=== PATIENT | female | born 1965 | race Hispanic/Latino ===

== ENCOUNTER 2020-01-09 05:32 | Inpatient (IN) | payer OTHER ==
[~2020-01-09] VITALS: Ht 127 cm; Wt 101.6 kg
[2020-01-09] VITALS (15 sets, daily range): BP systolic 98–136; BP diastolic 72–84
[~2020-01-09 05:32] MED LIST: CEFDINIR300 MG PO; FLONASE16 GM; LEVOTHYROXINE50 MCG PO; LYRICA25 MG PO; METFORMIN HCL500 MG PO; NAPROXEN250 MG PO; OXYBUTYNIN CHLO10 MG PO
[2020-01-09] MEDS ORDERED: CEFTRIAXONE SOD 1 GM/NS 50 ML 50 ML IV ONE (05:45)
[2020-01-09] MEDS ORDERED: AZITHROMYCIN 500MG/NS 250 ML 250 ML IV ONE (05:45)
[2020-01-09] MEDS ORDERED: DEXAMETHASONE SOD PHOS 10 MG/1 ML VIAL IV ONE (05:45)
[2020-01-09] MEDS ORDERED: ACETAMINOPHEN 325 MG TAB PO ONE (05:45)
--- OUTSIDE RECORDS SUMMARY | 2020-01-09 06:02 | XMS REPORT | Continuity of Care Document ---
Author Author [facility] t Organization [facility] Address [address] [place] [address] Phone Unavailable Care Team Providers Care Outbound Sales Agent Name Role Phone RosalvaEd Evette Green PCP Unavailable KAMAR PACHECO Attphys Unavailable Problems This patient has no known problems. Allergies, Adverse Reactions, Alerts This patient has no known allergies or adverse reactions. Social History Social Habit Start Date Stop Date Quantity Comments Source Sex Assigned At [facility] Smoking Status Start Date Stop Date Source Never smoker [facility] Medications Ordered Medication Name Filled Medication Name Start Date Stop Da te Current Medication? Ordering Clinician Indication Dosage Frequency Signature (SIG) Comments Components Source acetaminophen-codeine (TYLENOL #3) 300-30 mg per tablet 2017-06-09 00:00:00 Yes 1{tbl} Take 1-2 tablet s by mouth every 6 (six) hours as needed for Pain for up to 10 doses. Max Daily Amount: 8 tablets [facility] ondansetron (ZOFRAN-ODT) 4 MG disintegrating tablet 06-09 00:00:00 Yes 4mg Take 1 tablet (4 mg total) by mouth every 8 (eight) hours as needed for up to 10 doses. [facility] traMADol (ULTRAM) 50 mg tablet 2017-06-09 00:00:00 Yes 50mg Take 1 tablet (50 mg total) by mouth every 6 (six) hours as needed for up to 10 doses. Max Daily Amount: 200 mg [facility] ondansetron (ZOFRAN-ODT) 4 MG disintegrating tablet 06-09 00:00:00 Yes 4mg Take 1 tablet (4 mg total) by mouth every 8 (eight) hours as needed for up to 10 doses. [facility] Procedures This patient has no known procedures. Results Test Description Test Time Test Comments Results Result Comments Source POCT-GLUCOSE METER 2017-06-09 03:04:00 Test Item POC-GLUCOSE METER (CATE) (test code = 1538) 187 mg/dL 70-110 H TESTED AT [facility] [address] [facility] [address] [address], [id number] 22:34:00Reason for exam:->Abdominal painWhat is the patient's sedation requirement?->No SedationIs the patient ?->NoFINAL REPORT CLINICAL HISTORY: Acute abdominal pain, bilateral flank pain FINDINGS: Multiple axial images of the abdomen and pelvis were performed after the uncomplicated administration of IV contrast. Oral contrast was not given. This exam was performed according to our departmental dose-optim ization program, which includes automated exposure control, adjustment of the mA and/or kV according to patient size and/or use of the iterative reconstruction technique. Comparison: 08/27/2012 Lower chest: Clear lungs. No pleural effusion o r pneumothorax. Visualized cardiac contours normal. Liver: No significant findin gs. Gallbladder and biliary tree: Previous cholecystectomy Spleen: No significan t findings. Adrenal Glands: No significant findings. Kidneys and ureters: Subtle focus of heterogeneous hypodense enhancement in the superior pole left kidney. Partially duplicated left renal collecting system. Involution/scarring of the in ferior pole moiety of the left kidney. Stomach and Duodenum: No significant find ings. Pancreas: No significant findings. Bowel: No significant findings. Appendi x: Normal. Bladder: No significant findings. Major vascular structures: No si gnificant findings. Reproductive organs: No significant findings. Other: No dary e air, fluid or adenopathy Skeleton: No acute bony abnormality. IMPRESSION: Subt le focus of heterogeneous hypodense enhancement in the superior pole left kidney could reflect the sequela of pyelonephritis in the appropriate clinical context. There is no organized fluid collection to suggest abscess. Please correlate with urinalysis. Dictated left renal collecting system with involution/atrophy of the inferior pole, possibly scarring. Previous cholecystectomy. Signed: Froylan Betancurort Verified Date/Time: 06/08/2017 22:34:38 Reading Location: [address] Body Reading Room TIC FUNCTION [id number] 21:59:00* Test Item Value Reference Range Interpretation Comments TOTAL PROTEIN (BEAKER) (test code = 770) 7.8 gm/dL 6.0-8.3 ALBUMIN (BEAKER) (test code = 1145) 3.7 g/dL 3.5-5.0 BILIRUBIN TOTAL (BEAKER) (test code = 377) 0.6 mg/dL 0.2-1.2 BILIRUBIN DIRECT (BEAKER) (test code = 706) 0.3 mg/dL 0.1-0.5 ALKALINE PHOSPHATASE (BEAKER) (test code = 346) 146 U/L 40-150 AST (SGOT) (BEAKER) (test code = 353) 60 U/L 5-34 H ALT (SGPT) (BEAKER) (test code = 347) 34 U/L 6-55 URINALYSIS W/ [id number] 21:53:00* Test Item Value Reference Range Interpretation Comments COLOR (BEAKER) (test code = 470) Yellow CLARITY (BEAKER) (test code = 469) Clear SPECIFIC GRAVITY UA (BEAKER) (test code = 468) > 1.001-1 .035 H PH UA (BEAKER) (test code = 467) 7.0 5.0-8.0 PROTEIN UA (BEAKER) (test code = 464) 30 mg/dL Negative A GLUCOSE UA (BEAKER) (test code = 365) 100 mg/dL Negative A KETONES UA (BEAKER) (test code = 371) Negative Negative BILIRUBIN UA (BEAKER) (test code = 462) Negative Negative BLOOD UA (BEAKER) (test code = 461) Negative Negative NITRITE UA (BEAKER) (test code = 465) Negative Negative LEUKOCYTE ESTERASE UA (BEAKER) (test code = 466) Negative Negat edward UROBILINOGEN UA (BEAKER) (test code = 463) 0.2 mg/dL 0.2-1.0 RBC UA (BEAKER) (test code = 519) 0 /HPF WBC UA (BEAKER) (test code = 520) < /HPF BACTERIA (BEAKER) (test code = 517) Occasional MUCUS (BEAKER) (test code = 1574) Moderate SQUAMOUS EPITHELIAL (BEAKER) (test code = 516) 7 /HPF SOURCE(BEAKER) (test code = 2795) Urine, Clean Catch [id number] 20:15:00* Test Item Value Reference Range Interpretation Comments PHOSPHORUS (BEAKER) (test code = 604) 3.1 mg/dL 2.3-4.7 [id number] 20:15:00* Test Item Value Reference Range Interpretation Comments MAGNESIUM (BEAKER) (test code = 627) 1.9 mg/dL 1.6-2.6 BASIC METABOLIC [id number] 20:15:00* Test Item Value Reference Range Interpretation Comments SODIUM (BEAKER) (test code = 381) 136 meq/L 136-145 POTASSIUM (BEAKER) (test code = 379) 4.4 meq/L 3.5-5.1 CHLORIDE (BEAKER) (test code = 382) 104 meq/L 98-107 CO2 (BEAKER) (test code = 355) 26 meq/L 22-29 BLOOD UREA NITROGEN (BEAKER) (test code = 354) 15 mg/dL 7-21 CREATININE (BEAKER) (test code = 358) 0.77 mg/dL 0.57-1.25 GLUCOSE RANDOM (BEAKER) (test code = 652) 232 mg/dL 70-105 H CALCIUM (BEAKER) (test code = 697) 9.9 mg/dL 8.4-10.2 EGFR (BEAKER) (test code = 1092) 79 mL/min/1.73 sq m ESTIMATED GFR IS NOT ACCURATE CREATININE CLEARANCE IN PREDICTING GLOMERULAR FILTRATION RATE. ESTIMATED GFR IS NOT APPLICABLE FOR DIALYSIS PATIENTS. CBC W/PLT COUNT & AUTO [id number] 20:00:00* Test Item Value Reference Range Interpretation Comments WHITE BLOOD CELL COUNT (BEAKER) (test code = 775) 8.7 K/ L 3.5- 10.5 RED BLOOD CELL COUNT (BEAKER) (test code = 761) 4.33 M/ L 3.93-5 .22 HEMOGLOBIN (BEAKER) (test code = 410) 12.7 GM/DL 11.2-15.7 HEMATOCRIT (BEAKER) (test code = 411) 38.6 % 34.1-44.9 MEAN CORPUSCULAR VOLUME (BEAKER) (test code = 753) 89.1 fL 79. 4-94.8 MEAN CORPUSCULAR HEMOGLOBIN (BEAKER) (test code = 751) 29.3 pg 25.6-32.2 MEAN CORPUSCULAR HEMOGLOBIN CONC (BEAKER) (test code = 752) 32.9 GM/DL 32.2-35.5 RED CELL DISTRIBUTION WIDTH (BEAKER) (test code = 412) 12.6 % 11.7-14.4 PLATELET COUNT (BEAKER) (test code = 756) 240 K/CU MM 150-450 MEAN PLATELET VOLUME (BEAKER) (test code = 754) 11.0 fL 9.4-12 .3 NUCLEATED RED BLOOD CELLS (BEAKER) (test code = 413) 0 /100 WBC 0 -0 NEUTROPHILS RELATIVE PERCENT (BEAKER) (test code = 429) 60 % LYMPHOCYTES RELATIVE PERCENT (BEAKER) (test code = 430) 32 % MONOCYTES RELATIVE PERCENT (BEAKER) (test code = 431) 6 % EOSINOPHILS RELATIVE PERCENT (BEAKER) (test code = 432) 2 % BASOPHILS RELATIVE PERCENT (BEAKER) (test code = 437) 1 % NEUTROPHILS ABSOLUTE COUNT (BEAKER) (test code = 670) 5.21 K/ L 1.56-6.13 LYMPHOCYTES ABSOLUTE COUNT (BEAKER) (test code = 414) 2.80 K/ L 1.18-3.74 MONOCYTES ABSOLUTE COUNT (BEAKER) (test code = 415) 0.51 K/ L 0. 24-0.36 H EOSINOPHILS ABSOLUTE COUNT (BEAKER) (test code = 416) 0.13 K/ L 0.04-0.36 BASOPHILS ABSOLUTE COUNT (BEAKER) (test code = 417) 0.04 K/ L 0. 01-0.08 IMMATURE GRANULOCYTES-RELATIVE PERCENT (BEAKER) (test code = 2801) 0 % 0-1
--- OUTSIDE RECORDS SUMMARY | 2020-01-09 06:02 | XMS REPORT | Clinical Summary ---
Author Author [facility] Address Unknown Phone Unavailable Care Team Providers Care Manager College Name Role Phone Norma Blackwell [facility] [employer] PCP Unavailable Allergies No Known Allergies Medications End Date Status Medication Sig Dispensed Refills Start Date Active acetaminophen-codeine Take 1-2 10 tablet 0 01/3 0/201 (TYLENOL #3) 300-30 mg tablets by 8 per tablet mouth every 6 (six) hours as needed for Pain for up to 10 doses. Max Daily Amount: 8 tablets Active ondansetron (ZOFRAN-ODT) Take 1 tablet 10 tablet 0 //201 4 MG disintegrating (4 mg total) 8 tablet by mouth every 8 (eight) hours as needed for up to 10 doses. Active traMADol (ULTRAM) 50 mg Take 1 tablet 10 tablet 0 //201 tablet (50 mg total) 8 by mouth every 6 (six) hours as needed for up to 10 doses. Max Daily Amount: 200 mg Active ondansetron (ZOFRAN-ODT) Take 1 tablet 10 tablet 0 /30/201 4 MG disintegrating (4 mg total) 8 tablet by mouth every 8 (eight) hours as needed for up to 10 doses. Active Problems Not on file Social History Date Tobacco Use Types Packs/Day Years Used Never Smoker Smokeless Tobacco: Never Used Alcohol Use Drinks/Week oz/Week Comments No Sex Assigned at Date Recorded Not on file Industry Job Start Date Occupation Not on file Not on file Not on file Travel End Travel History Travel Start No recent travel history available. Last Filed Vital Signs Not on file Plan of Treatment Not on file Results Not on fileafter 01/08/2019 Insurance Payer Benefit Subscriber ID Type Phone Address Plan / Group [employer] - [employer]GD CARE CIGNA xxxxxxxxxxx HMO/POS HMO/POS/OP EN ACCESS [phone] [facility] [place] [address]
[2020-01-09 06:47] LABS: BASOPHILS % 0.2 % (0.0-1.0); HEMATOCRIT 39.6 % (34.2-44.1); HEMOGLOBIN 12.8 g/dL (12.0-16.0); LYMPHOCYTES % 19.1 % (18.0-39.1); MEAN CORPUSCULAR HEMOGLOBIN 27.6 pg (28-32); MEAN CORPUSCULAR HGB CONC 32.3 g/dL (31-35); MEAN CORPUSCULAR VOLUME 85.5 fL (81-99); MONOCYTES # (AUTO) 0.2 (0.2-0.8); MONOCYTES % 4.7 % (4.4-11.3); NEUTROPHILS # (AUTO) 3.9 (2.1-6.9); NEUTROPHILS % 75.6 % (38.7-80.0); PLATELET COUNT 237 x10e3/uL (140-360); RED BLOOD COUNT 4.63 x10e6/uL (3.6-5.1)
--- NOTE | 2020-01-09 07:02 | NUR ---
Handoff report given to Grabiel FAROOQ
[2020-01-09 07:06] LABS: INR 0.91; PROTHROMBIN TIME 12.7 seconds (11.9-14.5)
[2020-01-09 07:07] LABS: PARTIAL THROMBOPLASTIN TIME 41.1 seconds (23.8-35.5)
[2020-01-09 07:10] LABS: ALANINE AMINOTRANSFERASE 23 IU/L (0-55); ALBUMIN 3.2 g/dL (3.5-5.0); ALBUMIN/GLOBULIN RATIO 0.7 (0.8-2.0); ALKALINE PHOSPHATASE 103 IU/L (40-150); ANION GAP 17.7 mmol/L (8-16); BLOOD UREA NITROGEN 12 mg/dL (7-26); BUN/CREATININE RATIO 17 (6-25); CALCIUM 8.9 mg/dL (8.4-10.2); CARBON DIOXIDE 20 mmol/L (22-29); CHLORIDE 102 mmol/L (98-107); CREATINE KINASE 68 IU/L (29-168); CREATININE, SERUM 0.71 mg/dL (0.57-1.11); EST GLOMERULAR FILTRATION RATE > 60 ML/MIN (60-); GLUCOSE 183 mg/dL (74-118); POTASSIUM 3.7 mmol/L (3.5-5.1); SODIUM 136 mmol/L (136-145)
--- NOTE | 2020-01-09 07:18 | Emergency Department Note ---
History of Present Illnes History of Present Illness Chief Complaint: COVID PUI History of Present Illness This is a 54 year old female 54 Y/O FEMALE PT AAOX3 PRESENTS TO THE ER C/O SOB ONSET THIS AM AT 0200; PT REPORTS COUGH, CP, FEVER/CHILLS, N/V ONSET 3 DAYS AGO; PT STATES SHE WAS TESTED FOR COVID ON 01/06/20 AND PENDING RESULTS, HER PARENTS CAME HERE ON 01/05 AND BOTH TESTED FOR COVID; PT TACHYPNEIC AND SHALLOW RESPIRATIONS; SPO2 50% RA. Historian: Patient Arrival Mode: Car Clinical Asst Required: No Radiation: Reports non-radiation Severity: severe (SOB) Onset quality: gradual Timing of current episode: constant Progression: worsening Chronicity: new Context: Denies recent illness Relieving factors: none Exacerbating factors: none Associated symptoms: Reports chest pain, Reports cough, Reports fever/chills, Reports nausea/vomiting, Reports shortness of breath Treatments prior to arrival: none Past Medical/Family History Physician Review I have reviewed the patient's past medical and family history. Any updates have been documented here. Past Medical History Recent Fever: Yes Clinical Suspicion of Infectio: Yes New/Unexplained Change in Ment: No Past Medical History: Diabetes Other Medical History: Diabetic neuropathy Other Surgery: OVARIAN CYST Social History Smoking Cessation: Never Smoker Counseling Performed: No Alcohol Use: None Any Illegal Drug Use: No TB Exposure/Symptoms: No Physically hurt or threatened: No Family History Family history of heart diseas: No Other Last Tetanus: OOD Any Pre-Existing Lines (PICC,: No Review of Systems Review of Systems Constitutional: Reports no symptoms EENTM: Reports no symptoms Cardiovascular: Reports as per HPI Respiratory: Reports as per HPI Gastrointestinal: Reports no symptoms Genitourinary: Reports no symptoms Musculoskeletal: Reports no symptoms Integumentary: Reports no symptoms Neurological: Reports no symptoms Psychological: Reports no symptoms Endocrine: Reports no symptoms Hematological/Lymphatic: Reports no symptoms Physical Exam Related Data Allergies: Coded Allergies: No Known Allergies (Unverified , 04/07/16) Triage Vital Signs Vital Signs Date Time Temp Pulse Resp B/P (MAP) Pulse Ox O2 Delivery O2 Flow Rate FiO2 01/09/20 05:35 100.0 92 40 119/36 50 Room Air 01/09/20 05:55 40.0 60 Vital signs reviewed: Yes Physical Exam CONSTITUTIONAL Constitutional: Present well-developed, Present well-nourished, Present obese, Present distressed HENT HENT: Present normocephalic, Present atraumatic, Present oropharynx clear/moist, Present nose normal HENT L/R: Present left ext ear normal, Present right ext ear normal EYES Eyes: Reports PERRL, Reports conjunctivae normal NECK Neck: Present ROM normal PULMONARY Pulmonary: Present respiratory distress (TACHYPNEIC), Present rhonchi (DIFFUSE), Present other (DECR BS's THROUGHOUT) CARDIOVASCULAR Cardiovascular: Present regular rhythm, Present heart sounds normal, Present capillary refill normal, Present normal rate GASTROINTESTINAL Abdominal: Present soft, Present nontender, Present bowel sounds normal GENITOURINARY Genitourinary: Present exam deferred SKIN Skin: Present warm, Present dry MUSCULOSKELETAL Musculoskeletal: Present ROM normal NEUROLOGICAL Neurological: Present alert, Present oriented x 3, Present no gross motor or sensory deficits PSYCHOLOGICAL Psychological: Present mood/affect normal, Present judgement normal Results Laboratory Result Diagram: 01/09/20 0600 Laboratory Laboratory Tests Test 01/09/20 06:00 White Blood Count 5.13 x10e3/uL (4.8-10.8) Red Blood Count 4.63 x10e6/uL (3.6-5.1) Hemoglobin 12.8 g/dL (12.0-16.0) Hematocrit 39.6 % (34.2-44.1) Mean Corpuscular Volume 85.5 fL (81-99) Mean Corpuscular Hemoglobin 27.6 pg (28-32) Mean Corpuscular Hemoglobin Concent 32.3 g/dL (31-35) Red Cell Distribution Width 13.0 % (11.7-14.4) Platelet Count 237 x10e3/uL (140-360) Neutrophils (%) (Auto) 75.6 % (38.7-80.0) Lymphocytes (%) (Auto) 19.1 % (18.0-39.1) Monocytes (%) (Auto) 4.7 % (4.4-11.3) Eosinophils (%) (Auto) 0.0 % (0.0-6.0) Basophils (%) (Auto) 0.2 % (0.0-1.0) Neutrophils # (Auto) 3.9 (2.1-6.9) Lymphocytes # (Auto) 1.0 (1.0-3.2) Monocytes # (Auto) 0.2 (0.2-0.8) Eosinophils # (Auto) 0.0 (0.0-0.4) Basophils # (Auto) 0.0 (0.0-0.1) Absolute Immature Granulocyte (auto 0.02 x10e3/uL (0-0.1) Lactic Acid Level 1.7 mmol/L (0.5-2.0) Lab results reviewed: Yes Imaging Imaging results reviewed: Yes Procedures 12 Lead ECG Interpretation ECG Interpretation : ECG: ECG 1 Clinical Asst: Interpreted by ED physician Date: Jan 09, 2020 Time: 04:14 Rhythm: sinus rhythm Rate: normal BPM: 63 QRS axis: normal ST segments normal: Yes T waves normal: Yes Clinical Impression: normal ECG Critical Care Time Total Critical Care Time (min): 45 Critical care time exclusive o: separately billable procedures Critcal care necessary due to: respiratory failure Critcal care time spent by me: discussion w consultants, discussion w primary provider, evaluation patient response to tx, order/perform tx or interventions, order/review laboratory studies, order/review radiographic studies, pulse oximetry, re-evaluation of patient condition Assessment & Plan Medical Decision Making MDM PT WITH TYPICAL COVID SX'S PROGRESSING TO SOB WITH O2 SAT 50% ON ARRIVAL, SHE IS DIABETIC AND OBESE - PT IMMEDIATELY PLACED ON O2 THEN AIR-VO HIGH FLOW NC WITH IMPROVEMENT TO 97% WITH SETTINGS OF 40L AND 60% O2. CHECK CBC, CHEM, CARDIAC ENZYMES, LACTIC ACID, CXR, COVID SWAB, BLOOD/URINE CX'S - R/O CAP, COVID, CHF, STEMI/NSTEMI, SEPSIS. ROCEPHIN/AZITHRO, DECADRON, ADMIT TO ICU Reassessment Reassessment ADMITTED TO DR WOOD, I ALSO SPOKE WITH DR Mahogany HASTINGS AND DR REINOSO Assessment & Plan Final Impression: (1) Hypoxia (2) Pneumonia due to COVID-19 virus Depart Disposition: ADMITTED Last Vital Signs Date Time Temp Pulse Resp B/P (MAP) Pulse Ox O2 Delivery O2 Flow Rate FiO2 01/09/20 06:03 100 40.0 01/09/20 05:55 82 32 108/76 Airvo 60 01/09/20 05:35 100.0 Home Meds Reported Medications Pregabalin (LYRICA) 25 Mg Cap, 25 MG PO DAILY, #30 CAP 04/07/16 Levothyroxine Sodium (LEVOTHYROXINE SODIUM) 50 Mcg Tablet, 25 MCG PO DAILY, #30 TAB 04/07/16 Oxybutynin Chloride (OXYBUTYNIN CHLORIDE ER) 10 Mg Tab.er.24, 10 MG PO DAILY 04/07/16 Metformin Hcl (METFORMIN HCL) 500 Mg Tablet, 500 MG PO BID, #60 TAB 07/09/14 Medications in the ED Ceftriaxone Sodium 50 ml @ 100 mls/hr ONCE ONCE IV Last administered on 01/09/20at 06:48; Admin Dose 100 MLS/HR; Start 01/09/20 at 05:45; Stop 01/09/20 at 06:14; Status DC Azithromycin 250 ml @ 200 mls/hr NOW ONCE IV ; Start 01/09/20 at 05:45; Stop 01/09/20 at 06:59; Status DC Dexamethasone Sodium Phosphate 6 mg ONCE ONCE IV Last administered on 01/09/20at 06:46; Admin Dose 6 MG; Start 01/09/20 at 05:45; Stop 01/09/20 at 05:47; Status DC Acetaminophen 975 mg ONCE ONCE PO Last administered on 01/09/20at 06:45; Admin Dose 975 MG; Start 01/09/20 at 05:45; Stop 01/09/20 at 05:47; Status DC CRISTIAN BORRERO MD Jan 09, 2020 07:18
--- NOTE | 2020-01-09 07:38 | Diagnostic Imaging Report ---
EXAMINATION: CHEST SINGLE (PORTABLE) INDICATION: sob, possible covid 19 COMPARISON: None FINDINGS: Shallow lung volumes. The heart is mildly enlarged. Bilateral hazy and patchy opacities. No pleural effusion. No pneumothorax. IMPRESSION: Patchy and hazy bilateral lung opacities concerning for multifocal pneumonia/viral pneumonia. Pulmonary edema less favored given lack of sizable effusions. Signed by: Simon Moctezuma MD on 01/09/2020 7:34 AM
--- OUTSIDE RECORDS SUMMARY | 2020-01-09 07:40 | XMS REPORT | Continuity of Care Document ---
Author Author [facility] t Organization [facility] Address [address] [place] [phone] Phone Unavailable Care Team Providers Care Box Spring Frame Builder Name Role Phone RosalvaEd Evette Green PCP Unavailable DUNG WOOD Attphys Unavailable KAMAR PACHECO Attphys Unavailable DUNG WOOD Admphys Unavailable Problems This patient has no known problems. Allergies, Adverse Reactions, Alerts This patient has no known allergies or adverse reactions. Social History Social Habit Start Date Stop Date Quantity Comments Source Sex Assigned At [facility] Smoking Status Start Date Stop Date Source Never smoker [facility] Medications Ordered Medication Name Filled Medication Name Start Date Stop Da te Current Medication? Ordering Clinician Indication Dosage Frequency Signature (SIG) Comments Components Source acetaminophen-codeine (TYLENOL #3) 300-30 mg per tablet 2017-06-09 00:00:00 Yes 1{tbl} Take 1-2 tablet s by mouth every 6 (six) hours as needed for Pain for up to 10 doses. Max Daily Amount: 8 tablets [facility] ondansetron (ZOFRAN-ODT) 4 MG disintegrating tablet 06-09 00:00:00 Yes 4mg Take 1 tablet (4 mg total) by mouth every 8 (eight) hours as needed for up to 10 doses. [facility] traMADol (ULTRAM) 50 mg tablet 2017-06-09 00:00:00 Yes 50mg Take 1 tablet (50 mg total) by mouth every 6 (six) hours as needed for up to 10 doses. Max Daily Amount: 200 mg [facility] ondansetron (ZOFRAN-ODT) 4 MG disintegrating tablet 06-09 00:00:00 Yes 4mg Take 1 tablet (4 mg total) by mouth every 8 (eight) hours as needed for up to 10 doses. [facility] Procedures This patient has no known procedures. Results Test Description Test Time Test Comments Results Result Comments Source CHEST SINGLE (PORTABLE) 2020-01-09 07:32:00 [facility] [address] [address] Patient Name: CAPRI FAIRCHILD MR #: [id number] : 1965 Age/Sex: 54/F Req #: [id number] Adm Physician: DUNG WOOD MD Ordered by: LEIGH RAMEY MD Report #: [id number] Location: [facility] Room/Bed: [place] [address] Procedure: [id number] DX/CHEST SINGLE (PORTABLE) Exam Date: 01/09/20 Exam Time: 627 REPORT STATUS: Signed EXAMINATION: CHEST SINGLE (PORTABLE) INDICATION: sob, possible covid 19 COMPARISON: None FINDINGS: Shallow lung volumes. The heart is mildly enlarged. Bilateral hazy and patchy opacities. No pleural effusion. No pneumothorax. IMPRESSION: Patchy and hazy bilateral lung opacities concerning for multifocal pneumonia/viral pneumonia. Pulmonary edema less favored given lack of sizable effusions. Signed by: Kel Thompson MD on 01/09/2020 7:34 AM Dictated By: KEL THOMPSON MD 3 Transcribed By: AARON on 01/09/20733 COPY TO: LEIGH RAMEY MD POCT-GLUCOSE METER 2017-06-09 03:04:00 Test Item POC-GLUCOSE METER (BEAKER) (test code = 1538) 187 mg/dL 70-110 H TESTED AT [address] [address] [address], [id number] 22:34:00Reason for exam:->Abdominal painWhat is the patient's [...] pole, possibly scarring. Previous cholecystectomy. Signed: Froylan Betancur MDReport Verified Date/Time: 06/08/2017 22:34:38 Reading Location: [facility] C013[facility] CT Body Reading Room TIC FUNCTION [id number] 21:59:00* Test Item Value Reference Range Interpretation [...] = 347) 34 U/L 6-55 URINALYSIS W/ [id number] 21:53:00* Test Item Value Reference Range Interpretation [...] (test code = 2795) Urine, Clean Catch [id number] 20:15:00* Test Item Value Reference Range Interpretation Comments PHOSPHORUS (BEAKER) (test code = 604) 3.1 mg/dL 2.3-4.7 [id number] 20:15:00* Test Item Value Reference Range Interpretation Comments MAGNESIUM (BEAKER) (test code = 627) 1.9 mg/dL 1.6-2.6 BASIC METABOLIC [id number] 20:15:00* Test Item Value Reference Range Interpretation [...] DIALYSIS PATIENTS. CBC W/PLT COUNT & AUTO [id number] 20:00:00* Test Item Value Reference Range Interpretation [...]
--- OUTSIDE RECORDS SUMMARY | 2020-01-09 07:40 | XMS REPORT | Clinical Summary ---
Author Author [facility] Address Unknown Phone Unavailable Care Team Providers Care Court Orderly Name Role Phone Norma Blackwell [facility] PCP Unavailable Allergies No Known Allergies Medications [...] CARE [employer] xxxxxxxxxxx HMO/POS HMO/POS/OP EN ACCESS [phone]
[2020-01-09] MEDS ORDERED: ZOLPIDEM TARTRATE 5 MG TAB PO PRN (09:45)
[2020-01-09] MEDS ORDERED: ONDANSETRON HCL INJ 2MG/ML 2ML 2 MG/ML VIAL IV PRN (09:45)
[2020-01-09] MEDS ORDERED: ALBUTEROL SULFATE HFA 8GM INHALATION AEROSOL INH PRN (09:45)
[2020-01-09] MEDS ORDERED: GUAIFENESIN/CODEINE 10 ML CUP PO PRN (09:45)
[2020-01-09] MEDS ORDERED: DEXTROSE 50% SYRINGE 50 ML IV PRN (10:00)
[2020-01-09] MEDS ORDERED: HYDRALAZINE HCL 20 MG/ML VIAL IV PRN (10:15)
[2020-01-09] MEDS ORDERED: POLYETHYLENE GLYCOL 3350 17 GM PACK PO PRN (10:15)
[2020-01-09] MEDS ORDERED: ENOXAPARIN SOD INJ 60 MG/0.6 ML SYR SC SCH ×2 (11:00→21:00)
--- NOTE | 2020-01-09 11:11 | Consultation ---
DATE OF CONSULTATION: Pulmonary Critical Care Consultation CHIEF COMPLAINT: Dyspnea, fevers, and cough for 4 days. HISTORY OF PRESENT ILLNESS: The patient is a 54-year-old woman. She denies any prior respiratory problems. She denies any prior cardiac problems. She reports dyspnea and fever for the past 4 days. She also noticed malaise and some nausea and vomiting. The patient came to the ER and was found to have a low oxygen saturation. She was started on Airvo. Her chest x-ray showed bilateral infiltrates consistent with viral pneumonia and her COVID test was positive. PAST SURGICAL HISTORY: Status post hysterectomy. PAST MEDICAL HISTORY: 1. History of recurrent kidney infections as a child. 2. No prior history of asthma, bronchitis, or respiratory problems. 3. No prior history of cardiac disease. ALLERGIES: NO KNOWN DRUG ALLERGIES. SOCIAL HISTORY: The patient is not a smoker nor she drinker. REVIEW OF SYSTEMS: She reports some fevers as noted above. She has no headache. She has no neck pain. She denies chest pain. She has cough and dyspnea. She does have some nausea and vomiting. She has no abdominal pain. She has no diarrhea. She has no leg edema. PHYSICAL EXAMINATION: VITAL SIGNS: The patient is afebrile. The blood pressure is 100/70, saturation is 96% on Airvo at 40 L with 88% oxygen. HEENT: No facial swelling or erythema. LYMPHATIC: No submandibular, cervical, or supraclavicular adenopathy. CARDIAC: Regular rate and rhythm with normal S1, S2. LUNGS: Auscultation of lungs reveals crackles at the bases. There is no wheezing. ABDOMEN: Soft, nontender. There is no rebound or guarding. EXTREMITIES: No leg edema or calf tenderness. There is no cyanosis or clubbing. SKIN: No rashes. NEUROLOGICAL: No focal abnormalities. LABORATORY DATA: White blood cell count is 5.1, hemoglobin 12.8. The platelet count is 237. The BUN to creatinine ratio is 12 to 0.71 and carbon dioxide is 20. Other electrolytes are within normal limits and the albumin is 3.2. RADIOGRAPHIC DATA: Chest x-ray shows bilateral opacities consistent with viral pneumonia. IMPRESSION: 1. Acute respiratory failure. 2. Viral pneumonia and coronavirus disease-19 infection. 3. Bilateral pleural effusions, possibly suggestive of superimposed congestive heart failure. 4. Elevated blood sugar, possibly suggestive of diabetes. 5. Hypoalbuminemia. PLAN: 1. The patient will continue on Airvo. 2. The patient should be a candidate for remdesivir as well as dexamethasone. 3. Echocardiogram and BMP to rule out any superimposed cardiac disease. 4. Close attention to fluid management. 5. Out of bed as tolerated. MD MEERA Thomas/MODL /[id number]
[2020-01-09] MEDS: DEXAMETHASONE SOD PHOS INJ 4 MG/ML VIAL IV SCH (11:53)
[2020-01-09] MEDS: INSULIN REGULAR, HUMAN 100 UNIT/1 ML 3ML VIAL SQ SCH ×3 (11:53→20:44)
[2020-01-09] MEDS ORDERED: ROCURONIUM BROMIDE 10 MG/ML 5ML VIAL IV ONE (12:30)
[2020-01-09] MEDS ORDERED: SEVOFLURANE INHAL SOLN 250 ML PEN BTL ONE (12:30)
[2020-01-09] MEDS ORDERED: CEFAZOLIN SOD 1 GM VIAL ONE (12:30)
[2020-01-09] MEDS ORDERED: CEFTRIAXONE SOD 1 GM/NS 50 ML 50 ML IV SCH (14:00)
[2020-01-09] MEDS ORDERED: REMDESIVIR 200MG/NS 100ML 200 MG in SODIUM CHLORIDE 0.9% 100 ML 100 ML IV ONE (15:00)
[2020-01-09] MEDS: CEFTRIAXONE SOD 1 GM/NS 50 ML 50 ML IV SCH (16:49)
[2020-01-09] MEDS: FAMOTIDINE 20 MG/2 ML VIAL IV SCH (16:49)
[2020-01-09] MEDS: DOCUSATE SODIUM 100 MG CAP PO SCH (16:49)
[2020-01-09] MEDS: ASCORBIC ACID 500 MG TAB PO SCH (16:50)
[2020-01-09] MEDS: ZINC SULFATE 220 MG CAP PO SCH (16:50)
--- NOTE | 2020-01-09 16:58 | History and Physical ---
PCP: No PCP. CONSULTING PHYSICIANS: 1. Dr. Manan Meehan, with Infectious Disease. 2. Dr. Efren Blakely with Pulmonology. CHIEF COMPLAINT: Shortness of breath. HISTORY OF PRESENT ILLNESS: The patient is a 54-year-old female with severe shortness of breath, dyspnea, and fever for the past 4 days along with malaise and nausea and vomiting. She had a low oxygen saturation in the Emergency Department and was placed on Airvo. Her chest x-ray showed bilateral infiltrates, consistent with viral pneumonia and her COVID test was positive. Her parents, both came here 01/05, and both tested for COVID per documentation. However, the patient states that her mother actually went [place] in [place]. Her mother was positive for COVID. Her father was negative for COVID. PAST MEDICAL HISTORY: Kidney infections as a child, diabetes mellitus, diabetic neuropathy, hypothyroidism, overactive bladder, and morbid obesity. PAST SURGICAL HISTORY: Partial hysterectomy, ovarian cyst removal, tonsillectomy, and cholecystectomy. FAMILY HISTORY: Mother has diabetes mellitus. Father has hypertension. She denies any family history of cancer, DE or CVA. SOCIAL HISTORY: She denies any previous use of tobacco, alcohol, or illicit drugs. ALLERGIES: NO KNOWN ALLERGIES. HOME MEDICATIONS: Include: 1. Metformin 500 mg b.i.d. 2. Lyrica 25 mg daily. 3. Oxybutynin chloride ER 10 mg daily. 4. Levothyroxine sodium 50 mcg daily. REVIEW OF SYSTEMS: A 14-point review of systems was completed. The patient denies any problems with the following systems: Eyes, ears, nose, throat, psychiatric, integumentary, musculoskeletal, neurologic, allergic/immunological, hematologic/lymphatic. The patient states she has had fever and chills. Denies any significant weight loss or weight gain in the last six months. She does have shortness of breath and dyspnea on exertion. She had a cough before, but it went away. GENITOURINARY: She takes oxybutynin for overactive bladder. CARDIOVASCULAR: The patient complains of chest pain, rated 7/10 on a 0-10 pain scale. It is located in the center of her chest without radiation, which started on 01/06 and has been improving. GASTROINTESTINAL: Denies nausea, vomiting, or constipation. She had diarrhea x3 movements on Thursday, her last bowel movement was 01/06. ENDOCRINE: She is known diabetic, takes metformin and short-acting insulin at home. PHYSICAL EXAMINATION: VITAL SIGNS: Temperature 98.3, T-max 100.0, pulse 79, blood pressure 108/75, respirations 18, and oxygen saturation 95% on Airvo, 40 L/min with FiO2 of 88% per previous documentation. Height 4 feet 11 inches, weight 240 pounds, BMI 48.46. GENERAL: Supine in bed, connected to Airvo with peripheral IV. No acute distress. LUNGS: Respiratory pattern currently even unlabored. She has Airvo at 40 L/minute via cannula with FiO2 of 90% and oxygen saturation 95% during encounter. HEENT: EOMI. Oropharynx clear. NECK: Supple. No lymphadenopathy, thyromegaly, or JVD. CARDIOVASCULAR: Regular rate and rhythm. No murmur. ABDOMEN: Bowel sounds positive. Soft, nontender, morbidly obese. EXTREMITIES: No pitting edema. No clubbing, cyanosis, or notable swelling or signs of DVT. NEUROLOGICAL: GCS 15. Nonfocal. LABORATORY DATA: WBCs 5.13, hemoglobin 12.8, hematocrit 39.6, platelets 237. PT 12.7, INR 0.91, PTT 41.1. Sodium 136, potassium 3.7, chloride 102, serum CO2 of 20, anion gap 17.7, BUN 12, creatinine 0.71, estimated GFR greater than 60, glucose 183, lactic acid 1.7. Hemoglobin A1c 9.5%. Fingerstick blood glucose level 232, calcium 8.9, total bilirubin 0.6, AST 50, ALT 23, alkaline phosphatase 103, creatine kinase 68, CK-MB 0.8, troponin I 0.007. B-type natriuretic peptide 64.7, total protein 8, albumin 3.2. SEROLOGY: Coronavirus PCR detected positive on 01/08. Blood cultures x2 have been collected, results are pending. IMAGING/OTHER: A 12-lead EKG showed normal sinus rhythm with a heart rate of 63. Speech therapy to complete a bedside swallow evaluation today is pending. On 01/08, chest x-ray showed patchy and hazy bilateral lung opacities, concerning for multifocal pneumonia/viral pneumonia. Pulmonary edema less favored, given lack of sizable effusions. ASSESSMENT/PLAN: 1. Acute respiratory failure. Pulmonology consulted. Continue to wean oxygen from Airvo to room air as tolerated. 2. Avoid intubation if at all possible, Infectious Disease has been consulted. Continue azithromycin and Rocephin antibiotics. 3. Community-acquired viral pneumonia with COVID-19. The patient seems to be a good candidate for remdesivir and Decadron. Continue vitamin C, vitamin D, zinc sulfate. Continue Lovenox 60 mg subcu q.12 hours. Activity, as tolerated out of bed to bedside commode. Assess swallowing ability. 4. Bilateral pleural effusions, possibly suggestive of congestive heart failure. 5. Monitor chest x-ray results, follow up on echocardiogram results. 6. Uncontrolled type 2 diabetes mellitus with hyperglycemia. Hemoglobin A1c 9.5%. Serum glucose 183. Fingerstick blood glucose 232, regular insulin sliding scale , n.p.o. diet until swallowing ability verified. When able to eat, ADA diet. Maintain nutritional support. 7. Generalized weakness, ambulatory dysfunction, physical therapy evaluation and treatment. 8. Morbid obesity with BMI 48.46. Dietary restrictions. 9. Hypothyroidism, continue home dose of levothyroxine sodium 25 mcg p.o. daily. 10. Billing code [id number]. Time spent 60 minutes. Dictated by Sim Root NP MD MARLA GuzmanP/MODL /[id number]
--- NOTE | 2020-01-09 18:32 | NUR ---
PT DESATS WHEN ON AIRVO. NOTIFIED MD. UPDATED RT.
--- NOTE | 2020-01-09 19:44 | Consultation ---
DATE OF CONSULTATION: REASON FOR CONSULTATION: COVID-19 pneumonia and respiratory failure. HISTORY OF PRESENT ILLNESS: This patient is a very pleasant 54-year-old female with history of obesity and diabetes mellitus. The patient comes in with 4 days of not feeling well. Four days ago, she was in graduation alliance party. There were about 10 people there. She had some nausea and some malaise, fever, had shortness of breath. Came to the emergency room. In the emergency room, she was hypoxemic, started on oxygen and she is currently in intensive care unit, not intubated, but looks comfortable. The patient does have history of obesity, diabetes mellitus. The patient came to the emergency room, she was admitted. PAST MEDICAL HISTORY: Obesity and diabetes mellitus. PAST SURGICAL HISTORY: Hysterectomy. ALLERGIES: NKA. SOCIAL HISTORY: There is no smoking, drug abuse, or alcohol abuse. FAMILY HISTORY: Otherwise, diabetes mellitus. REVIEW OF SYSTEMS: Besides the shortness of breath and the fatigue, she denies any, 14 point otherwise unremarkable. LABORATORY DATA: Reviewed. Chest x-ray reviewed. PHYSICAL EXAMINATION: GENERAL: She is currently alert and oriented, does not seem to be in acute distress. VITAL SIGNS: Stable. Currently afebrile. When she first came, it was 100. HEENT: Normocephalic. NECK: Supple. CHEST: Crackles bilateral. HEART: S1, S2. ABDOMEN: Soft. Bowel sounds present. EXTREMITIES: No edema. SKIN: No rash. IMPRESSION: Respiratory failure, COVID-19, diabetes mellitus. RECOMMENDATION: 1. Rocephin 1 g daily five days. 2. Azithromycin 5 mg daily for 3 days. 3. Dexamethasone 6 mg daily for 10 days. 4. Oxygen as needed. 5. Lovenox 40 mg subcutaneously q.24 hours. Discussed with the patient the 2 investigational drug available for her, remdesivir as well as convalescent plasma, we went over them. The patient is interested in remdesivir but she does not want convalescent plasma. She understands still investigational drug, the remdesivir, the investigational drug approved by the FDA. She consented for it. She is aware about the potential side-effect as well as we will keep a close eye on her. We are going to give 200 mg IV piggyback now, then 100 mg IV piggyback daily to finish 5 days. Oxygen as needed. We will follow. MD ULISSES Leos /[id number]
[2020-01-09] MEDS: ENOXAPARIN SOD INJ 40 MG/0.4 ML SYR SC SCH (20:42)
[2020-01-10] VITALS (24 sets, daily range): BP systolic 110–140; BP diastolic 60–81
--- NOTE | 2020-01-10 04:33 | NUR ---
Addendum to H&P dictated 01/09/2020: PPX: Lovenox, Pepcid. Patient seen in [facility] ICU Bed 13. Billing code [id number] (NOT code [id number]). Time spent 60 minutes.
[2020-01-10] MEDS: AZITHROMYCIN 500MG/NS 250 ML 250 ML IV SCH (05:15)
[2020-01-10 05:57] LABS: HEMATOCRIT 41.3 % (34.2-44.1); HEMOGLOBIN 13.3 g/dL (12.0-16.0); LYMPHOCYTES % 9.2 % (18.0-39.1); MEAN CORPUSCULAR HEMOGLOBIN 28.1 pg (28-32); MEAN CORPUSCULAR HGB CONC 32.2 g/dL (31-35); MEAN CORPUSCULAR VOLUME 87.3 fL (81-99); MONOCYTES # (AUTO) 0.5 (0.2-0.8); MONOCYTES % 4.5 % (4.4-11.3); NEUTROPHILS # (AUTO) 8.9 (2.1-6.9); NEUTROPHILS % 85.7 % (38.7-80.0); PLATELET COUNT 239 x10e3/uL (140-360); RED BLOOD COUNT 4.73 x10e6/uL (3.6-5.1); RED CELL DISTRIBUTION WIDTH 12.7 % (11.7-14.4)
[2020-01-10] MEDS ORDERED: LEVOTHYROXINE SODIUM 25 MCG TABLET PO SCH (06:00)
[2020-01-10 06:33] LABS: ALANINE AMINOTRANSFERASE 21 IU/L (0-55); ALKALINE PHOSPHATASE 109 IU/L (40-150); ANION GAP 17.9 mmol/L (8-16); BLOOD UREA NITROGEN 16 mg/dL (7-26); BUN/CREATININE RATIO 24 (6-25); CALCIUM 9.4 mg/dL (8.4-10.2); CARBON DIOXIDE 20 mmol/L (22-29); CHLORIDE 104 mmol/L (98-107); CREATININE, SERUM 0.67 mg/dL (0.57-1.11); EST GLOMERULAR FILTRATION RATE > 60 ML/MIN (60-); GLUCOSE 173 mg/dL (74-118); POTASSIUM 3.9 mmol/L (3.5-5.1); SODIUM 138 mmol/L (136-145)
[2020-01-10 07:35] LABS: ALBUMIN 3.9 g/dL (3.5-5.0); ALBUMIN/GLOBULIN RATIO 1.1 (0.8-2.0)
[2020-01-10] MEDS: INSULIN REGULAR, HUMAN 100 UNIT/1 ML 3ML VIAL SQ SCH ×4 (07:43→20:42)
[2020-01-10 08:03] LABS: CHOL/HDL RATIO 3.7 (3.0-3.6); MAGNESIUM 2.2 MG/DL (1.3-2.1); PHOSPHORUS 3.6 MG/DL (2.3-4.7)
--- NOTE | 2020-01-10 08:22 | Diagnostic Imaging Report ---
TECHNIQUE: Frontal view of the chest. INDICATION: ^Y ^PNEUMONIA ^20200110 ^0600 ^Y COMPARISON: Prior day. DISCUSSION: Limited evaluation due to portable technique. Lines and hardware: Overlying EKG leads are noted. Heart and mediastinum: Stable. Lungs and pleura: There is interval worsening of bilateral perihilar and lower lobe predominant interstitial and alveolar airspace opacities. Negative for large effusion or pneumothorax. Soft tissues and bones: No acute abnormality. IMPRESSION: Interval worsening of bilateral ill-defined airspace opacities. Negative for large effusion or pneumothorax. Signed by: Jamal Sinha MD on 01/10/2020 8:19 AM
[2020-01-10 08:23] LABS: THYROID STIMULATING HORMONE 0.326 uIU/mL (0.350-4.940)
[2020-01-10] MEDS: DEXAMETHASONE SOD PHOS INJ 4 MG/ML VIAL IV SCH (09:03)
[2020-01-10] MEDS: CEFTRIAXONE SOD 1 GM/NS 50 ML 50 ML IV SCH (09:04)
[2020-01-10] MEDS: FAMOTIDINE 20 MG/2 ML VIAL IV SCH ×2 (09:04→16:53)
[2020-01-10] MEDS: CHOLECALCIFEROL 400 UNIT TAB PO SCH (09:04)
[2020-01-10] MEDS: ZINC SULFATE 220 MG CAP PO SCH ×2 (09:04→16:53)
[2020-01-10] MEDS: ASCORBIC ACID 500 MG TAB PO SCH ×2 (09:04→16:53)
[2020-01-10] MEDS: DOCUSATE SODIUM 100 MG CAP PO SCH ×2 (09:04→16:53)
[2020-01-10] MEDS: ENOXAPARIN SOD INJ 40 MG/0.4 ML SYR SC SCH ×2 (09:04→20:30)
--- NOTE | 2020-01-10 12:02 | NUR ---
ST Note: Pt sleeping, on high flow mask. Spoke with RN re: diet tolerance and recommendations. Per report, pt without s/s of aspiration. Will f/u as indicated.
--- NOTE | 2020-01-10 12:17 | Progress Note ---
DATE: SUBJECTIVE: The patient is currently on a BiPAP. Her BiPAP is set at 12/5 with 100%. She is not tachypneic or tachycardic. PHYSICAL EXAMINATION: VITAL SIGNS: The blood pressure is 128/73 and saturation is 92%. Pulse is 75. HEENT: Shows no facial swelling or erythema. The oropharynx is normal. LYMPHATIC: Shows no submandibular, cervical, or supraclavicular adenopathy. CARDIAC: Reveals regular rate and rhythm with normal S1 and S2. LUNGS: Auscultation of lungs reveals crackles and rhonchi at the bases. There is no wheezing. ABDOMEN: Soft and nontender. There is no rebound or guarding. EXTREMITIES: Shows no leg edema or calf tenderness. There is no cyanosis or clubbing. SKIN: Shows no rashes. LABORATORY DATA: The BUN to creatinine ratio is normal. The other electrolytes are within normal limits. The white blood cell count is 10.3 and the hemoglobin is 13.3. The platelet count is 239. RADIOGRAPHIC DATA: Chest x-ray shows bilateral infiltrates. IMPRESSION: 1. Acute respiratory failure. 2. Viral pneumonia and COVID-19 infection. 3. Diabetes with elevated hemoglobin A1c. 4. Obstructive sleep apnea. PLAN: 1. Switch the patient back to Airvo and place in the prone position. 2. Complete remdesivir. 3. Complete dexamethasone. 4. Complete antibiotics. 5. Monitor and control blood sugars. 6. Case discussed with nursing, Respiratory, Internal Medicine, Infectious Disease, and administration. Greater than 35 minutes in direct critical care time. Efren Blakely MD [facility]/DHEERAJL /[id number]
[2020-01-10] MEDS: REMDESIVIR 100MG/NS 100ML 100 MG in SODIUM CHLORIDE 0.9% 100 ML 100 ML IV SCH (14:00)
--- NOTE | 2020-01-10 16:19 | Progress Note ---
DATE: SUBJECTIVE: Ms. Fairchild is feeling better. She is on a BiPAP set at 12-5 at 100%, but she is comfortable. Discussed with the patient. Encouraged her to take a deep breath and cough as well as prone. Discussed with the nurse. The patient, who is currently alert. OBJECTIVE: VITAL SIGNS: Stable, currently afebrile, heart rate 75, O2 saturation at 92%. HEENT: Normocephalic, not icteric. NECK: Supple. CHEST: Crackles bilateral. HEART: S1 and S2. ABDOMEN: Soft and obese. No tenderness. EXTREMITIES: No edema. SKIN: No rash. LABORATORY DATA: Her white count is 10, hemoglobin 13, and platelet 239. Chest x-ray reviewed. IMPRESSION: Respiratory failure, COVID-19, diabetes mellitus, obesity, obstructive sleep apnea. To finish 5 days of remdesivir. To finish 5 days of Rocephin. Continue with Lovenox. Continue with dexamethasone. Recheck CBC. Recheck chem panel. We will follow. MD ALESSANDRO Leos/MODL /[id number]
[2020-01-10 18:40] LABS: COLOR,URINE GREEN (YELLOW)
[2020-01-10 18:41] LABS: BILIRUBIN,URINE LARGE (NEGATIVE); CLARITY,URINE TURBID (CLEAR); KETONES,URINE 1+ (NEGATIVE); LEUKOCYTE ESTERASE ,URINE LARGE (NEGATIVE); NITRITE,URINE NEGATIVE (NEGATIVE); PROTEIN,URINE DIPSTICK 2+ (NEGATIVE); URINE UROBILINOGEN 4 mg/dL (0.2 - 1)
[2020-01-10 19:13] LABS: AMORPHOUS SEDIMENT,URINE MODERATE (FEW); BACTERIA,URINE MODERATE /HPF; EPITHELIAL CELLS,URINE FEW /LPF
[2020-01-10] MEDS ORDERED: INSULIN GLARGINE 100 UNITS/ML VIAL SQ SCH (21:00)
[2020-01-11] VITALS (23 sets, daily range): BP systolic 99–144; BP diastolic 53–89
[2020-01-11] MEDS: TEMAZEPAM 15 MG CAP PO PRN (00:14)
--- NOTE | 2020-01-11 04:22 | NUR ---
Date of Service: 01/10/2020 PCP: No PCP. ATTENDING PHYSICIAN: Dr. Kvng Doherty CONSULTING PHYSICIANS: 1. Dr. Manan Meehan, with Infectious Disease. 2. Dr. Efren Blakely with Pulmonology. CHIEF COMPLAINT: Shortness of breath. HISTORY OF PRESENT ILLNESS: The patient is a 54-year-old female with severe shortness of breath, dyspnea, and fever for the past 4 days along with malaise and nausea and vomiting. She had a low oxygen saturation in the Emergency Department and was placed on Airvo. Her chest x-ray showed bilateral infiltrate s, consistent with viral pneumonia and her COVID test was positive. Her parents, both came here 01/05, and both tested for COVID per documentation. However, the patient states that her mother actually went to [place] in [place]. Her mother was positive for COVID. Her father was negative for COVID. ALLERGIES: NO KNOWN ALLERGIES. REVIEW OF SYSTEMS: A 14-point review of systems was completed. She does have shortness of breath and dyspnea on exertion. She had a cough before, but it went away. GENITOURINARY: She takes oxybutynin for overactive bladder. CARDIOVASCULAR: The patient complains of chest pain at times. It is located in the center of her chest without radiation, which started on 01/06 and has been improving. GASTROINTESTINAL: Denies nausea, vomiting, or constipation. She had diarrhea x3 movements on Thursday, her last bowel movement was 01/06. ENDOCRINE: She is known diabetic, takes metformin and short-acting insulin at home. PHYSICAL EXAMINATION: VITAL SIGNS: Temperature 97.3, pulse 76, blood pressure 124/78, respirations 25, and oxygen saturation 94% . On Bipap 12/ with resp rate 20 bpm, FiO2 of 100% per previous documentation. Height 4 feet, weight 240 pounds, BMI 48.46. GENERAL: Supine in bed, connected to Bipap with peripheral IV. No acute distress. LUNGS: Respiratory pattern currently even unlabored. HEENT: EOMI. Oropharynx clear. NECK: Supple. No lymphadenopathy, thyromegaly, or JVD. CARDIOVASCULAR: Regular rate and rhythm. No murmur. ABDOMEN: Bowel sounds positive. Soft, nontender, morbidly obese. EXTREMITIES: No pitting edema. No clubbing, cyanosis, or notable swelling or signs of DVT. NEUROLOGICAL: GCS 15. Nonfocal. LABORATORY DATA: 01/09 WBCs 10.3, Neutrophils 85.7, Glucose 173 01/08 WBCs 5.13, hemoglobin 12.8, hematocrit 39.6, platelets 237. PT 12.7, INR 0.91, PTT 41.1. Sodium 136, potassium 3.7, chloride 102, serum CO2 of 20, anion gap 17.7, BUN 12, creatinine 0.71, estimated GFR greater than 60, glucose 183, lactic acid 1.7. Hemoglobin A1c 9.5%. Fingerstick blood glucose level 232, calcium 8.9, total bilirubin 0.6, AST 50, ALT 23, alkaline phosphatase 103, creatine kinase 68, CK-MB 0.8, troponin I 0.007. B-type natriuretic peptide 64.7, total protein 8, albumin 3.2. SEROLOGY: Coronavirus PCR detected positive on 01/08. Blood cultures x2 have been collected, results are pending. IMAGING/OTHER: A 12-lead EKG showed normal sinus rhythm with a heart rate of 63. Speech therapy to complete a bedside swallow evaluation today is pending. On 01/08, chest x-ray showed patchy and hazy bilateral lung opacities, concerning for multifocal pneumonia/viral pneumonia. Pulmonary edema less favored, given lack of sizable effusions. ASSESSMENT/PLAN: 1. Acute respiratory failure. Pulmonology consulted. Continue to wean oxygen from Airvo to room air as tolerated. Avoid intubation if at all possible, Infectious Disease has been consulted. Continue azithromycin and Rocephin antibiotics. 2. Community-acquired viral pneumonia with COVID-19. The patient seems to be a good candidate for remdesivir and Decadron. Continue vitamin C, vitamin D, zinc sulfate. Continue Lovenox 60 mg subcu q.12 hours. Activity, as tolerated out of bed to bedside commode. Assess swallowing ability. 3. Bilateral pleural effusions, possibly suggestive of congestive heart failure. 4. Monitor chest x-ray results, follow up on echocardiogram results. 5. Uncontrolled type 2 diabetes mellitus with hyperglycemia. Hemoglobin A1c 9.5%. Serum glucose 183. Fingerstick blood glucose 232, regular insulin sliding scale , n.p.o. diet until swallowing ability verified. When able to eat, ADA diet. Maintain nutritional support. 6. Generalized weakness, ambulatory dysfunction, physical therapy evaluation and treatment. 8. Morbid obesity with BMI 48.46. Dietary restrictions. 9. Hypothyroidism, continue home dose of levothyroxine sodium 25 mcg p.o. daily. Billing code [id number]. Time spent 60 minutes.
[2020-01-11 04:33] LABS: BASOPHILS % 0.1 % (0.0-1.0); HEMATOCRIT 40.3 % (34.2-44.1); HEMOGLOBIN 12.9 g/dL (12.0-16.0); LYMPHOCYTES # (AUTO) 1.3 (1.0-3.2); LYMPHOCYTES % 9.4 % (18.0-39.1); MEAN CORPUSCULAR HEMOGLOBIN 27.7 pg (28-32); MEAN CORPUSCULAR VOLUME 86.5 fL (81-99); MONOCYTES # (AUTO) 0.6 (0.2-0.8); MONOCYTES % 4.5 % (4.4-11.3); NEUTROPHILS # (AUTO) 11.9 (2.1-6.9); NEUTROPHILS % 85.6 % (38.7-80.0); PLATELET COUNT 292 x10e3/uL (140-360); RED BLOOD COUNT 4.66 x10e6/uL (3.6-5.1); RED CELL DISTRIBUTION WIDTH 12.7 % (11.7-14.4)
[2020-01-11 04:47] LABS: ALBUMIN 3.7 g/dL (3.5-5.0)
[2020-01-11] MEDS: AZITHROMYCIN 500MG/NS 250 ML 250 ML IV SCH (04:54)
[2020-01-11 04:55] LABS: ALANINE AMINOTRANSFERASE 16 IU/L (0-55); ALKALINE PHOSPHATASE 123 IU/L (40-150); ANION GAP 17.9 mmol/L (8-16); BLOOD UREA NITROGEN 17 mg/dL (7-26); BUN/CREATININE RATIO 27 (6-25); CALCIUM 9.3 mg/dL (8.4-10.2); CARBON DIOXIDE 22 mmol/L (22-29); CHLORIDE 105 mmol/L (98-107); CREATININE, SERUM 0.64 mg/dL (0.57-1.11); EST GLOMERULAR FILTRATION RATE > 60 ML/MIN (60-); GLUCOSE 121 mg/dL (74-118); POTASSIUM 3.9 mmol/L (3.5-5.1); SODIUM 141 mmol/L (136-145)
--- NOTE | 2020-01-11 05:26 | NUR ---
Addendum to 01/09 Progress Note: Inpatient, Billing code [id number], Time spent 35 minutes.
[2020-01-11] MEDS: LEVOTHYROXINE SODIUM 25 MCG TABLET PO SCH (05:29)
[2020-01-11] MEDS: INSULIN REGULAR, HUMAN 100 UNIT/1 ML 3ML VIAL SQ SCH ×4 (07:36→20:20)
--- NOTE | 2020-01-11 08:14 | Diagnostic Imaging Report ---
TECHNIQUE: Frontal view of the chest. INDICATION: ^resp failure ^20200111 ^0500 COMPARISON: Prior day. DISCUSSION: Limited evaluation due to portable technique. Lines and hardware: Overlying EKG leads are noted. Heart and mediastinum: Stable. Lungs and pleura: There is interval worsening of bilateral diffuse interstitial and alveolar airspace opacities. Negative for large effusion or pneumothorax. Soft tissues and bones: No acute abnormality. IMPRESSION: Interval worsening of bilateral ill-defined airspace opacities which are now diffusely visualized in the apex of the lung bases. Previously there was a perihilar and lower lobe predominance. Signed by: Jamal Sinha MD on 01/11/2020 8:11 AM
[2020-01-11] MEDS: ZINC SULFATE 220 MG CAP PO SCH ×2 (08:28→17:02)
[2020-01-11] MEDS: FAMOTIDINE 20 MG/2 ML VIAL IV SCH ×2 (08:28→17:02)
[2020-01-11] MEDS: CEFTRIAXONE SOD 1 GM/NS 50 ML 50 ML IV SCH (08:28)
[2020-01-11] MEDS: DEXAMETHASONE SOD PHOS INJ 4 MG/ML VIAL IV SCH (08:28)
[2020-01-11] MEDS: CHOLECALCIFEROL 400 UNIT TAB PO SCH (08:28)
[2020-01-11] MEDS: DOCUSATE SODIUM 100 MG CAP PO SCH ×2 (08:28→17:02)
[2020-01-11] MEDS: ENOXAPARIN SOD INJ 40 MG/0.4 ML SYR SC SCH ×2 (08:28→20:15)
[2020-01-11] MEDS: ASCORBIC ACID 500 MG TAB PO SCH ×2 (08:28→17:02)
--- NOTE | 2020-01-11 09:11 | Progress Note ---
DATE: SUBJECTIVE: The patient has remained on BiPAP overnight. Her oxygen saturations have been low, but she does not complain of dyspnea or discomfort. She is not having fevers. PHYSICAL EXAMINATION: VITAL SIGNS: The blood pressure is 136/83 and saturation is now 97% on BiPAP. Her pulse is 76. HEENT: Shows no facial swelling or erythema. The oropharynx is normal. LYMPHATIC: Shows no submandibular, cervical, or supraclavicular adenopathy. CARDIAC: Reveals regular rate and rhythm with normal S1 and S2. LUNGS: Auscultation of lungs reveals decreased breath sounds at the bases. There is no wheezing. ABDOMEN: Soft and nontender. There is no rebound or guarding. EXTREMITIES: Shows no leg edema or calf tenderness. There is no cyanosis or clubbing. SKIN: Shows no rashes. NEUROLOGICAL: Shows no focal abnormalities. LABORATORY DATA: White blood cell count is 13.8 and the hemoglobin is 12.9. The platelet count is 292. The BUN to creatinine ratio is 16 to 0.64. Other electrolytes are within normal limits. Urinalysis significant for 10 to 20 white blood cells. RADIOGRAPHIC DATA: Chest x-ray shows worsening bilateral infiltrates. Preliminary echocardiogram report shows a normal left ventricular function with no valvular abnormalities. IMPRESSION: 1. Acute respiratory failure. 2. Viral pneumonia and COVID-19 infection. 3. Diabetes with significant hyperglycemia. 4. Obstructive sleep apnea. PLAN: 1. The patient will be placed on Airvo. She will also be placed in the prone position. Discussed this personally with the nursing staff. 2. Complete remdesivir. 3. Complete dexamethasone. 4. Complete antibiotics. 5. Monitor and control blood sugars. 6. The patient will be moved from COVID ICU to the general ICU for closer observation. 7. Case discussed with nursing, Respiratory, Infectious Disease, and family. Greater than 35 minutes in direct critical care time. MD MEERA Thomas/MARIA ELENA /[id number]
--- NOTE | 2020-01-11 10:45 | NUR ---
ST Note: New order for bedside swallow eval noted. Pt known to this service. Pt currently in prone position and so not appropriate for po intake. Will f/u as able.
--- NOTE | 2020-01-11 13:40 | NUR ---
Jennie Pedro to assist with discharge - [phone] [facility] [id number]
--- NOTE | 2020-01-11 14:23 | NUR ---
She is not having fevers. PHYSICAL EXAMINATION: VITAL SIGNS: The blood pressure is 136/83 and saturation is now 97% on BiPAP. Her pulse is 76. HEENT: Shows no facial swelling or erythema. The oropharynx is normal. LYMPHATIC: Shows no submandibular, cervical, or supraclavicular adenopathy. CARDIAC: Reveals regular rate and rhythm with normal S1 and S2. LUNGS: Auscultation of lungs reveals decreased breath sounds at the bases. There is no wheezing. ABDOMEN: Soft and nontender. There is no rebound or guarding. EXTREMITIES: Shows no leg edema or calf tenderness. There is no cyanosis or clubbing. SKIN: Shows no rashes. NEUROLOGICAL: Shows no focal abnormalities. LABORATORY DATA: White blood cell count is 13.8 and the hemoglobin is 12.9. The platelet count is 292. The BUN to creatinine ratio is 16 to 0.64. Other electrolytes are within normal limits. Urinalysis significant for 10 to 20 white blood cells. RADIOGRAPHIC DATA: Chest x-ray shows worsening bilateral infiltrates. Preliminary echocardiogram report shows a normal left ventricular function with no valvular abnormalities.
[2020-01-11] MEDS: REMDESIVIR 100MG/NS 100ML 100 MG in SODIUM CHLORIDE 0.9% 100 ML 100 ML IV SCH (14:26)
--- NOTE | 2020-01-11 15:48 | Progress Note ---
DATE: SUBJECTIVE: Ms. Fairchild is doing better, in the intensive care unit, still on BiPAP. She is proning now. OBJECTIVE: VITAL STABLE: Afebrile. HEENT: Normocephalic. NECK: Supple. CHEST: Few crackles. HEART: S1 and S2. ABDOMEN: Soft. Bowel sounds present. EXTREMITIES: No edema. LABORATORY DATA: Reviewed, chart reviewed. IMAGING: Echocardiogram also reviewed. IMPRESSION: 1. COVID-19. 2. Respiratory failure. 3. Obesity. 4. Diabetes mellitus. PLAN: Continue with plan as ordered. Continue with remdesivir as the patient does not want convalescent plasma. I called the because I think he asked for it, but it is ultimately to the patient to make a decision. Her white count slightly high today. We will follow. MD ALESSANDRO Leos/MARIA ELENA /[id number]
[2020-01-11] MEDS: INSULIN GLARGINE 100 UNITS/ML VIAL SQ SCH (20:17)
--- NOTE | 2020-01-11 22:45 | NUR ---
Patient is placed on prone position with airvo oxygenation. Patient is tolerating position well, SpO2 92%-94%
[2020-01-12] VITALS (14 sets, daily range): BP systolic 87–126; BP diastolic 51–81
--- NOTE | 2020-01-12 03:04 | NUR ---
Patient transferred to general ICU bed 194.
[2020-01-12 04:38] LABS: BASOPHILS % 0.2 % (0.0-1.0); LYMPHOCYTES # (AUTO) 1.1 (1.0-3.2); MEAN CORPUSCULAR HEMOGLOBIN 27.1 pg (28-32); MEAN CORPUSCULAR HGB CONC 31.6 g/dL (31-35); MONOCYTES # (AUTO) 0.3 (0.2-0.8); NEUTROPHILS # (AUTO) 9.2 (2.1-6.9); NEUTROPHILS % 86.2 % (38.7-80.0); PLATELET COUNT 311 x10e3/uL (140-360); RED BLOOD COUNT 4.42 x10e6/uL (3.6-5.1); RED CELL DISTRIBUTION WIDTH 12.9 % (11.7-14.4)
[2020-01-12 05:01] LABS: ALANINE AMINOTRANSFERASE 14 IU/L (0-55); ALBUMIN 3.4 g/dL (3.5-5.0); ALBUMIN/GLOBULIN RATIO 0.9 (0.8-2.0); ALKALINE PHOSPHATASE 103 IU/L (40-150); ANION GAP 16.2 mmol/L (8-16); BLOOD UREA NITROGEN 19 mg/dL (7-26); BUN/CREATININE RATIO 32 (6-25); CALCIUM 8.8 mg/dL (8.4-10.2); CARBON DIOXIDE 21 mmol/L (22-29); CHLORIDE 109 mmol/L (98-107); EST GLOMERULAR FILTRATION RATE > 60 ML/MIN (60-); GLUCOSE 107 mg/dL (74-118); POTASSIUM 3.2 mmol/L (3.5-5.1); SODIUM 143 mmol/L (136-145)
--- NOTE | 2020-01-12 05:23 | NUR ---
User: Sim Root Date: 01/11/20 04:22 Type: Medical Provider Notes Date of Service: 01/11/2020 PCP: No PCP. ATTENDING PHYSICIAN: Dr. Kvng Doherty CONSULTING PHYSICIANS: 1. Dr. Manan Meehan, with Infectious Disease. 2. Dr. Efren Blakely with Pulmonology. CHIEF COMPLAINT: Shortness of breath. HISTORY OF PRESENT ILLNESS: The patient is a 54-year-old female with severe shortness of breath, dyspnea, and fever for the 4 days prior to admission along with malaise and nausea and vomiting. She had a low oxygen saturation in the Emergency Department and was placed on Airvo. Her chest x-ray showed galo ateral infiltrates, consistent with viral pneumonia and her COVID test was positive. Her parents, both came here 01/05, and both tested for COVID per documentation. However, the patient states that her mother actually went to [place] in [place]. Her mother was positive for COVID. Her father was negative for COVID. ALLERGIES: NO KNOWN ALLERGIES. REVIEW OF SYSTEMS: A 14-point review of systems was completed. She does have shortness of breath and dyspnea on exertion. She had a cough before, but it went away. GENITOURINARY: She takes oxybutynin for overactive bladder. CARDIOVASCULAR: The patient reports having chest pain at times. It is located in the center of her chest without radiation, which started on 01/06 and has been improving. GASTROINTESTINAL: Denies nausea, vomiting, or constipation. She had diarrhea x3 movements on Thursday, her last bowel movement was on or about 01/06. ENDOCRINE: She is known diabetic, takes metformin and short-acting insulin at home. PHYSICAL EXAMINATION: VITAL SIGNS: Temperature 98.8, pulse 77, blood pressure 141/86, respirations 36, and oxygen saturation 93% on Airvo. Height 4 feet, weight 240 pounds, BMI 48.46. GENERAL: Supine in bed, connected to Bipap with peripheral IV. No acute distress. LUNGS: Respiratory pattern currently even unlabored. On Airvo 60 lpm, FiO2 90%. HEENT: EOMI. Oropharynx clear. NECK: Supple. No lymphadenopathy, thyromegaly, or JVD. CARDIOVASCULAR: Regular rate and rhythm. No murmur. ABDOMEN: Bowel sounds positive. Soft, nontender, morbidly obese. EXTREMITIES: No pitting edema. No clubbing, cyanosis, or notable swelling or signs of DVT. NEUROLOGICAL: GCS 15. Nonfocal. LABORATORY DATA: 01/10 WBC 13.8, Neutrophils 85.6%, chemistry WNL 01/09 WBCs 10.3, Neutrophils 85.7%, Glucose 121 01/08 WBCs 5.13, hemoglobin 12.8, hematocrit 39.6, platelets 237. PT 12.7, INR 0.91, PTT 41.1. Sodium 136, potassium 3.7, chloride 102, serum CO2 of 20, anion gap 17.7, BUN 12, creatinine 0.71, estimated GFR greater than 60, glucose 183, lactic acid 1.7. Hemoglobin A1c 9.5%. Fingerstick blood glucose level 232, calcium 8.9, total bilirubin 0.6, AST 50, ALT 23, alkaline phosphatase 103, creatine kinase 68, CK-MB 0.8, troponin I 0.007. B-type natriuretic peptide 64.7, total protein 8, albumin 3.2. SEROLOGY: Coronavirus PCR detected positive on 01/08. Blood cultures x2 have been collected, final results are pending. IMAGING/OTHER: 01/10 CXR: Interval worsening of bilateral ill-defined airspace opacities which are now diffusely visualized in the apex of the lung bases. Previously there was a perihilar and lower lobe predominance. A 12-lead EKG showed normal sinus rhythm with a heart rate of 63. Speech Therapy: bedside swallow evaluation. 01/08 CXR: Patchy and hazy bilateral lung opacities, concerning for multifocal pneumonia/viral pneumonia. Pulmonary edema less favored, given lack of sizable effusions. ASSESSMENT/PLAN: 1. Acute respiratory failure. Pulmonology consulted. Continue to wean oxygen from Airvo to room air as tolerated. Avoid intubation if at all possible, Infectious Disease has been consulted. Continue azithromycin and Rocephin antibiotics. 2. Community-acquired viral pneumonia with COVID-19. The patient seems to be a good candidate for remdesivir and Decadron. Continue vitamin C, vitamin D, zinc sulfate. Continue Lovenox 60 mg subcu q.12 hours. Activity, as tolerated out of bed to bedside commode. Assess swallowing ability. 3. Bilateral pleural effusions, possibly suggestive of CHF. 4. Monitor chest x-ray results, follow up on echocardiogram results. 5. Uncontrolled T2DM with hyperglycemia: Hemoglobin A1c 9.5%. Serum glucose 121. swallowing ability verified, on ADA diet. Maintain nutritional support. 6. Generalized weakness, ambulatory dysfunction, physical therapy evaluation and treatment. 8. Morbid obesity with BMI 48.46. Dietary restrictions. 9. Hypothyroidism, continue home dose of levothyroxine sodium 25 mcg p.o. daily. Billing code [id number]. Time spent 60 minutes.
[2020-01-12] MEDS: AZITHROMYCIN 500MG/NS 250 ML 250 ML IV SCH (05:29)
[2020-01-12] MEDS: LEVOTHYROXINE SODIUM 25 MCG TABLET PO SCH (06:50)
[2020-01-12] MEDS: INSULIN REGULAR, HUMAN 100 UNIT/1 ML 3ML VIAL SQ SCH ×4 (07:30→21:25)
[2020-01-12] MEDS: ENOXAPARIN SOD INJ 40 MG/0.4 ML SYR SC SCH (08:21)
[2020-01-12] MEDS: CEFTRIAXONE SOD 1 GM/NS 50 ML 50 ML IV SCH (08:21)
[2020-01-12] MEDS: FAMOTIDINE 20 MG/2 ML VIAL IV SCH ×2 (08:21→18:11)
[2020-01-12] MEDS: DEXAMETHASONE SOD PHOS INJ 4 MG/ML VIAL IV SCH (08:21)
[2020-01-12] MEDS: DOCUSATE SODIUM 100 MG CAP PO SCH ×2 (08:22→18:11)
[2020-01-12] MEDS: CHOLECALCIFEROL 400 UNIT TAB PO SCH (08:22)
[2020-01-12] MEDS: ZINC SULFATE 220 MG CAP PO SCH ×2 (08:22→18:11)
[2020-01-12] MEDS: ASCORBIC ACID 500 MG TAB PO SCH ×2 (08:22→18:11)
[2020-01-12] MEDS ORDERED: DEXMEDETOMIDINE 200MCG/NS 50ML 50 ML IV PRN ×2 (09:00→23:15)
--- NOTE | 2020-01-12 09:01 | NUR ---
Patient transferred to a higher level of care ICU from C-13. Please send new PT orders when pt is stable and able to participate in PT. Hold PT pending new orders. Addendum: 01/12/20 at 0903 by Nataliia Fall PT Amended: Links added.
[2020-01-12] MEDS ORDERED: DEXMEDETOMIDINE 200MCG/NS 50ML 50 ML IV ONE (09:02)
[2020-01-12] MEDS ORDERED: POTASSIUM CHLORIDE 20 MEQ TAB CR PO STA (09:12)
[2020-01-12] MEDS ORDERED: SODIUM CHLORIDE 0.45% 500 ML IV ONE (09:15)
--- NOTE | 2020-01-12 09:36 | Progress Note ---
DATE: SUBJECTIVE: The patient is now in the prone position. She remains on Airvo at 60 L with 90%. She states she feels more comfortable. PHYSICAL EXAMINATION: VITAL SIGNS: The patient is afebrile. The blood pressure is 87/51, pulse is 68. Saturation is 97%. She is breathing 30 times a minute. HEENT: Shows no facial swelling or erythema. LYMPHATIC: Shows no submandibular, cervical, or supraclavicular adenopathy. CARDIAC: Reveals a regular rate and rhythm with normal S1, S2. LUNGS: Auscultation of lungs reveals crackles at the bases. There is no wheezing. ABDOMEN: Soft and nontender. There is no rebound or guarding. EXTREMITIES: Shows no leg edema or calf tenderness. There is no cyanosis or clubbing. SKIN: Shows no rashes. NEUROLOGICAL: Shows no focal abnormalities. LABORATORY DATA: Potassium is 3.2, carbon dioxide is 21, and the chloride is 109. The sodium is 143, HOT-cm-vqkhotmteb ratio is 19 to 0.6. The albumin is 3.4. RADIOGRAPHIC DATA: Chest x-ray shows worsening bilateral airspace opacities. IMPRESSION: 1. Acute respiratory failure. 2. Viral pneumonia and COVID-19 infection. 3. Diabetes. 4. Severe obesity. 5. Obstructive sleep apnea. PLAN: 1. Continue Airvo. 2. Complete remdesivir. 3. Complete dexamethasone. 4. Continue to monitor. Control blood sugars. 5. Complete antibiotics. 6. The patient does not want the convalescent plasma at this time. 7. Complete speech therapy evaluation. 8. Judicious use of IV fluids. Efren Blakely MD [facility] /[id number]
--- NOTE | 2020-01-12 09:47 | NUR ---
Error in documentation from Nataliia Fall PT. Please ignore prior link note about patient moving to a higher level of care. No new order needed. Pt continues to be seen in the ICU. Addendum: 01/12/20 at 0948 by Nataliia Fall PT Amended: Links added.
[2020-01-12] MEDS: REMDESIVIR 100MG/NS 100ML 100 MG in SODIUM CHLORIDE 0.9% 100 ML 100 ML IV SCH (14:00)
--- NOTE | 2020-01-12 14:30 | NUR ---
Infectious disease parents note Patient remains in intensive care unit on high oxygen demand that she is not on a ventilator he patient is now in the prone position. She remains on Airvo at 60 L with 90%. She states she feels more comfortable.Seems a bit weak still short of breath and dry cough PHYSICAL EXAMINATION: VITAL SIGNS: The patient is afebrile. The blood pressure is 87/51, pulse is 68. Saturation is 97%. She is breathing 30 times a minute. HEENT: Shows no facial swelling or erythema. LYMPHATIC: Shows no submandibular, cervical, or supraclavicular adenopathy. CARDIAC: Reveals a regular rate and rhythm with normal S1, S2. LUNGS: Auscultation of lungs reveals crackles at the bases. There is no wheezing. ABDOMEN: Soft and nontender. There is no rebound or guarding. EXTREMITIES: Shows no leg edema or calf tenderness. There is no cyanosis or clubbing. SKIN: Shows no rashes. NEUROLOGICAL: Shows no focal abnormalities. LABORATORY DATA: Potassium is 3.2, carbon dioxide is 21, and the chloride is 109. The sodium is 143, EIU-un-ydqutnyvxa ratio is 19 to 0.6. The albumin is 3.4. RADIOGRAPHIC DATA: Chest x-ray shows worsening bilateral airspace opacities. IMPRESSION: 1. Acute respiratory failure. 2. Viral pneumonia and COVID-19 infection. 3. Diabetes. 4. Severe obesity. 5. Obstructive sleep apnea. continue with antibiotic as ordered recheck CBC Incentive spirometry Encouraged to cough To finish the course of treatment
[2020-01-12] MEDS ORDERED: ENOXAPARIN SOD INJ 40 MG/0.4 ML SYR SC SCH (17:00)
[2020-01-12] MEDS: INSULIN GLARGINE 100 UNITS/ML VIAL SQ SCH (21:25)
[2020-01-12] MEDS ORDERED: ACETAMINOPHEN/CODEINE 300MG - 30MG TAB PO PRN (21:45)
[2020-01-12] MEDS: TEMAZEPAM 15 MG CAP PO PRN (23:10)
[2020-01-13] VITALS (13 sets, daily range): BP systolic 90–131; BP diastolic 57–85
--- NOTE | 2020-01-13 01:22 | NUR ---
Date of Service: 01/12/2020 PCP: No PCP. ATTENDING PHYSICIAN: Dr. Kvng Doherty CONSULTING PHYSICIANS: 1. Dr. Manan Meehan, with Infectious Disease. 2. Dr. Efren Blakely with Pulmonology. SUBJECTIVE: A 14-point review of systems was completed. She does have shortness of breath and dyspnea on exertion. GENITOURINARY: She takes oxybutynin for overactive bl adder. CARDIOVASCULAR: The patient reports having chest pain at times. It is located in the center of her chest without radiation, which started on 01/06 and has bee n improving. GASTROINTESTINAL: Denies nausea, vomiting, or constipation. She had diarrhea x3 movements on Thursday, her last bowel movement was on or about 01/06. ENDOCRINE: She is known diabetic, takes metformin and short-acting insulin at home. PHYSICAL EXAMINATION: VITAL SIGNS: Temperature 97.8, pulse 68, blood pressure 87/51, respirations 24, and oxygen saturation 94% on Airvo. Height 4 feet, weight 240 pounds, BMI 48.46. GENERAL: Supine in bed, connected to Bipap with peripheral IV. No acute distress. LUNGS: Respiratory pattern currently even unlabored. On Airvo 60 lpm, FiO2 90%. HEENT: EOMI. Oropharynx clear. NECK: Supple. No lymphadenopathy, thyromegaly, or JVD. CARDIOVASCULAR: Regular rate and rhythm. No murmur. ABDOMEN: Bowel sounds positive. Soft, nontender, morbidly obese. EXTREMITIES: No pitting edema. No clubbing, cyanosis, or notable swelling or signs of DVT. NEUROLOGICAL: GCS 15. Nonfocal. LABORATORY DATA: 01/11 WBC 10.6, Neutrophils 86.2%, Potassium 3.2, BUN 19, Creatinine 0.6. 01/10 WBC 13.8, Neutrophils 85.6%, chemistry WNL 01/09 WBCs 10.3, Neutrophils 85.7%, Glucose 121 / WBCs 5.13, hemoglobin 12.8, hematocrit 39.6, platelets 237. PT 12.7, INR 0.91, PTT 41.1. Sodium 136, potassium 3.7, chloride 102, serum CO2 of 20, anion gap 17.7, BUN 12, creatinine 0.71, estimated GFR greater than 60, glucose 183, lactic acid 1.7. Hemoglobin A1c 9.5%. Fingerstick blood glucose level 232, calcium 8.9, total bilirubin 0.6, AST 50, ALT 23, alkaline phosphatase 103, creatine kinase 68, CK-MB 0.8, troponin I 0.007. B-type natriuretic peptide 64.7, total protein 8, albumin 3.2. SEROLOGY: Coronavirus PCR detected positive on 01/08. Blood cultures x2 have been collected, final results are pending. IMAGING/OTHER: 01/10 CXR: Interval worsening of bilateral ill-defined airspace opacities which are now diffusely visualized in the apex of the lung bases. Previously there was a perihilar and lower lobe predominance. A 12-lead EKG showed normal sinus rhythm with a heart rate of 63. Speech Therapy: bedside swallow evaluation. 01/08 CXR: Patchy and hazy bilateral lung opacities, concerning for multifocal pneumonia/viral pneumonia. Pulmonary edema less favored, given lack of sizable effusions. ASSESSMENT/PLAN: 1. Acute respiratory failure. Pulmonology/CCM following. Continue to wean oxygen from Airvo to room air as tolerated. Avoid intubation if at all possible, Infectious Disease has been consulted. Continue azithromycin and Rocephin antibiotics. 2. Community-acquired viral pneumonia with COVID-19. Continue Remdesivir and Decadron. Continue vitamin C, vitamin D, zinc sulfate. Continue Lovenox 60 mg subcu q.12 hours. Activity as tolerated; out of bed to bedside commode. Assess swallowing ability. 3. Bilateral pleural effusions, possibly suggestive of CHF. 4. Monitor chest x-ray results, follow up on echocardiogram results. 5. Uncontrolled T2DM with hyperglycemia: Hemoglobin A1c 9.5%. Serum glucose 120's. swallowing ability verified, on ADA diet. Maintain nutritional support. 6. Generalized weakness, ambulatory dysfunction, physical therapy evaluation and treatment. 8. Morbid obesity with BMI 48.46. Dietary restrictions.Date of Service: 01/11/2020 PCP: No PCP. ATTENDING PHYSICIAN: Dr. Kvng Doherty CONSULTING PHYSICIANS: 1. Dr. Manan Meehan, with Infectious Disease. 2. Dr. Efren Blakely with Pulmonology. CHIEF COMPLAINT: Shortness of breath. HISTORY OF PRESENT ILLNESS: The patient is a 54-year-old female with severe shortness of breath, dyspnea, and fever for the 4 days prior to admission along with malaise and nausea and vomiting. She had a low oxygen saturation in the Emergency Department and was placed on Airvo. Her chest x-ray showed galo ateral infiltrates, consistent with viral pneumonia and her COVID test was positive. Her parents, both came here 01/05, and both tested for COVID per documentation. However, the patient states that her mother actually went to [place] in [place]. Her mother was positive for COVID. Her father was negative for COVID. ALLERGIES: NO KNOWN ALLERGIES. REVIEW OF SYSTEMS: A 14-point review of systems was completed. She does have shortness of breath and dyspnea on exertion. She had a cough before, but it went away. GENITOURINARY: She takes oxybutynin for overactive bladder. CARDIOVASCULAR: The patient reports having chest pain at times. It is located in the center of her chest without radiation, which started on 01/06 and has been improving. GASTROINTESTINAL: Denies nausea, vomiting, or constipation. She had diarrhea x3 movements on Thursday, her last bowel movement was on or about 01/06. ENDOCRINE: She is known diabetic, takes metformin and short-acting insulin at home. PHYSICAL EXAMINATION: VITAL SIGNS: Temperature 98.8, pulse 77, blood pressure 141/86, respirations 36, and oxygen saturation 93% on Airvo. Height 4 feet, weight 240 pounds, BMI 48.46. GENERAL: Supine in bed, connected to Bipap with peripheral IV. No acute distress. LUNGS: Respiratory pattern currently even unlabored. On Airvo 60 lpm, FiO2 90%. HEENT: EOMI. Oropharynx clear. NECK: Supple. No lymphadenopathy, thyromegaly, or JVD. CARDIOVASCULAR: Regular rate and rhythm. No murmur. ABDOMEN: Bowel sounds positive. Soft, nontender, morbidly obese. EXTREMITIES: No pitting edema. No clubbing, cyanosis, or notable swelling or signs of DVT. NEUROLOGICAL: GCS 15. Nonfocal. LABORATORY DATA: 01/10 WBC 13.8, Neutrophils 85.6%, chemistry WNL 01/09 WBCs 10.3, Neutrophils 85.7%, Glucose 121 01/08 WBCs 5.13, hemoglobin 12.8, hematocrit 39.6, platelets 237. PT 12.7, INR 0.91, PTT 41.1. Sodium 136, potassium 3.7, chloride 102, serum CO2 of 20, anion gap 17.7, BUN 12, creatinine 0.71, estimated GFR greater than 60, glucose 183, lactic acid 1.7. Hemoglobin A1c 9.5%. Fingerstick blood glucose level 232, calcium 8.9, total bilirubin 0.6, AST 50, ALT 23, alkaline phosphatase 103, creatine kinase 68, CK-MB 0.8, troponin I 0.007. B-type natriuretic peptide 64.7, total protein 8, albumin 3.2. SEROLOGY: Coronavirus PCR detected positive on 01/08. Blood cultures x2 have been collected, final results are pending. IMAGING/OTHER: 01/10 CXR: Interval worsening of bilateral ill-defined airspace opacities which are now diffusely visualized in the apex of the lung bases. Previously there was a perihilar and lower lobe predominance. A 12-lead EKG showed normal sinus rhythm with a heart rate of 63. Speech Therapy: bedside swallow evaluation. 01/08 CXR: Patchy and hazy bilateral lung opacities, concerning for multifocal pneumonia/viral pneumonia. Pulmonary edema less favored, given lack of sizable effusions. ASSESSMENT/PLAN: 1. Acute respiratory failure. Pulmonology/CCM following. Continue to wean oxygen from Airvo to room air as tolerated. Avoid intubation if at all possible, Infectious Disease has been consulted. Continue azithromycin and Rocep hin antibiotics. 2. Community-acquired viral pneumonia with COVID-19. The patient seems to be a good candidate for remdesivir and Decadron. Continue vitamin C, vitamin D, zinc sulfate. Continue Lovenox 60 mg subcu q.12 hours. Activity, as tolerated out of bed to bedside commode. Assess swallowing ability. 3. Bilateral pleural effusions, possibly suggestive of CHF. 4. Monitor chest x-ray results, follow up on echocardiogram results. 5. Uncontrolled T2DM with hyperglycemia: Hemoglobin A1c 9.5%. Serum glucose 281, 278. swallowing ability verified, on ADA diet. Maintain nutritional support. 6. Generalized weakness, ambulatory dysfunction, physical therapy evaluation and treatment. 8. Morbid obesity with BMI 48.46 & Obstructive Sleep Apnea. Dietary restrictions. 9. Hypothyroidism, continue home dose of levothyroxine sodium 25 mcg p.o. daily. Billing code [id number]. Time spent 60 minutes.
--- NOTE | 2020-01-13 01:57 | NUR ---
Addendum to note with date of service 01/12/2020: Date of Service: 01/12/2020 PCP: No PCP. ATTENDING PHYSICIAN: Dr. Kvng Doherty CONSULTING PHYSICIANS: 1. Dr. Manan Meehan, with Infectious Disease. 2. Dr. Efren Blakely with Pulmonology. SUBJECTIVE: A 14-point review of systems was completed. She does have shortness of breath and dyspnea on exertion. GENITOURINARY: She takes oxybutynin for overactive bladder. CARDIOVASCULAR: The patient reports having chest pain at times. It is located in the center of her chest without radiation, which started on 01/06 and has been improving. GASTROINTESTINAL: Denies nausea, vomiting, or constipation. She had diarrhea x3 movements on Thursday, her last bowel movement was on or about 01/06. ENDOCRINE: She is known diabetic, takes metformin and short-acting insulin at home. PHYSICAL EXAMINATION: VITAL SIGNS: Temperature 97.8, pulse 68, blood pressure 87/51, respirations 24, and oxygen saturation 94% on Airvo. Height 4 feet, weight 240 pounds, BMI 48.46. GENERAL: Supine in bed, connected to Bipap with peripheral IV. No acute distress. LUNGS: Respiratory pattern currently even unlabored. On Airvo 60 lpm, FiO2 90%. HEENT: EOMI. Oropharynx clear. NECK: Supple. No lymphadenopathy, thyromegaly, or JVD. CARDIOVASCULAR: Regular rate and rhythm. No murmur. ABDOMEN: Bowel sounds positive. Soft, nontender, morbidly obese. EXTREMITIES: No pitting edema. No clubbing, cyanosis, or notable swelling or signs of DVT. NEUROLOGICAL: GCS 15. Nonfocal. LABORATORY DATA: 01/11 WBC 10.6, Neutrophils 86.2%, Potassium 3.2, BUN 19, Creatinine 0.6. 01/10 WBC 13.8, Neutrophils 85.6%, chemistry WNL 01/09 WBCs 10.3, Neutrophils 85.7%, Glucose 121 01/08 WBCs 5.13, hemoglobin 12.8, hematocrit 39.6, platelets 237. PT 12.7, INR 0.91, PTT 41.1. Sodium 136, potassium 3.7, chloride 102, serum CO2 of 20, anion gap 17.7, BUN 12, creatinine 0.71, estimated GFR greater than 60, glucose 183, lactic acid 1.7. Hemoglobin A1c 9.5%. Fingerstick blood glucose level 232, calcium 8.9, total bilirubin 0.6, AST 50, ALT 23, alkaline phosphatase 103, creatine kinase 68, CK-MB 0.8, troponin I 0.007. B-type natriuretic peptide 64.7, total protein 8, albumin 3.2. SEROLOGY: Coronavirus PCR detected positive on 01/08. Blood cultures x2 have been collected, final results are pending. IMAGING/OTHER: 01/10 CXR: Interval worsening of bilateral ill-defined airspace opacities which are now diffusely visualized in the apex of the lung bases. Previously there was a perihilar and lower lobe predominance. A 12-lead EKG showed normal sinus rhythm with a heart rate of 63. Speech Therapy: bedside swallow evaluation. 01/08 CXR: Patchy and hazy bilateral lung opacities, concerning for multifocal pneumonia/viral pneumonia. Pulmonary edema less favored, given lack of sizable effusions. ASSESSMENT/PLAN: 1. Acute respiratory failure. Pulmonology/CCM following. Continue to wean oxygen from Airvo to room air as tolerated. Avoid intubation if at all possible, Infectious Disease has been consulted. Continue azithromycin and Rocephin antibiotics. 2. Community-acquired viral pneumonia with COVID-19. Continue Remdesivir and Decadron. Continue vitamin C, vitamin D, zinc sulfate. Continue Lovenox 60 mg subcu q.12 hours. Activity as tolerated; out of bed to bedside commode. Assess swallowing ability. 3. Bilateral pleural effusions, possibly suggestive of CHF. 4. Monitor chest x-ray results, follow up on echocardiogram results. 5. Uncontrolled T2DM with hyperglycemia: Hemoglobin A1c 9.5%. Serum glucose 120's. swallowing ability verified, on ADA diet. Maintain nutritional support. 6. Generalized weakness, ambulatory dysfunction, physical therapy evaluation and treatment. 7. Morbid obesity with BMI 48.46. Dietary restrictions Billing code [id number]. Time spent 60 minutes.
[2020-01-13 04:03] LABS: BASOPHILS % 0.2 % (0.0-1.0); HEMATOCRIT 41.1 % (34.2-44.1); HEMOGLOBIN 13.2 g/dL (12.0-16.0); LYMPHOCYTES % 7.6 % (18.0-39.1); MEAN CORPUSCULAR HEMOGLOBIN 27.4 pg (28-32); MEAN CORPUSCULAR HGB CONC 32.1 g/dL (31-35); MEAN CORPUSCULAR VOLUME 85.4 fL (81-99); MONOCYTES # (AUTO) 0.4 (0.2-0.8); MONOCYTES % 2.9 % (4.4-11.3); NEUTROPHILS # (AUTO) 11.6 (2.1-6.9); NEUTROPHILS % 88.2 % (38.7-80.0); PLATELET COUNT 255 x10e3/uL (140-360); RED BLOOD COUNT 4.81 x10e6/uL (3.6-5.1); RED CELL DISTRIBUTION WIDTH 12.8 % (11.7-14.4)
[2020-01-13 04:19] LABS: ANION GAP 18.2 mmol/L (8-16); BLOOD UREA NITROGEN 19 mg/dL (7-26); BUN/CREATININE RATIO 30 (6-25); CALCIUM 8.8 mg/dL (8.4-10.2); CARBON DIOXIDE 21 mmol/L (22-29); CHLORIDE 108 mmol/L (98-107); CREATININE, SERUM 0.64 mg/dL (0.57-1.11); EST GLOMERULAR FILTRATION RATE > 60 ML/MIN (60-); GLUCOSE 109 mg/dL (74-118); MAGNESIUM 2.2 MG/DL (1.3-2.1); PHOSPHORUS 3.5 MG/DL (2.3-4.7); POTASSIUM 4.2 mmol/L (3.5-5.1); SODIUM 143 mmol/L (136-145)
[2020-01-13] MEDS: AZITHROMYCIN 500MG/NS 250 ML 250 ML IV SCH (05:30)
[2020-01-13] MEDS: LEVOTHYROXINE SODIUM 25 MCG TABLET PO SCH (05:52)
[2020-01-13] MEDS: INSULIN REGULAR, HUMAN 100 UNIT/1 ML 3ML VIAL SQ SCH ×4 (07:30→21:59)
--- NOTE | 2020-01-13 08:20 | Diagnostic Imaging Report ---
TECHNIQUE: Frontal view of the chest. INDICATION: ^resp failure ^[id number] ^[id number] COMPARISON: 01/11/2020 DISCUSSION: Limited evaluation due to portable technique. Lines and hardware: Stable overlying EKG leads. Heart and mediastinum: Stable. Lungs and pleura: Stable bilateral diffuse interstitial and alveolar airspace opacities. Negative for large effusion or pneumothorax. Soft tissues and bones: No acute abnormality. IMPRESSION: Stable exam with diffuse bilateral interstitial and airspace opacities. Signed by: Jamal Sinha MD on 01/13/2020 8:16 AM
[2020-01-13] MEDS ORDERED: SODIUM CHLORIDE 0.9% 500ML 500 ML ONE (08:26)
[2020-01-13] MEDS ORDERED: BENZOCAINE/TETRACAINE/BUTAMBEN AERO SPRAY 56 GM CAN TOP ONE (08:30)
[2020-01-13] MEDS: DOCUSATE SODIUM 100 MG CAP PO SCH ×2 (09:00→17:00)
[2020-01-13] MEDS ORDERED: MIDAZOLAM HCL 5MG/ML 10ML VIAL 100 ML IV ONE (09:04)
[2020-01-13] MEDS ORDERED: LIDOCAINE HCL 2% LOCAL 20 ML VIAL ONE (09:12)
[2020-01-13] MEDS ORDERED: MIDAZOLAM HCL 5 MG/ML VIAL ONE (09:20)
--- NOTE | 2020-01-13 09:31 | Diagnostic Imaging Report ---
TECHNIQUE: Frontal view of the chest. INDICATION: ^intubation ^[id number] ^[id number] COMPARISON: Same day DISCUSSION: Limited evaluation due to portable technique. Lines and hardware: Interval intubation is noted with endotracheal tube projecting 2.7 cm above the fran. Enteric tube is seen coursing inferiorly causing within the stomach with the tip pointing back towards the gastroesophageal junction. Heart and mediastinum: Stable. Lungs and pleura: Stable bilateral diffuse interstitial and alveolar airspace opacities. Negative for large effusion or pneumothorax. Soft tissues and bones: No acute abnormality. IMPRESSION: Endotracheal tube projects 2.7 cm above the fran. Enteric tube is seen coursing inferiorly and looping within the stomach with tip projecting retrograde towards the gastroesophageal junction. Signed by: Jamal Sinha MD on 01/13/2020 9:28 AM
--- NOTE | 2020-01-13 09:57 | Progress Note ---
DATE: SUBJECTIVE: During the night, the patient had worsening desaturations. Her Airvo was increased back to 100% with 60 L. She was subsequently placed on BiPAP and put in a prone position. This morning, she was tachypneic and had to be orally intubated. She is now on mechanical ventilation. PHYSICAL EXAMINATION: VITAL SIGNS: Blood pressure is 134/78 and the heart rate is 140. Saturations 86% to 87%. She is currently on a PRVC at a rate of 28 with a tidal volume of 370 and a PEEP of 14. HEENT: Shows no facial swelling or erythema. Oropharynx is normal. There is an oral endotracheal tube. LYMPHATIC: Shows no submandibular, cervical, or supraclavicular adenopathy. CARDIAC: Reveals regular rate and rhythm with normal S1 and S2. LUNGS: Auscultation of lungs reveals decreased breath sounds at the bases. There is no wheezing. ABDOMEN: Soft and nontender. There is no rebound or guarding. EXTREMITIES: Shows no leg edema or calf tenderness. There is no cyanosis or clubbing. LABORATORY DATA: White blood cell count is 13.1, hemoglobin is 13.2, and the platelet count is 255. BUN to creatinine ratio is 19 to 0.64. Carbon dioxide is 21. Other electrolytes are within normal limits. RADIOGRAPHIC DATA: Chest x-ray shows an endotracheal tube, 2.7 cm above the fran. There is an NG tube in the stomach. There are bilateral infiltrates. IMPRESSION: 1. Acute respiratory failure. 2. Viral pneumonia and COVID-19 infection. 3. Diabetes. 4. Severe obesity. PLAN: 1. Continue current ventilator settings and repeat ABG. 2. Place PICC line. 3. Continue Versed and fentanyl. 4. Continue current antibiotics. 5. Complete remdesivir. 6. Continue dexamethasone. 7. Continue Lovenox for DVT prophylaxis. 8. Continue to monitor and control blood sugars. Greater than 35 minutes in direct critical care time apart from any procedures performed. Efren Blakely MD [facility]/MODL /[id number]
--- NOTE | 2020-01-13 10:02 | Operative Report ---
DATE OF PROCEDURE: SURGEON: Efren Blakely MD PROCEDURE: Endotracheal intubation with GlideScope. PREOPERATIVE DIAGNOSIS: Respiratory failure. POSTOPERATIVE DIAGNOSIS: Respiratory failure. CONSENT: Consent was obtained from the patient. MEDICATIONS: Versed 1 mg IV, Cetacaine spray, etomidate 20 mg, and succinylcholine 120 mg. DESCRIPTION OF PROCEDURE: The patient was desaturating and tachypneic into the 50s on BiPAP. She was initially given Versed 1 mg along with Cetacaine spray, but was unable to open her mouth well. She subsequently received etomidate along with succinylcholine. A 3.0 Mac blade and GlideScope was used. The airway was anterior and the 3.0 blade was too short. The Mac blade was removed and the patient was ventilated with an Ambu bag and an oral airway along with a PEEP valve. A 4.0 Mac blade was then used to visualize glottis and a 7.5 endotracheal tube was passed through the cords. There were equal breath sounds bilaterally. There was good CO2 return. ESTIMATED BLOOD LOSS: None. COMPLICATIONS: None. Efren Blakely MD [facility]/MODL /[id number]
[2020-01-13] MEDS ORDERED: ROCURONIUM BROMIDE 250 MG in SODIUM CHLORIDE 0.9% 250ML 225 ML IV SCH (10:45)
[2020-01-13] MEDS ORDERED: ACETAMINOPHEN 1000 MG/100 ML IV ONE (11:00)
[2020-01-13] MEDS ORDERED: ROCURONIUM BROMIDE 2 ML IV ONE (11:00)
--- NOTE | 2020-01-13 11:00 | Diagnostic Imaging Report ---
TECHNIQUE: Frontal view of the chest. INDICATION: ^PICC COMPARISON: Same day DISCUSSION: Limited evaluation due to portable technique. Lines and hardware: Interval placement of right PICC is noted with tip projecting at the lower SVC. Endotracheal tube is noted with tip projecting 2.1 cm above the fran. Enteric tube is seen in similar position looped within the stomach with tip pointing retrograde towards the gastroesophageal junction. Heart and mediastinum: Stable. Lungs and pleura: Similar appearance of diffuse bilateral interstitial and airspace opacities along for differences in technique. Soft tissues and bones: No acute abnormality. IMPRESSION: Interval placement of right PICC with tip projecting at the lower SVC. Negative for pneumothorax. Endotracheal tube projects 2.1 cm above the fran. Stable enteric tube with tip curled retrograde towards the gastroesophageal junction. Signed by: Jamal Sinha MD on 01/13/2020 10:56 AM
--- NOTE | 2020-01-13 11:00 | NUR ---
Picc is in SVC per verbal report by Dr Sinha (radiologist). PICC is ok to use
[2020-01-13] MEDS ORDERED: LACTATED RINGER'S 1,000 ML ONE (11:12)
[2020-01-13] MEDS ORDERED: SODIUM CHLORIDE 0.9% 1000ML 1,000 ML ONE (11:19)
[2020-01-13] MEDS ORDERED: NOREPINEPHRINE 8 MG/D5W 250 ML 250 ML ONE (12:29)
--- NOTE | 2020-01-13 13:31 | NUR ---
ST NOTE: PT now intubated, Speech Therapy to continue to follow pt status, she will require an MBS 24-48 hours post extubation if intubated longer than 2 days. HAndoff to OSEAS Newman
[2020-01-13] MEDS: MIDAZOLAM HCL 5MG/ML 10ML VIAL 100 ML IV PRN (13:32)
[2020-01-13] MEDS ORDERED: ENOXAPARIN SOD INJ 40 MG/0.4 ML SYR SC SCH (15:00)
[2020-01-13] MEDS: DEXAMETHASONE SOD PHOS INJ 4 MG/ML VIAL IV SCH (15:22)
[2020-01-13] MEDS: FAMOTIDINE 20 MG/2 ML VIAL IV SCH ×2 (15:23→18:42)
[2020-01-13] MEDS: CHOLECALCIFEROL 400 UNIT TAB PO SCH (15:23)
[2020-01-13] MEDS: ASCORBIC ACID 500 MG TAB PO SCH ×2 (15:23→18:42)
[2020-01-13] MEDS: ZINC SULFATE 220 MG CAP PO SCH ×2 (15:23→18:42)
[2020-01-13] MEDS: OXYBUTYNIN CHLORIDE XL 5 MG TAB PO SCH (15:23)
[2020-01-13] MEDS: CEFTRIAXONE SOD 1 GM/NS 50 ML 50 ML IV SCH (15:23)
[2020-01-13] MEDS: REMDESIVIR 100MG/NS 100ML 100 MG in SODIUM CHLORIDE 0.9% 100 ML 100 ML IV SCH (15:26)
[2020-01-13 15:37] LABS: ABG HCO3 25 mmol/L (22-26); ABG PCO2 62 mmHg (35-45); ABG PH 7.21 (7.35-7.45); ABG PO2 78 mmHg (80-105); ABG TCO2 26
[2020-01-13 15:39] LABS: ABG HCO3 23 mmol/L (22-26); ABG PCO2 57 mmHg (35-45); ABG PH 7.22 (7.35-7.45); ABG PO2 55 mmHg (80-105); ABG TCO2 25
[2020-01-13] MEDS ORDERED: ROCURONIUM BROMIDE 1,250 MG in SODIUM CHLORIDE 0.9% 250ML 125 ML IV SCH (17:00)
[2020-01-13 17:15] LABS: ABG HCO3 21 mmol/L (22-26); ABG PCO2 53 mmHg (35-45); ABG PH 7.21 (7.35-7.45); ABG PO2 193 mmHg (80-105); ABG TCO2 23
--- NOTE | 2020-01-13 18:36 | NUR ---
progress note patient's exam and chart reviewed currently intubated. During the night, the patient had worsening desaturations. Her Airvo was increased back to 100% with 60 L. She was subsequently placed on BiPAP and put in a prone position. This morning, she was tachypneic and had to be orally intubated. She is now on mechanical ventilation. PHYSICAL EXAMINATION: VITAL SIGNS: Blood pressure is 134/78 and the heart rate is 140. Saturations 86% to 87%. She is currently on a PRVC at a rate of 28 with a tidal volume of 370 and a PEEP of 14. HEENT: Shows no facial swelling or erythema. Oropharynx is normal. There is an oral endotracheal tube. LYMPHATIC: Shows no submandibular, cervical, or supraclavicular adenopathy. CARDIAC: Reveals regular rate and rhythm with normal S1 and S2. LUNGS: Auscultation of lungs reveals decreased breath sounds at the bases. There is no wheezing. ABDOMEN: Soft and nontender. There is no rebound or guarding. EXTREMITIES: Shows no leg edema or calf tenderness. There is no cyanosis or clubbing. LABORATORY DATA: White blood cell count is 13.1, hemoglobin is 13.2, and the platelet count is 255. BUN to creatinine ratio is 19 to 0.64. Carbon dioxide is 21. Other electrolytes are within normal limits. RADIOGRAPHIC DATA: Chest x-ray shows an endotracheal tube, 2.7 cm above the fran. There is an NG tube in the stomach. There are bilateral infiltrates. IMPRESSION: 1. Acute respiratory failure. 2. Viral pneumonia and COVID-19 infection. 3. Diabetes. continue with supportive care as ordered Discussed with medical team
[2020-01-13] MEDS: ENOXAPARIN INJ 80 MG/0.8 ML SYR SC SCH ×2 (18:41→21:37)
[2020-01-13] MEDS: FENTANYL 2000MCG/NS 250 250 ML IV PRN (19:30)
[2020-01-13 20:19] LABS: BASOPHILS % 0.2 % (0.0-1.0); HEMOGLOBIN 12.5 g/dL (12.0-16.0); LYMPHOCYTES % 10.3 % (18.0-39.1); MEAN CORPUSCULAR HEMOGLOBIN 27.3 pg (28-32); MEAN CORPUSCULAR HGB CONC 31.3 g/dL (31-35); MEAN CORPUSCULAR VOLUME 87.3 fL (81-99); MONOCYTES # (AUTO) 0.4 (0.2-0.8); MONOCYTES % 2.1 % (4.4-11.3); NEUTROPHILS # (AUTO) 16.5 (2.1-6.9); NEUTROPHILS % 85.9 % (38.7-80.0); PLATELET COUNT 211 x10e3/uL (140-360); RED BLOOD COUNT 4.58 x10e6/uL (3.6-5.1); RED CELL DISTRIBUTION WIDTH 13.1 % (11.7-14.4)
[2020-01-13] MEDS: ROCURONIUM BROMIDE 1,250 MG in SODIUM CHLORIDE 0.9% 250ML 125 ML IV SCH (21:40)
[2020-01-13] MEDS ORDERED: WATER STERILE 10 ML VIAL ONE (21:45)
[2020-01-13] MEDS ORDERED: MIDAZOLAM HCL 2 MG/2 ML VIAL ONE (21:45)
[2020-01-13] MEDS ORDERED: ETOMIDATE 2 MG/ML 10 ML INJ IV ONE (21:45)
[2020-01-13] MEDS ORDERED: VECURONIUM BROMIDE FOR INJ 20 MG VIAL ONE (21:45)
[2020-01-13] MEDS ORDERED: SUCCINYLCHOLINE CHLORIDE 20 MG/ML 10ML VIAL ONE (21:45)
[2020-01-13] MEDS: INSULIN GLARGINE 100 UNITS/ML VIAL SQ SCH (21:59)
[2020-01-13] MEDS: NOREPINEPHRINE 8 MG/D5W 250 ML 250 ML IV SCH (22:14)
[2020-01-14] VITALS (16 sets, daily range): BP systolic 99–119; BP diastolic 50–68
[2020-01-14] MEDS: NOREPINEPHRINE 8 MG/D5W 250 ML 250 ML IV SCH ×2 (02:24→06:27)
[2020-01-14] MEDS: LEVOTHYROXINE SODIUM 25 MCG TABLET PO SCH (04:07)
[2020-01-14] MEDS: FENTANYL 2000MCG/NS 250 250 ML IV PRN ×2 (05:03→20:16)
[2020-01-14] MEDS: AZITHROMYCIN 500MG/NS 250 ML 250 ML IV SCH (05:03)
[2020-01-14 05:40] LABS: BASOPHILS % 0.1 % (0.0-1.0); EOSINOPHILS # (AUTO) 0.1 (0.0-0.4); EOSINOPHILS % 0.6 % (0.0-6.0); HEMATOCRIT 38.2 % (34.2-44.1); LYMPHOCYTES # (AUTO) 2.6 (1.0-3.2); MEAN CORPUSCULAR HEMOGLOBIN 27.1 pg (28-32); MEAN CORPUSCULAR HGB CONC 31.4 g/dL (31-35); MEAN CORPUSCULAR VOLUME 86.2 fL (81-99); MONOCYTES # (AUTO) 0.3 (0.2-0.8); MONOCYTES % 1.8 % (4.4-11.3); NEUTROPHILS # (AUTO) 11.2 (2.1-6.9); NEUTROPHILS % 78.6 % (38.7-80.0); PLATELET COUNT 197 x10e3/uL (140-360); RED BLOOD COUNT 4.43 x10e6/uL (3.6-5.1); RED CELL DISTRIBUTION WIDTH 12.9 % (11.7-14.4)
[2020-01-14 06:00] LABS: ALANINE AMINOTRANSFERASE 16 IU/L (0-55); ALBUMIN 2.9 g/dL (3.5-5.0); ALBUMIN/GLOBULIN RATIO 0.9 (0.8-2.0); ALKALINE PHOSPHATASE 109 IU/L (40-150); ANION GAP 17.9 mmol/L (8-16); BLOOD UREA NITROGEN 18 mg/dL (7-26); BUN/CREATININE RATIO 23 (6-25); CARBON DIOXIDE 19 mmol/L (22-29); CHLORIDE 104 mmol/L (98-107); CREATININE, SERUM 0.79 mg/dL (0.57-1.11); EST GLOMERULAR FILTRATION RATE > 60 ML/MIN (60-); GLUCOSE 233 mg/dL (74-118); POTASSIUM 3.9 mmol/L (3.5-5.1); SODIUM 137 mmol/L (136-145)
[2020-01-14] MEDS: MIDAZOLAM HCL 5MG/ML 10ML VIAL 100 ML IV PRN ×2 (06:29→20:16)
[2020-01-14 08:15] LABS: LYMPHOCYTES % (MANUAL) 12 % (19-48); NEUTROPHILS % (MANUAL) 88 % (40-74)
[2020-01-14 08:16] LABS: PLATELET ESTIMATE ADEQUATE; PLATELET MORPHOLOGY COMMENT NORMAL; RBC MORPHOLOGY COMMENT NORMAL
[2020-01-14] MEDS ORDERED: VANCOMYCIN 1GM/NS 250 ML 250 ML IV ONE (08:45)
[2020-01-14] MEDS: INSULIN REGULAR, HUMAN 100 UNIT/1 ML 3ML VIAL SQ SCH ×4 (08:52→20:51)
[2020-01-14] MEDS: DOCUSATE SODIUM 100 MG CAP PO SCH ×2 (08:52→17:00)
[2020-01-14] MEDS: ASCORBIC ACID 500 MG TAB PO SCH ×2 (08:52→18:22)
[2020-01-14] MEDS: FAMOTIDINE 20 MG/2 ML VIAL IV SCH ×2 (08:52→18:22)
[2020-01-14] MEDS: DEXAMETHASONE SOD PHOS INJ 4 MG/ML VIAL IV SCH (08:52)
[2020-01-14] MEDS: OXYBUTYNIN CHLORIDE XL 5 MG TAB PO SCH (08:52)
[2020-01-14] MEDS: CHOLECALCIFEROL 400 UNIT TAB PO SCH (08:52)
[2020-01-14] MEDS: ENOXAPARIN INJ 80 MG/0.8 ML SYR SC SCH ×2 (08:53→20:15)
[2020-01-14] MEDS: ZINC SULFATE 220 MG CAP PO SCH ×2 (08:53→18:22)
--- NOTE | 2020-01-14 09:09 | Diagnostic Imaging Report ---
EXAMINATION: CHEST (PORTABLE) INDICATION: resp failure COMPARISON: Multiple prior chest x-ray examinations most recent dated 01/13/2020. FINDINGS: AP view TUBES and LINES: Right PICC is noted with tip projecting at the lower SVC. Endotracheal tube is noted with tip projecting 2.5 cm above the fran. Enteric tube is seen in similar position looped within the stomach with tip pointing retrograde towards the gastroesophageal junction LUNGS/PLEURA: Lungs are well inflated. There is worsening of bilateral patchy opacities could represent multifocal pneumonia, ARDS or pulmonary edema.. There is no pleural effusion or pneumothorax. HEART AND MEDIASTINUM: The cardiomediastinal silhouette is obscured by adjacent opacities. BONES AND SOFT TISSUES: No acute osseous lesion. Soft tissues are unremarkable. UPPER ABDOMEN: No free air under the diaphragm. IMPRESSION: Worsening of bilateral patchy opacities could represent multifocal pneumonia, ARDS or pulmonary edema. Signed by: Fahad Contreras MD on 01/14/2020 9:05 AM
--- NOTE | 2020-01-14 09:36 | Operative Report ---
DATE OF PROCEDURE: SURGEON: Efren Blakely MD PROCEDURE: Arterial line placement under ultrasound guidance. PREOPERATIVE DIAGNOSIS: Respiratory failure. POSTOPERATIVE DIAGNOSIS: Respiratory failure. CONSENT: Consent was obtained from the family. MEDICATIONS: The patient was on Versed and fentanyl at the time of the procedure. DESCRIPTION OF PROCEDURE: The left wrist was prepped sterilely with chlorhexidine. A sterile drape, sterile gown, and gloves were used. The ultrasound machine was used to localize the radial artery as well as the ulnar artery. There was good collateral circulation. The radial artery was cannulated under direct visualization with a 20-gauge needle. A wire was passed through the needle and a 20-gauge catheter was passed over the wire by the Seldinger technique. COMPLICATIONS: None. ESTIMATED BLOOD LOSS: None. Efren Blakely MD [facility]/MODL /[id number]
--- NOTE | 2020-01-14 09:41 | Progress Note ---
DATE: SUBJECTIVE: The patient remains on Levophed at 30 mcg. She is urinating. T-max is 101.4. She remains on a PRVC mode of ventilation with a tidal volume of 400 and a PEEP of 12 and FiO2 of 85% and respiratory rate of 34. OBJECTIVE: VITAL SIGNS: Blood pressure is now 118/62. Saturation is 95% on the above settings. HEENT: Shows no facial swelling or erythema. There is an oral endotracheal tube. LYMPHATIC: Shows no submandibular, cervical, or supraclavicular adenopathy. CARDIAC: Reveals regular rate and rhythm. Normal S1, S2. LUNGS: Auscultation of lungs reveals crackles and rhonchi bilaterally. There is no wheezing. ABDOMEN: Soft, nontender. There is no rebound or guarding. EXTREMITIES: Shows no leg edema or calf tenderness. There is no cyanosis or clubbing. SKIN: Shows no rashes. NEUROLOGICAL: Shows the patient to be sedated. LABORATORY DATA: BUN to creatinine ratio is 18 to 0.8, and the other electrolytes within normal limits. The carbon dioxide is 19. There is an increased anion gap. Albumin is 2.8. RADIOGRAPHIC DATA: Chest x-ray shows a dense bilateral infiltrates. IMPRESSION: 1. Acute respiratory failure. 2. Viral pneumonia and coronavirus disease -19 infection. 3. Aspiration pneumonia with secondary sepsis. 4. Diabetes. 5. Obesity. 6. Anemia, unspecified. PLAN: 1. The patient's antibiotics have been escalated to Merrem and vancomycin. 2. The patient has been miller-cultured including sputum and blood. 3. Continue Versed, fentanyl, and rocuronium. 4. The patient has received fluids in accordance with sepsis protocol. 5. Wean Levophed as tolerated. 6. Continue to monitor and control blood sugars. 7. Case discussed with , nursing staff, Respiratory, Internal Medicine and Infectious Disease. Greater than 35 minutes in direct critical care time apart from any procedures performed. Efren Blakely MD [facility]/MODL /[id number]
[2020-01-14 10:30] LABS: ABG HCO3 22 mmol/L (22-26); ABG PCO2 43 mmHg (35-45); ABG PH 7.32 (7.35-7.45); ABG PO2 80 mmHg (80-105); ABG TCO2 23
--- NOTE | 2020-01-14 14:22 | NUR ---
Nutrition Intervention Note RD Recommendation(s) for Physician: -Recommend modifying formula to Vital AF 1.2 @ goal rate of 40 mL/hr to better meet nutritional needs (provides 1152 kcal, 72 g protein) -Water/fluid management per MD -If pt requires prone positioning, pt may be fed at goal rate placed in reverse Trendelenburg with HOB at 10 to 25 degrees. Plan of Care: RD following, monitoring for tolerance and adequacy, tube feed recommendation Nutrition reason for involvement: enteral nutrition RD Assessment (01/14/20) Pt is a 54 year old female admitted with hypoxia and pneumonia due to COVID-19. Pt was intubated yesterday and tube feed order was placed. Pt was previously on an ADA diet with 25-50% meal intake recorded. Pt has a ht of 48 inches currently in chart, but per history in chart a height of 59 inches was previously recorded. Recommendations provided. RD to manage tube feed order per Dr. Blakely. Will continue to monitor. Principal Problems/Diagnoses: hypoxia, pneumonia due to COVID-19 PMH: Kidney infections as a child, diabetes mellitus, diabetic neuropathy, hypothyroidism, overactive bladder, and morbid obesity. GI: round/non-tender/soft abdomen, last recorded BM 01/12 Skin: intact Labs: (01/13) Na 137, K 3.9, BUN 18, Cr 0.79, Glu 233, Ca 8.0, AST 42 Meds: zinc sulfate, pepcid, vitamin C, vitamin D, insulin, norepinephrine, fentayl, antibiotics, insulin, rocuronium, levothyroxine, colace, miralax Ht: 59 inches (per chart history) Wt: 226 lbs BMI: 45.6 kg/m2 IBW: 98 lbs Malnutrition Evaluation (01/14/20) The patient does not meet criteria for a specified degree of malnutrition at this time. Will re-evaluate at follow-up as appropriate. Energy intake: </=50% of estimated energy requirements for 5 days Weight loss: unable to evaluate Fat loss: no loss per observation outside room Muscle loss: no loss per observation outside room Supporting Evidence: Fluid accumulation: no edema per MD note Functional Status: unable to evaluate Nutrition Prescription (Diet Order): Glucerna 1.2 @ 30 mL/hr (provides 864 kcal, 43 g protein) Estimated Nutritional Needs: 980-1115 calories/day (22-25 kcal/kg IBW) 67-89 g protein/day (1.5-2 g pro/kg IBW) Diet Adequacy: Not meeting calorie needs, Not meeting protein needs Tolerance: Tolerance pending Diet Education Needs Assessment: Diet education not indicated, patient is intubated Nutrition Care Level: high Nutrition Diagnosis: Inadequate oral intake related to acute respiratory failure/mechanical ventilation as evidenced by requiring enteral nutrition Goal: Patient will meet 75-100% of estimated needs by follow up Progress: N/A Interventions: - Composition, Rate, Route, Recommended Modifications, Collaboration with other providers Monitoring/Evaluation: -Total energy intake, Total protein intake, Formula/Solution, Weight change Signed: Stephanie Angulo RD, LD
--- NOTE | 2020-01-14 14:32 | Progress Note ---
DATE: SUBJECTIVE: Ms. Fairchild became worse overnight, had to be intubated. She is currently on vasopressors. Intubated, sedated. OBJECTIVE: HEENT: Normocephalic. NECK: Supple. CHEST: Crackles bilateral. COR: S1 and S2. ABDOMEN: Soft. IMPRESSION: Respiratory failure, concerned about healthcare-associated aspiration pneumonia, COVID-19, diabetes mellitus, and obesity. We will put the patient on meropenem and vancomycin. Adjust for kidney function. Obtain sputum culture for sensitivity. She is growing yeast in the urine. We will add Diflucan. Status post remdesivir. Continue supportive care as ordered. Diabetic control. To finish 10 days of dexamethasone. MD ALESSANDRO Leos/MODL /[id number]
[2020-01-14] MEDS ORDERED: SODIUM CHLORIDE 0.9% 250ML 250 ML ONE (14:49)
[2020-01-14] MEDS: VANCOMYCIN 1GM/NS 250 ML 250 ML IV SCH (16:53)
[2020-01-14] MEDS: MEROPENEM 1GM 100 ML IV SCH ×2 (16:54→22:00)
[2020-01-14] MEDS: FLUCONAZOLE 200 MG/100 ML 100 ML IV SCH (16:54)
--- NOTE | 2020-01-14 18:17 | NUR ---
Dr. Blakely called for update. Updated on assessment, vitals, current vent settings and afternoon abg results. New order to decrease fiO2. fiO2 decreased to 70%.
[2020-01-14 18:29] LABS: ABG PH 7.33 (7.35-7.45)
[2020-01-14 18:31] LABS: ABG HCO3 22 mmol/L (22-26); ABG PCO2 41 mmHg (35-45); ABG PO2 140 mmHg (80-105); ABG TCO2 23
[2020-01-14] MEDS: INSULIN GLARGINE 100 UNITS/ML VIAL SQ SCH (20:51)
[2020-01-14 21:11] LABS: CLARITY,URINE CLOUDY (CLEAR); COLOR,URINE YELLOW (YELLOW)
[2020-01-14 21:12] LABS: KETONES,URINE 2+ (NEGATIVE); LEUKOCYTE ESTERASE ,URINE NEGATIVE (NEGATIVE); NITRITE,URINE NEGATIVE (NEGATIVE); PROTEIN,URINE DIPSTICK TRACE (NEGATIVE)
[2020-01-14 21:13] LABS: BACTERIA,URINE MANY /HPF; BILIRUBIN,URINE NEGATIVE (NEGATIVE); EPITHELIAL CELLS,URINE MANY /LPF; URINE UROBILINOGEN 0.2 mg/dL (0.2 - 1)
[2020-01-14 21:14] LABS: COARSE GRANULAR CASTS,URINE >15 (0)
[2020-01-15] VITALS (13 sets, daily range): BP systolic 87–150; BP diastolic 47–77
[2020-01-15] MEDS: ROCURONIUM BROMIDE 1,250 MG in SODIUM CHLORIDE 0.9% 250ML 125 ML IV SCH (00:15)
[2020-01-15] MEDS: VANCOMYCIN 1GM/NS 250 ML 250 ML IV SCH ×2 (02:20→16:53)
[2020-01-15] MEDS ORDERED: SODIUM CHLORIDE 0.9% 1000ML 1,000 ML ONE (02:21)
[2020-01-15] MEDS: FENTANYL 2000MCG/NS 250 250 ML IV PRN (02:53)
[2020-01-15] MEDS: MIDAZOLAM HCL 5MG/ML 10ML VIAL 100 ML IV PRN (02:54)
[2020-01-15] MEDS: MEROPENEM 1GM 100 ML IV SCH ×3 (05:22→21:45)
[2020-01-15] MEDS: LEVOTHYROXINE SODIUM 25 MCG TABLET PO SCH (05:22)
[2020-01-15 08:23] LABS: BASOPHILS % 0.1 % (0.0-1.0); HEMOGLOBIN 10.9 g/dL (12.0-16.0); MEAN CORPUSCULAR HEMOGLOBIN 27.5 pg (28-32); MEAN CORPUSCULAR HGB CONC 32.1 g/dL (31-35); MEAN CORPUSCULAR VOLUME 85.9 fL (81-99); MONOCYTES # (AUTO) 0.4 (0.2-0.8); NEUTROPHILS # (AUTO) 10.8 (2.1-6.9); NEUTROPHILS % 87.8 % (38.7-80.0); PLATELET COUNT 197 x10e3/uL (140-360); RED BLOOD COUNT 3.96 x10e6/uL (3.6-5.1); RED CELL DISTRIBUTION WIDTH 12.8 % (11.7-14.4)
[2020-01-15] MEDS: OXYBUTYNIN CHLORIDE XL 5 MG TAB PO SCH (08:41)
[2020-01-15] MEDS: DEXAMETHASONE SOD PHOS INJ 4 MG/ML VIAL IV SCH (08:42)
[2020-01-15] MEDS: ENOXAPARIN INJ 80 MG/0.8 ML SYR SC SCH ×2 (08:42→20:54)
[2020-01-15] MEDS: CHOLECALCIFEROL 400 UNIT TAB PO SCH (08:42)
[2020-01-15] MEDS: DOCUSATE SODIUM 100 MG CAP PO SCH ×2 (08:42→17:39)
[2020-01-15] MEDS: ZINC SULFATE 220 MG CAP PO SCH ×2 (08:42→17:39)
[2020-01-15] MEDS: FAMOTIDINE 20 MG/2 ML VIAL IV SCH ×2 (08:42→17:39)
[2020-01-15] MEDS: ASCORBIC ACID 500 MG TAB PO SCH ×2 (08:42→17:39)
[2020-01-15 08:43] LABS: ALANINE AMINOTRANSFERASE 14 IU/L (0-55); ALBUMIN 2.4 g/dL (3.5-5.0); ALBUMIN/GLOBULIN RATIO 0.8 (0.8-2.0); ALKALINE PHOSPHATASE 91 IU/L (40-150); ANION GAP 14.2 mmol/L (8-16); BLOOD UREA NITROGEN 12 mg/dL (7-26); BUN/CREATININE RATIO 18 (6-25); CARBON DIOXIDE 22 mmol/L (22-29); CHLORIDE 108 mmol/L (98-107); CREATININE, SERUM 0.65 mg/dL (0.57-1.11); EST GLOMERULAR FILTRATION RATE > 60 ML/MIN (60-); GLUCOSE 292 mg/dL (74-118); POTASSIUM 4.2 mmol/L (3.5-5.1); SODIUM 140 mmol/L (136-145)
--- NOTE | 2020-01-15 09:55 | Progress Note ---
DATE: SUBJECTIVE: The patient remains on a mechanical ventilator. She is still on 70% FiO2 to at a rate of 34 with a PEEP of 12. Her tidal volume is set at 400 mL. PHYSICAL EXAMINATION: VITAL SIGNS: Her T-max is 101.5. The saturations 96% on the above-mentioned settings. Her blood pressure is 97/53 on 5 mcg of Levophed. Her pulse is 87. HEENT: Shows no facial swelling or erythema. LYMPHATIC: Shows no submandibular, cervical, supraclavicular adenopathy. There is a PICC line in place as well as an arterial line. CARDIAC: Reveals regular rate and rhythm with normal S1, S2. LUNGS: Auscultation of lungs shows decreased breath sounds at the bases. There is no wheezing. ABDOMEN: Soft and nontender. There is no rebound or guarding. EXTREMITIES: Shows no leg edema or calf tenderness. LABORATORY DATA: Blood sugar is 232 to 292. BUN to creatinine ratio is 12 to 0.65. The other electrolytes within normal limits. Albumin is 2.4. White blood cell count is 12.3 and hemoglobin is 10.9. The platelet count is 197. Blood gas is 7.355 with a CO2 of 43 and O2 of 84. IMPRESSION: 1. Acute respiratory failure. 2. Viral pneumonia and COVID-19 infection. 3. Aspiration pneumonia with secondary sepsis. 4. Diabetes. 5. Obesity. 6. Anemia, unspecified. PLAN: 1. Continue current ventilator settings and monitor ABG. 2. Wean rocuronium as tolerated. 3. Continue Versed and fentanyl. 4. Continue Levophed at 5 mcg. 5. Increase Lantus and monitor blood sugars. 6. Continue Lovenox. 7. Continue current antibiotics. 8. Place patient back in supine position today. Greater than 35 minutes in direct critical care time. Efren Blakely MD [facility]/MODL /[id number]
[2020-01-15 11:00] LABS: ABG HCO3 24 mmol/L (22-26); ABG PCO2 47 mmHg (35-45); ABG PH 7.33 (7.35-7.45); ABG PO2 93 mmHg (80-105); ABG TCO2 26
[2020-01-15] MEDS: INSULIN REGULAR, HUMAN 100 UNIT/1 ML 3ML VIAL SQ SCH ×4 (11:03→20:55)
--- NOTE | 2020-01-15 13:11 | Progress Note ---
DATE: Infectious Disease SUBJECTIVE: The patient was seen and evaluated. Discussed with the nurse. The patient remains with fever, pressors decrease to 5 mcg of Levophed, remains sedated, orally intubated with FiO2 of 70%. Tidal volume of 400, PEEP of 12. REVIEW OF SYSTEMS: Unable to obtain review of system. PHYSICAL EXAMINATION: VITAL SIGNS: Temperature 101.5, pulse 87, respiration 34, blood pressure 97/53. HEENT: Proned, orally intubated nasogastric feeding tube. ABDOMEN: Morbidly obese with a BMI of 66.6. CV: Irregular at times. CHEST: Decreased breath sounds. ABDOMEN: Morbidly obese, soft. HEENT: Moist oral intubated with nasogastric feeding tube. EXTREMITIES: With edema. MEDICATION: Reviewed as far as Infectious Disease point of view. The patient is on: 1. Dexamethasone. 2. Zinc sulfate. 3. Meropenem q.8 hours. 4. Vancomycin IV q.12 hours. 5. Diflucan 100 mg daily. LABORATORY STUDIES: White count of 12.3, hemoglobin 10.9, and platelet 197. Sodium 140, potassium 4.2, creatinine 0.65. MICROBIOLOGY: On 01/09/2020, blood culture negative. On 01/10/2020, urine showed Monalisa albicans. On 01/14/2020, blood culture pending. On 01/14/2020, sputum cultures pending. RADIOLOGY STUDIES: Chest x-ray from yesterday showed worsening of bilateral patchy opacities, could present multifocal pneumonia, ARDS or pulmonary edema. ASSESSMENT AND PLAN: 1. COVID-19 pneumonitis. 2. Multifocal pneumonia. 3. Concern healthcare-associated pneumonia, antibiotic as above with vancomycin IV and Merrem. 4. Diabetes. 5. Morbid obesity. 6. Anemia. 7. Hypotensive, on Levophed, which is decreased to 5 mcg. 8. Overall very ill, follow up with the cultures and monitor the patient clinically. Discussed with the nurse. No new events. Monitor fever. Please refer to chart for more information. Dictated by Fahad Morales PA-C (Al) Manan Meehan MD /MODL /[id number]
[2020-01-15] MEDS: FLUCONAZOLE 200 MG/100 ML 100 ML IV SCH (14:47)
[2020-01-15] MEDS: NOREPINEPHRINE 8 MG/D5W 250 ML 250 ML IV SCH (16:30)
[2020-01-15] MEDS: INSULIN GLARGINE 100 UNITS/ML VIAL SQ SCH (20:55)
[2020-01-16] VITALS (18 sets, daily range): BP systolic 96–141; BP diastolic 42–77
[2020-01-16] MEDS: ROCURONIUM BROMIDE 1,250 MG in SODIUM CHLORIDE 0.9% 250ML 125 ML IV SCH (00:15)
[2020-01-16] MEDS: MIDAZOLAM HCL 5MG/ML 10ML VIAL 100 ML IV PRN ×3 (00:30→23:20)
[2020-01-16] MEDS: VANCOMYCIN 1GM/NS 250 ML 250 ML IV SCH ×2 (01:56→15:35)
[2020-01-16] MEDS: FENTANYL 2000MCG/NS 250 250 ML IV PRN ×2 (01:56→23:20)
--- NOTE | 2020-01-16 04:10 | NUR ---
PATIENT PLACED IN THE SUPINE POSITION AT THIS TIME.
[2020-01-16] MEDS: LEVOTHYROXINE SODIUM 25 MCG TABLET PO SCH (05:45)
[2020-01-16] MEDS: MEROPENEM 1GM 100 ML IV SCH ×3 (05:45→21:19)
[2020-01-16 05:53] LABS: BASOPHILS % 0.1 % (0.0-1.0); HEMOGLOBIN 10.7 g/dL (12.0-16.0); LYMPHOCYTES # (AUTO) 1.1 (1.0-3.2); LYMPHOCYTES % 11.2 % (18.0-39.1); MEAN CORPUSCULAR HEMOGLOBIN 27.9 pg (28-32); MEAN CORPUSCULAR HGB CONC 31.5 g/dL (31-35); MEAN CORPUSCULAR VOLUME 88.5 fL (81-99); MONOCYTES # (AUTO) 0.6 (0.2-0.8); MONOCYTES % 6.2 % (4.4-11.3); NEUTROPHILS # (AUTO) 7.8 (2.1-6.9); NEUTROPHILS % 81.5 % (38.7-80.0); PLATELET COUNT 200 x10e3/uL (140-360); RED BLOOD COUNT 3.84 x10e6/uL (3.6-5.1); RED CELL DISTRIBUTION WIDTH 12.9 % (11.7-14.4)
--- NOTE | 2020-01-16 06:27 | Diagnostic Imaging Report ---
EXAMINATION: CHEST SINGLE (PORTABLE) INDICATION: ^resp failure ^[id number] ^0500 COMPARISON: 01/14/2020 FINDINGS: AP view TUBES and LINES: Stable endotracheal tube and enteric tube. Stable right PICC. LUNGS: Lungs are well inflated. Diffuse bilateral airspace opacities. PLEURA: No pneumothorax. HEART AND MEDIASTINUM: The cardiomediastinal silhouette is obscured. BONES AND SOFT TISSUES: No acute osseous lesion. Soft tissues are unremarkable. UPPER ABDOMEN: No free air under the diaphragm. IMPRESSION: Diffuse bilateral airspace opacities, slightly decreased from prior exam, representing mildly improved edema and/or pneumonia. Signed by: Dr. Zach Mccarty MD on 01/16/2020 6:24 AM
[2020-01-16 06:28] LABS: ALANINE AMINOTRANSFERASE 14 IU/L (0-55); ALBUMIN 2.5 g/dL (3.5-5.0); ALBUMIN/GLOBULIN RATIO 0.8 (0.8-2.0); ALKALINE PHOSPHATASE 88 IU/L (40-150); ANION GAP 14.2 mmol/L (8-16); BLOOD UREA NITROGEN 17 mg/dL (7-26); BUN/CREATININE RATIO 25 (6-25); CALCIUM 8.1 mg/dL (8.4-10.2); CARBON DIOXIDE 22 mmol/L (22-29); CHLORIDE 109 mmol/L (98-107); CREATININE, SERUM 0.67 mg/dL (0.57-1.11); EST GLOMERULAR FILTRATION RATE > 60 ML/MIN (60-); GLUCOSE 271 mg/dL (74-118); POTASSIUM 4.2 mmol/L (3.5-5.1); SODIUM 141 mmol/L (136-145)
[2020-01-16] MEDS ORDERED: INSULIN LISPRO 100 UNIT/1 ML 3ML VIAL SQ SCH (07:30)
[2020-01-16] MEDS: OXYBUTYNIN CHLORIDE XL 5 MG TAB PO SCH (07:48)
[2020-01-16 07:50] LABS: ABG HCO3 25 mmol/L (22-26); ABG PCO2 44 mmHg (35-45); ABG PH 7.35 (7.35-7.45); ABG PO2 67 mmHg (80-105); ABG TCO2 26
[2020-01-16] MEDS: FAMOTIDINE 20 MG/2 ML VIAL IV SCH ×2 (08:09→18:44)
[2020-01-16] MEDS: ZINC SULFATE 220 MG CAP PO SCH ×2 (08:09→18:44)
[2020-01-16] MEDS: ASCORBIC ACID 500 MG TAB PO SCH ×2 (08:09→18:44)
[2020-01-16] MEDS: CHOLECALCIFEROL 400 UNIT TAB PO SCH (08:09)
[2020-01-16] MEDS: DEXAMETHASONE SOD PHOS INJ 4 MG/ML VIAL IV SCH (08:09)
[2020-01-16] MEDS: ENOXAPARIN INJ 80 MG/0.8 ML SYR SC SCH ×2 (08:09→21:19)
[2020-01-16] MEDS: DOCUSATE SODIUM 100 MG CAP PO SCH ×2 (08:09→18:44)
--- NOTE | 2020-01-16 09:19 | NUR ---
Residual checked and revealed 300ml TF. TF held for approx. 1 hour. Recheck revealed 120ml. TF restarted at 30ml/hr (goal) Addendum: 01/16/20 at 0921 by Angeles Langley RN Amended: Links added.
[2020-01-16] MEDS ORDERED: FUROSEMIDE INJ 10 MG/ML 4 ML VIAL IV ONE (10:45)
--- NOTE | 2020-01-16 11:09 | Progress Note ---
DATE: Pulmonary progress note SUBJECTIVE: The patient remains on mechanical ventilation. Her FiO2 is set at 85% and PEEP is set at 12. She remains on Versed, fentanyl, and rocuronium. She is receiving enteral feedings. PHYSICAL EXAMINATION: VITAL SIGNS: The blood pressure is 109/62, saturation is 95%. The pulse is 50-60. HEENT: No facial swelling or erythema. There is an oral endotracheal tube. CARDIAC: Regular rate and rhythm with normal S1, S2. LUNGS: Auscultation of lungs reveals rhonchorous breath sounds bilaterally. There is no wheezing. ABDOMEN: Soft, nontender. There is no rebound or guarding. EXTREMITIES: No leg edema or calf tenderness. There is no cyanosis or clubbing. SKIN: No rashes. LABORATORY DATA: BUN to creatinine ratio is 17 to 0.67. The other electrolytes are within normal limits. The albumin is 2.5. White blood cell count is 9.6 and hemoglobin is 10.7. The platelet count is 200. RADIOGRAPHIC DATA: Chest x-ray shows bilateral infiltrates. IMPRESSION: 1. Acute respiratory failure. 2. Viral pneumonia and coronavirus disease-19 infection. 3. Aspiration pneumonia. 4. Diabetes. 5. Anemia, unspecified. PLAN: 1. The patient to receive Lasix today. 2. Continue Versed, fentanyl and rocuronium. 3. Continue current ventilator settings. 4. Wean Levophed. 5. Continue to monitor and control blood sugars. 6. Continue Lovenox. Greater than 35 minutes in direct critical care time. Efren Blakely MD [facility]/MODL /[id number]
--- NOTE | 2020-01-16 15:21 | NUR ---
INFECTIOUS DISEASE PROGRESS NOTE DR REINOSO SUBJECTIVE: The patient was seen and evaluated. Discussed with the nurse. The patient remains with fever, pressors decrease to 5 mcg of Levophed, remains sedated, orally intubated with FiO2 of 85%, Tidal volume of 400, PEEP of 12. REVIEW OF SYSTEMS: Unable to obtain review of system. PHYSICAL EXAMINATION: VITAL SIGNS: reviewed HEENT: s/p proning, atraumatic, normocephalic ABDOMEN: Morbidly obese, non distended CV: Irregularrly regular, s1, s2, with no s3, s4 CHEST: Decreased breath sounds, vent support ABDOMEN: Morbidly obese, soft. HEENT: Moist oral intubated with nasogastric feeding tube. EXTREMITIES: With edema. MEDICATION: Reviewed as far as Infectious Disease point of view. The patient is on: 1. Dexamethasone. 2. Zinc sulfate. 3. Meropenem q.8 hours. 4. Vancomycin IV q.12 hours. 5. Diflucan 100 mg daily. LABORATORY STUDIES: reviewed MICROBIOLOGY: On 01/09/2020, blood culture negative. On 01/10/2020, urine showed Monalisa albicans. On 01/14/2020, blood culture pending. On 01/14/2020, sputum cultures pending. RADIOLOGY STUDIES: Chest x-ray from yesterday showed worsening of bilateral patchy opacities, could present multifocal pneumonia, ARDS or pulmonary edema. ASSESSMENT AND PLAN: 1. COVID-19 pneumonitis. 2. Multifocal pneumonia. 3. Concern healthcare-associated pneumonia, antibiotic as above with vancomycin IV and Merrem. 4. Diabetes. 5. Morbid obesity. 6. Anemia. 7. Hypotension Titrating levo, attempting to wean vent settings. S/p Proning 48 hrs. Will continue the same from ID standpoint. On Merrem, Vanc, and Diflucan. Supportive care. Overall guarded prognosis Barbara Torres MSN, TEAM CDL DRIVER, AGACNP-BC Dr. Reinoso
[2020-01-16] MEDS: INSULIN LISPRO 100 UNIT/1 ML 3ML VIAL SQ SCH ×2 (15:35→19:00)
[2020-01-16] MEDS: FLUCONAZOLE 200 MG/100 ML 100 ML IV SCH (15:35)
[2020-01-16] MEDS ORDERED: FUROSEMIDE INJ 10 MG/ML 4 ML VIAL ONE (15:44)
[2020-01-16] MEDS: NOREPINEPHRINE 8 MG/D5W 250 ML 250 ML IV SCH (16:30)
--- NOTE | 2020-01-16 19:51 | NUR ---
PATIENT RIGHT LYING AT CHANGE OF SHIFT, PLACED ON BACK AT THIS TIME. NOREPI INF TURNED OFF FOR ABP OF 141/77.
[2020-01-16] MEDS ORDERED: INSULIN GLARGINE 100 UNITS/ML VIAL SQ SCH (21:00)
[2020-01-16] MEDS: INSULIN GLARGINE 100 UNITS/ML VIAL SQ SCH (21:20)
[2020-01-17] VITALS (20 sets, daily range): BP systolic 95–137; BP diastolic 50–69
[2020-01-17] MEDS: ROCURONIUM BROMIDE 1,250 MG in SODIUM CHLORIDE 0.9% 250ML 125 ML IV SCH (00:15)
[2020-01-17] MEDS: INSULIN LISPRO 100 UNIT/1 ML 3ML VIAL SQ SCH ×5 (00:44→23:56)
[2020-01-17] MEDS ORDERED: SODIUM CHLORIDE 0.9% 1000ML 1,000 ML ONE (01:33)
[2020-01-17] MEDS: VANCOMYCIN 1GM/NS 250 ML 250 ML IV SCH ×2 (01:34→17:27)
[2020-01-17] MEDS: MEROPENEM 1GM 100 ML IV SCH ×3 (05:13→21:48)
[2020-01-17] MEDS: LEVOTHYROXINE SODIUM 25 MCG TABLET PO SCH (05:14)
[2020-01-17 05:30] LABS: BASOPHILS % 0.2 % (0.0-1.0); HEMATOCRIT 36.5 % (34.2-44.1); HEMOGLOBIN 11.5 g/dL (12.0-16.0); LYMPHOCYTES # (AUTO) 1.2 (1.0-3.2); LYMPHOCYTES % 10.4 % (18.0-39.1); MEAN CORPUSCULAR HEMOGLOBIN 27.3 pg (28-32); MEAN CORPUSCULAR HGB CONC 31.5 g/dL (31-35); MEAN CORPUSCULAR VOLUME 86.5 fL (81-99); MONOCYTES # (AUTO) 0.7 (0.2-0.8); MONOCYTES % 6.1 % (4.4-11.3); NEUTROPHILS # (AUTO) 9.1 (2.1-6.9); NEUTROPHILS % 81.3 % (38.7-80.0); PLATELET COUNT 271 x10e3/uL (140-360); RED BLOOD COUNT 4.22 x10e6/uL (3.6-5.1)
[2020-01-17 05:53] LABS: ALANINE AMINOTRANSFERASE 12 IU/L (0-55); ALBUMIN 2.7 g/dL (3.5-5.0); ALBUMIN/GLOBULIN RATIO 0.8 (0.8-2.0); ALKALINE PHOSPHATASE 82 IU/L (40-150); ANION GAP 16.1 mmol/L (8-16); BLOOD UREA NITROGEN 27 mg/dL (7-26); BUN/CREATININE RATIO 39 (6-25); CALCIUM 8.2 mg/dL (8.4-10.2); CARBON DIOXIDE 25 mmol/L (22-29); CHLORIDE 107 mmol/L (98-107); EST GLOMERULAR FILTRATION RATE > 60 ML/MIN (60-); GLUCOSE 244 mg/dL (74-118); POTASSIUM 4.1 mmol/L (3.5-5.1); SODIUM 144 mmol/L (136-145)
[2020-01-17] MEDS: FENTANYL 2000MCG/NS 250 250 ML IV PRN ×2 (06:12→21:49)
[2020-01-17] MEDS: MIDAZOLAM HCL 5MG/ML 10ML VIAL 100 ML IV PRN ×2 (06:12→21:50)
[2020-01-17 07:49] LABS: ABG HCO3 28 mmol/L (22-26); ABG PCO2 43 mmHg (35-45); ABG PH 7.42 (7.35-7.45); ABG PO2 60 mmHg (80-105); ABG TCO2 29
[2020-01-17] MEDS: DEXAMETHASONE SOD PHOS INJ 4 MG/ML VIAL IV SCH (08:09)
[2020-01-17] MEDS: FAMOTIDINE 20 MG/2 ML VIAL IV SCH ×2 (08:09→18:07)
[2020-01-17] MEDS: ENOXAPARIN INJ 80 MG/0.8 ML SYR SC SCH ×2 (08:15→20:26)
[2020-01-17] MEDS: ASCORBIC ACID 500 MG TAB PO SCH ×2 (08:15→18:07)
[2020-01-17] MEDS: CHOLECALCIFEROL 400 UNIT TAB PO SCH (08:15)
[2020-01-17] MEDS: ZINC SULFATE 220 MG CAP PO SCH ×2 (08:15→18:07)
--- NOTE | 2020-01-17 08:51 | Diagnostic Imaging Report ---
EXAMINATION: CHEST SINGLE (PORTABLE) INDICATION: Respiratory failure COMPARISON: Chest radiograph 01/16/2020 FINDINGS: LINES/TUBES:Endotracheal tube terminates 4 cm above the fran. Additional lines and tubes unchanged. LUNGS:The lung volumes remain low. Unchanged bilateral multifocal airspace opacities. PLEURA:No pleural effusion or pneumothorax. MEDIASTINUM:The cardiomediastinal silhouette appears unchanged in size and shape. BONES/SOFT TISSUES:No acute osseous injury. ABDOMEN:No free air under the diaphragm. IMPRESSION: No significant interval change. Signed by: Parveen Baptiste MD on 01/17/2020 8:48 AM
[2020-01-17] MEDS ORDERED: FUROSEMIDE INJ 10 MG/ML 4 ML VIAL IV ONE (08:55)
--- NOTE | 2020-01-17 09:18 | Progress Note ---
DATE: Pulmonary Critical Care Progress Note SUBJECTIVE: The patient is currently on mechanical ventilation. She was just changed to a PRVC at a rate of 34 with a tidal volume of 380, a PEEP of 10 and a FiO2 of 85%. Respiratory rate is set at 34. She remains on 1 mcg of Levophed. PHYSICAL EXAMINATION: VITAL SIGNS: Blood pressure is 104/52, saturation is 93%. The pulse is 55 to 60. Respiratory rate is still 34. HEENT: Shows no facial swelling or erythema. LYMPHATIC: Shows no submandibular, cervical, or supraclavicular adenopathy. CARDIAC: Reveals regular rate and rhythm with normal S1 and S2. LUNGS: Auscultation of lungs reveals rhonchorous breath sounds bilaterally. There is no wheezing. ABDOMEN: Soft and nontender. There is no rebound or guarding. EXTREMITIES: Show no leg edema or calf tenderness. There is no cyanosis or clubbing. SKIN: Shows no rashes. LABORATORY DATA: White blood cell count is 11.2, hemoglobin is 11.5, and platelet count is 271. The BUN to creatinine ratio is 27 to 0.7. The other electrolytes are within normal limits and the albumin is 2.7. IMPRESSION: 1. Acute respiratory failure. 2. Viral pneumonia and COVID-19 infection. 3. Aspiration pneumonia. 4. Diabetes. 5. Anemia, unspecified. PLAN: 1. Additional Lasix today. 2. Advance endotracheal tube [address] the patient in prone position. 4. Wean Levophed. 5. Increase Lantus and monitor blood sugars. 6. Continue Lovenox. 7. Continue current antibiotics. Greater than 35 minutes in direct critical care time. Efren Blakely MD [facility]/MOD[facility] /[id number]
[2020-01-17] MEDS: DOCUSATE SODIUM LIQD 100 MG/10 ML UDC NG SCH (12:05)
[2020-01-17] MEDS: OXYBUTYNIN CHLORIDE 5 MG TAB NG SCH ×2 (12:05→18:07)
[2020-01-17 15:10] LABS: ABG HCO3 31 mmol/L (22-26); ABG PCO2 45 mmHg (35-45); ABG PH 7.45 (7.35-7.45); ABG PO2 123 mmHg (80-105); ABG TCO2 33
[2020-01-17] MEDS: NOREPINEPHRINE 8 MG/D5W 250 ML 250 ML IV SCH (16:30)
[2020-01-17] MEDS: FLUCONAZOLE 200 MG/100 ML 100 ML IV SCH (17:27)
--- NOTE | 2020-01-17 17:41 | Progress Note ---
DATE: SUBJECTIVE: Ms. Fairchild remains in intensive care unit, intubated, in prone position. Her vitals are stable, 1 mcg of Levophed. PHYSICAL EXAMINATION: GENERAL: She is intubated and sedated. VITAL SIGNS: Stable, afebrile. HEENT: Normocephalic. NECK: Supple. CHEST: Few rhonchi bilateral. HEART: S1 and S2. ABDOMEN: Soft and obese. EXTREMITIES: No edema. SKIN: No rash. LABORATORY DATA: White count 11.2, hemoglobin 11.5, and platelet count 71. Her urine, Monalisa albicans. Sputum culture is negative. The patient is on dexamethasone. This is day #8. She is currently on meropenem day #3 and vancomycin day #3, to finish 8 days. Continue supportive care and treating aspiration pneumonia, healthcare-associated. We will follow. MD ALESSANDRO Leos/MARIA ELENA /[id number]
[2020-01-17] MEDS: FUROSEMIDE INJ 10 MG/ML 4 ML VIAL IV SCH (20:26)
[2020-01-17] MEDS ORDERED: INSULIN GLARGINE 100 UNITS/ML VIAL SQ SCH (21:00)
[2020-01-18] VITALS (26 sets, daily range): BP systolic 92–142; BP diastolic 49–75
[2020-01-18] MEDS: ROCURONIUM BROMIDE 1,250 MG in SODIUM CHLORIDE 0.9% 250ML 125 ML IV SCH ×2 (00:15→13:57)
[2020-01-18] MEDS: VANCOMYCIN 1GM/NS 250 ML 250 ML IV SCH ×2 (01:54→14:44)
[2020-01-18 04:51] LABS: BASOPHILS % 0.1 % (0.0-1.0); LYMPHOCYTES # (AUTO) 0.7 (1.0-3.2); LYMPHOCYTES % 10.4 % (18.0-39.1); MEAN CORPUSCULAR HEMOGLOBIN 26.8 pg (28-32); MEAN CORPUSCULAR HGB CONC 31.4 g/dL (31-35); MEAN CORPUSCULAR VOLUME 85.2 fL (81-99); MONOCYTES # (AUTO) 0.5 (0.2-0.8); MONOCYTES % 7.2 % (4.4-11.3); NEUTROPHILS # (AUTO) 5.3 (2.1-6.9); NEUTROPHILS % 77.6 % (38.7-80.0); PLATELET COUNT 243 x10e3/uL (140-360); RED BLOOD COUNT 4.11 x10e6/uL (3.6-5.1); RED CELL DISTRIBUTION WIDTH 12.7 % (11.7-14.4)
[2020-01-18 05:10] LABS: ALANINE AMINOTRANSFERASE 13 IU/L (0-55); ALBUMIN 2.5 g/dL (3.5-5.0); ALBUMIN/GLOBULIN RATIO 0.8 (0.8-2.0); ALKALINE PHOSPHATASE 77 IU/L (40-150); BLOOD UREA NITROGEN 22 mg/dL (7-26); BUN/CREATININE RATIO 37 (6-25); CALCIUM 7.5 mg/dL (8.4-10.2); CARBON DIOXIDE 28 mmol/L (22-29); CHLORIDE 102 mmol/L (98-107); CREATININE, SERUM 0.59 mg/dL (0.57-1.11); EST GLOMERULAR FILTRATION RATE > 60 ML/MIN (60-); GLUCOSE 269 mg/dL (74-118); SODIUM 144 mmol/L (136-145)
[2020-01-18] MEDS: MEROPENEM 1GM 100 ML IV SCH ×3 (05:16→21:28)
[2020-01-18] MEDS: LEVOTHYROXINE SODIUM 25 MCG TABLET PO SCH (05:16)
[2020-01-18] MEDS: FENTANYL 2000MCG/NS 250 250 ML IV PRN ×3 (05:53→22:46)
[2020-01-18] MEDS: INSULIN LISPRO 100 UNIT/1 ML 3ML VIAL SQ SCH ×3 (05:53→17:29)
[2020-01-18] MEDS ORDERED: POTASSIUM CHLORIDE 20MEQ/100ML 200 ML IV ONE (06:45)
[2020-01-18 07:39] LABS: ABG HCO3 32 mmol/L (22-26); ABG PCO2 41 mmHg (35-45); ABG PO2 80 mmHg (80-105); ABG TCO2 34
[2020-01-18] MEDS: MIDAZOLAM HCL 5MG/ML 10ML VIAL 100 ML IV PRN ×3 (08:13→17:37)
[2020-01-18] MEDS: DEXAMETHASONE SOD PHOS INJ 4 MG/ML VIAL IV SCH (08:21)
[2020-01-18] MEDS: DOCUSATE SODIUM LIQD 100 MG/10 ML UDC NG SCH (08:22)
[2020-01-18] MEDS: OXYBUTYNIN CHLORIDE 5 MG TAB NG SCH ×2 (08:22→17:06)
[2020-01-18] MEDS: ASCORBIC ACID 500 MG TAB PO SCH ×2 (08:22→17:06)
[2020-01-18] MEDS: FAMOTIDINE 20 MG/2 ML VIAL IV SCH ×2 (08:22→17:06)
[2020-01-18] MEDS: ENOXAPARIN INJ 80 MG/0.8 ML SYR SC SCH ×2 (08:22→21:28)
[2020-01-18] MEDS: CHOLECALCIFEROL 400 UNIT TAB PO SCH (08:22)
[2020-01-18] MEDS: ZINC SULFATE 220 MG CAP PO SCH ×2 (08:22→17:06)
[2020-01-18] MEDS: FUROSEMIDE INJ 10 MG/ML 4 ML VIAL IV SCH ×2 (08:22→21:28)
--- NOTE | 2020-01-18 09:23 | Progress Note ---
DATE: Pulmonary Critical Care Progress Note SUBJECTIVE: The patient remains in the prone position. She remains on rocuronium at 0.012, Versed at 5 mg and fentanyl at 250 mcg. She received Lasix yesterday and is negative 3.5 L. Her Levophed is down to 0.5 mcg. PHYSICAL EXAMINATION: VITAL SIGNS: The blood pressure is 99/50, saturation is 98% and the pulse is 50 to 60. She is currently on a pressure regulated volume control at a rate of 32 with a tidal volume of 380, PEEP of 10 and FiO2 of 65%. Her saturations are 97%. She has an oral endotracheal tube. She has a PICC line and an arterial line. CARDIAC: Reveals regular rate and rhythm with normal S1 and S2. LUNGS: Auscultation of lungs reveals rhonchorous breath sounds bilaterally. There is no wheezing. ABDOMEN: Soft and nontender. There is no rebound or guarding. EXTREMITIES: Shows no leg edema or calf tenderness. There is no cyanosis or clubbing. SKIN: Shows no rashes. NEUROLOGICAL: Shows the patient to be sedated. LABORATORY DATA: White blood cell count is 6.8 and hemoglobin is 11. The platelet count is 243. BUN to creatinine ratio is 22 to 0.59. Potassium is 3.0. Blood sugars are 239 to 370. IMPRESSION: 1. Acute respiratory failure. 2. Viral pneumonia and COVID-19 infection. 3. Diabetes with elevated blood sugars. 4. Aspiration pneumonia. 5. Anemia. 6. Hypokalemia. PLAN: 1. Repeat ABG at 1500 and wean ventilator as tolerated. 2. Increase Lantus. 3. The patient to complete dexamethasone today. 4. Continue Lovenox. 5. Complete current antibiotics. 6. Wean off Levophed. 7. Wean rocuronium as tolerated. 8. Continue Versed and fentanyl. 9. Case discussed with nursing, Respiratory, Infectious Disease, Internal Medicine and family. Greater than 35 minutes in direct critical care time. Efren Blakely MD [facility]/MOD[facility] /[id number]
[2020-01-18] MEDS: FLUCONAZOLE 200 MG/100 ML 100 ML IV SCH (13:56)
[2020-01-18 15:17] LABS: ABG PCO2 43 mmHg (35-45); ABG PH 7.53 (7.35-7.45)
[2020-01-18 15:18] LABS: ABG HCO3 36 mmol/L (22-26); ABG PO2 70 mmHg (80-105); ABG TCO2 38
--- NOTE | 2020-01-18 15:30 | NUR ---
Nutrition Intervention Note RD Recommendation(s) for Physician: -Continue Vital AF 1.2 and increase towards goal rate of 40 mL/hr as appropriate. (provides 1152 kcal, 72 g protein) -Water/fluid management per MD -If pt requires prone positioning, pt may be fed at goal rate placed in reverse Trendelenburg with HOB at 10 to 25 degrees. Plan of Care: RD following, monitoring for tolerance and adequacy, tube feed recommendation Nutrition reason for involvement: follow up RD Assessment 01/17: Follow up. Pt remains mechanically ventilated and is in the prone position. Pt tube feed is at 30 mL/hr per RN. Recommend increasing towards goal as appropriate. Will continue to monitor. (01/14/20) Pt is a 54 year old female admitted with hypoxia and pneumonia due to COVID-19. Pt was intubated yesterday and tube feed order was placed. Pt was previously on an ADA diet with 25-50% meal intake recorded. Pt has a ht of 48 inches currently in chart, but per history in chart a height of 59 inches was previously recorded. Recommendations provided. RD to manage tube feed order per Dr. Blakely. Will continue to monitor. Principal Problems/Diagnoses: hypoxia, pneumonia due to COVID-19 PMH: Kidney infections as a child, diabetes mellitus, diabetic neuropathy, hypothyroidism, overactive bladder, and morbid obesity. GI: round/large/soft abdomen, last recorded BM 01/12 Skin: intact Labs: 01/17: Na 144, K 3.0, BUN 22, Cr 0.59, Glu 269, Ca 7.5, AST 48 (01/13) Na 137, K 3.9, BUN 18, Cr 0.79, Glu 233, Ca 8.0, AST 42 Meds: lasix, colace, pepcid, zinc sulfate, vitamin C, vitamin D, insulin, antibiotic,s, rocuronium, norepinephrine, insulin, fentanyl, hydralazine Ht: 59 inches (per chart history) Wt: 218 lbs (01/17) 226 lbs (01/10) - Suspect weight difference is weight error or fluid related BMI: 44 kg/m2 using weight of 218 lbs IBW: 98 lbs Malnutrition Evaluation (01/14/20) The patient does not meet criteria for a specified degree of malnutrition at this time. Will re-evaluate at follow-up as appropriate. Energy intake: </=50% of estimated energy requirements for 5 days Weight loss: unable to evaluate Fat loss: no loss per observation outside room Muscle loss: no loss per observation outside room Supporting Evidence: Fluid accumulation: no edema per MD note Functional Status: unable to evaluate Nutrition Prescription (Diet Order): Vital AF 1.2 @ 40 mL/hr - infusing at 30 mL/hr (provides 864 kcal, 54 g protein) Estimated Nutritional Needs: 980-1115 calories/day (22-25 kcal/kg IBW) 67-89 g protein/day (1.5-2 g pro/kg IBW) Diet Adequacy: Current TF rate is meeting >75% calorie and protein needs Tolerance: tolerating TF Diet Education Needs Assessment: Diet education not indicated, patient is intubated Nutrition Care Level: moderate Nutrition Diagnosis: Inadequate oral intake related to acute respiratory failure/mechanical ventilation as evidenced by requiring enteral nutrition Goal: Patient will meet 75-100% of estimated needs by follow up Progress: progressing Interventions: - Composition, Rate, Route Monitoring/Evaluation: -Total energy intake, Total protein intake, Formula/Solution, Weight change Signed: Stephanie Angulo RD, LD
[2020-01-18] MEDS: NOREPINEPHRINE 8 MG/D5W 250 ML 250 ML IV SCH (16:30)
--- NOTE | 2020-01-18 18:47 | Progress Note ---
DATE: SUBJECTIVE: Ms. Fairchild remains in intensive care unit. She is intubated and sedated. I talked to her today at length about her condition. She remains intubated. We talked about her condition. We talked about convalescent plasma, she is not a candidate. Also, the patient refused at the beginning. PHYSICAL EXAMINATION: GENERAL: She is currently intubated and sedated. VITAL SIGNS: Stable, currently afebrile. HEENT: She is not icteric. NECK: Supple. CHEST: Crackles heard ABDOMEN: Soft. Bowel sounds present. EXTREMITIES: No edema. SKIN: No rash. IMPRESSION: Respiratory failure, COVID-19, diabetes mellitus, aspiration pneumonia. She is currently on vancomycin and fluconazole and meropenem. We will finish 7 days. MD ALESSANDRO Leos/MARIA ELENA /[id number]
[2020-01-18] MEDS ORDERED: INSULIN GLARGINE 100 UNITS/ML VIAL SQ SCH (21:00)
[2020-01-19] VITALS (26 sets, daily range): BP systolic 88–128; BP diastolic 42–82
[2020-01-19] MEDS: INSULIN LISPRO 100 UNIT/1 ML 3ML VIAL SQ SCH ×4 (01:12→17:55)
[2020-01-19] MEDS: VANCOMYCIN 1GM/NS 250 ML 250 ML IV SCH ×2 (02:59→14:11)
[2020-01-19] MEDS: MIDAZOLAM HCL 5MG/ML 10ML VIAL 100 ML IV PRN ×3 (03:24→21:00)
[2020-01-19 03:30] LABS: BASOPHILS % 0.1 % (0.0-1.0); HEMOGLOBIN 11.4 g/dL (12.0-16.0); LYMPHOCYTES # (AUTO) 0.7 (1.0-3.2); LYMPHOCYTES % 9.2 % (18.0-39.1); MEAN CORPUSCULAR HGB CONC 31.7 g/dL (31-35); MEAN CORPUSCULAR VOLUME 85.3 fL (81-99); MONOCYTES # (AUTO) 0.6 (0.2-0.8); MONOCYTES % 7.2 % (4.4-11.3); NEUTROPHILS # (AUTO) 6.6 (2.1-6.9); NEUTROPHILS % 81.9 % (38.7-80.0); PLATELET COUNT 263 x10e3/uL (140-360); RED BLOOD COUNT 4.22 x10e6/uL (3.6-5.1)
[2020-01-19 03:52] LABS: ALANINE AMINOTRANSFERASE 19 IU/L (0-55); ALBUMIN 2.6 g/dL (3.5-5.0); ALBUMIN/GLOBULIN RATIO 0.8 (0.8-2.0); ALKALINE PHOSPHATASE 76 IU/L (40-150); ANION GAP 17.7 mmol/L (8-16); BLOOD UREA NITROGEN 26 mg/dL (7-26); BUN/CREATININE RATIO 43 (6-25); CALCIUM 7.9 mg/dL (8.4-10.2); CARBON DIOXIDE 30 mmol/L (22-29); CHLORIDE 98 mmol/L (98-107); CREATININE, SERUM 0.61 mg/dL (0.57-1.11); EST GLOMERULAR FILTRATION RATE > 60 ML/MIN (60-); GLUCOSE 265 mg/dL (74-118); POTASSIUM 3.7 mmol/L (3.5-5.1); SODIUM 142 mmol/L (136-145)
[2020-01-19] MEDS: MEROPENEM 1GM 100 ML IV SCH ×3 (06:15→21:02)
[2020-01-19] MEDS: LEVOTHYROXINE SODIUM 25 MCG TABLET PO SCH (06:15)
[2020-01-19] MEDS: OXYBUTYNIN CHLORIDE 5 MG TAB NG SCH ×2 (08:30→17:39)
[2020-01-19] MEDS: CHOLECALCIFEROL 400 UNIT TAB PO SCH (08:30)
[2020-01-19] MEDS: ASCORBIC ACID 500 MG TAB PO SCH ×2 (08:30→17:39)
[2020-01-19] MEDS: ZINC SULFATE 220 MG CAP PO SCH ×2 (08:30→17:39)
[2020-01-19] MEDS: DOCUSATE SODIUM LIQD 100 MG/10 ML UDC NG SCH (08:30)
[2020-01-19] MEDS: FAMOTIDINE 20 MG/2 ML VIAL IV SCH ×2 (08:31→17:39)
[2020-01-19] MEDS: ENOXAPARIN INJ 80 MG/0.8 ML SYR SC SCH ×2 (08:31→21:02)
[2020-01-19 11:32] LABS: ABG HCO3 38 mmol/L (22-26); ABG PCO2 50 mmHg (35-45); ABG PH 7.49 (7.35-7.45); ABG PO2 91 mmHg (80-105); ABG TCO2 39
--- NOTE | 2020-01-19 14:01 | Progress Note ---
DATE: SUBJECTIVE: The patient was negative 2.5 L yesterday. Her oxygenation is improved and she is down 65%. She remains in a prone position. She is still on Levophed at 0.5 mcg. She is on feeding at 30 mL an hour. PHYSICAL EXAMINATION: VITAL SIGNS: The blood pressure is 103/55, saturation is 98%. Pulse is 55. The patient is currently on a PRVC mode of ventilation at a rate of 26. Her tidal volume is set at 380 and a PEEP is set at 10. Her FiO2 is set at 60%. HEENT: No facial swelling or erythema. There is an oral endotracheal tube. There is a PICC line in place. There is an arterial line. LYMPHATIC: No submandibular, cervical, or supraclavicular adenopathy. CARDIAC: Regular rate and rhythm with normal S1, S2. LUNGS: Auscultation of lungs shows decreased breath sounds at the bases. There is no wheezing. ABDOMEN: Soft, nontender. There is no rebound or guarding. EXTREMITIES: No leg edema or calf tenderness. There is no cyanosis or clubbing. SKIN: No rashes. NEUROLOGICAL: No focal abnormalities. LABORATORY DATA: White blood cell count is 8 and hemoglobin is 11.4. The platelet count is 263. The BUN to creatinine ratio is 26 to 0.61 and the other electrolytes are within normal limits. The blood sugar is 232. ABG is 7.49, 50, 91 and 38. IMPRESSION: 1. Acute respiratory failure. 2. Viral pneumonia and coronavirus disease-19 infection. 3. Diabetes. 4. Aspiration pneumonia. 5. Anemia. 6. Hypokalemia. PLAN: 1. Decrease minute ventilation and FiO2 as tolerated. 2. Place patient in the supine position. 3. Complete dexamethasone. 4. Continue Lovenox. 5. Wean off Levophed. 6. Continue to wean rocuronium. 7. Complete current antibiotics. 8. Continue Versed and fentanyl. Greater than 35 minutes in direct critical care time. Efren Blakely MD [facility] /[id number]
[2020-01-19] MEDS: NOREPINEPHRINE 8 MG/D5W 250 ML 250 ML IV SCH (14:11)
[2020-01-19] MEDS: FLUCONAZOLE 200 MG/100 ML 100 ML IV SCH (14:11)
[2020-01-19] MEDS: FENTANYL 2000MCG/NS 250 250 ML IV PRN ×2 (15:36→23:31)
--- NOTE | 2020-01-19 16:47 | Progress Note ---
DATE: SUBJECTIVE: Ms. Fairchild remains on the ventilator. The patient is intubated, sedated. PHYSICAL EXAMINATION: HEENT: Not icteric. NECK: Supple. CHEST: Crackles. HEART: S1, S2. ABDOMEN: Soft. Bowel sounds present. EXTREMITIES: No edema. IMPRESSION: Respiratory failure, diabetes mellitus, aspiration. Continue antibiotic. Continue with Lovenox as ordered. Continue supportive care. She is currently on vancomycin, fluconazole and meropenem to finish 7 days is ordered. We will follow. MD ALESSANDRO Leos/DHEERAJL /[id number]
[2020-01-19 18:19] LABS: ABG HCO3 36 mmol/L (22-26); ABG PCO2 53 mmHg (35-45); ABG PH 7.44 (7.35-7.45); ABG PO2 82 mmHg (80-105); ABG TCO2 38
[2020-01-19] MEDS ORDERED: INSULIN GLARGINE 100 UNITS/ML VIAL SQ SCH (21:00)
[2020-01-19] MEDS: INSULIN GLARGINE 100 UNITS/ML VIAL SQ SCH (21:02)
[2020-01-20] VITALS (27 sets, daily range): BP systolic 73–207; BP diastolic 39–93
[2020-01-20] MEDS: INSULIN LISPRO 100 UNIT/1 ML 3ML VIAL SQ SCH ×4 (00:38→18:45)
[2020-01-20] MEDS: VANCOMYCIN 1GM/NS 250 ML 250 ML IV SCH ×2 (01:52→14:07)
[2020-01-20 04:12] LABS: BASOPHILS % 0.2 % (0.0-1.0); EOSINOPHILS % 0.2 % (0.0-6.0); HEMATOCRIT 36.7 % (34.2-44.1); HEMOGLOBIN 11.5 g/dL (12.0-16.0); LYMPHOCYTES # (AUTO) 2.2 (1.0-3.2); LYMPHOCYTES % 12.1 % (18.0-39.1); MEAN CORPUSCULAR HEMOGLOBIN 27.8 pg (28-32); MEAN CORPUSCULAR HGB CONC 31.3 g/dL (31-35); MEAN CORPUSCULAR VOLUME 88.6 fL (81-99); MONOCYTES # (AUTO) 0.7 (0.2-0.8); MONOCYTES % 3.8 % (4.4-11.3); NEUTROPHILS # (AUTO) 14.8 (2.1-6.9); PLATELET COUNT 302 x10e3/uL (140-360); RED BLOOD COUNT 4.14 x10e6/uL (3.6-5.1); RED CELL DISTRIBUTION WIDTH 13.3 % (11.7-14.4)
[2020-01-20 04:32] LABS: ALANINE AMINOTRANSFERASE 28 IU/L (0-55); ALBUMIN 2.4 g/dL (3.5-5.0); ALBUMIN/GLOBULIN RATIO 0.8 (0.8-2.0); ALKALINE PHOSPHATASE 87 IU/L (40-150); ANION GAP 13.5 mmol/L (8-16); BLOOD UREA NITROGEN 27 mg/dL (7-26); BUN/CREATININE RATIO 50 (6-25); CALCIUM 7.6 mg/dL (8.4-10.2); CARBON DIOXIDE 29 mmol/L (22-29); CHLORIDE 104 mmol/L (98-107); CREATININE, SERUM 0.54 mg/dL (0.57-1.11); EST GLOMERULAR FILTRATION RATE > 60 ML/MIN (60-); GLUCOSE 139 mg/dL (74-118); POTASSIUM 3.5 mmol/L (3.5-5.1); SODIUM 143 mmol/L (136-145)
[2020-01-20] MEDS: LEVOTHYROXINE SODIUM 25 MCG TABLET PO SCH (06:22)
[2020-01-20] MEDS: MEROPENEM 1GM 100 ML IV SCH ×3 (06:22→21:30)
[2020-01-20] MEDS: MIDAZOLAM HCL 5MG/ML 10ML VIAL 100 ML IV PRN ×2 (06:23→15:40)
[2020-01-20] MEDS: FENTANYL 2000MCG/NS 250 250 ML IV PRN ×2 (07:30→15:39)
[2020-01-20] MEDS: DOCUSATE SODIUM LIQD 100 MG/10 ML UDC NG SCH (08:57)
[2020-01-20] MEDS: ASCORBIC ACID 500 MG TAB PO SCH ×2 (08:57→17:07)
[2020-01-20] MEDS: FAMOTIDINE 20 MG/2 ML VIAL IV SCH ×2 (08:57→17:07)
[2020-01-20] MEDS: ZINC SULFATE 220 MG CAP PO SCH ×2 (08:57→17:07)
[2020-01-20] MEDS: ENOXAPARIN INJ 80 MG/0.8 ML SYR SC SCH ×2 (08:57→20:43)
[2020-01-20] MEDS: CHOLECALCIFEROL 400 UNIT TAB PO SCH (08:57)
[2020-01-20] MEDS: OXYBUTYNIN CHLORIDE 5 MG TAB NG SCH ×2 (08:57→17:07)
--- NOTE | 2020-01-20 09:26 | Diagnostic Imaging Report ---
EXAMINATION: CHEST SINGLE (PORTABLE) INDICATION: Respiratory failure COMPARISON: Chest radiograph 01/17/2020 FINDINGS: LINES/TUBES:Support lines and tubes unchanged. LUNGS:The lungs are moderately inflated. Bilateral multifocal airspace opacities are similar compared to 01/17/2020 but improved compared to 01/14/2020 and 01/16/2020. PLEURA:No pleural effusion or pneumothorax. MEDIASTINUM:The cardiomediastinal silhouette appears unchanged in size and shape. BONES/SOFT TISSUES:No acute osseous injury. ABDOMEN:No free air under the diaphragm. IMPRESSION: Bilateral multifocal airspace opacities, not significantly changed from 01/17/2020 but improved compared to images dating back to 01/14/2020. Signed by: Parveen Baptiste MD on 01/20/2020 9:22 AM
[2020-01-20 11:59] LABS: ABG HCO3 36 mmol/L (22-26); ABG PCO2 53 mmHg (35-45); ABG PH 7.43 (7.35-7.45); ABG PO2 131 mmHg (80-105); ABG TCO2 37
[2020-01-20] MEDS: FUROSEMIDE INJ 10 MG/ML 4 ML VIAL IV SCH ×2 (14:06→20:43)
[2020-01-20] MEDS: ALBUMIN 25% 25GM 100ML 100 ML IV SCH ×2 (14:07→20:43)
[2020-01-20] MEDS: FLUCONAZOLE 200 MG/100 ML 100 ML IV SCH (14:07)
--- NOTE | 2020-01-20 14:11 | Progress Note ---
DATE: SUBJECTIVE: The patient is still on Levophed at 2 mcg. She is currently on a PRVC mode of ventilation at a rate of 24 with a PEEP of 8 and FiO2 of 55%. Her tidal volume is set at 380. She is not having fevers. PHYSICAL EXAMINATION: VITAL SIGNS: The blood pressure is 108/57 and the heart rate is 64. Saturation is 97% on the above-mentioned settings. HEENT: Shows no facial swelling or erythema. There is an oral endotracheal tube. LYMPHATIC: Shows no submandibular, cervical, or supraclavicular adenopathy. CARDIAC: Reveals regular rate and rhythm with normal S1 and S2. LUNGS: Auscultation of lungs reveals decreased breath sounds at the bases. There is no wheezing. ABDOMEN: Soft and nontender. There is no rebound or guarding. EXTREMITIES: Show no leg edema or calf tenderness. There is no cyanosis or clubbing. SKIN: Shows no rashes. NEUROLOGICAL: Shows no focal abnormalities. The patient is still on Versed and fentanyl. Her rocuronium has recently stopped. LABORATORY DATA: White blood cell count is 18 and the hemoglobin is 11.5. The platelet count is 302. The BUN to creatinine ratio is 27 to 0.54. Other electrolytes are within normal limits and the albumin is 2.4. RADIOGRAPHIC DATA: The patient has bilateral airspace opacities that are unchanged. IMPRESSION: 1. Acute respiratory failure. 2. Viral pneumonia and COVID-19 infection. 3. Aspiration pneumonia. 4. Diabetes. 5. Anemia. 6. Hypokalemia. PLAN: 1. The patient's FiO2 and PEEP have been decreased. We will repeat the ABG later today. 2. The patient is off rocuronium. 3. Wean Levophed. 4. Continue Lovenox. 5. Complete current antibiotics. 6. Repeat cultures. 7. Continue Versed and fentanyl. Greater than 35 minutes in direct critical care time. Efren Blakely MD [facility] /[id number]
[2020-01-20 17:24] LABS: ABG HCO3 35 mmol/L (22-26); ABG PCO2 58 mmHg (35-45); ABG PO2 90 mmHg (80-105); ABG TCO2 37
[2020-01-20] MEDS ORDERED: ALBUMIN 25% 25GM 100ML 0.25 GM/ML BTL IV SCH (18:00)
--- NOTE | 2020-01-20 18:22 | Progress Note ---
DATE: SUBJECTIVE: Ms. Fairchild remains in intensive care unit. She started to show some signs of improvement today while she is still on Levophed at 2 mcg. Her vent settings seem to be slightly better. Her PEEP is 8 and FiO2 of 55%. The patient is still sedated. PHYSICAL EXAMINATION: VITAL SIGNS: Stable, otherwise afebrile. HEENT: Normocephalic. NECK: Supple. CHEST: Crackles. HEART: S1, S2. ABDOMEN: Soft. Bowel sounds present. EXTREMITIES: No edema. SKIN: No rash. The patient has been on vancomycin, fluconazole and meropenem, tomorrow will be day #7. I am going to stop antibiotic tomorrow. Continue supportive care. IMPRESSION: COVID-19, respiratory failure, aspiration, slowly getting better. Continue as ordered. Reassess again in the morning. If everything goes well, may discontinue antibiotic the day after tomorrow. MD ALESSANDRO Leos/MARIA ELENA /[id number]
[2020-01-20] MEDS: NOREPINEPHRINE 8 MG/D5W 250 ML 250 ML IV SCH (18:45)
[2020-01-20] MEDS: INSULIN GLARGINE 100 UNITS/ML VIAL SQ SCH (20:43)
[2020-01-21] VITALS (26 sets, daily range): BP systolic 96–148; BP diastolic 45–74
[2020-01-21] MEDS: INSULIN LISPRO 100 UNIT/1 ML 3ML VIAL SQ SCH ×4 (00:20→18:00)
[2020-01-21] MEDS: NOREPINEPHRINE 8 MG/D5W 250 ML 250 ML IV SCH (01:13)
[2020-01-21] MEDS: VANCOMYCIN 1GM/NS 250 ML 250 ML IV SCH ×2 (02:17→13:41)
[2020-01-21] MEDS: ALBUMIN 25% 25GM 100ML 100 ML IV SCH (02:17)
[2020-01-21] MEDS: ACETAMINOPHEN 325 MG TAB PO PRN ×3 (03:25→22:23)
[2020-01-21 04:44] LABS: BASOPHILS % 0.1 % (0.0-1.0); EOSINOPHILS # (AUTO) 0.2 (0.0-0.4); EOSINOPHILS % 1.7 % (0.0-6.0); HEMATOCRIT 32.3 % (34.2-44.1); LYMPHOCYTES % 15.2 % (18.0-39.1); MEAN CORPUSCULAR HEMOGLOBIN 27.8 pg (28-32); MEAN CORPUSCULAR VOLUME 89.7 fL (81-99); MONOCYTES # (AUTO) 0.5 (0.2-0.8); MONOCYTES % 3.9 % (4.4-11.3); NEUTROPHILS # (AUTO) 10.3 (2.1-6.9); PLATELET COUNT 221 x10e3/uL (140-360); RED CELL DISTRIBUTION WIDTH 13.4 % (11.7-14.4)
[2020-01-21 05:09] LABS: ALANINE AMINOTRANSFERASE 27 IU/L (0-55); ALBUMIN 3.8 g/dL (3.5-5.0); ANION GAP 16.3 mmol/L (8-16); BLOOD UREA NITROGEN 19 mg/dL (7-26); BUN/CREATININE RATIO 33 (6-25); CALCIUM 8.1 mg/dL (8.4-10.2); CARBON DIOXIDE 35 mmol/L (22-29); CHLORIDE 95 mmol/L (98-107); CREATININE, SERUM 0.58 mg/dL (0.57-1.11); EST GLOMERULAR FILTRATION RATE > 60 ML/MIN (60-); GLUCOSE 124 mg/dL (74-118); POTASSIUM 3.3 mmol/L (3.5-5.1); SODIUM 143 mmol/L (136-145)
[2020-01-21 05:10] LABS: ALBUMIN/GLOBULIN RATIO 1.5 (0.8-2.0); ALKALINE PHOSPHATASE 86 IU/L (40-150)
[2020-01-21] MEDS: MEROPENEM 1GM 100 ML IV SCH (06:00)
[2020-01-21] MEDS: LEVOTHYROXINE SODIUM 25 MCG TABLET PO SCH (06:00)
[2020-01-21] MEDS: ASCORBIC ACID 500 MG TAB PO SCH ×2 (08:44→17:07)
[2020-01-21] MEDS: FUROSEMIDE INJ 10 MG/ML 4 ML VIAL IV SCH (08:44)
[2020-01-21] MEDS: OXYBUTYNIN CHLORIDE 5 MG TAB NG SCH ×2 (08:44→17:07)
[2020-01-21] MEDS: FAMOTIDINE 20 MG/2 ML VIAL IV SCH ×2 (08:44→17:07)
[2020-01-21] MEDS: DOCUSATE SODIUM LIQD 100 MG/10 ML UDC NG SCH (08:44)
[2020-01-21] MEDS: CHOLECALCIFEROL 400 UNIT TAB PO SCH (08:44)
[2020-01-21] MEDS: ENOXAPARIN INJ 80 MG/0.8 ML SYR SC SCH ×2 (08:44→21:00)
[2020-01-21] MEDS: ZINC SULFATE 220 MG CAP PO SCH ×2 (08:44→17:07)
[2020-01-21 08:58] LABS: ABG HCO3 42 mmol/L (22-26); ABG PCO2 67 mmHg (35-45); ABG PH 7.41 (7.35-7.45); ABG PO2 67 mmHg (80-105); ABG TCO2 44
[2020-01-21] MEDS: ACETAZOLAMIDE 250 MG TAB PO SCH ×3 (09:00→21:00)
[2020-01-21] MEDS ORDERED: POTASSIUM CHLORIDE 20MEQ/15ML UDC NG ONE (10:30)
--- NOTE | 2020-01-21 11:26 | Progress Note ---
DATE: SUBJECTIVE: The patient is still requiring Levophed at 7.5 . Her FiO2 is down to 55% and PEEP is set at 8. She remains on pressure regulated volume control at a rate of 24 with a tidal volume of 380. She is breathing over the vent at 27. She is off rocuronium and Versed is decreased to 2 mg. Fentanyl is on 25 mcg. PHYSICAL EXAMINATION: VITAL SIGNS: T-max is 100.5. Blood pressure is 111/51 and the pulse is 95. The respiratory rate is 27. She is on the above settings. Her saturation is 93%. HEENT: Shows no facial swelling or erythema. There is an oral endotracheal tube in place. CARDIAC: Reveals regular rate and rhythm with normal S1, S2. LUNGS: Auscultation of lungs reveals rhonchorous breath sounds bilaterally. There is no wheezing. ABDOMEN: Soft, nontender. There is no rebound or guarding. EXTREMITIES: Shows no leg edema or calf tenderness. There is no cyanosis or clubbing. SKIN: Shows no rashes. NEUROLOGICAL: Shows no focal abnormalities. LABORATORY DATA: White blood cell count 13.2 and hemoglobin is 10. The platelet count is 221. The BUN to creatinine ratio is 19 to 0.58 and the potassium is 3.3. Other electrolytes within normal limits. IMPRESSION: 1. Acute respiratory failure. 2. Viral pneumonia coronavirus disease -19 infection. 3. Aspiration pneumonia. 4. Diabetes. 5. Anemia. 6. Hypokalemia. PLAN: 1. Hold Versed and fentanyl and attempt to assess neurological status. 2. Wean off Levophed. 3. Continue Lovenox. 4. Complete current antibiotics. 5. Wean ventilator as tolerated. 6. Give Diamox in addition to Lasix today. The patient received albumin yesterday. Greater than 35 minutes in direct critical care time. Efren Blakely MD [facility] /[id number]
--- NOTE | 2020-01-21 12:46 | Diagnostic Imaging Report ---
EXAMINATION: CHEST SINGLE (PORTABLE) INDICATION: Status post intubation. COMPARISON: Multiple prior chest radiographs including most recent on 01/28. FINDINGS: TUBES and LINES: Endotracheal tube which terminates at the level of the fran. Right PICC which terminates at the cavoatrial junction and subdiaphragmatic enteric tube are unchanged. LUNGS: No interval change in multifocal opacities throughout both lungs. PLEURA: Probable trace bilateral pleural effusion. No pneumothorax. HEART AND MEDIASTINUM: The cardiomediastinal silhouette is unchanged. BONES AND SOFT TISSUES: No acute osseous lesion. Soft tissues are unchanged. UPPER ABDOMEN: No free air under the diaphragm. IMPRESSION: 1. Endotracheal tube which terminates the level of the fran. Recommend retraction by approximately 4 cm. Otherwise stable support lines/tubes. 2. No interval change in multifocal opacities of the lungs. Signed by: Susy Conte MD on 01/21/2020 12:42 PM
[2020-01-21] MEDS ORDERED: ALBUMIN 25% 25GM 100ML 0.25 GM/ML BTL IV ONE (13:00)
[2020-01-21] MEDS: FLUCONAZOLE 200 MG/100 ML 100 ML IV SCH (13:41)
[2020-01-21] MEDS: MIDAZOLAM HCL 5MG/ML 10ML VIAL 100 ML IV PRN ×2 (13:42→23:00)
[2020-01-21] MEDS ORDERED: NOREPINEPHRINE 8 MG/D5W 250 ML 250 ML ONE (16:15)
--- NOTE | 2020-01-21 16:47 | Progress Note ---
DATE: SUBJECTIVE: Ms. Fairchild remains in intensive care unit, intubated. Her FiO2 is down to 55%. Her PEEP is 8. Her vent setting reviewed. REVIEW OF SYSTEMS: She seemed to be stable. OBJECTIVE: VITAL SIGNS: Stable. She had a temperature of 100.5. HEENT: Normocephalic. NECK: Supple. CHEST: Few crackles. HEART: S1 and S2. ABDOMEN: Soft. Bowel sounds present. EXTREMITIES: No edema. SKIN: No rash. IMPRESSION: Respiratory failure, slowly getting better. There are hope for her to be extubated. Viral pneumonia, COVID-19, aspiration pneumonia, and diabetes mellitus. The patient is currently on vancomycin and fluconazole. Concern about fungal infection. Her white count came from 18 to 13.2 after the fluconazole, which is suggestive of fungal infection. We will continue for now. Continue with supportive care as ordered. MD ALESSANDRO Leos/MARIA ELENA /[id number]
--- NOTE | 2020-01-21 16:57 | Diagnostic Imaging Report ---
EXAMINATION: CHEST SINGLE (PORTABLE) INDICATION: ET tube repositioning. COMPARISON: Multiple prior chest radiograph including those earlier today. FINDINGS/IMPRESSION TUBES and LINES: None. Interval retraction of endotracheal tube which now terminates in good position, approximately 2 cm above the fran. Other support lines/tubes are stable. No interval changes in radiographic appearance of the lungs. Signed by: Susy Conte MD on 01/21/2020 4:53 PM
[2020-01-21] MEDS: INSULIN GLARGINE 100 UNITS/ML VIAL SQ SCH (21:30)
[2020-01-22] VITALS (24 sets, daily range): BP systolic 92–142; BP diastolic 43–72
[2020-01-22] MEDS: INSULIN LISPRO 100 UNIT/1 ML 3ML VIAL SQ SCH ×4 (01:40→18:35)
[2020-01-22] MEDS: VANCOMYCIN 1GM/NS 250 ML 250 ML IV SCH ×2 (02:49→14:00)
[2020-01-22] MEDS: FENTANYL 2000MCG/NS 250 250 ML IV PRN (04:00)
[2020-01-22 05:34] LABS: BASOPHILS % 0.2 % (0.0-1.0); EOSINOPHILS # (AUTO) 0.2 (0.0-0.4); EOSINOPHILS % 1.8 % (0.0-6.0); HEMATOCRIT 31.8 % (34.2-44.1); HEMOGLOBIN 9.5 g/dL (12.0-16.0); LYMPHOCYTES # (AUTO) 2.1 (1.0-3.2); LYMPHOCYTES % 17.8 % (18.0-39.1); MEAN CORPUSCULAR HEMOGLOBIN 26.9 pg (28-32); MEAN CORPUSCULAR HGB CONC 29.9 g/dL (31-35); MEAN CORPUSCULAR VOLUME 90.1 fL (81-99); MONOCYTES # (AUTO) 0.4 (0.2-0.8); MONOCYTES % 3.5 % (4.4-11.3); NEUTROPHILS # (AUTO) 8.9 (2.1-6.9); NEUTROPHILS % 75.6 % (38.7-80.0); PLATELET COUNT 228 x10e3/uL (140-360); RED BLOOD COUNT 3.53 x10e6/uL (3.6-5.1)
[2020-01-22 05:43] LABS: ALANINE AMINOTRANSFERASE 21 IU/L (0-55); ALBUMIN 3.5 g/dL (3.5-5.0); ALBUMIN/GLOBULIN RATIO 1.2 (0.8-2.0); ALKALINE PHOSPHATASE 82 IU/L (40-150); ANION GAP 14.7 mmol/L (8-16); BLOOD UREA NITROGEN 16 mg/dL (7-26); BUN/CREATININE RATIO 27 (6-25); CALCIUM 8.4 mg/dL (8.4-10.2); CARBON DIOXIDE 26 mmol/L (22-29); CHLORIDE 100 mmol/L (98-107); CREATININE, SERUM 0.59 mg/dL (0.57-1.11); EST GLOMERULAR FILTRATION RATE > 60 ML/MIN (60-); GLUCOSE 168 mg/dL (74-118); POTASSIUM 3.7 mmol/L (3.5-5.1); SODIUM 137 mmol/L (136-145)
[2020-01-22 06:48] LABS: ABG HCO3 30 mmol/L (22-26); ABG PCO2 57 mmHg (35-45); ABG PH 7.33 (7.35-7.45); ABG PO2 58 mmHg (80-105); ABG TCO2 32
[2020-01-22] MEDS: LEVOTHYROXINE SODIUM 25 MCG TABLET PO SCH (06:53)
[2020-01-22] MEDS: ACETAMINOPHEN 325 MG TAB PO PRN ×2 (06:54→17:16)
[2020-01-22] MEDS: MIDAZOLAM HCL 5MG/ML 10ML VIAL 100 ML IV PRN (07:10)
--- NOTE | 2020-01-22 07:47 | Diagnostic Imaging Report ---
EXAMINATION: CHEST SINGLE (PORTABLE) INDICATION: Respiratory failure. COMPARISON: Multiple prior chest radiographs including most recent on 01/28. FINDINGS: TUBES and LINES: Endotracheal tube which terminates 3 cm above the fran, right PICC which terminates at the cavoatrial junction and subdiaphragmatic enteric tube are unchanged. LUNGS: No interval change in multifocal opacities throughout both lungs. PLEURA: Probable trace bilateral pleural effusion. No pneumothorax. HEART AND MEDIASTINUM: The cardiomediastinal silhouette is unchanged. BONES AND SOFT TISSUES: No acute osseous lesion. Soft tissues are unchanged. UPPER ABDOMEN: No free air under the diaphragm. IMPRESSION: 1. Stable support lines/tubes. 2. No interval change in multifocal opacities of the lungs. Signed by: Susy Conte MD on 01/22/2020 7:44 AM
[2020-01-22] MEDS: ENOXAPARIN INJ 80 MG/0.8 ML SYR SC SCH ×2 (08:46→21:41)
[2020-01-22] MEDS: FAMOTIDINE 20 MG/2 ML VIAL IV SCH ×2 (08:46→17:10)
[2020-01-22] MEDS: ZINC SULFATE 220 MG CAP PO SCH ×2 (08:46→17:10)
[2020-01-22] MEDS: OXYBUTYNIN CHLORIDE 5 MG TAB NG SCH (08:46)
[2020-01-22] MEDS: CHOLECALCIFEROL 400 UNIT TAB PO SCH (08:46)
[2020-01-22] MEDS: DOCUSATE SODIUM LIQD 100 MG/10 ML UDC NG SCH (08:46)
[2020-01-22] MEDS: ASCORBIC ACID 500 MG TAB PO SCH ×2 (08:46→17:10)
--- NOTE | 2020-01-22 09:19 | Progress Note ---
DATE: SUBJECTIVE: The patient's sedation was held yesterday. She was able to open her eyes in response to verbal request. She was also able to squeeze my fingers with her right hand. She became tachycardic and had more coughing. Her Versed and fentanyl were restarted. She is now back on 6 mg an hour as well as fentanyl at 200 mcg. The patient is still receiving enteral feedings. She remains on Levophed at 8 mcg. PHYSICAL EXAMINATION: VITAL SIGNS: The patient is afebrile to 101.1. The blood pressure is 119/57 and the pulse is 85. She is currently on a PRVC mode of ventilation with a tidal volume of 400, respiratory rate of 26, PEEP of 8 and FiO2 55%. HEENT: Shows no facial swelling or erythema. There is an oral endotracheal tube. LYMPHATIC: Shows no submandibular, cervical, or supraclavicular adenopathy. CARDIAC: Reveals regular rate and rhythm with normal S1 and S2. LUNGS: Auscultation of lungs reveals rhonchorous breath sounds bilaterally. There is no wheezing. ABDOMEN: Soft and nontender. There is no rebound or guarding. EXTREMITIES: Shows no leg edema or calf tenderness. There is no cyanosis or clubbing. SKIN: Shows no rashes. NEUROLOGICAL: Shows no focal abnormalities. LABORATORY DATA: BUN to creatinine ratio is 16 to 0.59. Other electrolytes are within normal limits. The white blood cell count is 11.8 and hemoglobin is 9.5. The platelet count is 228. Blood gases; 7.33, 57, 58, and 30. IMPRESSION: 1. Acute respiratory failure. 2. Viral pneumonia and COVID-19 infection. 3. Diabetes. 4. Fevers. 5. Anemia. PLAN: 1. Continue to wean Levophed. 2. Continue current ventilator settings and repeat ABG. 3. Continue Lovenox. 4. Complete current antibiotics. 5. Hold Versed and fentanyl again today as tolerated. 6. Case discussed with nursing, Respiratory, Infectious Disease, and . Greater than 35 minutes in direct critical care time. MD MEERA Thomas/MARIA ELENA /[id number]
[2020-01-22 11:51] LABS: BILIRUBIN,URINE NEGATIVE (NEGATIVE); CLARITY,URINE CLOUDY (CLEAR); COLOR,URINE YELLOW (YELLOW); KETONES,URINE TRACE (NEGATIVE); LEUKOCYTE ESTERASE ,URINE NEGATIVE (NEGATIVE); NITRITE,URINE NEGATIVE (NEGATIVE); PROTEIN,URINE DIPSTICK 1+ (NEGATIVE)
[2020-01-22 12:06] LABS: BACTERIA,URINE FEW /HPF; EPITHELIAL CELLS,URINE FEW /LPF; RBC,URINE 0-5 /HPF (0-5); TRANSITIONAL EPI CELLS,URINE FEW; WBC,URINE (MAN) 0-5 /HPF (0-5)
[2020-01-22 12:07] LABS: AMORPHOUS SEDIMENT,URINE MANY (FEW)
[2020-01-22] MEDS: FLUCONAZOLE 200 MG/100 ML 100 ML IV SCH (13:30)
[2020-01-22 15:23] LABS: ABG HCO3 28 mmol/L (22-26); ABG PCO2 48 mmHg (35-45); ABG PH 7.38 (7.35-7.45); ABG PO2 53 mmHg (80-105); ABG TCO2 30
[2020-01-22] MEDS ORDERED: HEPARIN SOD/SOD CHLORIDE 1,000 ML IV ONE (15:45)
--- NOTE | 2020-01-22 15:59 | NUR ---
progress note the patient remains intensive care unit intubated sedated but her vitals stable HEENT she has not protect neck supple Ms. Fairchild remains in intensive care unit, intubated. Her FiO2 is down to 55%. Her PEEP is 8. Her vent setting reviewed. The patient is still receiving enteral feedings. She remains on Levophed at 8 mcg. REVIEW OF SYSTEMS: She seemed to be stable. OBJECTIVE: VITAL SIGNS: Stable. She had a temperature of 100.5. HEENT: Normocephalic. NECK: Supple. CHEST: Few crackles. HEART: S1 and S2. ABDOMEN: Soft. Bowel sounds present. EXTREMITIES: No edema. SKIN: No rash. She became tachycardic and had more coughing. Her Versed and fentanyl were restarted. She is now back on 6 mg an hour as well as fentanyl at 200 mcg. ABDOMEN: Soft and nontender. There is no rebound or guarding. EXTREMITIES: Shows no leg edema or calf tenderness. There is no cyanosis or clubbing. SKIN: Shows no rashes. NEUROLOGICAL: Shows no focal abnormalities. LABORATORY DATA: BUN to creatinine ratio is 16 to 0.59. Other electrolytes are within normal limits. The white blood cell count is 11.8 and hemoglobin is 9.5. The platelet count is 228. Blood gases; 7.33, 57, 58, and 30. IMPRESSION: 1. Acute respiratory failure. 2. Viral pneumonia and COVID-19 infection. 3. Diabetes. 4. Fevers. 5. Anemia. IMPRESSION: Respiratory failure, slowly getting better. There are hope for her to be extubated. Viral pneumonia, COVID-19, aspiration pneumonia, and diabetes mellitus. The patient is currently on vancomycin and fluconazole. Continue as ordered Concern about fungal infection. Her white count came from 18 to 13.2 after the fluconazole, which is suggestive of fungal infection. We will continue for now. Continue with supportive care as ordered.
[2020-01-22] MEDS: NOREPINEPHRINE 8 MG/D5W 250 ML 250 ML IV SCH (17:17)
[2020-01-22] MEDS: INSULIN GLARGINE 100 UNITS/ML VIAL SQ SCH (21:41)
[2020-01-23] VITALS (26 sets, daily range): BP systolic 95–175; BP diastolic 44–85
[2020-01-23] MEDS: INSULIN LISPRO 100 UNIT/1 ML 3ML VIAL SQ SCH ×4 (00:52→17:37)
[2020-01-23] MEDS: ACETAMINOPHEN 325 MG TAB PO PRN (00:53)
[2020-01-23] MEDS: FENTANYL 2000MCG/NS 250 250 ML IV PRN ×2 (02:38→17:38)
[2020-01-23] MEDS: VANCOMYCIN 1GM/NS 250 ML 250 ML IV SCH ×2 (02:38→13:50)
[2020-01-23 04:24] LABS: BASOPHILS % 0.1 % (0.0-1.0); EOSINOPHILS # (AUTO) 0.2 (0.0-0.4); EOSINOPHILS % 1.8 % (0.0-6.0); HEMATOCRIT 30.3 % (34.2-44.1); HEMOGLOBIN 9.3 g/dL (12.0-16.0); LYMPHOCYTES # (AUTO) 1.2 (1.0-3.2); LYMPHOCYTES % 10.6 % (18.0-39.1); MEAN CORPUSCULAR HEMOGLOBIN 27.9 pg (28-32); MEAN CORPUSCULAR HGB CONC 30.7 g/dL (31-35); MONOCYTES # (AUTO) 0.4 (0.2-0.8); MONOCYTES % 3.6 % (4.4-11.3); NEUTROPHILS # (AUTO) 9.3 (2.1-6.9); NEUTROPHILS % 83.2 % (38.7-80.0); PLATELET COUNT 207 x10e3/uL (140-360); RED BLOOD COUNT 3.33 x10e6/uL (3.6-5.1); RED CELL DISTRIBUTION WIDTH 13.7 % (11.7-14.4)
[2020-01-23 04:41] LABS: ALANINE AMINOTRANSFERASE 16 IU/L (0-55); ALBUMIN 3.2 g/dL (3.5-5.0); ALKALINE PHOSPHATASE 79 IU/L (40-150); ANION GAP 10.9 mmol/L (8-16); BLOOD UREA NITROGEN 16 mg/dL (7-26); BUN/CREATININE RATIO 30 (6-25); CALCIUM 8.3 mg/dL (8.4-10.2); CARBON DIOXIDE 28 mmol/L (22-29); CHLORIDE 101 mmol/L (98-107); CREATININE, SERUM 0.54 mg/dL (0.57-1.11); EST GLOMERULAR FILTRATION RATE > 60 ML/MIN (60-); GLUCOSE 198 mg/dL (74-118); MAGNESIUM 2.1 MG/DL (1.3-2.1); POTASSIUM 3.9 mmol/L (3.5-5.1); SODIUM 136 mmol/L (136-145)
[2020-01-23] MEDS: MIDAZOLAM HCL 5MG/ML 10ML VIAL 100 ML IV PRN ×3 (05:08→23:03)
[2020-01-23] MEDS: LEVOTHYROXINE SODIUM 25 MCG TABLET PO SCH (06:02)
--- NOTE | 2020-01-23 07:51 | Diagnostic Imaging Report ---
EXAMINATION: CHEST SINGLE (PORTABLE) INDICATION: Respiratory failure. COMPARISON: Multiple prior chest radiographs including most recent on 01/28. FINDINGS: TUBES and LINES: Endotracheal tube which terminates 3 cm above the fran, right PICC which terminates at the cavoatrial junction and subdiaphragmatic enteric tube are unchanged. LUNGS: No interval change in multifocal opacities throughout both lungs. PLEURA: Probable trace bilateral pleural effusion. No pneumothorax. HEART AND MEDIASTINUM: The cardiomediastinal silhouette is unchanged. BONES AND SOFT TISSUES: No acute osseous lesion. Soft tissues are unchanged. UPPER ABDOMEN: No free air under the diaphragm. IMPRESSION: 1. Stable support lines/tubes. 2. No interval change in multifocal opacities of the lungs. Signed by: Sigifredo Christensen DO on 01/23/2020 7:48 AM
[2020-01-23] MEDS ORDERED: FUROSEMIDE INJ 10 MG/ML 4 ML VIAL IV ONE (08:30)
--- NOTE | 2020-01-23 08:42 | Progress Note ---
DATE: SUBJECTIVE: The patient remains on Versed 3 mg along with fentanyl at 125 mcg. She continues to require Levophed at 3 mcg. The patient has some fevers and has required a cooling blanket. The patient is currently on a PRVC mode of ventilation at a rate of 26 with a FiO2 of 60% and PEEP of 8. Her tidal volume is set at 380. PHYSICAL EXAMINATION: VITAL SIGNS: The patient is afebrile. The blood pressure is 111/54, saturation is 95%. The pulse is 75. The patient is breathing with the ventilator. HEENT: Shows no facial swelling or erythema. LYMPHATIC: Shows no submandibular, cervical, or supraclavicular adenopathy. CARDIAC: Reveals regular rate and rhythm with normal S1 and S2. LUNGS: Auscultation of lungs reveals rhonchorous breath sounds bilaterally. There is no wheezing. ABDOMEN: Soft and nontender. There is no rebound or guarding. EXTREMITIES: Shows no leg edema or calf tenderness. There is no cyanosis or clubbing. SKIN: Shows no rashes. NEUROLOGICAL: Shows the patient to be sedated. She became agitated yesterday when the sedation was held. LABORATORY DATA: BUN to creatinine ratio is 16 to 0.54 and the other electrolytes are within normal limits. The glucose is 225 to 265. The white blood cell count is 11.2 and hemoglobin is 9.3. The platelet count is 207 IMPRESSION: 1. Acute respiratory failure. 2. Viral pneumonia and COVID-19 infection. 3. Diabetes. 4. Anemia. 5. Fevers. PLAN: 1. Repeat blood gas now and adjust ventilator as tolerated. 2. Lasix again today. 3. Decrease Lovenox to 0.5 mg/kg twice a day. 4. Continue to wean Levophed. 5. Await repeat cultures. 6. Place in prone position today. Greater than 35 minutes in direct critical care time. Efren Blakely MD [facility] /[id number]
[2020-01-23] MEDS: CHOLECALCIFEROL 400 UNIT TAB PO SCH (08:57)
[2020-01-23] MEDS: DOCUSATE SODIUM LIQD 100 MG/10 ML UDC NG SCH (08:57)
[2020-01-23] MEDS: ASCORBIC ACID 500 MG TAB PO SCH ×2 (08:57→16:31)
[2020-01-23] MEDS: ZINC SULFATE 220 MG CAP PO SCH ×2 (08:57→16:31)
[2020-01-23] MEDS: FAMOTIDINE 20 MG/2 ML VIAL IV SCH ×2 (08:57→16:31)
[2020-01-23] MEDS: ENOXAPARIN SOD INJ 40 MG/0.4 ML SYR SC SCH ×2 (08:58→21:45)
[2020-01-23 09:51] LABS: ABG PCO2 48 mmHg (35-45); ABG PH 7.36 (7.35-7.45); ABG PO2 60 mmHg (80-105)
[2020-01-23 09:52] LABS: ABG HCO3 28 mmol/L (22-26); ABG TCO2 29
[2020-01-23] MEDS: FLUCONAZOLE 200 MG/100 ML 100 ML IV SCH (12:51)
--- NOTE | 2020-01-23 13:47 | NUR ---
Nutrition Intervention Note RD Recommendation(s) for Physician: -Continue Vital AF 1.2 with goal rate of 40 mL/hr as appropriate. (provides 1152 kcal, 72 g protein) -Water/fluid management per MD -If pt requires prone positioning, pt may be fed at goal rate placed in reverse Trendelenburg with HOB at 10 to 25 degrees. Plan of Care: RD following, monitoring for tolerance and adequacy, tube feed recommendation Nutrition reason for involvement: follow up RD Assessment 01/22: Follow up. Pt remains intubated and sedated with Versed and Fentanyl, currently in prone position. Pt on low dose Levophed at 3 mcg/min while receiving HD. Pt tolerating TF at 45 ml/hr. Pt discussed during MDR, no recent BM per RN. Chart reviewed. Will continue to monitor. 01/17: Follow up. Pt remains mechanically ventilated and is in the prone position. Pt tube feed is at 30 mL/hr per RN. Recommend increasing towards goal as appropriate. Will continue to monitor. (01/14/20) Pt is a 54 year old female admitted with hypoxia and pneumonia due to COVID-19. Pt was intubated yesterday and tube feed order was placed. Pt was previously on an ADA diet with 25-50% meal intake recorded. Pt has a ht of 48 inches currently in chart, but per history in chart a height of 59 inches was previously recorded. Recommendations provided. RD to manage tube feed order per Dr. Blakely. Will continue to monitor. Principal Problems/Diagnoses: hypoxia, pneumonia due to COVID-19 PMH: Kidney infections as a child, diabetes mellitus, diabetic neuropathy, hypothyroidism, overactive bladder, and morbid obesity. GI: round/large/soft abdomen, last recorded BM 01/12 Skin: sacrum stage I Labs: 01/22: Na 136, K 3.9, BUN 16, Cr 0.64, Gluc 198, POC Gluc 230-265 01/17: Na 144, K 3.0, BUN 22, Cr 0.59, Glu 269, Ca 7.5, AST 48 (01/13) Na 137, K 3.9, BUN 18, Cr 0.79, Glu 233, Ca 8.0, AST 42 Meds: miralax, zofran, colace, zinc sulfate, pepcid, vitamin C, lispro, synthroid, lantus IVF/Drips: Levophed at 3 mcg/min, Fentanyl drip, Versed drip Ht: 59 inches (per chart history) Wt: 216.3 lbs (01/22) 218 lbs (01/17) 226 lbs (01/10) - Suspect weight difference is weight error or fluid related BMI: 44 kg/m2 using weight of 218 lbs IBW: 98 lbs Malnutrition Evaluation (01/14/20) The patient does not meet criteria for a specified degree of malnutrition at this time. Will re-evaluate at follow-up as appropriate. Energy intake: </=50% of estimated energy requirements for 5 days Weight loss: unable to evaluate Fat loss: no loss per observation outside room Muscle loss: no loss per observation outside room Supporting Evidence: Fluid accumulation: no edema per MD note Functional Status: unable to evaluate Nutrition Prescription (Diet Order): Vital AF 1.2 @ 40 mL/hr - infusing at 45 mL/hr (provides 1296 kcal, 81 g protein) Estimated Nutritional Needs: 980-1115 calories/day (22-25 kcal/kg IBW) 67-89 g protein/day (1.5-2 g pro/kg IBW) Diet Adequacy: Current TF rate is meeting >75% calorie and protein needs Tolerance: tolerating TF Diet Education Needs Assessment: Diet education not indicated, patient is intubated Nutrition Care Level: moderate Nutrition Diagnosis: Inadequate oral intake related to acute respiratory failure/mechanical ventilation as evidenced by requiring enteral nutrition Goal: Patient will meet 75-100% of estimated needs by follow up Progress: goal met Interventions: - Composition, Rate, Route Monitoring/Evaluation: -Total energy intake, Total protein intake, Formula/Solution, Weight change Signed: Anuradha Daniel RD, LD, CNSC
[2020-01-23 15:52] LABS: ABG HCO3 31 mmol/L (22-26); ABG PCO2 57 mmHg (35-45); ABG PH 7.35 (7.35-7.45); ABG PO2 69 mmHg (80-105); ABG TCO2 33
[2020-01-23] MEDS: NOREPINEPHRINE 8 MG/D5W 250 ML 250 ML IV SCH (16:30)
--- NOTE | 2020-01-23 16:34 | Diagnostic Imaging Report ---
EXAM: Renal Ultrasound INDICATION: Congenital abnormality of the ureter COMPARISON: CT dated 04/07/2016 TECHNIQUE: Transverse and longitudinal images of the kidneys and bladder were obtained. FINDINGS: Right Kidney: Length: 13.2 cm Appearance: Normal echogenicity. Collecting system: No hydronephrosis Stones: None Cyst/Mass: None Left Kidney: Length: 12.5 cm Appearance: Normal echogenicity. Stable asymmetric lobular contours and atrophy of the inferior pole. Collecting system: No hydronephrosis Stones: None Cyst/Mass: None Bladder: Not well visualized. IMPRESSION: Negative for hydronephrosis. Stable focal asymmetric atrophy of the left lower pole. Signed by: Jamal Sinha MD on 01/23/2020 4:31 PM
--- NOTE | 2020-01-23 20:47 | Progress Note ---
DATE: SUBJECTIVE: Ms. Fairchild remains in intensive care unit. She is intubated and sedated. OBJECTIVE: VITAL SIGNS: Stable, afebrile. Temperature 98.9, heart rate 111, blood pressure 145/71. MEDICATIONS: She is currently on vancomycin, fluconazole. She remains on Lovenox. LABORATORY DATA: Her white count 11.2, hemoglobin 9.3. Sodium 136. Creatinine 0.54. IMPRESSION: Respiratory failure, status post COVID-19, status post pneumonia, aspiration, diabetes mellitus. Continue to wean Levophed. Continue with proning, finish 7 days of antibiotic. MD ALESSANDRO Leos/MOD[facility] /[id number]
[2020-01-23] MEDS: INSULIN GLARGINE 100 UNITS/ML VIAL SQ SCH (21:55)
[2020-01-24] VITALS (26 sets, daily range): BP systolic 84–147; BP diastolic 45–63
[2020-01-24] MEDS: INSULIN LISPRO 100 UNIT/1 ML 3ML VIAL SQ SCH ×4 (00:41→18:20)
[2020-01-24] MEDS: VANCOMYCIN 1GM/NS 250 ML 250 ML IV SCH (01:49)
[2020-01-24] MEDS: MIDAZOLAM HCL 5MG/ML 10ML VIAL 100 ML IV PRN (04:36)
[2020-01-24 04:48] LABS: BASOPHILS % 0.2 % (0.0-1.0); EOSINOPHILS # (AUTO) 0.1 (0.0-0.4); EOSINOPHILS % 0.8 % (0.0-6.0); HEMATOCRIT 31.8 % (34.2-44.1); HEMOGLOBIN 9.7 g/dL (12.0-16.0); LYMPHOCYTES # (AUTO) 0.7 (1.0-3.2); LYMPHOCYTES % 5.5 % (18.0-39.1); MEAN CORPUSCULAR HGB CONC 30.5 g/dL (31-35); MEAN CORPUSCULAR VOLUME 88.6 fL (81-99); MONOCYTES # (AUTO) 0.5 (0.2-0.8); MONOCYTES % 4.1 % (4.4-11.3); NEUTROPHILS # (AUTO) 11.7 (2.1-6.9); NEUTROPHILS % 88.6 % (38.7-80.0); PLATELET COUNT 213 x10e3/uL (140-360); RED BLOOD COUNT 3.59 x10e6/uL (3.6-5.1); RED CELL DISTRIBUTION WIDTH 13.7 % (11.7-14.4)
[2020-01-24 05:10] LABS: ALANINE AMINOTRANSFERASE 14 IU/L (0-55); ALBUMIN/GLOBULIN RATIO 0.8 (0.8-2.0); ALKALINE PHOSPHATASE 88 IU/L (40-150); ANION GAP 12.7 mmol/L (8-16); BLOOD UREA NITROGEN 15 mg/dL (7-26); BUN/CREATININE RATIO 33 (6-25); CARBON DIOXIDE 29 mmol/L (22-29); CHLORIDE 102 mmol/L (98-107); CREATININE, SERUM 0.46 mg/dL (0.57-1.11); EST GLOMERULAR FILTRATION RATE > 60 ML/MIN (60-); GLUCOSE 111 mg/dL (74-118); POTASSIUM 3.7 mmol/L (3.5-5.1); SODIUM 140 mmol/L (136-145)
[2020-01-24] MEDS: LEVOTHYROXINE SODIUM 25 MCG TABLET PO SCH (06:00)
[2020-01-24] MEDS ORDERED: VECURONIUM BROMIDE FOR INJ 20 MG VIAL IV STA ×2 (07:50→16:02)
[2020-01-24] MEDS ORDERED: VECURONIUM BROMIDE FOR INJ 20 MG VIAL ONE ×2 (07:59→16:05)
[2020-01-24] MEDS: DOCUSATE SODIUM LIQD 100 MG/10 ML UDC NG SCH (08:14)
[2020-01-24] MEDS: ZINC SULFATE 220 MG CAP PO SCH ×2 (08:14→17:36)
[2020-01-24] MEDS: CHOLECALCIFEROL 400 UNIT TAB PO SCH (08:14)
[2020-01-24] MEDS: FAMOTIDINE 20 MG/2 ML VIAL IV SCH ×2 (08:14→17:36)
[2020-01-24] MEDS: ENOXAPARIN SOD INJ 40 MG/0.4 ML SYR SC SCH ×2 (08:14→21:22)
[2020-01-24] MEDS: ASCORBIC ACID 500 MG TAB PO SCH ×2 (08:14→17:36)
--- NOTE | 2020-01-24 08:19 | Diagnostic Imaging Report ---
TECHNIQUE: Frontal view of the chest. INDICATION: ^resp failure ^[id number] ^0600 COMPARISON: Prior day. DISCUSSION: Limited evaluation due to portable technique. Lines and hardware: Endotracheal tube was identified with tip projecting 5.2 cm above the fran. Enteric tube is seen coursing inferiorly out of the field of view. Stable right PICC. Multiple overlying EKG leads are noted. Heart and mediastinum: Stable. Lungs and pleura: Stable bilateral interstitial and alveolar airspace opacities. Negative for large effusion or pneumothorax. Negative for significant interval worsening or improvement. Soft tissues and bones: No acute abnormality. IMPRESSION: Stable exam. Signed by: Jamal Sinha MD on 01/24/2020 8:16 AM
--- NOTE | 2020-01-24 08:39 | Progress Note ---
DATE: SUBJECTIVE: The patient is coughing, not saturating as well. Sedation was increased to Versed at 7 mg and fentanyl at 200 mcg. The patient was switched to pressure control and is currently on a pressure control at a rate of 30 with a PEEP of 10, pressure above PEEP of 28, and FiO2 of 100%. The patient is off Levophed. PHYSICAL EXAMINATION: VITAL SIGNS: Blood pressure is 117/53, saturation is 94%. The pulse is 97. The T-max is 99.9. HEENT: No facial swelling or erythema. There is an oral endotracheal tube. LYMPHATIC: No submandibular, cervical, or supraclavicular adenopathy. CARDIAC: Regular rate and rhythm with normal S1, S2. LUNGS: Auscultation of lungs reveals rhonchorous breath sounds bilaterally. There is no wheezing. ABDOMEN: Soft, nontender. There is no rebound or guarding. EXTREMITIES: No leg edema or calf tenderness. There is no cyanosis or clubbing. SKIN: No rashes. NEUROLOGICAL: The patient to be sedated. MICROBIOLOGICAL DATA: Blood cultures from the are negative. Sputum culture from the is negative. LABORATORY DATA: White blood cell count is 13.1, hemoglobin is 9.7, and the platelet count is 213. The BUN to creatinine ratio is 15 to 0.46 and the other electrolytes are within normal limits. Albumin is 3. RADIOGRAPHIC DATA: Chest x-ray shows continued bilateral infiltrates. IMPRESSION: 1. Acute respiratory failure. 2. Viral pneumonia and coronavirus disease-19 infection. 3. Diabetes. 4. Anemia. 5. Fevers. PLAN: 1. The patient has been switched to pressure control. We will repeat ABG. 2. Continue Lovenox. 3. Continue Versed at 7 and fentanyl at 200. 4. Continue enteral feedings. 5. Complete current antibiotics. 6. Continue to monitor blood sugars and adjust insulin. 7. Lasix. Greater than 35 minutes in direct critical care time. Efren Blakely MD [facility] /[id number]
[2020-01-24 09:17] LABS: ABG HCO3 31 mmol/L (22-26); ABG PCO2 61 mmHg (35-45); ABG PH 7.32 (7.35-7.45); ABG PO2 76 mmHg (80-105); ABG TCO2 33
[2020-01-24] MEDS: FENTANYL 2000MCG/NS 250 250 ML IV PRN ×2 (10:41→20:13)
[2020-01-24] MEDS ORDERED: FUROSEMIDE INJ 10 MG/ML 4 ML VIAL IV NR (16:00)
[2020-01-24 16:48] LABS: ABG HCO3 32 mmol/L (22-26); ABG PCO2 59 mmHg (35-45); ABG PH 7.34 (7.35-7.45); ABG PO2 72 mmHg (80-105); ABG TCO2 34
[2020-01-24] MEDS: ROCURONIUM BROMIDE 1,250 MG in SODIUM CHLORIDE 0.9% 250ML 125 ML IV SCH (17:35)
--- NOTE | 2020-01-24 20:54 | Progress Note ---
DATE: CONSULTING PHYSICIANS: 1. Dr. Manan Meehan with Infectious Disease. 2. Dr. Efren Blakely with Pulmonology/Critical Care Medicine. SUBJECTIVE: Case was discussed with [employer]. The patient was over breathing the vent last night, asynchronous with it. Poor results on this morning's ABG after the chest x-ray. She had oxygen desaturation while on fentanyl and Versed which required her paralytic to be resumed per Dr. Blakely. Her Levophed was stopped this morning around shift change. OBJECTIVE: VITAL SIGNS: Temperature 99.5, pulse 91, blood pressure 102/50, respirations 34, oxygen saturation 95%. Intake and output; 2596 mL in and 3225 mL out. GENERAL: Supine. She remains in ICU bed 194, orally intubated with paralytic on board on specialty bed with blanket warmer. LUNGS: Current vent settings. Pressure control with respiratory rate 32, FiO2 of 100%, pressure control above PEEP 32. PEEP 10, oxygen saturation at the time of encounter 93%, peak pressure 38, minute ventilation 10.4 L/minute. HEENT: NG tube in place. NECK: Supple. CARDIOVASCULAR: Normal sinus rhythm. Left radial arterial line. Right upper extremity PICC line. ABDOMEN: Without obvious distention. Cantu catheter with kinga urine. Vital AF 45 mL/h via NG tube. EXTREMITIES: No pitting edema. Heel protectors and SCDs in place. NEUROLOGIC: Currently on Versed 7 mg an hour, fentanyl 200 mcg/hour, rocuronium 0.006 mg/kg per minute. LABORATORY DATA: WBCs 13.16, hemoglobin 9.7, hematocrit 31.8, platelets 213, neutrophils 88.6%. Morning ABG; pH 7.32, pCO2 61, PO2 76, HC03 31, oxygen saturation 93%. Base excess of 5, FiO2 of 100%. Evening ABG at 1635, pH 7.34, pCO2 59, PaO2 72, HC03 32, oxygen saturation 93%. Base excess of 6, FiO2 of 100%. Sodium 140, potassium 3.7, chloride 102, CO2 29, anion gap 12.7, BUN 15, creatinine 0.46, estimated GFR greater than 60, glucose 111. Fingerstick blood glucose levels 122, 189, 160, calcium 9.0, total bilirubin 0.7, AST 35, ALT 14, alkaline phosphatase 88, total protein 6.6, albumin 3.0. 01/19, blood cultures x2 showed no growth after 72 hours. 01/21, sputum Gram stain culture and sensitivity final results show usual respiratory sylvia present. IMAGING/OTHER: Chest x-ray today, stable. Stable bilateral interstitial and alveolar airspace opacities. Negative for large effusion or pneumothorax. Negative for significant interval worsening or improvement. Yesterday, the patient had a renal ultrasound which was negative for hydronephrosis. Stable focal asymmetric atrophy of the left lower pole. ASSESSMENT AND PLAN: 1. COVID pneumonia with sepsis. Paralytic had to be restarted. Pulmonary/Critical Care Medicine following. Ventilation mode changed to pressure control. She was prone yesterday, supine today. Monitor ABG results. Continue Lovenox, fentanyl and Versed. Continue enteral feedings. She is currently off antibiotics. Infectious Disease following. 2. Acute respiratory failure. Monitor ABG results. Continue pressure control mode of ventilation as per Pulmonary/Critical Care Medicine recommendations. 3. Controlled type 2 diabetes mellitus. Serum glucose 111. Hemoglobin A1c 9.6%. Continue to monitor fingerstick blood glucose levels. Continue sliding scale insulin. 4. Transaminitis due to COVID pneumonia with sepsis. AST 35 (37, 47, 60), trending down. Monitor. 5. Prophylaxis. Lovenox and Pepcid. Inpatient, ICU, billing code [id number]. Time spent 35 minutes. Dictated by Sim Root NP Kvng Doherty MD [facility] /[id number]
[2020-01-24] MEDS: INSULIN GLARGINE 100 UNITS/ML VIAL SQ SCH (21:22)
--- NOTE | 2020-01-24 23:34 | NUR ---
infectious disease progress note Patient seen and examined chart reviewed the patient remains intensive care unit on a ventilator.he patient is coughing, not saturating as well. Sedation was increased to Versed at 7 mg and fentanyl at 200 mcg. ventilatory status reviewed changes noted The patient was switched to pressure control and is currently on a pressure control at a rate of 30 with a PEEP of 10, pressure above PEEP of 28, and FiO2 of 100%. The patient is off Levophed. PHYSICAL EXAMINATION:basically unchanged intubated sedated VITAL SIGNS: Blood pressure is 117/53, saturation is 94%. The pulse is 97. The T-max is 99.9. HEENT: No facial swelling or erythema. There is an oral endotracheal tube. LYMPHATIC: No submandibular, cervical, or supraclavicular adenopathy. CARDIAC: Regular rate and rhythm with normal S1, S2. LUNGS: Auscultation of lungs reveals rhonchorous breath sounds bilaterally. There is no wheezing. ABDOMEN: Soft, nontender. There is no rebound or guarding. EXTREMITIES: No leg edema or calf tenderness. There is no cyanosis or clubbing. SKIN: No rashes. NEUROLOGICAL: The patient to be sedated. MICROBIOLOGICAL DATA: Blood cultures from the 11th are negative. Sputum culture from the th is negative. LABORATORY DATA: White blood cell count is 13.1, hemoglobin is 9.7, and the platelet count is 213. The BUN to creatinine ratio is 15 to 0.46 and the other electrolytes are within normal limits. Albumin is 3. RADIOGRAPHIC DATA: Chest x-ray shows continued bilateral infiltrates. IMPRESSION: 1. Acute respiratory failure. 2. Viral pneumonia and coronavirus disease-19 infection. 3. Diabetes. 4. Anemia. concern about recurrent aspiration continue supportive care continue with plan is ordered we will follow
[2020-01-25] VITALS (26 sets, daily range): BP systolic 87–149; BP diastolic 49–72
[2020-01-25] MEDS: INSULIN LISPRO 100 UNIT/1 ML 3ML VIAL SQ SCH ×4 (01:05→17:52)
[2020-01-25] MEDS: MIDAZOLAM HCL 5MG/ML 10ML VIAL 100 ML IV PRN ×3 (03:00→17:26)
[2020-01-25 04:36] LABS: BASOPHILS % 0.1 % (0.0-1.0); EOSINOPHILS # (AUTO) 0.2 (0.0-0.4); EOSINOPHILS % 1.8 % (0.0-6.0); HEMATOCRIT 30.1 % (34.2-44.1); HEMOGLOBIN 8.8 g/dL (12.0-16.0); LYMPHOCYTES # (AUTO) 1.1 (1.0-3.2); LYMPHOCYTES % 11.8 % (18.0-39.1); MEAN CORPUSCULAR HEMOGLOBIN 27.7 pg (28-32); MEAN CORPUSCULAR HGB CONC 29.2 g/dL (31-35); MEAN CORPUSCULAR VOLUME 94.7 fL (81-99); MONOCYTES # (AUTO) 0.4 (0.2-0.8); MONOCYTES % 4.4 % (4.4-11.3); NEUTROPHILS # (AUTO) 7.2 (2.1-6.9); PLATELET COUNT 166 x10e3/uL (140-360); RED BLOOD COUNT 3.18 x10e6/uL (3.6-5.1)
[2020-01-25 04:54] LABS: MAGNESIUM 2.2 MG/DL (1.3-2.1); PHOSPHORUS 3.9 MG/DL (2.3-4.7)
[2020-01-25 04:59] LABS: ALANINE AMINOTRANSFERASE 12 IU/L (0-55); ALBUMIN 2.8 g/dL (3.5-5.0); ALBUMIN/GLOBULIN RATIO 0.8 (0.8-2.0); ALKALINE PHOSPHATASE 96 IU/L (40-150); ANION GAP 11.4 mmol/L (8-16); BLOOD UREA NITROGEN 20 mg/dL (7-26); BUN/CREATININE RATIO 38 (6-25); CALCIUM 9.2 mg/dL (8.4-10.2); CARBON DIOXIDE 31 mmol/L (22-29); CHLORIDE 101 mmol/L (98-107); CREATININE, SERUM 0.53 mg/dL (0.57-1.11); EST GLOMERULAR FILTRATION RATE > 60 ML/MIN (60-); GLUCOSE 181 mg/dL (74-118); POTASSIUM 4.4 mmol/L (3.5-5.1); SODIUM 139 mmol/L (136-145)
[2020-01-25] MEDS: FENTANYL 2000MCG/NS 250 250 ML IV PRN ×2 (05:04→15:57)
[2020-01-25] MEDS: LEVOTHYROXINE SODIUM 25 MCG TABLET PO SCH (06:31)
--- NOTE | 2020-01-25 07:36 | Diagnostic Imaging Report ---
TECHNIQUE: Frontal view of the chest. INDICATION: 54-year-old woman with respiratory failure. COMPARISON: Chest radiograph 01/24/2020. FINDINGS: LINES/TUBES: Unchanged. LUNGS: No significant change in diffuse bilateral airspace opacities. PLEURA: No pneumothorax or significant pleural effusion. HEART AND MEDIASTINUM: The cardiomediastinal silhouette is unchanged. SOFT TISSUES AND BONES: Unremarkable. IMPRESSION: No significant change since 01/24/2020. Signed by: Carmelo Lorenzo MD on 01/25/2020 7:33 AM
[2020-01-25] MEDS: ASCORBIC ACID 500 MG TAB PO SCH ×2 (08:51→17:25)
[2020-01-25] MEDS: FAMOTIDINE 20 MG/2 ML VIAL IV SCH ×2 (08:51→17:25)
[2020-01-25] MEDS: ENOXAPARIN INJ 80 MG/0.8 ML SYR SC SCH ×2 (08:51→22:14)
[2020-01-25] MEDS: ZINC SULFATE 220 MG CAP PO SCH ×2 (08:51→17:25)
[2020-01-25] MEDS: DOCUSATE SODIUM LIQD 100 MG/10 ML UDC NG SCH (08:51)
[2020-01-25] MEDS: CHOLECALCIFEROL 400 UNIT TAB PO SCH (08:51)
[2020-01-25 09:17] LABS: ABG PCO2 64 mmHg (35-45); ABG PO2 87 mmHg (80-105)
[2020-01-25 09:18] LABS: ABG HCO3 32 mmol/L (22-26); ABG TCO2 34
--- NOTE | 2020-01-25 09:21 | Progress Note ---
DATE: SUBJECTIVE: The patient remains on pressure control with a rate of 30 and a PEEP of 10. Her pressure above PEEP is 28. Her FiO2 is 100%. She has been restarted on rocuronium. She is being continued on Versed and fentanyl. PHYSICAL EXAMINATION: VITAL SIGNS: The blood pressure is 106/52. The saturation is 94%. The pulse is 101. HEENT: Shows no facial swelling or erythema. LYMPHATIC: Shows no submandibular, cervical, or supraclavicular adenopathy. CARDIAC: Reveals regular rate and rhythm with normal S1 and S2. LUNGS: Auscultation of lungs reveals clear breath sounds bilaterally. There is no wheezing. ABDOMEN: Soft and nontender. There is no rebound or guarding. EXTREMITIES: Shows no leg edema or calf tenderness. There is no cyanosis or clubbing. SKIN: Shows no rashes. NEUROLOGICAL: Shows no focal abnormalities. LABORATORY DATA: White blood cell count is 8.8 and hemoglobin is 8.8. The platelet count is 166. The BUN to creatinine ratio is normal. The other electrolytes are within normal limits. Albumin is 2.8. RADIOGRAPHIC DATA: Chest x-ray shows bilateral infiltrates. IMPRESSION: 1. Acute respiratory failure. 2. Viral pneumonia and COVID-19 infection. 3. Anemia. 4. Diabetes. PLAN: 1. Place the patient in prone position today. 2. Continue current ventilator settings and wean as tolerated. 3. Increase Lovenox to 1 mg/kg twice daily for possibility of any thromboembolic disease. 4. The patient has completed antibiotics. Await additional culture results. 5. Continue vecuronium, Versed and fentanyl. 6. Continue to monitor blood sugars and adjust insulin. 7. Case discussed with nursing, Respiratory, Internal Medicine, Infectious Disease, and family. Greater than 35 minutes in direct critical care time. MD MEERA Thomas/MARIA ELENA /[id number]
--- NOTE | 2020-01-25 10:40 | NUR ---
Patient proned at this time per MD order.
--- NOTE | 2020-01-25 14:29 | NUR ---
CALL RECEIVED FROM [facility]; [employer]. OFF: [phone] EXT [phone]; CONFIDENTIAL VM. STATES IN NETWORK PROVIDERS CAN BE FOUND ON [employer] OR CALL THE # ON BACK OF INS CARD. IF HH OR DME NEEDED THE PREFERRED PROVIDER IS [facility].
[2020-01-25] MEDS: ROCURONIUM BROMIDE 1,250 MG in SODIUM CHLORIDE 0.9% 250ML 125 ML IV SCH ×2 (15:22→18:19)
--- NOTE | 2020-01-25 15:31 | NUR ---
ABGs reported to Dr Blakely at this time; new orders received and carried out. RT made aware.
[2020-01-25 16:59] LABS: ABG HCO3 34 mmol/L (22-26); ABG PCO2 97 mmHg (35-45); ABG PH 7.15 (7.35-7.45); ABG PO2 111 mmHg (80-105)
[2020-01-25 17:00] LABS: ABG TCO2 37
[2020-01-25] MEDS ORDERED: FUROSEMIDE INJ 10 MG/ML 4 ML VIAL IV ONE (17:00)
--- NOTE | 2020-01-25 18:45 | NUR ---
Report received. Assumed care. Assessment done. See intereventions. Orally intubated with 7.5 FR ETT secured @ 22cm @ the lip. Vent settings: FIO2 95%, PEEP 1, Rate 36 & PC above PEEP 32. Right nare NGT with Vital AF @ 25 ml/hr due to being in prone position.
[2020-01-25 20:11] LABS: ABG HCO3 39 mmol/L (22-26); ABG PCO2 89 mmHg (35-45); ABG PH 7.25 (7.35-7.45); ABG PO2 119 mmHg (80-105); ABG TCO2 42
--- NOTE | 2020-01-25 20:26 | Progress Note ---
DATE: SUBJECTIVE: Ms. Fairchild remains in intensive care unit, on prone position, on ventilator, on Versed and fentanyl. PHYSICAL EXAMINATION: GENERAL: She is sedated. HEENT: Not icteric. NECK: Supple. CHEST: Few rhonchi bilateral. HEART: S1 and S2. ABDOMEN: Soft. Bowel sounds present. EXTREMITIES: No edema. IMPRESSION: Respiratory failure, COVID-19, and diabetes mellitus. Her prognosis remains extremely guarded. She is currently off antibiotic. We will follow. MD ALESSANDRO Leos/[facility] /[id number]
--- NOTE | 2020-01-25 21:00 | NUR ---
RT called ABG results to Dr. Blakely. Now on FIO2 85%, Rate 36, PEEP 10 & PC above PEEP 30.
--- NOTE | 2020-01-25 22:00 | NUR ---
called her cell phone. Placed near pt ear to allow him to talk to her.
[2020-01-25] MEDS: INSULIN GLARGINE 100 UNITS/ML VIAL SQ SCH (22:16)
--- NOTE | 2020-01-25 23:52 | Progress Note ---
DATE: 01/25/2020 CONSULTING PHYSICIANS: Dr. Manan Meehan with Infectious Disease and Dr. Efren Blakely with Pulmonary/Critical Care Medicine. SUBJECTIVE: Case discussed with ICU devulcanizer charger. The patient desatting earlier this morning around 11:00 a.m. and thus was prone about that time. For results on ABG this morning and ventilator settings change per Pulmonary Critical Care Medicine. She remains on paralytic in ICU bed 194. Levophed weaned off on the morning of 01/23. PHYSICAL EXAMINATION: VITAL SIGNS: Temperature 99.4, pulse 101, blood pressure 106/52, respirations 32, oxygen saturation 94%. GENERAL: Prone. Orally intubated with paralytic in use on specialty bed. LUNGS: Orally intubated on pressure controlled respiratory rate 32, FiO2 of 100%, pressure control above PEEP 32, PEEP of 10, oxygen saturation at the time of encounter 98% with a heart rate of 106. HEENT: NG tube in place with Vital AF at 25 mL an hour (substitute for Pivot). Sclerae anicteric. NECK: Supple. CARDIOVASCULAR: Normal sinus rhythm. Left radial arterial line, right upper extremity PICC line PICC. ABDOMEN: Soft. No obvious distention. Cantu catheter with kinga urine. EXTREMITIES: No pitting edema. Heel protectors and SCDs in place. NEUROLOGIC: Remains on Versed, fentanyl, and rocuronium drips. LABORATORY DATA: WBCs 8.88, hemoglobin 8.8, hematocrit 30.1, and platelets 166. She had 3 ABGs today; this morning, pH 7.30, pCO2 of 64, PO2 of 87, HCO3 of 32, SaO2 of 95%, base excess of 6, FiO2 of 100%; at about 1516 this afternoon, pH 7.15, pCO2 of 97, PO2 of 111, HCO3 of 34, SaO2 of 96%, base excess of 5, FiO2 of 100%; at 1959, pH 7.25, pCO2 of 89, PO2 of 119, HCO3 of 39, SaO2 of 98%, base excess of 12, FiO2 of 95%. Sodium 139, potassium 4.4, chloride 101, CO2 of 31, anion gap 11.4, BUN 20, creatinine 0.53, estimated GFR greater than 60, glucose 181. Fingerstick blood glucose levels 158 and 189. Calcium 9.2, phosphorus 3.9, magnesium 2.2, total bilirubin 0.5, AST 24, ALT 12, alkaline phosphatase 96, total protein 6.5, albumin 2.8. No new culture and sensitivity results. IMAGING: On 01/24 chest x-ray, no significant change since 01/23, still with diffuse bilateral airspace opacities. ASSESSMENT AND PLAN: 1. Coronavirus disease 2019 pneumonia, Pulmonary/Critical Care Medicine and Infectious Disease following. She has completed IV antibiotics. Continue prone position. Monitor ABG results. Continue Lovenox. Continue fentanyl, Versed, and rocuronium drips. Enteral feedings for nutritional support. Wean ventilator settings as tolerated. Lovenox has been increased to 1 mg/kg twice daily. Await culture and sensitivity results. Levophed was weaned off on 01/23. 2. Acute respiratory failure. Continue prone position. Monitor ABG results. Continue pressure control mode of ventilation as per Pulmonary/Critical Care Medicine recommendations. 3. Controlled type 2 diabetes mellitus. Serum glucose 181. Hemoglobin A1c 9.6%. Continue sliding scale insulin and monitor fingerstick blood glucose levels. 4. Transaminitis due to coronavirus disease 2019, improved. AST 24 (35, 37, 47, 60). Monitor. 5. Prophylaxis, Lovenox and Pepcid. Inpatient, ICU, billing code [id number], time spent 35 minutes. Dictated by Sim Root NP Kvng Doherty MD [facility] /[id number]
[2020-01-26] VITALS (24 sets, daily range): BP systolic 87–159; BP diastolic 50–69
[2020-01-26] MEDS: INSULIN LISPRO 100 UNIT/1 ML 3ML VIAL SQ SCH ×4 (00:26→17:26)
[2020-01-26] MEDS: MIDAZOLAM HCL 5MG/ML 10ML VIAL 100 ML IV PRN ×4 (00:46→20:43)
[2020-01-26 04:47] LABS: BASOPHILS % 0.1 % (0.0-1.0); EOSINOPHILS # (AUTO) 0.1 (0.0-0.4); EOSINOPHILS % 1.5 % (0.0-6.0); HEMATOCRIT 28.4 % (34.2-44.1); HEMOGLOBIN 8.3 g/dL (12.0-16.0); LYMPHOCYTES # (AUTO) 0.8 (1.0-3.2); LYMPHOCYTES % 11.1 % (18.0-39.1); MEAN CORPUSCULAR HEMOGLOBIN 27.4 pg (28-32); MEAN CORPUSCULAR HGB CONC 29.2 g/dL (31-35); MEAN CORPUSCULAR VOLUME 93.7 fL (81-99); MONOCYTES # (AUTO) 0.3 (0.2-0.8); MONOCYTES % 3.3 % (4.4-11.3); NEUTROPHILS # (AUTO) 6.2 (2.1-6.9); NEUTROPHILS % 82.7 % (38.7-80.0); PLATELET COUNT 175 x10e3/uL (140-360); RED BLOOD COUNT 3.03 x10e6/uL (3.6-5.1); RED CELL DISTRIBUTION WIDTH 13.8 % (11.7-14.4)
[2020-01-26 05:22] LABS: ALANINE AMINOTRANSFERASE 13 IU/L (0-55); ALBUMIN 2.8 g/dL (3.5-5.0); ALBUMIN/GLOBULIN RATIO 0.7 (0.8-2.0); ALKALINE PHOSPHATASE 100 IU/L (40-150); ANION GAP 12.8 mmol/L (8-16); BLOOD UREA NITROGEN 25 mg/dL (7-26); BUN/CREATININE RATIO 42 (6-25); CALCIUM 9.2 mg/dL (8.4-10.2); CARBON DIOXIDE 35 mmol/L (22-29); CHLORIDE 99 mmol/L (98-107); CREATININE, SERUM 0.59 mg/dL (0.57-1.11); EST GLOMERULAR FILTRATION RATE > 60 ML/MIN (60-); GLUCOSE 139 mg/dL (74-118); POTASSIUM 4.8 mmol/L (3.5-5.1); SODIUM 142 mmol/L (136-145)
[2020-01-26] MEDS: LEVOTHYROXINE SODIUM 25 MCG TABLET PO SCH (06:23)
[2020-01-26 07:31] LABS: ABG HCO3 41 mmol/L (22-26); ABG PCO2 77 mmHg (35-45); ABG PH 7.33 (7.35-7.45); ABG PO2 104 mmHg (80-105); ABG TCO2 43
--- NOTE | 2020-01-26 08:49 | Progress Note ---
DATE: SUBJECTIVE: The patient remains on the mechanical ventilation. The patient is in the prone position. The patient is currently on a pressure control mode of ventilation at a rate of 36 with a PEEP of 8 and a pressure control of 30. FiO2 is set at 80%. The patient remains on Versed at 7, fentanyl at 200, and rocuronium at 0.006. The patient is off pressors. PHYSICAL EXAMINATION: VITAL SIGNS: Blood pressure is , saturation is 98% on the above settings. The pulse is 102. HEENT: No facial swelling or erythema. LYMPHATIC: No submandibular, cervical, or supraclavicular adenopathy. CARDIAC: Regular rate and rhythm with normal S1, S2. LUNGS: Auscultation of lungs reveals crackles and rhonchi at the bases. There is no wheezing. ABDOMEN: Soft nontender. There is no rebound or guarding. EXTREMITIES: No leg edema or calf tenderness. There is no cyanosis or clubbing. SKIN: No rashes. NEUROLOGICAL: No focal abnormalities. LABORATORY DATA: White blood cell count is 7.4 and hemoglobin is 8.3. The platelet count is 175,000. The BUN to creatinine ratio is 25 to 0.59 and the other electrolytes are within normal limits. Albumin is 2.8. RADIOGRAPHIC DATA: Bilateral infiltrates. IMPRESSION: 1. Acute respiratory failure. 2. Viral pneumonia and coronavirus disease-19 infection. 3. Anemia. 4. Diabetes. PLAN: 1. Continue to ventilate the patient in the prone position. 2. Repeat ABG later this afternoon. 3. Lovenox 1 mg/kg twice daily. 4. Continue Versed, fentanyl and rocuronium. 5. Continue to monitor blood sugars and adjust insulin. 6. Evaluate patient for tracheostomy. Greater than 35 minutes in direct critical care time. Efren Blakely MD [facility] /[id number]
[2020-01-26] MEDS: FAMOTIDINE 20 MG/2 ML VIAL IV SCH ×2 (08:51→17:13)
[2020-01-26] MEDS: ENOXAPARIN INJ 80 MG/0.8 ML SYR SC SCH ×3 (08:52→20:51)
[2020-01-26] MEDS: ASCORBIC ACID 500 MG TAB PO SCH ×2 (08:52→17:13)
[2020-01-26] MEDS: CHOLECALCIFEROL 400 UNIT TAB PO SCH (08:52)
[2020-01-26] MEDS: ZINC SULFATE 220 MG CAP PO SCH ×2 (08:52→17:13)
[2020-01-26] MEDS: DOCUSATE SODIUM LIQD 100 MG/10 ML UDC NG SCH (08:52)
--- NOTE | 2020-01-26 09:50 | NUR ---
Lovenox given. Discussed trending down of hemaglobin with Dr Mahogany Blakely, he advised to give the lovenox. No evidence of bleeding is noted.
[2020-01-26] MEDS: FENTANYL 2000MCG/NS 250 250 ML IV PRN (14:31)
--- NOTE | 2020-01-26 15:01 | Diagnostic Imaging Report ---
EXAMINATION: CHEST SINGLE (PORTABLE) INDICATION: Respiratory failure COMPARISON: Chest radiograph of 01/25/2020 FINDINGS: LINES/TUBES:Support lines and tubes unchanged. LUNGS:The lungs are moderately inflated. Unchanged diffuse bilateral interstitial and airspace opacities. PLEURA:No pleural effusion or pneumothorax. MEDIASTINUM:The cardiomediastinal silhouette appears unchanged in size and shape. BONES/SOFT TISSUES:No acute osseous injury. ABDOMEN:No free air under the diaphragm. IMPRESSION: No significant interval change. Signed by: Parveen Baptiste MD on 01/26/2020 2:58 PM
[2020-01-26 15:45] LABS: ABG PCO2 65 mmHg (35-45); ABG PH 7.38 (7.35-7.45); ABG PO2 56 mmHg (80-105)
[2020-01-26 15:46] LABS: ABG HCO3 38 mmol/L (22-26); ABG TCO2 40
--- NOTE | 2020-01-26 16:55 | NUR ---
Dr Blakely has been notified pt is experiencing decreasing O2 sats. Currently sats 87 on 90%. He advised to increase to 100% FIO2.
--- NOTE | 2020-01-26 17:27 | NUR ---
INFECTIOUS DISEASE PROGRESS NOTE DR. KATTY REINOSO ROS: unable to obtain due to condition All 14 point ROS neg unless otherwise noted PHYSICAL EXAMINATION:basically unchanged intubated sedated VITAL SIGNS: Blood pressure is 117/53, saturation is 94%. The pulse is 97. The T-max is 99.9. HEENT: No facial swelling or erythema. There is an oral endotracheal tube. LYMPHATIC: No submandibular, cervical, or supraclavicular adenopathy. CARDIAC: Regular rate and rhythm with normal S1, S2. LUNGS: Auscultation of lungs reveals rhonchorous breath sounds bilaterally. There is no wheezing. ABDOMEN: Soft, nontender. There is no rebound or guarding. EXTREMITIES: No leg edema or calf tenderness. There is no cyanosis or clubbing. SKIN: No rashes. NEUROLOGICAL: The patient to be sedated. MICROBIOLOGICAL DATA: reviewed LABORATORY DATA: reviewed RADIOGRAPHIC DATA: Chest x-ray shows continued bilateral infiltrates. IMPRESSION: 1. Acute respiratory failure. 2. Viral pneumonia and coronavirus disease-19 infection. 3. Diabetes. 4. Anemia. PLAN: sedated with versed/fentanyl and paralyzed with BRAULIO Off pressor support off antibiotics monitor clinically low grade fever, will monitor Barbara Torres MSN, APPEALS OFFICER, AGACNP-BC Katty Reinoso M.D
--- NOTE | 2020-01-26 18:45 | NUR ---
Report received. Assumed care. Assessment done. See interventions. Orally intubated with 7.5 FR ETT secured @ 22cm at the lip. Vent settings: FIO2 100%, PEEP 8, Rate 36 & PC 30. R nare NGT with Vital AF @ 45ml/hr with H2O 50ml Q6H. IVs: Rocuronium @ 0.007mcg/kg/min or 4.4 ml/hr, Fentanyl @ 125 mg/hr or 15.6ml/hr & Versed @ 8mg/hr or 16ml/hr.
[2020-01-26] MEDS: ROCURONIUM BROMIDE 1,250 MG in SODIUM CHLORIDE 0.9% 250ML 125 ML IV SCH (19:34)
[2020-01-26] MEDS: INSULIN GLARGINE 100 UNITS/ML VIAL SQ SCH (20:51)
[2020-01-27] VITALS (33 sets, daily range): BP systolic 92–171; BP diastolic 53–78
[2020-01-27] MEDS: INSULIN LISPRO 100 UNIT/1 ML 3ML VIAL SQ SCH ×5 (01:30→23:57)
[2020-01-27] MEDS: MIDAZOLAM HCL 5MG/ML 10ML VIAL 100 ML IV PRN ×4 (02:40→20:49)
[2020-01-27 04:54] LABS: BASOPHILS % 0.3 % (0.0-1.0); EOSINOPHILS # (AUTO) 0.2 (0.0-0.4); EOSINOPHILS % 1.8 % (0.0-6.0); HEMATOCRIT 28.8 % (34.2-44.1); HEMOGLOBIN 8.5 g/dL (12.0-16.0); LYMPHOCYTES # (AUTO) 1.2 (1.0-3.2); LYMPHOCYTES % 13.8 % (18.0-39.1); MEAN CORPUSCULAR HEMOGLOBIN 27.5 pg (28-32); MEAN CORPUSCULAR HGB CONC 29.5 g/dL (31-35); MEAN CORPUSCULAR VOLUME 93.2 fL (81-99); MONOCYTES # (AUTO) 0.3 (0.2-0.8); MONOCYTES % 3.9 % (4.4-11.3); NEUTROPHILS # (AUTO) 6.8 (2.1-6.9); NEUTROPHILS % 78.5 % (38.7-80.0); PLATELET COUNT 182 x10e3/uL (140-360); RED BLOOD COUNT 3.09 x10e6/uL (3.6-5.1); RED CELL DISTRIBUTION WIDTH 14.3 % (11.7-14.4)
[2020-01-27 05:19] LABS: ALANINE AMINOTRANSFERASE 12 IU/L (0-55); ALBUMIN 2.9 g/dL (3.5-5.0); ALBUMIN/GLOBULIN RATIO 0.7 (0.8-2.0); ALKALINE PHOSPHATASE 104 IU/L (40-150); ANION GAP 11.5 mmol/L (8-16); BLOOD UREA NITROGEN 23 mg/dL (7-26); BUN/CREATININE RATIO 42 (6-25); CALCIUM 9.3 mg/dL (8.4-10.2); CARBON DIOXIDE 38 mmol/L (22-29); CHLORIDE 99 mmol/L (98-107); CREATININE, SERUM 0.55 mg/dL (0.57-1.11); EST GLOMERULAR FILTRATION RATE > 60 ML/MIN (60-); GLUCOSE 149 mg/dL (74-118); POTASSIUM 4.5 mmol/L (3.5-5.1); SODIUM 144 mmol/L (136-145)
[2020-01-27] MEDS: LEVOTHYROXINE SODIUM 25 MCG TABLET PO SCH (06:21)
--- NOTE | 2020-01-27 08:32 | Diagnostic Imaging Report ---
Examination: Single AP view of the chest. COMPARISON: 01/26/2020 INDICATION: Respiratory failure DISCUSSION: Endotracheal tube, enteric tube, and right upper extremity PICC are unchanged in position. When accounting for differences in technique, no significant interval change in diffuse interstitial and alveolar airspace opacities. Stable cardiomediastinal contour. No acute osseous abnormalities. IMPRESSION: Stable position of support lines and tubes. Unchanged interstitial and alveolar opacities which may reflect multifocal pneumonia, edema, or ARDS. Signed by: Dr. Kenton Wyatt M.D. on 01/27/2020 8:28 AM
[2020-01-27] MEDS: ZINC SULFATE 220 MG CAP PO SCH ×2 (08:46→18:22)
[2020-01-27] MEDS: DOCUSATE SODIUM LIQD 100 MG/10 ML UDC NG SCH (08:46)
[2020-01-27] MEDS: CHOLECALCIFEROL 400 UNIT TAB PO SCH (08:46)
[2020-01-27] MEDS: ASCORBIC ACID 500 MG TAB PO SCH ×2 (08:46→18:22)
[2020-01-27] MEDS: FAMOTIDINE 20 MG/2 ML VIAL IV SCH ×2 (08:46→18:22)
[2020-01-27] MEDS: ENOXAPARIN INJ 80 MG/0.8 ML SYR SC SCH ×2 (08:46→20:48)
[2020-01-27] MEDS ORDERED: FUROSEMIDE INJ 10 MG/ML 4 ML VIAL IV ONE (09:00)
--- NOTE | 2020-01-27 09:39 | Progress Note ---
DATE: SUBJECTIVE: The patient is currently in the supine position. She is afebrile. She remains on a pressure control mode of ventilation with a rate of 34, a PEEP of 10 and the pressure support above PEEP of 32. Her FiO2 is set at 100%. PHYSICAL EXAMINATION: VITAL SIGNS: Blood pressure is 111/58 and saturation is 94%. The pulse is 97. T-max is 100.7. Temperature is now 99.9. HEENT: Shows no facial swelling or erythema. LYMPHATIC: Shows no submandibular, cervical, supraclavicular adenopathy. CARDIAC: Reveals regular rate and rhythm. Normal S1, S2. LUNGS: Auscultation of lungs shows decreased breath sounds at the bases. There is no wheezing. ABDOMEN: Soft, nontender. There is no rebound or guarding. EXTREMITIES: Shows no leg edema or calf tenderness. There is no cyanosis or clubbing. SKIN: Shows no rashes. NEUROLOGICAL: Shows the patient to be sedated and paralyzed. She is on Versed and fentanyl as well as rocuronium. LABORATORY DATA: BUN to creatinine ratio is 23 to 0.55 and the other electrolytes are within normal limits. The albumin is 2.9. The white blood cell count is 8.6 and hemoglobin is 8.5. The platelet count is 182. RADIOGRAPHIC DATA: Chest x-ray shows bilateral opacities. Microbiological data shows no growth today. IMPRESSION: 1. Acute respiratory failure. 2. Viral pneumonia and COVID-19 infection. 3. Anemia. 4. Diabetes. PLAN: 1. Place patient in prone position today. 2. Continue current ventilator settings and monitor ABG. 3. Additional Lasix today. 4. Continue Versed and fentanyl along with rocuronium. 5. General Surgery consult for possible tracheostomy. 6. Continue to monitor blood sugars and adjust insulin as needed. Greater than 35 minutes in direct critical care time. Efren Blakely MD [facility] /[id number]
--- NOTE | 2020-01-27 15:18 | NUR ---
Nutrition Intervention Note RD Recommendation(s) for Physician: -Continue Vital AF 1.2 with goal rate of 40 mL/hr as appropriate (provides 1152 kcal, 72 g protein) -Water/fluid management per MD -If pt requires prone positioning, pt may be fed at goal rate placed in reverse Trendelenburg with HOB at 10 to 25 degrees. Plan of Care: RD following, monitoring for tolerance and adequacy, tube feed recommendation Nutrition reason for involvement: follow up RD Assessment 01/26: Follow up. Chart reviewed. Pt remains intubated/sedated and is in the prone position. TF rate is at 25 mL/hr at this time. Recommend increasing TF to goal rate of 40 mL/hr. Pt may be fed at goal rate placed in reverse Trendelenburg with HOB at 10 to 25 degrees. Will continue to monitor. 01/22: Follow up. Pt remains intubated and sedated with Versed and Fentanyl, currently in prone position. Pt on low dose Levophed at 3 mcg/min while receiving HD. Pt tolerating TF at 45 ml/hr. Pt discussed during MDR, no recent BM per RN. Chart reviewed. Will continue to monitor. 01/17: Follow up. Pt remains mechanically ventilated and is in the prone position. Pt tube feed is at 30 mL/hr per RN. Recommend increasing towards goal as appropriate. Will continue to monitor. (01/14/20) Pt is a 54 year old female admitted with hypoxia and pneumonia due to COVID-19. Pt was intubated yesterday and tube feed order was placed. Pt was previously on an ADA diet with 25-50% meal intake recorded. Pt has a ht of 48 inches currently in chart, but per history in chart a height of 59 inches was previously recorded. Recommendations provided. RD to manage tube feed order per Dr. Blakely. Will continue to monitor. Principal Problems/Diagnoses: hypoxia, pneumonia due to COVID-19 PMH: Kidney infections as a child, diabetes mellitus, diabetic neuropathy, hypothyroidism, overactive bladder, and morbid obesity. GI: round/large/soft abdomen, last recorded BM 01/22 Skin: sacrum stage I Labs: 01/26: Na 144, K 4.5, BUN 23, Cr 0.55, Glu 149, Ca 9.3 01/22: Na 136, K 3.9, BUN 16, Cr 0.64, Gluc 198, POC Gluc 230-265 01/17: Na 144, K 3.0, BUN 22, Cr 0.59, Glu 269, Ca 7.5, AST 48 (01/13) Na 137, K 3.9, BUN 18, Cr 0.79, Glu 233, Ca 8.0, AST 42 Meds: insulin, colace, pepcid, zinc sulfate, vitamin C, vitamin D, levothyroxine, insulin, rocuronium, fentanyl, hydralazine, zofran Ht: 59 inches (per chart history) Wt: 228.06 lbs (01/25) 216.3 lbs (01/22) 218 lbs (01/17) 226 lbs (01/10) - Suspect weight difference is weight error or fluid related BMI: 44 kg/m2 using weight of 218 lbs IBW: 98 lbs Malnutrition Evaluation (01/27/20) The patient does not meet criteria for a specified degree of malnutrition at this time. Will re-evaluate at follow-up as appropriate. Energy intake: </=50% of estimated energy requirements for > 5 days Weight loss: unable to evaluate Fat loss: no loss per observation outside room Muscle loss: no loss per observation outside room Supporting Evidence: Fluid accumulation: no edema per MD note Functional Status: unable to evaluate Nutrition Prescription (Diet Order): Vital AF 1.2 @ 40 mL/hr - infusing at 25 mL/hr at this time Estimated Nutritional Needs: 980-1115 calories/day (22-25 kcal/kg IBW) 67-89 g protein/day (1.5-2 g pro/kg IBW) Diet Adequacy: not meeting calorie and protein needs Tolerance: tolerating TF Diet Education Needs Assessment: Diet education not indicated, patient is intubated Nutrition Care Level: high - tube feed not at goal rate Nutrition Diagnosis: Inadequate oral intake related to acute respiratory failure/mechanical ventilation as evidenced by requiring enteral nutrition Goal: Patient will meet 75-100% of estimated needs by follow up Progress: goal not met Interventions: - Composition, Rate, Route Monitoring/Evaluation: -Total energy intake, Total protein intake, Formula/Solution, Weight change Signed: Stephanie Angulo RD, LD
[2020-01-27] MEDS: FENTANYL 2000MCG/NS 250 250 ML IV PRN (15:31)
--- NOTE | 2020-01-27 16:21 | NUR ---
infectious disease progress note patient seen and examined chart reviewed with the patient remains intensive care and then discussed with medical team patient remains ill he patient is currently in the supine position. She is afebrile. She remains on a pressure control mode of ventilation with a rate of 34, a PEEP of 10 and the pressure support above PEEP of 32. Her FiO2 is set at 100%. PHYSICAL EXAMINATION:basically unchanged intubated sedated VITAL SIGNS: Blood pressure is 111/58 and saturation is 94%. The pulse is 97. T-max is 100.7. Temperature is now 99.9. HEENT: Shows no facial swelling or erythema. LYMPHATIC: Shows no submandibular, cervical, supraclavicular adenopathy. CARDIAC: Reveals regular rate and rhythm. Normal S1, S2. LUNGS: Auscultation of lungs shows decreased breath sounds at the bases. There is no wheezing. ABDOMEN: Soft, nontender. There is no rebound or guarding. EXTREMITIES: Shows no leg edema or calf tenderness. There is no cyanosis or clubbing. SKIN: Shows no rashes. NEUROLOGICAL: Shows the patient to be sedated and paralyzed. She is on Versed and fentanyl as well as rocuronium. LABORATORY DATA: BUN to creatinine ratio is 23 to 0.55 and the other electrolytes are within normal limits. The albumin is 2.9. The white blood cell count is 8.6 and hemoglobin is 8.5. The platelet count is 182. RADIOGRAPHIC DATA: Chest x-ray shows bilateral opacities. Microbiological data shows no growth today. IMPRESSION: 1. Acute respiratory failure. 2. Viral pneumonia and COVID-19 infection. 3. Anemia. 4. Diabetes. continue supportive care was ordered no new recommendations
[2020-01-27 16:27] LABS: ANION GAP 15.9 mmol/L (8-16); BLOOD UREA NITROGEN 20 mg/dL (7-26); BUN/CREATININE RATIO 36 (6-25); CALCIUM 8.7 mg/dL (8.4-10.2); CARBON DIOXIDE 39 mmol/L (22-29); CHLORIDE 94 mmol/L (98-107); CREATININE, SERUM 0.56 mg/dL (0.57-1.11); EST GLOMERULAR FILTRATION RATE > 60 ML/MIN (60-); GLUCOSE 156 mg/dL (74-118); POTASSIUM 3.9 mmol/L (3.5-5.1); SODIUM 145 mmol/L (136-145)
[2020-01-27 19:42] LABS: ABG HCO3 46 mmol/L (22-26); ABG PCO2 83 mmHg (35-45); ABG PH 7.35 (7.35-7.45); ABG PO2 95 mmHg (80-105); ABG TCO2 49
[2020-01-27 19:44] LABS: ABG HCO3 43 mmol/L (22-26); ABG PCO2 68 mmHg (35-45); ABG PO2 71 mmHg (80-105); ABG TCO2 45
[2020-01-27] MEDS: INSULIN GLARGINE 100 UNITS/ML VIAL SQ SCH (20:48)
[2020-01-27] MEDS ORDERED: ACETAZOLAMIDE SODIUM 500 MG/VIAL IV ONE (23:30)
[2020-01-28] VITALS (40 sets, daily range): BP systolic 76–164; BP diastolic 53–71
[2020-01-28] MEDS: FENTANYL 2000MCG/NS 250 250 ML IV PRN (00:07)
[2020-01-28] MEDS: ROCURONIUM BROMIDE 1,250 MG in SODIUM CHLORIDE 0.9% 250ML 125 ML IV SCH ×2 (00:12→16:00)
[2020-01-28] MEDS: MIDAZOLAM HCL 5MG/ML 10ML VIAL 100 ML IV PRN ×4 (03:40→22:55)
[2020-01-28 05:48] LABS: BASOPHILS % 0.3 % (0.0-1.0); EOSINOPHILS # (AUTO) 0.2 (0.0-0.4); HEMATOCRIT 30.5 % (34.2-44.1); HEMOGLOBIN 9.1 g/dL (12.0-16.0); LYMPHOCYTES # (AUTO) 1.2 (1.0-3.2); LYMPHOCYTES % 11.9 % (18.0-39.1); MEAN CORPUSCULAR HEMOGLOBIN 27.2 pg (28-32); MEAN CORPUSCULAR HGB CONC 29.8 g/dL (31-35); MONOCYTES # (AUTO) 0.3 (0.2-0.8); MONOCYTES % 3.2 % (4.4-11.3); NEUTROPHILS # (AUTO) 8.2 (2.1-6.9); NEUTROPHILS % 80.8 % (38.7-80.0); PLATELET COUNT 205 x10e3/uL (140-360); RED BLOOD COUNT 3.35 x10e6/uL (3.6-5.1); RED CELL DISTRIBUTION WIDTH 14.1 % (11.7-14.4)
[2020-01-28 06:09] LABS: ALANINE AMINOTRANSFERASE 11 IU/L (0-55); ALBUMIN 2.8 g/dL (3.5-5.0); ALBUMIN/GLOBULIN RATIO 0.6 (0.8-2.0); ALKALINE PHOSPHATASE 92 IU/L (40-150); ANION GAP 14.5 mmol/L (8-16); BLOOD UREA NITROGEN 19 mg/dL (7-26); BUN/CREATININE RATIO 37 (6-25); CALCIUM 9.2 mg/dL (8.4-10.2); CARBON DIOXIDE 35 mmol/L (22-29); CHLORIDE 99 mmol/L (98-107); CREATININE, SERUM 0.51 mg/dL (0.57-1.11); EST GLOMERULAR FILTRATION RATE > 60 ML/MIN (60-); GLUCOSE 121 mg/dL (74-118); POTASSIUM 3.5 mmol/L (3.5-5.1); SODIUM 145 mmol/L (136-145)
[2020-01-28] MEDS: LEVOTHYROXINE SODIUM 25 MCG TABLET PO SCH (06:23)
[2020-01-28] MEDS: INSULIN LISPRO 100 UNIT/1 ML 3ML VIAL SQ SCH ×4 (06:26→23:58)
[2020-01-28] MEDS: ASCORBIC ACID 500 MG TAB PO SCH ×2 (08:09→17:15)
[2020-01-28] MEDS: FAMOTIDINE 20 MG/2 ML VIAL IV SCH ×2 (08:09→17:15)
[2020-01-28] MEDS: DOCUSATE SODIUM LIQD 100 MG/10 ML UDC NG SCH (08:09)
[2020-01-28] MEDS: CHOLECALCIFEROL 400 UNIT TAB PO SCH (08:10)
[2020-01-28] MEDS: ENOXAPARIN INJ 80 MG/0.8 ML SYR SC SCH ×2 (08:10→21:16)
[2020-01-28] MEDS: ZINC SULFATE 220 MG CAP PO SCH ×2 (08:10→17:15)
--- NOTE | 2020-01-28 09:07 | NUR ---
infectious disease progress note patient seen [place] chart reviewed events noted lab data [facility] unable to obtain due to condition All 14 point ROS neg unless otherwise noted PHYSICAL EXAMINATION: intubated sedated VITAL SIGNS: reviewed HEENT: No facial swelling or erythema. LYMPHATIC: No submandibular, cervical, or supraclavicular adenopathy. CARDIAC: Regular rate and rhythm with normal S1, S2. LUNGS: Rhonchi, diminished ABDOMEN: Soft, nontender. There is no rebound or guarding. EXTREMITIES: No leg edema or calf tenderness. There is no cyanosis or clubbing. SKIN: No rashes. NEUROLOGICAL: The patient to be sedated. MICROBIOLOGICAL DATA: reviewed LABORATORY DATA: reviewed RADIOGRAPHIC DATA: Chest x-ray shows continued bilateral infiltrates. IMPRESSION: 1. Acute respiratory failure. 2. Viral pneumonia and coronavirus disease-19 infection. 3. Diabetes. 4. Anemia. PLAN:Continue as ordered
[2020-01-28 09:14] LABS: ABG HCO3 37 mmol/L (22-26); ABG PCO2 59 mmHg (35-45); ABG PH 7.41 (7.35-7.45); ABG PO2 88 mmHg (80-105); ABG TCO2 39
[2020-01-28 11:37] LABS: LYMPHOCYTES % (MANUAL) 12 % (19-48); MONOCYTES % (MANUAL) 3 % (3.4-9.0); NEUTROPHILS % (MANUAL) 77 % (40-74)
[2020-01-28 11:38] LABS: BAND NEUTROPHILS % (MANUAL) 5 %; EOSINOPHILS % (MANUAL) 2 % (0-7); PLATELET ESTIMATE ADEQUATE
[2020-01-28 11:39] LABS: PLATELET MORPHOLOGY COMMENT NORMAL; RBC MORPHOLOGY COMMENT NORMAL
--- NOTE | 2020-01-28 12:05 | Progress Note ---
DATE: Pulmonary Critical Care Progress Note SUBJECTIVE: The patient is still on a mechanical ventilator. Her pressure control was decreased to 30 and her PEEP is set at 8. Her FiO2 is set at 90%. Her respiratory rate is 30. She is off Levophed. She remains on Versed, fentanyl, and rocuronium. PHYSICAL EXAMINATION: VITAL SIGNS: The patient is afebrile. The blood pressure is 124/54 and the pulse is 90. The temperature is 100.6. HEENT: Shows no facial swelling or erythema. LYMPHATIC: Shows no submandibular, cervical, or supraclavicular adenopathy. CARDIAC: Reveals regular rate and rhythm with normal S1 and S2. LUNGS: Auscultation of lungs reveals crackles at the bases. There is no wheezing. ABDOMEN: Soft and nontender. There is no rebound or guarding. EXTREMITIES: Show no leg edema or calf tenderness. There is no cyanosis or clubbing. SKIN: Shows no rashes. NEUROLOGICAL: Shows no focal abnormalities. LABORATORY DATA: BUN to creatinine ratio is 19 to 0.51. Other electrolytes are within normal limits. White blood cell count is 10.1, the hemoglobin is 9.1, and platelet count is 205. The blood gas is 7.41, 59, 88, and 37. RADIOGRAPHIC DATA: Chest x-ray shows bilateral infiltrates. IMPRESSION: 1. Acute respiratory failure. 2. Viral pneumonia and COVID-19 infection. 3. Anemia. 4. Diabetes. PLAN: 1. Place the patient in prone position and continue ventilation. 2. Decrease pressure control and FiO2, and repeat ABG later today. 3. Continue Versed and fentanyl along with rocuronium. 4. Possible tracheostomy. 5. Continue to monitor and control blood sugars. 6. Enteral feedings. 7. Lovenox. Greater than 35 minutes in direct critical care time. Efren Blakely MD [facility] /[id number]
--- NOTE | 2020-01-28 13:19 | NUR ---
INFECTIOUS DISEASE PROGRESS NOTE DR. KATTY REINOSO ROS: unable to obtain due to condition All 14 point ROS neg unless otherwise noted PHYSICAL EXAMINATION: intubated sedated VITAL SIGNS: reviewed HEENT: No facial swelling or erythema. LYMPHATIC: No submandibular, cervical, or supraclavicular adenopathy. CARDIAC: Regular rate and rhythm with normal S1, S2. LUNGS: Rhonchi, diminished ABDOMEN: Soft, nontender. There is no rebound or guarding. EXTREMITIES: No leg edema or calf tenderness. There is no cyanosis or clubbing. SKIN: No rashes. NEUROLOGICAL: The patient to be sedated. MICROBIOLOGICAL DATA: reviewed LABORATORY DATA: reviewed RADIOGRAPHIC DATA: Chest x-ray shows continued bilateral infiltrates. IMPRESSION: 1. Acute respiratory failure. 2. Viral pneumonia and coronavirus disease-19 infection. 3. Diabetes. 4. Anemia. PLAN: sedated with versed/fentanyl and paralyzed with BRAULIO Off pressor support off antibiotics, monitoring temp monitor clinically Possible trach in the future Barbara Torres MSN, GAS MAIN [employer]TER, AGACNP-BC Katty Reinoso M.D
[2020-01-28 16:56] LABS: ABG HCO3 36 mmol/L (22-26); ABG PCO2 59 mmHg (35-45); ABG PO2 86 mmHg (80-105); ABG TCO2 38
[2020-01-28] MEDS: INSULIN GLARGINE 100 UNITS/ML VIAL SQ SCH (21:00)
[2020-01-29] VITALS (33 sets, daily range): BP systolic 85–134; BP diastolic 43–73
[2020-01-29] MEDS: LEVOTHYROXINE SODIUM 25 MCG TABLET PO SCH (05:44)
[2020-01-29 05:45] LABS: BASOPHILS % 0.4 % (0.0-1.0); EOSINOPHILS # (AUTO) 0.4 (0.0-0.4); EOSINOPHILS % 3.4 % (0.0-6.0); HEMATOCRIT 31.8 % (34.2-44.1); HEMOGLOBIN 9.5 g/dL (12.0-16.0); LYMPHOCYTES # (AUTO) 1.3 (1.0-3.2); LYMPHOCYTES % 11.6 % (18.0-39.1); MEAN CORPUSCULAR HEMOGLOBIN 28.2 pg (28-32); MEAN CORPUSCULAR HGB CONC 29.9 g/dL (31-35); MEAN CORPUSCULAR VOLUME 94.4 fL (81-99); MONOCYTES # (AUTO) 0.3 (0.2-0.8); MONOCYTES % 3.1 % (4.4-11.3); NEUTROPHILS # (AUTO) 8.5 (2.1-6.9); NEUTROPHILS % 79.4 % (38.7-80.0); PLATELET COUNT 210 x10e3/uL (140-360); RED BLOOD COUNT 3.37 x10e6/uL (3.6-5.1); RED CELL DISTRIBUTION WIDTH 14.6 % (11.7-14.4)
[2020-01-29] MEDS: MIDAZOLAM HCL 5MG/ML 10ML VIAL 100 ML IV PRN ×3 (05:45→20:01)
[2020-01-29 06:10] LABS: ALANINE AMINOTRANSFERASE 12 IU/L (0-55); ALBUMIN 2.8 g/dL (3.5-5.0); ALBUMIN/GLOBULIN RATIO 0.6 (0.8-2.0); ALKALINE PHOSPHATASE 90 IU/L (40-150); ANION GAP 13.7 mmol/L (8-16); BLOOD UREA NITROGEN 21 mg/dL (7-26); BUN/CREATININE RATIO 39 (6-25); CALCIUM 9.2 mg/dL (8.4-10.2); CARBON DIOXIDE 33 mmol/L (22-29); CHLORIDE 100 mmol/L (98-107); CREATININE, SERUM 0.54 mg/dL (0.57-1.11); EST GLOMERULAR FILTRATION RATE > 60 ML/MIN (60-); GLUCOSE 103 mg/dL (74-118); POTASSIUM 3.7 mmol/L (3.5-5.1); SODIUM 143 mmol/L (136-145)
[2020-01-29] MEDS: INSULIN LISPRO 100 UNIT/1 ML 3ML VIAL SQ SCH ×3 (06:19→18:00)
[2020-01-29] MEDS: DOCUSATE SODIUM LIQD 100 MG/10 ML UDC NG SCH (07:58)
[2020-01-29] MEDS: FAMOTIDINE 20 MG/2 ML VIAL IV SCH ×2 (07:58→17:16)
[2020-01-29] MEDS: ENOXAPARIN INJ 80 MG/0.8 ML SYR SC SCH ×2 (07:59→20:00)
[2020-01-29] MEDS: CHOLECALCIFEROL 400 UNIT TAB PO SCH (07:59)
[2020-01-29] MEDS: ASCORBIC ACID 500 MG TAB PO SCH ×2 (07:59→17:16)
[2020-01-29] MEDS: ZINC SULFATE 220 MG CAP PO SCH ×2 (07:59→17:16)
--- NOTE | 2020-01-29 09:43 | Progress Note ---
DATE: SUBJECTIVE: The patient remains in the prone position. She is afebrile. She is off pressors. She is currently on pressure control set at a rate of 32 with a pressure above PEEP of 30 and FiO2 of 90%. Her PEEP is set at 10. PHYSICAL EXAMINATION: VITAL SIGNS: Blood pressure is 100/51, saturation is 98% on the above settings. Her pulse is 93. She is on Versed and fentanyl as well as low-dose rocuronium. HEENT: Shows no facial swelling or erythema. She has an oral endotracheal tube. LYMPHATIC: Shows no submandibular, cervical or supraclavicular adenopathy. CARDIAC: Reveals regular rate and rhythm with normal S1 and S2. LUNGS: Auscultation of lungs shows decreased breath sounds at the bases. There is no wheezing. ABDOMEN: Soft and nontender. There is no rebound or guarding. EXTREMITIES: Shows no leg edema or calf tenderness. There is no cyanosis or clubbing. SKIN: Shows no rashes. NEUROLOGICAL: Shows no focal abnormalities. She is sedated. LABORATORY DATA: White blood cell count is 10.7, hemoglobin is 9.5. The platelet count is 210,000. The BUN to creatinine ratio is 21 to 0.54 and the other electrolytes are within normal limits. Albumin is 2.8. RADIOGRAPHIC DATA: Chest x-ray shows bilateral infiltrates. IMPRESSION: 1. Acute respiratory failure. 2. Viral pneumonia and COVID-19 infection. 3. Anemia. 4. Diabetes. PLAN: 1. Place the patient back in the supine position. 2. Continue to wean FiO2. 3. Repeat ABG and monitor ventilator settings. 4. Continue Versed and fentanyl. 5. Wean rocuronium as tolerated. 6. Continue enteral feedings. 7. Continue Lovenox. 8. Continue to monitor and control of blood sugars. 9. Possible tracheostomy. Greater than 35 minutes in direct critical care time. Efren Blakely MD [facility] /[id number]
[2020-01-29] MEDS ORDERED: NOREPINEPHRINE INJ 4MG/4ML 8 MG in DEXTROSE 5% 250ML 250 ML IV SCH (09:45)
[2020-01-29 10:12] LABS: ABG HCO3 36 mmol/L (22-26); ABG PCO2 69 mmHg (35-45); ABG PH 7.33 (7.35-7.45); ABG PO2 134 mmHg (80-105); ABG TCO2 38
[2020-01-29] MEDS: FENTANYL 2000MCG/NS 250 250 ML IV PRN ×2 (14:42→23:59)
--- NOTE | 2020-01-29 15:01 | NUR ---
infectious disease [place] note patient seen and examined patient made in intensive care unit. Limited review chart reviewed vent setting also reviewed She is afebrile. She is off pressors. his examination is unchanged today her lab data reviewed She is currently on pressure control set at a rate of 32 with a pressure above PEEP of 30 and FiO2 of 90%. Her PEEP is set at 10. PHYSICAL EXAMINATION: VITAL SIGNS: Blood pressure is 100/51, saturation is 98% on the above settings. Her pulse is 93. She is on Versed and fentanyl as well as low-dose rocuronium. HEENT: Shows no facial swelling or erythema. She has an oral endotracheal tube. LYMPHATIC: Shows no submandibular, cervical or supraclavicular adenopathy. CARDIAC: Reveals regular rate and rhythm with normal S1 and S2. LUNGS: Auscultation of lungs shows decreased breath sounds at the bases. There is no wheezing. ABDOMEN: Soft and nontender. There is no rebound or guarding. EXTREMITIES: Shows no leg edema or calf tenderness. There is no cyanosis or clubbing. SKIN: Shows no rashes. NEUROLOGICAL: Shows no focal abnormalities. She is sedated. LABORATORY DATA: White blood cell count is 10.7, hemoglobin is 9.5. The platelet count is 210,000. The BUN to creatinine ratio is 21 to 0.54 and the other electrolytes are within normal limits. Albumin is 2.8. RADIOGRAPHIC DATA: Chest x-ray shows bilateral infiltrates. IMPRESSION: 1. Acute respiratory failure. 2. Viral pneumonia and COVID-19 infection. 3. Anemia. 4. Diabetes. please refer to the orders
[2020-01-29] MEDS: ROCURONIUM BROMIDE 1,250 MG in SODIUM CHLORIDE 0.9% 250ML 125 ML IV SCH ×2 (16:14→17:16)
[2020-01-29] MEDS: INSULIN GLARGINE 100 UNITS/ML VIAL SQ SCH (21:00)
[2020-01-30] VITALS (25 sets, daily range): BP systolic 92–158; BP diastolic 47–83
[2020-01-30] MEDS: INSULIN LISPRO 100 UNIT/1 ML 3ML VIAL SQ SCH ×4 (00:26→17:59)
[2020-01-30] MEDS: MIDAZOLAM HCL 5MG/ML 10ML VIAL 100 ML IV PRN ×3 (01:53→17:59)
[2020-01-30 05:34] LABS: BASOPHILS % 0.4 % (0.0-1.0); EOSINOPHILS # (AUTO) 0.5 (0.0-0.4); EOSINOPHILS % 5.3 % (0.0-6.0); HEMATOCRIT 27.7 % (34.2-44.1); HEMOGLOBIN 8.6 g/dL (12.0-16.0); LYMPHOCYTES # (AUTO) 2.1 (1.0-3.2); LYMPHOCYTES % 22.6 % (18.0-39.1); MEAN CORPUSCULAR HEMOGLOBIN 29.1 pg (28-32); MEAN CORPUSCULAR VOLUME 93.6 fL (81-99); MONOCYTES # (AUTO) 0.3 (0.2-0.8); MONOCYTES % 3.2 % (4.4-11.3); NEUTROPHILS # (AUTO) 6.2 (2.1-6.9); NEUTROPHILS % 66.5 % (38.7-80.0); PLATELET COUNT 205 x10e3/uL (140-360); RED BLOOD COUNT 2.96 x10e6/uL (3.6-5.1); RED CELL DISTRIBUTION WIDTH 15.2 % (11.7-14.4)
[2020-01-30 05:50] LABS: ALANINE AMINOTRANSFERASE 10 IU/L (0-55); ALBUMIN 2.5 g/dL (3.5-5.0); ALBUMIN/GLOBULIN RATIO 0.6 (0.8-2.0); ALKALINE PHOSPHATASE 75 IU/L (40-150); ANION GAP 10.8 mmol/L (8-16); BLOOD UREA NITROGEN 18 mg/dL (7-26); BUN/CREATININE RATIO 36 (6-25); CALCIUM 8.6 mg/dL (8.4-10.2); CARBON DIOXIDE 34 mmol/L (22-29); CHLORIDE 100 mmol/L (98-107); EST GLOMERULAR FILTRATION RATE > 60 ML/MIN (60-); GLUCOSE 103 mg/dL (74-118); SODIUM 142 mmol/L (136-145)
[2020-01-30 05:54] LABS: POTASSIUM 2.8 mmol/L (3.5-5.1)
[2020-01-30] MEDS: LEVOTHYROXINE SODIUM 25 MCG TABLET PO SCH (06:13)
[2020-01-30] MEDS ORDERED: POTASSIUM CHLORIDE 20MEQ/15ML UDC NG ONE (06:45)
[2020-01-30 07:45] LABS: ABG HCO3 33 mmol/L (22-26); ABG PCO2 56 mmHg (35-45); ABG PH 7.38 (7.35-7.45); ABG PO2 94 mmHg (80-105); ABG TCO2 35
[2020-01-30] MEDS: NOREPINEPHRINE 8 MG/D5W 250 ML 250 ML IV PRN (07:53)
--- NOTE | 2020-01-30 08:28 | Progress Note ---
DATE: SUBJECTIVE: The patient remains on pressure control. Her pressure above PEEP was decreased to 28 and she remains on PEEP of eight with FiO2 of 85%. Her respiratory rate is set at 34. She is on Levophed at 4 mcg. She continues on Versed, fentanyl and rocuronium. PHYSICAL EXAMINATION: VITAL SIGNS: Blood pressure is 104/63, saturation is 96%. Pulse is 70. HEENT: No facial swelling or erythema. LYMPHATIC: No submandibular, cervical, or supraclavicular adenopathy. CARDIAC: Regular rate and rhythm. Normal S1 and S2. LUNGS: Auscultation of the lungs reveals decreased breath sounds at the bases. There is no wheezing. ABDOMEN: Soft, nontender. There is no rebound or guarding. There is 1+ leg edema. LABORATORY DATA: Potassium is 2.8 and BUN to creatinine ratio is normal. Other electrolytes within normal limits. White blood cell count is 9.3 and hemoglobin is 8.6. The platelet count is 205,000. IMPRESSION: 1. Acute respiratory failure. 2. Viral pneumonia and COVID-19 infection. 3. Hypokalemia. 4. Anemia. 5. Diabetes. PLAN: 1. Continue current ventilator settings and repeat ABG later this afternoon. 2. Place the patient in prone position. 3. Replace potassium. 4. Continue Versed, fentanyl on rocuronium. 5. Wean Levophed as tolerated. 6. Continue Lovenox. 7. Continue to monitor and control blood sugars. Greater than 35 minutes in direct critical care time. Efren Blakely MD [facility] /[id number]
--- NOTE | 2020-01-30 08:53 | Diagnostic Imaging Report ---
EXAMINATION: CHEST SINGLE (PORTABLE) INDICATION: Respiratory failure COMPARISON: Multiple prior chest radiographs, most recently 01/27/2020 FINDINGS: LINES/TUBES:Support lines and tubes unchanged. LUNGS:The lung volumes remain low. Bilateral diffuse interstitial and airspace opacities appear similar compared to 01/27/2020 but mildly improved compared to radiographs dating back to 01/25/2020. PLEURA:No pleural effusion or pneumothorax. MEDIASTINUM:The cardiomediastinal silhouette appears normal in size and shape. BONES/SOFT TISSUES:No acute osseous injury. ABDOMEN:No free air under the diaphragm. IMPRESSION: Bilateral diffuse interstitial and airspace opacities, similar compared to 01/27/2020 but mildly improved dating back to radiographs of 01/25/2020. Signed by: Parveen Baptiste MD on 01/30/2020 8:50 AM
[2020-01-30] MEDS: ENOXAPARIN INJ 80 MG/0.8 ML SYR SC SCH ×2 (09:03→22:00)
[2020-01-30] MEDS: ZINC SULFATE 220 MG CAP PO SCH ×2 (09:03→16:59)
[2020-01-30] MEDS: ASCORBIC ACID 500 MG TAB PO SCH ×2 (09:03→16:59)
[2020-01-30] MEDS: CHOLECALCIFEROL 400 UNIT TAB PO SCH (09:03)
[2020-01-30] MEDS: DOCUSATE SODIUM LIQD 100 MG/10 ML UDC NG SCH (09:03)
[2020-01-30] MEDS: FAMOTIDINE 20 MG/2 ML VIAL IV SCH ×2 (09:03→16:59)
[2020-01-30] MEDS: FUROSEMIDE INJ 10 MG/ML 4 ML VIAL IV SCH ×2 (09:03→22:00)
--- NOTE | 2020-01-30 10:35 | NUR ---
Patient proned at this time per MD order, tolerated well. Sats noted to be 90% at this time. Chair documented in Turn Q2H flowsheet to denote proned status.
[2020-01-30] MEDS: FENTANYL 2000MCG/NS 250 250 ML IV PRN ×2 (10:49→19:03)
--- NOTE | 2020-01-30 10:52 | NUR ---
INFECTIOUS DISEASE PROGRESS NOTE DR. KATTY REINOSO ROS: unable to obtain due to condition All 14 point ROS neg unless otherwise noted PHYSICAL EXAMINATION: intubated sedated VITAL SIGNS: reviewed HEENT: No facial swelling or erythema. LYMPHATIC: No submandibular, cervical, or supraclavicular adenopathy. CARDIAC: Regular rate and rhythm with normal S1, S2. LUNGS: Rhonchi, diminished ABDOMEN: Soft, nontender. There is no rebound or guarding. EXTREMITIES: No leg edema or calf tenderness. There is no cyanosis or clubbing. SKIN: No rashes. NEUROLOGICAL: The patient to be sedated. MICROBIOLOGICAL DATA: reviewed LABORATORY DATA: reviewed RADIOGRAPHIC DATA: Chest x-ray shows continued bilateral infiltrates. IMPRESSION: 1. Acute respiratory failure. 2. Viral pneumonia and coronavirus disease-19 infection. 3. Diabetes. 4. Anemia. PLAN: sedated with versed/fentanyl and paralyzed with BRAULIO Off pressor support off antibiotics, monitoring temp monitor clinically Possible trach in the future Barbara Torres MSN, FINANCIAL PROFESSIONAL, AGACNP-BC Katty Reinoso M.D
[2020-01-30 16:11] LABS: ABG PH 7.28 (7.35-7.45)
[2020-01-30 16:12] LABS: ABG HCO3 40 mmol/L (22-26); ABG PCO2 86 mmHg (35-45); ABG PO2 137 mmHg (80-105); ABG TCO2 42
--- NOTE | 2020-01-30 19:00 | NUR ---
ABG results called to Dr Blakely. New orders received and carried out.
[2020-01-30 19:55] LABS: HEMATOCRIT 29.8 % (34.2-44.1); HEMOGLOBIN 8.8 g/dL (12.0-16.0); MEAN CORPUSCULAR HEMOGLOBIN 27.1 pg (28-32); MEAN CORPUSCULAR HGB CONC 29.5 g/dL (31-35); MEAN CORPUSCULAR VOLUME 91.7 fL (81-99); PLATELET COUNT 251 x10e3/uL (140-360); RED BLOOD COUNT 3.25 x10e6/uL (3.6-5.1); RED CELL DISTRIBUTION WIDTH 14.7 % (11.7-14.4)
[2020-01-30 20:11] LABS: ALANINE AMINOTRANSFERASE 9 IU/L (0-55); ALBUMIN 2.6 g/dL (3.5-5.0); ALBUMIN/GLOBULIN RATIO 0.6 (0.8-2.0); ALKALINE PHOSPHATASE 86 IU/L (40-150); ANION GAP 14.2 mmol/L (8-16); BLOOD UREA NITROGEN 20 mg/dL (7-26); BUN/CREATININE RATIO 38 (6-25); CALCIUM 8.8 mg/dL (8.4-10.2); CARBON DIOXIDE 33 mmol/L (22-29); CHLORIDE 100 mmol/L (98-107); CREATINE KINASE 19 IU/L (29-168); CREATININE, SERUM 0.52 mg/dL (0.57-1.11); EST GLOMERULAR FILTRATION RATE > 60 ML/MIN (60-); GLUCOSE 137 mg/dL (74-118); PHOSPHORUS 5.4 MG/DL (2.3-4.7); POTASSIUM 4.2 mmol/L (3.5-5.1); SODIUM 143 mmol/L (136-145)
[2020-01-30 20:44] LABS: EOSINOPHILS % (MANUAL) 2 % (0-7); HYPOCHROMASIA SLIGHT; LYMPHOCYTES % (MANUAL) 12 % (19-48); MONOCYTES % (MANUAL) 1 % (3.4-9.0); NEUTROPHILS % (MANUAL) 85 % (40-74); PLATELET ESTIMATE ADEQUATE; PLATELET MORPHOLOGY COMMENT NORMAL; RBC MORPHOLOGY COMMENT NORMAL; STOMATOCYTES SLIGHT
[2020-01-30] MEDS: INSULIN GLARGINE 100 UNITS/ML VIAL SQ SCH (21:00)
[2020-01-30] MEDS ORDERED: FUROSEMIDE INJ 10 MG/ML 4 ML VIAL ONE (22:09)
[2020-01-31] VITALS (23 sets, daily range): BP systolic 96–150; BP diastolic 42–80
[2020-01-31] MEDS: INSULIN LISPRO 100 UNIT/1 ML 3ML VIAL SQ SCH ×5 (01:02→23:00)
--- NOTE | 2020-01-31 02:22 | Progress Note ---
DATE: CONSULTING PHYSICIANS: 1. Dr. Manan Meehan with Infectious Disease. 2. Dr. Kenton Riley with Surgery. 3. Dr. Efren Blakely with Pulmonology/Critical Care Medicine. SUBJECTIVE: The patient remains in ICU bed 194, intubated, sedated with paralytic ileus. She is still on pressure control. Her pressure of PEEP was decreased to 28. She remains on PEEP of 8, FiO2 of 85% with a respiratory rate set at 34. OBJECTIVE: VITAL SIGNS: Temperature 98.2, pulse 96, blood pressure 132/60, respirations 34, oxygen saturation 91%. GENERAL: Prone. LUNGS: On ventilatory support with above of vent settings 7.5, ET tube 22 at the lip. HEENT: Dry mucous membranes. Sclerae anicteric. NECK: Supple. CARDIOVASCULAR: Regular rate and rhythm. Left radial arterial line and right upper extremity PICC line. Levophed drip continues. ABDOMEN: Bowel sounds positive. Soft. Cantu catheter with clear yellow urine. EXTREMITIES: No pitting edema. No clubbing, cyanosis. NEUROLOGICAL: Remains on Versed, fentanyl, and rocuronium drips. DIAGNOSTIC STUDIES/LABORATORY DATA: WBC 10.35, hemoglobin 8.8, hematocrit 29.8, platelets 251. ABG this morning, pH 7.38, pCO2 56, pO2 94, HCO3 33, oxygen saturation 97%, base excess of 8, and FiO2 of 90%. Follow up ABG at 1555 this afternoon, pH 7.28, pCO2 86, pO2 137, HCO3 40, oxygen saturation 98%, base excess 13, FiO2 of 85%. Sodium 143, potassium 4.2, chloride 100, CO2 33, anion gap 14.2, BUN 20, creatinine 0.52, estimated GFR greater than 60, glucose 137, calcium 8.8, phosphorus 5.4, magnesium 2.0, total bilirubin 0.5, AST 28, ALT 9, alkaline phosphatase 86. Creatine kinase 19, CK-MB 2.6, troponin I 0.012. Total protein 7.1, albumin 2.6. IMAGING: Chest x-ray today showed bilateral diffuse interstitial and airspace opacities, similar compared to 01/26, but mildly improve dating back to radiographs of 01/24. ASSESSMENT AND PLAN: 1. Community-acquired viral pneumonia with coronavirus disease-2019. Continue ventilator settings and followup on ABG results. Wean ventilator settings per Pulmonology recommendations. Continue prone position. Continue sedation with Versed, fentanyl, and rocuronium drips. Continue to wean Levophed as tolerated. Continue Lovenox. 2. Acute respiratory failure. Wean ventilator settings as per Pulmonary recommendations as tolerated. Continue to monitor ABG results. 3. Controlled type 2 diabetes mellitus. Continue sliding scale insulin. Monitor fingerstick blood glucose levels. 4. Anemia. Monitor H and H, hemoglobin 8.6, hematocrit 27.7. 5. Acute hypokalemia. Potassium level 4.2 (2.8) today, post repletion. Continue to monitor potassium level. Dictated by Sim Root NP Kvng Doherty MD [facility]/MODL /[id number]
[2020-01-31] MEDS: FENTANYL 2000MCG/NS 250 250 ML IV PRN ×2 (05:00→15:08)
[2020-01-31] MEDS: LEVOTHYROXINE SODIUM 25 MCG TABLET PO SCH (05:15)
[2020-01-31 05:46] LABS: BASOPHILS % 0.4 % (0.0-1.0); EOSINOPHILS # (AUTO) 0.3 (0.0-0.4); EOSINOPHILS % 2.9 % (0.0-6.0); HEMATOCRIT 31.1 % (34.2-44.1); HEMOGLOBIN 9.3 g/dL (12.0-16.0); LYMPHOCYTES # (AUTO) 1.6 (1.0-3.2); LYMPHOCYTES % 15.1 % (18.0-39.1); MEAN CORPUSCULAR HEMOGLOBIN 27.7 pg (28-32); MEAN CORPUSCULAR HGB CONC 29.9 g/dL (31-35); MEAN CORPUSCULAR VOLUME 92.6 fL (81-99); MONOCYTES # (AUTO) 0.4 (0.2-0.8); MONOCYTES % 3.7 % (4.4-11.3); NEUTROPHILS # (AUTO) 8.2 (2.1-6.9); NEUTROPHILS % 76.3 % (38.7-80.0); PLATELET COUNT 272 x10e3/uL (140-360); RED BLOOD COUNT 3.36 x10e6/uL (3.6-5.1); RED CELL DISTRIBUTION WIDTH 14.7 % (11.7-14.4)
[2020-01-31 06:27] LABS: ALANINE AMINOTRANSFERASE 9 IU/L (0-55); ALBUMIN 2.8 g/dL (3.5-5.0); ALBUMIN/GLOBULIN RATIO 0.6 (0.8-2.0); ALKALINE PHOSPHATASE 88 IU/L (40-150); ANION GAP 13.5 mmol/L (8-16); BLOOD UREA NITROGEN 17 mg/dL (7-26); BUN/CREATININE RATIO 30 (6-25); CALCIUM 8.7 mg/dL (8.4-10.2); CARBON DIOXIDE 36 mmol/L (22-29); CHLORIDE 95 mmol/L (98-107); CREATININE, SERUM 0.56 mg/dL (0.57-1.11); EST GLOMERULAR FILTRATION RATE > 60 ML/MIN (60-); GLUCOSE 171 mg/dL (74-118); POTASSIUM 3.5 mmol/L (3.5-5.1); SODIUM 141 mmol/L (136-145)
[2020-01-31 07:13] LABS: ANISOCYTOSIS SLIGHT; HYPOCHROMASIA SLIGHT
[2020-01-31 07:14] LABS: PLATELET ESTIMATE ADEQUATE; PLATELET MORPHOLOGY COMMENT FEW LARGE; RBC MORPHOLOGY COMMENT NORMAL
[2020-01-31] MEDS: MIDAZOLAM HCL 5MG/ML 10ML VIAL 100 ML IV PRN ×3 (07:26→21:25)
[2020-01-31 07:28] LABS: ABG PCO2 61 mmHg (35-45); ABG PH 7.45 (7.35-7.45)
[2020-01-31 07:29] LABS: ABG PO2 99 mmHg (80-105)
[2020-01-31 07:30] LABS: ABG HCO3 42 mmol/L (22-26); ABG TCO2 44
--- NOTE | 2020-01-31 10:02 | Progress Note ---
DATE: Pulmonary Critical Care Progress Note. SUBJECTIVE: The patient is still in the prone position. She is still on Levophed at 4 mcg. She remains on Versed, fentanyl, and rocuronium. PHYSICAL EXAMINATION: VITAL SIGNS: Blood pressure is 125/60, saturations 95%. She is currently on a pressure control mode of ventilation at a rate of 36 with a PEEP of 8 and a pressure above PEEP of 26. Her FiO2 is set at 70%. Her O2 is set at 70%. HEENT: Shows no facial swelling or erythema. There is an oral endotracheal tube. LYMPHATIC: Shows no submandibular, cervical, supraclavicular adenopathy. CARDIAC: Reveals regular rate and rhythm with normal S1, S2. LUNGS: Auscultation of lungs reveals decreased breath sounds at the bases. There is no wheezing. ABDOMEN: Soft and nontender. There is no rebound or guarding. EXTREMITIES: Shows no leg edema or calf tenderness. There is no cyanosis or clubbing. SKIN: Shows no rashes. LABORATORY DATA: White blood cell count is 10.8, hemoglobin is 9.3, and the platelet count is 272. BUN to creatinine ratio is 17 to 0.59. The other electrolytes are within normal limits. The blood gases 7.45, 61, 99, and 42. RADIOGRAPHIC DATA: Chest x-ray shows diffuse infiltrates. IMPRESSION: 1. Acute respiratory failure. 2. Viral pneumonia and COVID-19 infection. 3. Anemia. 4. Diabetes. 5. Hypokalemia. PLAN: 1. Place patient back in the supine position today. 2. Continue current ventilator settings and repeat ABG tomorrow. 3. Continue Versed, fentanyl and rocuronium. 4. Wean Levophed. 5. Continue Lovenox. 6. Continue to monitor and control blood sugars. 7. Trying to arrange for tracheostomy. Greater than 35 minutes in direct critical care time. Efren Blakely MD [facility]/MODL /[id number]
--- NOTE | 2020-01-31 10:10 | NUR ---
PATIENT PLACED SUPINE
[2020-01-31] MEDS: DOCUSATE SODIUM LIQD 100 MG/10 ML UDC NG SCH (10:52)
[2020-01-31] MEDS: FAMOTIDINE 20 MG/2 ML VIAL IV SCH ×2 (10:52→17:15)
[2020-01-31] MEDS: CHOLECALCIFEROL 400 UNIT TAB PO SCH (10:52)
[2020-01-31] MEDS: ASCORBIC ACID 500 MG TAB PO SCH ×2 (10:52→17:15)
[2020-01-31] MEDS: ZINC SULFATE 220 MG CAP PO SCH ×2 (10:52→17:15)
--- NOTE | 2020-01-31 12:13 | Progress Note ---
DATE: SUBJECTIVE: Ms. Fairchild remains in Intensive Care unit on Levophed as well as other . PHYSICAL EXAMINATION: GENERAL: Intubated and sedated. She is on pressor control. She is on PEEP of 8 and FiO2 of 70%. HEENT: Normocephalic. She is not icteric. CHEST: Few rhonchi. HEART: S1 and S2 heard. ABDOMEN: Soft. Bowel sounds present. EXTREMITIES: No edema. LABORATORY DATA: Her cultures are negative. White count 10 and hemoglobin 9.3. Sodium 140, potassium 3.1 with a . The patient is on insulin. IMPRESSION: Respiratory failure, COVID-19, continue with supportive care as ordered. We will follow. MD ALESSANDRO Leos/MODL /[id number]
--- NOTE | 2020-01-31 14:07 | Diagnostic Imaging Report ---
EXAMINATION: CHEST SINGLE (PORTABLE) INDICATION: Respiratory failure COMPARISON: Multiple prior chest radiograph most recently 01/30/2020 FINDINGS: LINES/TUBES:Support lines and tubes unchanged. LUNGS:The lung volumes remain low. Unchanged diffuse bilateral interstitial and airspace opacities. PLEURA:15 mm new right apical pneumothorax. No definite pleural effusion. MEDIASTINUM:The cardiomediastinal silhouette appears unchanged in size and shape. BONES/SOFT TISSUES:No acute osseous injury. ABDOMEN:No free air under the diaphragm. IMPRESSION: 15 mm right apical pneumothorax. Otherwise, no significant interval change. The above findings were discussed with ICU nursing on 01/31/2020 2:01 PM, who responded indicating that the communication was understood. Signed by: Parveen Baptiste MD on 01/31/2020 2:04 PM
--- NOTE | 2020-01-31 15:39 | Consultation ---
DATE OF CONSULTATION: 01/31/2020 CHIEF COMPLAINT: COVID-19 pneumonia. HISTORY OF PRESENT ILLNESS: This patient is a 54-year-old female with history of morbid obesity, diabetes, admitted with severe shortness of breath and bilateral pulmonary infiltrate, and tested positive for COVID-19 infection. The patient has been on ventilator for more than 2 weeks. Consultation requested for tracheostomy placement. PAST MEDICAL HISTORY: As mentioned is positive for diabetes with neuropathy, hypothyroidism, morbid obesity, recurrent kidney infection. PAST SURGICAL HISTORY: Positive for hysterectomy, cholecystectomy. ALLERGIES: SHE HAS NO DRUG ALLERGIES. SOCIAL HABITS: No history of smoking or alcohol abuse. PHYSICAL EXAMINATION: VITAL SIGNS: The patient vital signs are stable. Afebrile. She is sedated and intubated. HEENT: Anicteric. LUNGS: Bilateral rhonchi breath sounds. HEART: Regular rate and rhythm. ABDOMEN: Soft. EXTREMITIES: Ankle edema. LABORATORY DATA: White cell count is 10.7, hemoglobin of 9.3, and platelet count of 272. Creatinine of 0.56. INR of 0.9 and ABG was 7.45 with CO2 of 61, and FiO2 of 75%. Chest x-ray, bilateral infiltrates. ASSESSMENT: COVID-19, viral pneumonia, on ventilators, expecting prolonged course of hospitalization. Planned tracheostomy tube placement. Kenton Riley MD [facility]/MODL /[id number]
[2020-01-31] MEDS: ROCURONIUM BROMIDE 1,250 MG in SODIUM CHLORIDE 0.9% 250ML 125 ML IV SCH ×2 (16:00→21:23)
--- NOTE | 2020-01-31 16:39 | NUR ---
Nutrition Intervention Note RD Recommendation(s) for Physician: -Continue Vital AF 1.2 with goal rate of 40 mL/hr as appropriate (provides 1152 kcal, 72 g protein) -Water/fluid management per MD -If pt requires prone positioning, pt may be fed at goal rate placed in reverse Trendelenburg with HOB at 10 to 25 degrees. Plan of Care: RD following, monitoring for tolerance and adequacy, tube feed recommendation Nutrition reason for involvement: follow up RD Assessment 01/30: Follow up. Pt remains intubated, sedated, and paralyzed. Pt currently on Levophed, decreased to 4 mcg/min per RN. Pt tolerating TF at 25 ml/hr, having BMs, and no residuals- advised RN to advance TF to goal rate of 40 ml/hr per current order. Chart reviewed. Will continue to monitor. 01/26: Follow up. Chart reviewed. Pt remains intubated/sedated and is in the prone position. TF rate is at 25 mL/hr at this time. Recommend increasing TF to goal rate of 40 mL/hr. Pt may be fed at goal rate placed in reverse Trendelenburg with HOB at 10 to 25 degrees. Will continue to monitor. 01/22: Follow up. Pt remains intubated and sedated with Versed and Fentanyl, currently in prone position. Pt on low dose Levophed at 3 mcg/min while receiving HD. Pt tolerating TF at 45 ml/hr. Pt discussed during MDR, no recent BM per RN. Chart reviewed. Will continue to monitor. 01/17: Follow up. Pt remains mechanically ventilated and is in the prone position. Pt tube feed is at 30 mL/hr per RN. Recommend increasing towards goal as appropriate. Will continue to monitor. (01/14/20) Pt is a 54 year old female admitted with hypoxia and pneumonia due to COVID-19. Pt was intubated yesterday and tube feed order was placed. Pt was previously on an ADA diet with 25-50% meal intake recorded. Pt has a ht of 48 inches currently in chart, but per history in chart a height of 59 inches was previously recorded. Recommendations provided. RD to manage tube feed order per Dr. Blakely. Will continue to monitor. Principal Problems/Diagnoses: hypoxia, pneumonia due to COVID-19 PMH: Kidney infections as a child, diabetes mellitus, diabetic neuropathy, hypothyroidism, overactive bladder, and morbid obesity. GI: round/large/soft abdomen, last recorded BM 01/30 Skin: sacrum stage I Labs: 01/30: Na 141, K 3.5, BUN 17, Cr 0.56, Gluc 171, Ca 8.7 01/26: Na 144, K 4.5, BUN 23, Cr 0.55, Glu 149, Ca 9.3 01/22: Na 136, K 3.9, BUN 16, Cr 0.64, Gluc 198, POC Gluc 230-265 01/17: Na 144, K 3.0, BUN 22, Cr 0.59, Glu 269, Ca 7.5, AST 48 (01/13) Na 137, K 3.9, BUN 18, Cr 0.79, Glu 233, Ca 8.0, AST 42 Meds: insulin, colace, pepcid, zinc sulfate, vitamin C, vitamin D, levothyroxine, insulin, zofran, miralax IVF/Drips: Levophed 4 mcg/min, Versed drip, Fentanyl drip, Rocuronium Ht: 59 inches (per chart history) Wt: 204.19 lbs (01/30) - questionable wt change, 228.06 lbs (01/25) 216.3 lbs (01/22) 218 lbs (01/17) 226 lbs (01/10) - Suspect weight difference is weight error or fluid related BMI: 44 kg/m2 using weight of 218 lbs IBW: 98 lbs Malnutrition Evaluation (01/27/20) The patient does not meet criteria for a specified degree of malnutrition at this time. Will re-evaluate at follow-up as appropriate. Energy intake: </=50% of estimated energy requirements for > 5 days Weight loss: unable to evaluate Fat loss: no loss per observation outside room Muscle loss: no loss per observation outside room Supporting Evidence: Fluid accumulation: no edema per MD note Functional Status: unable to evaluate Nutrition Prescription (Diet Order): Vital AF 1.2 @ 40 mL/hr - infusing at 25 mL/hr at this time (720 kcal and 45 gm protein) Estimated Nutritional Needs: 980-1115 calories/day (22-25 kcal/kg IBW) 67-89 g protein/day (1.5-2 g pro/kg IBW) Diet Adequacy: not meeting calorie and protein needs Tolerance: tolerating TF Diet Education Needs Assessment: Diet education not indicated, patient is intubated Nutrition Care Level: high - tube feed not at goal rate Nutrition Diagnosis: Inadequate oral intake related to acute respiratory failure/mechanical ventilation as evidenced by requiring enteral nutrition Goal: Patient will meet 75-100% of estimated needs by follow up Progress: goal not met Interventions: - Composition, Rate, Route Monitoring/Evaluation: -Total energy intake, Total protein intake, Formula/Solution, Weight change Signed: Anuradha Daniel RD, [place], [facility]
--- NOTE | 2020-01-31 17:55 | Diagnostic Imaging Report ---
EXAMINATION: CHEST SINGLE (PORTABLE) INDICATION: possible right pneumothorax COMPARISON: Multiple prior chest radiographs including most recent on same day. FINDINGS: TUBES and LINES: Endotracheal tube, subdiaphragmatic enteric tube and right PICC are unchanged. LUNGS: Low lung volumes. No interval change in multifocal interstitial and airspace opacities. PLEURA: Redemonstration of 1 cm right apical pneumothorax. HEART AND MEDIASTINUM: The cardiomediastinal silhouette is unchanged. BONES AND SOFT TISSUES: No acute osseous lesion. Soft tissues are unchanged. UPPER ABDOMEN: No free air under the diaphragm. IMPRESSION: 1. No significant interval change in 1 cm right apical pneumothorax. 2. No interval change in multifocal interstitial and airspace opacities throughout both lungs. 3. Stable lines and tubes. Signed by: Susy Conte MD on 01/31/2020 5:52 PM
--- NOTE | 2020-01-31 19:00 | NUR ---
Bedside report received from Sukumar Greenwood RN.
[2020-01-31] MEDS: INSULIN GLARGINE 100 UNITS/ML VIAL SQ SCH (21:02)
--- NOTE | 2020-01-31 21:15 | NUR ---
Pt called to notify staff that he is outside the pts window. Blinds opened and pt bed turned to face window.
[2020-02-01] VITALS (31 sets, daily range): BP systolic 90–137; BP diastolic 39–77
[2020-02-01] MEDS: FENTANYL 2000MCG/NS 250 250 ML IV PRN ×2 (01:45→21:02)
[2020-02-01 04:14] LABS: BASOPHILS % 0.3 % (0.0-1.0); EOSINOPHILS # (AUTO) 0.4 (0.0-0.4); EOSINOPHILS % 2.9 % (0.0-6.0); HEMATOCRIT 29.8 % (34.2-44.1); HEMOGLOBIN 8.6 g/dL (12.0-16.0); LYMPHOCYTES # (AUTO) 1.5 (1.0-3.2); LYMPHOCYTES % 12.3 % (18.0-39.1); MEAN CORPUSCULAR HEMOGLOBIN 27.2 pg (28-32); MEAN CORPUSCULAR HGB CONC 28.9 g/dL (31-35); MEAN CORPUSCULAR VOLUME 94.3 fL (81-99); MONOCYTES # (AUTO) 0.4 (0.2-0.8); MONOCYTES % 3.7 % (4.4-11.3); NEUTROPHILS # (AUTO) 9.5 (2.1-6.9); NEUTROPHILS % 79.7 % (38.7-80.0); PLATELET COUNT 232 x10e3/uL (140-360); RED BLOOD COUNT 3.16 x10e6/uL (3.6-5.1); RED CELL DISTRIBUTION WIDTH 14.9 % (11.7-14.4)
[2020-02-01 04:34] LABS: ALANINE AMINOTRANSFERASE 9 IU/L (0-55); ALBUMIN 2.7 g/dL (3.5-5.0); ALBUMIN/GLOBULIN RATIO 0.6 (0.8-2.0); ALKALINE PHOSPHATASE 94 IU/L (40-150); ANION GAP 11.1 mmol/L (8-16); BLOOD UREA NITROGEN 18 mg/dL (7-26); BUN/CREATININE RATIO 38 (6-25); CALCIUM 9.1 mg/dL (8.4-10.2); CARBON DIOXIDE 40 mmol/L (22-29); CHLORIDE 95 mmol/L (98-107); CREATININE, SERUM 0.48 mg/dL (0.57-1.11); EST GLOMERULAR FILTRATION RATE > 60 ML/MIN (60-); GLUCOSE 157 mg/dL (74-118); POTASSIUM 4.1 mmol/L (3.5-5.1); SODIUM 142 mmol/L (136-145)
[2020-02-01] MEDS: LEVOTHYROXINE SODIUM 25 MCG TABLET PO SCH (05:13)
[2020-02-01] MEDS: INSULIN LISPRO 100 UNIT/1 ML 3ML VIAL SQ SCH ×3 (05:18→18:59)
[2020-02-01] MEDS: MIDAZOLAM HCL 5MG/ML 10ML VIAL 100 ML IV PRN ×2 (05:19→21:30)
--- NOTE | 2020-02-01 06:37 | NUR ---
Pts [place] called the unit at this time. Updated him on pts vital signs and continued plans for trach this .
[2020-02-01 06:51] LABS: ABG HCO3 42 mmol/L (22-26); ABG PCO2 77 mmHg (35-45); ABG PH 7.34 (7.35-7.45); ABG PO2 82 mmHg (80-105); ABG TCO2 45
[2020-02-01] MEDS: CHOLECALCIFEROL 400 UNIT TAB PO SCH (08:18)
[2020-02-01] MEDS: FAMOTIDINE 20 MG/2 ML VIAL IV SCH ×2 (08:18→17:53)
[2020-02-01] MEDS: ASCORBIC ACID 500 MG TAB PO SCH ×2 (08:18→17:53)
[2020-02-01] MEDS: ZINC SULFATE 220 MG CAP PO SCH ×2 (08:18→17:53)
[2020-02-01] MEDS: DOCUSATE SODIUM LIQD 100 MG/10 ML UDC NG SCH (08:18)
--- NOTE | 2020-02-01 09:05 | Diagnostic Imaging Report ---
EXAMINATION: CHEST SINGLE (PORTABLE) INDICATION: Respiratory failure COMPARISON: Chest radiograph 01/31/2020 FINDINGS: LINES/TUBES:Support lines and tubes unchanged. LUNGS:The lung volumes remain low. Unchanged bilateral airspace and interstitial opacities. PLEURA:Right apical pneumothorax measures 6 mm, smaller compared to prior studies. MEDIASTINUM:The cardiomediastinal silhouette appears unchanged in size and shape. BONES/SOFT TISSUES:No acute osseous injury. ABDOMEN:No free air under the diaphragm. IMPRESSION: Decreasing right apical pneumothorax, now 6 mm in thickness. Otherwise, no significant interval change. Signed by: Parveen Baptiste MD on 02/01/2020 9:01 AM
--- NOTE | 2020-02-01 09:08 | Progress Note ---
DATE: SUBJECTIVE: The patient is currently in the supine position. She is on a pressure control mode of ventilation at a rate of 34 with FiO2 of 80% and a PEEP of 8. The pressure support above PEEP is set at 26. PHYSICAL EXAMINATION: VITAL SIGNS: Blood pressure is 127/59, saturation is 95%. Pulse is 93. HEENT: Shows no facial swelling or erythema. LYMPHATIC: Shows no submandibular, cervical, or supraclavicular adenopathy. CARDIAC: Reveals a regular rate and rhythm with normal S1 and S2. LUNGS: Auscultation of lungs shows decreased breath sounds at the bases. There is no wheezing. ABDOMEN: Soft and nontender. There is no rebound or guarding. EXTREMITIES: Shows no leg edema or calf tenderness. There is no cyanosis or clubbing. SKIN: Shows no rashes. LABORATORY DATA: BUN to creatinine ratio is 18 to 0.48. The other electrolytes are within normal limits. White blood cell count is 11.97, hemoglobin is 8.6, and the platelet count is 232. IMPRESSION: 1. Acute respiratory failure. 2. Viral pneumonia and COVID-19 infection. 3. Anemia. 4. Diabetes. PLAN: 1. Place the patient back in prone position today. 2. Continue current ventilator settings. 3. Continue Versed and fentanyl along with rocuronium. 4. Continue Lovenox. 5. Continue to monitor and control blood sugars. 6. Tentative tracheostomy for tomorrow. Greater than 35 minutes in direct critical care time. Efren Blakely MD [facility]/MODL /[id number]
--- NOTE | 2020-02-01 13:43 | NUR ---
the patient remains in intensive care unit the patient remains on a ventilator On multiple pressors Discussed with medical team The patient is currently in the supine position. She is on a pressure control mode of ventilation at a rate of 34 with FiO2 of 80% and a PEEP of 8. The pressure support above PEEP is set at 26. PHYSICAL EXAMINATION:Patient about the same intubated and noncommunicative VITAL SIGNS: Blood pressure is 127/59, saturation is 95%. Pulse is 93. HEENT: Shows no facial swelling or erythema. LYMPHATIC: Shows no submandibular, cervical, or supraclavicular adenopathy. CARDIAC: Reveals a regular rate and rhythm with normal S1 and S2. LUNGS: Auscultation of lungs shows decreased breath sounds at the bases. There is no wheezing. ABDOMEN: Soft and nontender. There is no rebound or guarding. EXTREMITIES: Shows no leg edema or calf tenderness. There is no cyanosis or clubbing. SKIN: Shows no rashes. cultures reviewed chart reviewed LABORATORY DATA: BUN to creatinine ratio is 18 to 0.48. The other electrolytes are within normal limits. White blood cell count is 11.97, hemoglobin is 8.6, and the platelet count is 232. IMPRESSION: 1. Acute respiratory failure. 2. Viral pneumonia and COVID-19 infection. 3. Anemia. 4. Diabetes. continue supportive care as ordered
[2020-02-01 15:29] LABS: ABG HCO3 41 mmol/L (22-26); ABG PCO2 79 mmHg (35-45); ABG PH 7.32 (7.35-7.45); ABG PO2 76 mmHg (80-105); ABG TCO2 44
[2020-02-01] MEDS: ROCURONIUM BROMIDE 1,250 MG in SODIUM CHLORIDE 0.9% 250ML 125 ML IV SCH (18:00)
[2020-02-01] MEDS: INSULIN GLARGINE 100 UNITS/ML VIAL SQ SCH (21:00)
[2020-02-02] VITALS (35 sets, daily range): BP systolic 91–155; BP diastolic 41–74
[2020-02-02] MEDS: FENTANYL 2000MCG/NS 250 250 ML IV PRN (04:25)
[2020-02-02] MEDS: MIDAZOLAM HCL 5MG/ML 10ML VIAL 100 ML IV PRN ×3 (04:26→21:00)
[2020-02-02] MEDS: INSULIN LISPRO 100 UNIT/1 ML 3ML VIAL SQ SCH ×4 (06:00→18:47)
[2020-02-02] MEDS: LEVOTHYROXINE SODIUM 25 MCG TABLET PO SCH (06:00)
[2020-02-02 06:01] LABS: BASOPHILS # (AUTO) 0.1 (0.0-0.1); BASOPHILS % 0.4 % (0.0-1.0); EOSINOPHILS # (AUTO) 0.5 (0.0-0.4); EOSINOPHILS % 3.9 % (0.0-6.0); HEMATOCRIT 30.2 % (34.2-44.1); HEMOGLOBIN 8.6 g/dL (12.0-16.0); LYMPHOCYTES # (AUTO) 1.3 (1.0-3.2); LYMPHOCYTES % 10.7 % (18.0-39.1); MEAN CORPUSCULAR HEMOGLOBIN 28.2 pg (28-32); MEAN CORPUSCULAR HGB CONC 28.5 g/dL (31-35); MONOCYTES # (AUTO) 0.5 (0.2-0.8); NEUTROPHILS # (AUTO) 9.4 (2.1-6.9); NEUTROPHILS % 78.3 % (38.7-80.0); PLATELET COUNT 285 x10e3/uL (140-360); RED BLOOD COUNT 3.05 x10e6/uL (3.6-5.1)
[2020-02-02 06:23] LABS: ALANINE AMINOTRANSFERASE 10 IU/L (0-55); ALBUMIN 2.6 g/dL (3.5-5.0); ALBUMIN/GLOBULIN RATIO 0.5 (0.8-2.0); ALKALINE PHOSPHATASE 88 IU/L (40-150); ANION GAP 12.9 mmol/L (8-16); BLOOD UREA NITROGEN 17 mg/dL (7-26); BUN/CREATININE RATIO 35 (6-25); CALCIUM 8.5 mg/dL (8.4-10.2); CARBON DIOXIDE 39 mmol/L (22-29); CHLORIDE 97 mmol/L (98-107); CREATININE, SERUM 0.49 mg/dL (0.57-1.11); EST GLOMERULAR FILTRATION RATE > 60 ML/MIN (60-); GLUCOSE 139 mg/dL (74-118); POTASSIUM 4.9 mmol/L (3.5-5.1); SODIUM 144 mmol/L (136-145)
[2020-02-02] MEDS: ZINC SULFATE 220 MG CAP PO SCH ×2 (08:08→18:45)
[2020-02-02] MEDS: ASCORBIC ACID 500 MG TAB PO SCH ×2 (08:08→18:45)
[2020-02-02] MEDS: CHOLECALCIFEROL 400 UNIT TAB PO SCH (08:08)
[2020-02-02] MEDS: DOCUSATE SODIUM LIQD 100 MG/10 ML UDC NG SCH (08:08)
[2020-02-02] MEDS: FAMOTIDINE 20 MG/2 ML VIAL IV SCH ×2 (08:08→18:45)
[2020-02-02 10:29] LABS: ABG HCO3 43 mmol/L (22-26); ABG PCO2 87 mmHg (35-45); ABG PO2 84 mmHg (80-105); ABG TCO2 45
[2020-02-02] MEDS ORDERED: FUROSEMIDE INJ 10 MG/ML 4 ML VIAL IV ONE (10:30)
--- NOTE | 2020-02-02 10:44 | Progress Note ---
DATE: SUBJECTIVE: The patient is currently in the supine position. She remains on mechanical ventilation. She is on a pressure control mode of ventilation with a PEEP of 8 and pressure above PEEP of 26. Her respiratory rate is set at 36 and FiO2 is 90%. She is off Levophed. PHYSICAL EXAMINATION: VITAL SIGNS: The blood pressure is 111/46, saturation is 96%. The respiratory rate is 34. Pulse is 101. HEENT: No facial swelling or erythema. LYMPHATIC: No submandibular, cervical, or supraclavicular adenopathy. CARDIAC: Regular rate and rhythm with normal S1, S2. LUNGS: Auscultation of the lungs shows decreased breath sounds at the bases. There is no wheezing. ABDOMEN: Soft, nontender. There is no rebound or guarding. EXTREMITIES: No leg edema or calf tenderness. There is no cyanosis or clubbing. SKIN: No rashes. NEUROLOGICAL: No focal abnormalities. LABORATORY DATA: White blood cell count is 12.05, hemoglobin is 8.6, and the platelet count is 285. The BUN to creatinine ratio is 17 to 0.49. The other electrolytes are within normal limits. Carbon dioxide is 39. Albumin is 2.6. IMPRESSION: 1. Acute respiratory failure. 2. Viral pneumonia and coronavirus disease-19 infection. 3. Possible small apical pneumothorax on chest x-ray. 4. Diabetes. 5. Anemia. PLAN: 1. The patient to go for tracheostomy today. 2. Repeat chest x-ray. 3. Repeat ABG. 4. Continue to monitor and control blood sugars. 5. Continue enteral feedings. 6. Complete current antibiotics. Greater than 35 minutes in direct critical care time. Efren Blakely MD [facility]/MODL /[id number]
--- NOTE | 2020-02-02 10:46 | Diagnostic Imaging Report ---
TECHNIQUE: Frontal view of the chest. INDICATION: ^resp failure COMPARISON: Prior day. DISCUSSION: Limited evaluation due to portable technique. Lines and hardware: Stable endotracheal tube, enteric tube and right PICC. Heart and mediastinum: Stable. Lungs and pleura: Stable bilateral interstitial and alveolar airspace opacities. Previously identified right apical pneumothorax is no longer visualized. Negative for large effusion. Soft tissues and bones: No acute abnormality. IMPRESSION: 1. Right apical pneumothorax is no longer visualized. 2. Stable bilateral interstitial and alveolar airspace opacities. 3. Stable support structures including coiled enteric tube within the stomach. Signed by: Jamal Sinha MD on 02/02/2020 10:42 AM
[2020-02-02] MEDS ORDERED: LIDOCAINE 2%/ EPINEPHRINE 20ML MDV ONE (12:11)
[2020-02-02] MEDS ORDERED: BUPIVACAINE HCL 0.5% INJ 30 ML VIAL INJ ONE (12:11)
--- NOTE | 2020-02-02 13:59 | NUR ---
Received patient back from OR. s/p tracheostomy. Bedside report received. #8 shiley prox extended placed. Patient placed back on versed @ 7mg/hr, fent at 200mcg, and Tk at 0.012. Wounds noted from ETT hernández noted to bilateral cheeks. Will consult wound care. Current vitals HR 102,, BP 156/73 from L radial arterial line, RR 32, T 99.4, and O2 sats 98%. Patient placed on previous vent settings.
--- NOTE | 2020-02-02 14:51 | Operative Report ---
DATE OF PROCEDURE: 02/02/2020 SURGEON: Kenton Riley MD PREOPERATIVE DIAGNOSIS: COVID-19 pneumonia. POSTOPERATIVE DIAGNOSIS: COVID-19 pneumonia. OPERATIVE PROCEDURE: Tracheostomy. ANESTHESIA: General. INDICATION: A 54-year-old female with history of bilateral pneumonia with COVID-19 testing positive. The patient has been on the ventilator for 3 weeks and ventilator dependent. Tracheostomy has been recommended for further management. Attendant risks have been discussed. DESCRIPTION OF PROCEDURE: The patient was brought to the OR intubated from ICU. The neck is extended by shoulder lift, and prepped with alcohol and draped in sterile fashion. A collar incision was made one fingerbreadth above the suprasternal notch extending through skin and subcutaneous tissue. The strap muscle was in the midline. The thyroid gland is divided in the middle using the Harmonic Scalpel, exposing the anterior surface of the trachea. We then proceeded to make a transverse incision in between the 2nd and 3rd tracheal ring, thus creating an adequate tracheotomy for tube insertion. The 3rd ring was further divided bilaterally with scissors. Hemostasis was achieved with cautery. We then inserted an extended proximal size 8 tracheostomy tube and the balloon was inflated. The tube connected to ventilator registering appropriated CO2 level and tidal volume. The tube was anchored with a tracheal tie. The patient was transport back to ICU in guarded condition. Blood loss was 3 mL. Kenton Riley MD [facility]/MODL /[id number]
--- NOTE | 2020-02-02 15:42 | NUR ---
INFECTIOUS DISEASE PROGRESS NOTE DR. KATTY REINOSO ROS: unable to obtain due to condition All 14 point ROS neg unless otherwise noted PHYSICAL EXAMINATION: intubated sedated VITAL SIGNS: reviewed HEENT: No facial swelling or erythema. LYMPHATIC: No submandibular, cervical, or supraclavicular adenopathy. CARDIAC: Regular rate and rhythm with normal S1, S2. LUNGS: Rhonchi, diminished ABDOMEN: Soft, nontender. There is no rebound or guarding. EXTREMITIES: No leg edema or calf tenderness. There is no cyanosis or clubbing. SKIN: No rashes. NEUROLOGICAL: The patient to be sedated. MICROBIOLOGICAL DATA: reviewed LABORATORY DATA: reviewed RADIOGRAPHIC DATA: Chest x-ray shows continued bilateral infiltrates. IMPRESSION: 1. Acute respiratory failure. 2. Viral pneumonia and coronavirus disease-19 infection. 3. Diabetes. 4. Anemia. PLAN: tracheostomy Off pressor support off antibiotics, monitoring temp monitor clinically Barbara Torres MSN, [employer], AGACNP-BC Katty Reinoso M.D
--- NOTE | 2020-02-02 16:18 | NUR ---
Nutrition Intervention Note RD Recommendation(s) for Physician: -Continue Vital AF 1.2 with goal rate of 40 mL/hr as appropriate (provides 1152 kcal, 72 g protein) -Water/fluid management per MD -If pt requires prone positioning, pt may be fed at goal rate placed in reverse Trendelenburg with HOB at 10 to 25 degrees. Plan of Care: RD following, monitoring for tolerance and adequacy, tube feed recommendation Nutrition reason for involvement: follow up RD Assessment 02/01: Follow up. Chart reviewed. Pt remains intubated. Pt is scheduled to receive a trach today; therefore, tube feeding is off at his time. Pt is also off pressor support per chart. Recommend resuming tube feeding when medically appropriate. Current recommendations remain appropriate. Will continue to monitor. 01/30: Follow up. Pt remains intubated, sedated, and paralyzed. Pt currently on Levophed, decreased to 4 mcg/min per RN. Pt tolerating TF at 25 ml/hr, having BMs, and no residuals- advised RN to advance TF to goal rate of 40 ml/hr per current order. Chart reviewed. Will continue to monitor. 01/26: Follow up. Chart reviewed. Pt remains intubated/sedated and is in the prone position. TF rate is at 25 mL/hr at this time. Recommend increasing TF to goal rate of 40 mL/hr. Pt may be fed at goal rate placed in reverse Trendelenburg with HOB at 10 to 25 degrees. Will continue to monitor. 01/22: Follow up. Pt remains intubated and sedated with Versed and Fentanyl, currently in prone position. Pt on low dose Levophed at 3 mcg/min while receiving HD. Pt tolerating TF at 45 ml/hr. Pt discussed during MDR, no recent BM per RN. Chart reviewed. Will continue to monitor. 01/17: Follow up. Pt remains mechanically ventilated and is in the prone position. Pt tube feed is at 30 mL/hr per RN. Recommend increasing towards goal as appropriate. Will continue to monitor. (01/14/20) Pt is a 54 year old female admitted with hypoxia and pneumonia due to COVID-19. Pt was intubated yesterday and tube feed order was placed. Pt was previously on an ADA diet with 25-50% meal intake recorded. Pt has a ht of 48 inches currently in chart, but per history in chart a height of 59 inches was previously recorded. Recommendations provided. RD to manage tube feed order per Dr. Blakely. Will continue to monitor. Principal Problems/Diagnoses: hypoxia, pneumonia due to COVID-19 PMH: Kidney infections as a child, diabetes mellitus, diabetic neuropathy, hypothyroidism, overactive bladder, and morbid obesity. GI: soft abdomen, last recorded BM 01/30 Skin: sacrum stage I Labs: 02/01: Na 144, K 4.9, BUN 17, Cr 0.49, Glu 139, AST 8 01/30: Na 141, K 3.5, BUN 17, Cr 0.56, Gluc 171, Ca 8.7 01/26: Na 144, K 4.5, BUN 23, Cr 0.55, Glu 149, Ca 9.3 01/22: Na 136, K 3.9, BUN 16, Cr 0.64, Gluc 198, POC Gluc 230-265 01/17: Na 144, K 3.0, BUN 22, Cr 0.59, Glu 269, Ca 7.5, AST 48 (01/13) Na 137, K 3.9, BUN 18, Cr 0.79, Glu 233, Ca 8.0, AST 42 Meds: pepcid, fentanyl, rocuronium, insulin, colace, zinc sulfate, vitamin C, zofran Ht: 59 inches (per chart history) Wt: 220.25 lbs (02/01) 204.19 lbs (01/30), 228.06 lbs (01/25) 216.3 lbs (01/22) 218 lbs (01/17) 226 lbs (01/10) - Questionable weight changes, Suspect weight difference is weight error or fluid related BMI: 44 kg/m2 using weight of 218 lbs IBW: 98 lbs Malnutrition Evaluation (01/27/20) The patient does not meet criteria for a specified degree of malnutrition at this time. Will re-evaluate at follow-up as appropriate. Energy intake: </=50% of estimated energy requirements for > 5 days Weight loss: unable to evaluate Fat loss: no loss per observation outside room Muscle loss: no loss per observation outside room Supporting Evidence: Fluid accumulation: no edema per MD note Functional Status: unable to evaluate Nutrition Prescription (Diet Order): Vital AF 1.2 @ 40 mL/hr - Tf is off at this time. Pt is scheduled for trach Estimated Nutritional Needs: 980-1115 calories/day (22-25 kcal/kg IBW) 67-89 g protein/day (1.5-2 g pro/kg IBW) Diet Adequacy: not meeting calorie and protein needs Tolerance: TF is off at this time Diet Education Needs Assessment: Diet education not indicated, patient is intubated Nutrition Care Level: high - tube feed not at goal rate Nutrition Diagnosis: Inadequate oral intake related to acute respiratory failure/mechanical ventilation as evidenced by requiring enteral nutrition Goal: Patient will meet 75-100% of estimated needs by follow up Progress: goal not met Interventions: - Composition, Rate, Route Monitoring/Evaluation: -Total energy intake, Total protein intake, Formula/Solution, Weight change Signed: Stephanie Angulo RD, LD
[2020-02-02] MEDS: INSULIN GLARGINE 100 UNITS/ML VIAL SQ SCH (21:00)
[2020-02-03] VITALS (27 sets, daily range): BP systolic 89–147; BP diastolic 41–67
[2020-02-03] MEDS: MIDAZOLAM HCL 5MG/ML 10ML VIAL 100 ML IV PRN ×3 (02:48→14:26)
[2020-02-03] MEDS: FENTANYL 2000MCG/NS 250 250 ML IV PRN ×2 (03:24→14:25)
[2020-02-03 04:48] LABS: BASOPHILS # (AUTO) 0.1 (0.0-0.1); BASOPHILS % 0.6 % (0.0-1.0); EOSINOPHILS # (AUTO) 0.5 (0.0-0.4); EOSINOPHILS % 4.2 % (0.0-6.0); HEMATOCRIT 30.7 % (34.2-44.1); HEMOGLOBIN 8.6 g/dL (12.0-16.0); LYMPHOCYTES # (AUTO) 1.7 (1.0-3.2); LYMPHOCYTES % 13.6 % (18.0-39.1); MEAN CORPUSCULAR HEMOGLOBIN 27.6 pg (28-32); MEAN CORPUSCULAR VOLUME 98.4 fL (81-99); MONOCYTES # (AUTO) 0.7 (0.2-0.8); MONOCYTES % 5.9 % (4.4-11.3); NEUTROPHILS # (AUTO) 9.1 (2.1-6.9); NEUTROPHILS % 72.7 % (38.7-80.0); PLATELET COUNT 359 x10e3/uL (140-360); RED BLOOD COUNT 3.12 x10e6/uL (3.6-5.1)
[2020-02-03 05:11] LABS: ALANINE AMINOTRANSFERASE 8 IU/L (0-55); ALBUMIN 2.6 g/dL (3.5-5.0); ALBUMIN/GLOBULIN RATIO 0.5 (0.8-2.0); ALKALINE PHOSPHATASE 86 IU/L (40-150); ANION GAP 12.8 mmol/L (8-16); BLOOD UREA NITROGEN 16 mg/dL (7-26); BUN/CREATININE RATIO 32 (6-25); CALCIUM 8.6 mg/dL (8.4-10.2); CHLORIDE 92 mmol/L (98-107); EST GLOMERULAR FILTRATION RATE > 60 ML/MIN (60-); GLUCOSE 155 mg/dL (74-118); POTASSIUM 3.8 mmol/L (3.5-5.1); SODIUM 144 mmol/L (136-145)
[2020-02-03 05:14] LABS: CARBON DIOXIDE 43 mmol/L (22-29)
[2020-02-03] MEDS: INSULIN LISPRO 100 UNIT/1 ML 3ML VIAL SQ SCH ×5 (06:29→23:21)
[2020-02-03] MEDS: LEVOTHYROXINE SODIUM 25 MCG TABLET PO SCH (06:32)
[2020-02-03 08:20] LABS: ABG PH 7.32 (7.35-7.45)
[2020-02-03 08:21] LABS: ABG HCO3 48 mmol/L (22-26); ABG PCO2 92 mmHg (35-45); ABG PO2 91 mmHg (80-105)
[2020-02-03 08:22] LABS: ABG TCO2 > 50
--- NOTE | 2020-02-03 08:29 | Progress Note ---
DATE: Pulmonary Critical Care Progress Note SUBJECTIVE: The patient had a tracheostomy yesterday. She received Lasix yesterday and is negative 2200 mL. The patient remains on Levophed at 2.5 mcg. The patient is currently on a pressure control mode of ventilation at a rate of 36 with a PEEP of 8 and FiO2 80% and a pressure control of 28. PHYSICAL EXAMINATION: VITAL SIGNS: The blood pressure is 147/58 and saturation is 95%. The pulse is 86. HEENT: Shows no facial swelling or erythema. LYMPHATIC: Shows no submandibular, cervical, or supraclavicular adenopathy. CARDIAC: Reveals regular rate and rhythm with normal S1 and S2. LUNGS: Auscultation of lungs reveals decreased breath sounds at the bases. There is no wheezing. ABDOMEN: Soft and nontender. There is no rebound or guarding. EXTREMITIES: Show no edema or calf tenderness. There is no cyanosis or clubbing. SKIN: Shows no rashes. NEUROLOGICAL: Shows no focal abnormalities. The patient is sedated on Versed, fentanyl, and rocuronium. LABORATORY DATA: BUN to creatinine ratio is 16 to 0.5, and the carbon dioxide is 43. The other electrolytes are within normal limits and the albumin is 2.6. RADIOGRAPHIC DATA: Chest x-ray shows bilateral pulmonary infiltrates. IMPRESSION: 1. Acute respiratory failure. 2. Viral pneumonia and COVID-19 infection. 3. Diabetes. 4. Anemia. 5. Moderate protein-calorie malnutrition. PLAN: 1. Continue current ventilator settings and repeat ABG. 2. Diamox today. 3. Restart Lovenox after tracheostomy. 4. Continue enteral feedings. 5. Continue to monitor and control blood sugars. Greater than 35 minutes in direct critical care time. Efren Blakely MD [facility] /[id number]
--- NOTE | 2020-02-03 08:41 | Diagnostic Imaging Report ---
TECHNIQUE: Frontal view of the chest. INDICATION: ^resp failure ^[id number] ^0600 COMPARISON: Prior day. DISCUSSION: Limited evaluation due to portable technique. Lines and hardware: Interval conversion of endotracheal tube the tracheostomy tube is noted. Evaluation is limited to patient positioning. Clavicular heads are identified the mid aspect of the chest suggesting a kyphotic positioning. Stable right PICC and enteric tube. Multiple overlying EKG leads are again noted. Heart and mediastinum: Stable. Lungs and pleura: Mild improvement in aeration with multifocal bilateral interstitial and alveolar airspace opacities. Negative for large effusion or pneumothorax. Soft tissues and bones: No acute abnormality. IMPRESSION: 1. Interval conversion from endotracheal tube to tracheostomy tube. 2. Interval mild improvement in aeration with diffuse residual alveolar and interstitial airspace opacities. Signed by: Jamal Sinha MD on 02/03/2020 8:38 AM
[2020-02-03] MEDS: ZINC SULFATE 220 MG CAP PO SCH ×2 (09:53→17:00)
[2020-02-03] MEDS: ASCORBIC ACID 500 MG TAB PO SCH ×2 (09:53→17:00)
[2020-02-03] MEDS: CHOLECALCIFEROL 400 UNIT TAB PO SCH (09:53)
[2020-02-03] MEDS: FAMOTIDINE 20 MG/2 ML VIAL IV SCH ×2 (09:53→17:00)
[2020-02-03] MEDS: DOCUSATE SODIUM LIQD 100 MG/10 ML UDC NG SCH (09:53)
[2020-02-03] MEDS: ENOXAPARIN SOD INJ 40 MG/0.4 ML SYR SC SCH ×2 (10:00→21:54)
[2020-02-03] MEDS: ACETAZOLAMIDE 250 MG TAB PO SCH ×2 (10:00→17:00)
--- NOTE | 2020-02-03 14:12 | NUR ---
INFECTIOUS DISEASE PROGRESS NOTE DR. KATTY REINOSO In ICU, critically ill ROS: unable to obtain due to condition All 14 point ROS neg unless otherwise noted PHYSICAL EXAMINATION: VITAL SIGNS: reviewed HEENT: No facial swelling or erythema. LYMPHATIC: No submandibular, cervical, or supraclavicular adenopathy. CARDIAC: Regular rate and rhythm with normal S1, S2. LUNGS: Rhonchi, diminished ABDOMEN: Soft, nontender. There is no rebound or guarding. EXTREMITIES: No leg edema or calf tenderness. There is no cyanosis or clubbing. SKIN: No rashes. NEUROLOGICAL: The patient to be sedated. MICROBIOLOGICAL DATA: reviewed LABORATORY DATA: reviewed RADIOGRAPHIC DATA: Chest x-ray shows continued bilateral infiltrates. IMPRESSION: 1. Acute respiratory failure. 2. Viral pneumonia and coronavirus disease-19 infection. 3. Diabetes. 4. Anemia. PLAN: Off pressor support diuresis with diamox off antibiotics, monitoring temp monitor clinically Barbara Torres MSN, [employer], AGACNP-BC Katty Reinoso M.D
[2020-02-03] MEDS: ROCURONIUM BROMIDE 1,250 MG in SODIUM CHLORIDE 0.9% 250ML 125 ML IV SCH (16:00)
--- NOTE | 2020-02-03 18:56 | Progress Note ---
DATE: CONSULTING PHYSICIANS: 1. Dr. Manan Meehan with Infectious Disease. 2. Dr. Kenton Riley, with Surgery. 3. Dr. Efren Blakely with Pulmonology/Critical Care Medicine. SUBJECTIVE: The patient is on mechanical ventilation and sedated. Remains unable to communicate. OBJECTIVE: VITAL SIGNS: Temperature 99.1, T-max 99.5, pulse 93, blood pressure 109/45, respirations 38, oxygen saturation 94%. GENERAL: Supine. LUNGS: Tracheostomy with ventilator settings, respiratory rate 36, pressure control 28 above PEEP, FiO2 of 80%, PEEP of 8, peak pressure 37, minute ventilation 11.4, oxygen saturation 97% at time of encounter. HEENT: NG tube with vital AF at 25 mL/h. NECK: Supple. CARDIOVASCULAR: Right PICC line. Left radial arterial line, currently Levophed is off. ABDOMEN: Cantu catheter with kinga urine. No obvious distention. EXTREMITIES: No pitting edema. No clubbing, cyanosis, or marked swelling. Heel protectors bilaterally. INTEGUMENTARY: Right face cheek wound. NEUROLOGICAL: On rocuronium, fentanyl, and Versed drips at 0.08 mcg/kg per minute, 200 mcg/hour, and 7 mg/hour respectively. LABORATORY DATA: WBCs 12.53, hemoglobin 8.6, hematocrit 30.7, platelets 359. ABG today, pH 7.32, pCO2 of 92, PO2 of 91, HCO3 of 48, oxygen saturation 95%, base excess 22, FiO2 of 90%. Sodium 144, potassium 3.8, chloride 92, CO2 of 43, BUN 16, creatinine 0.5, estimated GFR greater than 60, calcium 8.6, total bilirubin 0.4, AST of 27, ALT 8, alkaline phosphatase 86, total protein 7.4, albumin 2.6. IMAGING: Chest x-ray shows interval conversion from endotracheal tube to the tracheostomy tube. Interval mild improvement in aeration with diffuse residual alveolar and interstitial airspace opacities. ASSESSMENT AND PLAN: 1. COVID pneumonia with septic shock per RN at bedside. Levophed used off and on. Lovenox restarted post tracheostomy placement. 2. Continue current ventilator settings and repeat ABG. ID and Pulmonology following. Continue zinc and vitamin C and vitamin D. 3. Acute respiratory failure, status post tracheostomy placement. Continue ventilator weaning as per Pulmonology/Critical Care Medicine. Diamox today. Continue sedation with fentanyl, Versed and rocuronium drips. 4. Uncontrolled type 2 diabetes mellitus. Serum glucose 155. Continue sliding scale insulin and Lantus insulin, monitor. 5. Anemia of chronic disease, hemoglobin 8.6, monitor. 6. Moderate protein-calorie malnutrition. Maintain nutritional support with enteral feedings vital AF. 7. Prophylaxis, Pepcid and Lovenox. 8. Inpatient, ICU 194, billing code [id number]. Time spent 35 minutes. Dictated by Sim Root NP MD [facility]/MODL /[id number]
[2020-02-03] MEDS: INSULIN GLARGINE 100 UNITS/ML VIAL SQ SCH (21:54)
[2020-02-04] VITALS (67 sets, daily range): BP systolic 87–153; BP diastolic 43–96
[2020-02-04] MEDS: MIDAZOLAM HCL 5MG/ML 10ML VIAL 100 ML IV PRN ×3 (01:00→16:47)
[2020-02-04] MEDS: FENTANYL 2000MCG/NS 250 250 ML IV PRN ×2 (03:00→08:10)
[2020-02-04 04:51] LABS: BASOPHILS % 0.4 % (0.0-1.0); EOSINOPHILS # (AUTO) 0.8 (0.0-0.4); EOSINOPHILS % 7.8 % (0.0-6.0); HEMATOCRIT 29.2 % (34.2-44.1); HEMOGLOBIN 8.3 g/dL (12.0-16.0); LYMPHOCYTES # (AUTO) 1.7 (1.0-3.2); LYMPHOCYTES % 17.8 % (18.0-39.1); MEAN CORPUSCULAR HEMOGLOBIN 27.1 pg (28-32); MEAN CORPUSCULAR HGB CONC 28.4 g/dL (31-35); MEAN CORPUSCULAR VOLUME 95.4 fL (81-99); MONOCYTES # (AUTO) 0.7 (0.2-0.8); MONOCYTES % 7.1 % (4.4-11.3); NEUTROPHILS # (AUTO) 6.2 (2.1-6.9); NEUTROPHILS % 64.3 % (38.7-80.0); PLATELET COUNT 405 x10e3/uL (140-360); RED BLOOD COUNT 3.06 x10e6/uL (3.6-5.1); RED CELL DISTRIBUTION WIDTH 15.3 % (11.7-14.4)
[2020-02-04 05:10] LABS: ALANINE AMINOTRANSFERASE 8 IU/L (0-55); ALBUMIN 2.6 g/dL (3.5-5.0); ALBUMIN/GLOBULIN RATIO 0.6 (0.8-2.0); ALKALINE PHOSPHATASE 80 IU/L (40-150); ANION GAP 11.3 mmol/L (8-16); BLOOD UREA NITROGEN 16 mg/dL (7-26); BUN/CREATININE RATIO 31 (6-25); CALCIUM 8.4 mg/dL (8.4-10.2); CARBON DIOXIDE 39 mmol/L (22-29); CHLORIDE 95 mmol/L (98-107); CREATININE, SERUM 0.52 mg/dL (0.57-1.11); EST GLOMERULAR FILTRATION RATE > 60 ML/MIN (60-); GLUCOSE 149 mg/dL (74-118); POTASSIUM 3.3 mmol/L (3.5-5.1); SODIUM 142 mmol/L (136-145)
[2020-02-04] MEDS: LEVOTHYROXINE SODIUM 25 MCG TABLET PO SCH (06:02)
[2020-02-04] MEDS: INSULIN LISPRO 100 UNIT/1 ML 3ML VIAL SQ SCH ×4 (06:03→18:17)
[2020-02-04] MEDS: ROCURONIUM BROMIDE 1,250 MG in SODIUM CHLORIDE 0.9% 250ML 125 ML IV SCH ×2 (06:17→17:50)
[2020-02-04] MEDS: NOREPINEPHRINE 8 MG/D5W 250 ML 250 ML IV PRN (06:18)
[2020-02-04 07:46] LABS: ABG HCO3 41 mmol/L (22-26); ABG PCO2 79 mmHg (35-45); ABG PH 7.32 (7.35-7.45); ABG PO2 86 mmHg (80-105); ABG TCO2 44
[2020-02-04] MEDS: ZINC SULFATE 220 MG CAP PO SCH ×2 (08:59→17:06)
[2020-02-04] MEDS: CHOLECALCIFEROL 400 UNIT TAB PO SCH (08:59)
[2020-02-04] MEDS: ASCORBIC ACID 500 MG TAB PO SCH ×2 (08:59→17:06)
[2020-02-04] MEDS: DOCUSATE SODIUM LIQD 100 MG/10 ML UDC NG SCH (08:59)
[2020-02-04] MEDS: FAMOTIDINE 20 MG/2 ML VIAL IV SCH ×2 (08:59→17:06)
[2020-02-04] MEDS: ENOXAPARIN SOD INJ 40 MG/0.4 ML SYR SC SCH ×2 (08:59→20:52)
[2020-02-04] MEDS: BACITRACIN ZINC 15 GM OINT TOP SCH (09:00)
--- NOTE | 2020-02-04 10:30 | Diagnostic Imaging Report ---
EXAMINATION: CHEST SINGLE (PORTABLE) INDICATION: Respiratory failure COMPARISON: Chest radiograph 02/03/2020. FINDINGS: LINES/TUBES:Tracheostomy, enteric tube, and right arm PICC in unchanged position. Overlying EKG leads. LUNGS:The lung volumes remain low. Unchanged bilateral airspace and interstitial opacities. PLEURA:Trace right apical pneumothorax is not well visualized. MEDIASTINUM:The cardiomediastinal silhouette appears unchanged in size and shape. BONES/SOFT TISSUES:No acute osseous injury. ABDOMEN:No free air under the diaphragm. IMPRESSION: Trace right apical pneumothorax is not well-visualized. Persistent diffuse bilateral interstitial and airspace opacities. Signed by: Dr. Stefanie Gordon MD on 02/04/2020 10:26 AM
[2020-02-04] MEDS: FUROSEMIDE INJ 10 MG/ML 4 ML VIAL IV SCH ×2 (10:51→20:52)
[2020-02-04] MEDS: POTASSIUM CHLORIDE 20MEQ/100ML 100 ML IV PRN (10:51)
--- NOTE | 2020-02-04 11:43 | Progress Note ---
DATE: Pulmonary Critical Care Progress Note SUBJECTIVE: The patient has Levophed at 1.5 mcg. She remains on Versed at 6 as well as fentanyl at 200 and rocuronium at 0.006. She continues on a pressure control mode of ventilation with a rate of 36 and FiO2 of 75%. Her PEEP is set at 8 and her pressure control above PEEP is 28. She is still receiving enteral feedings. PHYSICAL EXAMINATION: VITAL SIGNS: The blood pressure is 99/65 and the heart rate is 91. Saturation is 98%. HEENT: Shows no facial swelling or erythema. LYMPHATIC: Shows no submandibular, cervical, or supraclavicular adenopathy. CARDIAC: Reveals regular rate and rhythm with a normal S1 and S2. LUNGS: Auscultation of lungs shows decreased breath sounds at the bases. There is no wheezing. ABDOMEN: Soft, nontender. There is no rebound or guarding. EXTREMITIES: Shows 1 to 2+ leg edema. LABORATORY DATA: BUN to creatinine ratio is 16 to 0.42. Potassium is 3.3, and the carbon dioxide is 39. The sodium is 142. The albumin is 2.6. The white blood cell count is 9.6 and hemoglobin is 8.3. The platelet count is 405. IMPRESSION: 1. Acute respiratory failure. 2. Viral pneumonia and coronavirus disease-19 infection. 3. Moderate protein-calorie malnutrition. 4. Diabetes. 5. Anemia. PLAN: 1. Wean rocuronium as tolerated. 2. Continue current ventilator settings. 3. The patient to receive Lasix today. 4. Continue Lovenox. 5. Continue enteral feedings. 6. Continue to monitor and control blood sugars. 7. Case discussed with nursing staff, Respiratory, Internal Medicine, and administration and . Greater than 35 minutes in direct critical care time. Efren Blakely MD [facility]/MODL /[id number]
[2020-02-04] MEDS ORDERED: KCL 20 MEQ PACKET/ ORAL SOLN NG ONE (12:00)
--- NOTE | 2020-02-04 12:23 | Progress Note ---
DATE: SUBJECTIVE: The patient remains in ICU bed 194, on mechanical ventilation and sedated, noncommunicative. OBJECTIVE: VITAL SIGNS: Temperature 97.9, pulse 92, blood pressure 114/96, respirations 28, oxygen saturation 98%. Intake and output 850 mL and 600 mL out. GENERAL: Supine. No acute distress. LUNGS: Remains on ventilator setting, pressure control above PEEP 28, respirations 36, FiO2 of 75%, PEEP of 8, peak pressure 31, VEE 3 and tracheostomy. HEENT: Right NG tube with Vital AF at 40 mL an hour. NECK: Supple. CARDIOVASCULAR: Right upper extremity PICC line PICC, left radial arterial line, sinus rhythm. Levophed infusing at 1.5 mcg/minute. ABDOMEN: Obese, soft. Cantu catheter with kinga urine. EXTREMITIES: No pitting edema. No signs of DVT. INTEGUMENTARY: Bilateral face, cheek wounds. NEUROLOGICAL: Rocuronium mcg/kg/minute, versed drip 6 mg an hour, and fentanyl drip 200 mcg/hour. LABORATORY DATA: WBC 9.67, hemoglobin 8.3, hematocrit 29.2, and platelets 405. Blood gas; pH 7.32, pCO2 of 79, PO2 of 86, HCO3 of 41, oxygen saturation 95%, base excess of 15, FiO2 of 80%. Sodium 142, potassium 3.3, chloride 95, CO2 of 39, BUN 16, creatinine 0.52, estimated GFR greater than 60, glucose 149, calcium 8.4, total bilirubin 0.4, AST 23, ALT 8, alkaline phosphatase 80, total protein 7.3, albumin 2.6. MICROBIOLOGY: No new microbiology results. IMAGING/OTHER: Chest x-ray completed this morning. Radiology interpretation pending. ASSESSMENT AND PLAN: 1. Coronavirus disease 2019 pneumonia with septic shock: Levophed still required off and on. Lovenox restarted post tracheostomy placement. Infectious Disease and Pulmonology following. Continue zinc, vitamin C, and vitamin D. Continue current ventilator settings and repeat ABG in the morning. 2. Acute respiratory failure, status post tracheostomy placement. Continue ventilator weaning as per Pulmonology/Critical Care Medicine. Continue sedation with fentanyl, Versed, and rocuronium drips. Lasix to be given today. 3. Uncontrolled type 2 diabetes mellitus. Serum glucose 149. Continue sliding scale insulin and Lantus insulin. Monitor. 4. Anemia of chronic disease. Hemoglobin 8.3. Monitor. 5. Moderate protein-calorie malnutrition. Maintain nutritional support with an enteral feedings Vital AF. 6. Prophylaxis, Pepcid and Lovenox. Inpatient status, ICU 194, billing code [id number], time spent 35 minutes. Dictated by Sim Root, SHANE MD [facility]/MODL /[id number]
--- NOTE | 2020-02-04 13:30 | NUR ---
INFECTIOUS DISEASE PROGRESS NOTE DR. KATTY REINOSO In ICU, critically ill ROS: unable to obtain due to condition All 14 point ROS neg unless otherwise noted PHYSICAL EXAMINATION: VITAL SIGNS: reviewed HEENT: No facial swelling or erythema. LYMPHATIC: No submandibular, cervical, or supraclavicular adenopathy. CARDIAC: Regular rate and rhythm with normal S1, S2. LUNGS: Rhonchi, diminished ABDOMEN: Soft, nontender. There is no rebound or guarding. EXTREMITIES: No leg edema or calf tenderness. There is no cyanosis or clubbing. SKIN: No rashes. NEUROLOGICAL: The patient to be sedated. MICROBIOLOGICAL DATA: reviewed LABORATORY DATA: reviewed RADIOGRAPHIC DATA: Chest x-ray shows continued bilateral infiltrates. IMPRESSION: 1. Acute respiratory failure. 2. Viral pneumonia and coronavirus disease-19 infection. 3. Diabetes. 4. Anemia. PLAN: Off pressor support diuresis with diamox off antibiotics, monitoring temp no leukocytosis monitor clinically Barbara Torres MSN, [employer], AGACNP-BC Katty Reinoso M.D
[2020-02-04] MEDS: ACETAMINOPHEN 325 MG TAB PO PRN (20:00)
[2020-02-04] MEDS: INSULIN GLARGINE 100 UNITS/ML VIAL SQ SCH (20:52)
[2020-02-05] VITALS (71 sets, daily range): BP systolic 98–153; BP diastolic 44–70
[2020-02-05] MEDS: FENTANYL 2000MCG/NS 250 250 ML IV PRN ×3 (01:00→19:30)
[2020-02-05] MEDS: MIDAZOLAM HCL 5MG/ML 10ML VIAL 100 ML IV PRN ×4 (01:00→20:00)
[2020-02-05] MEDS ORDERED: SODIUM CHLORIDE 0.9% 1000ML 1,000 ML ONE (04:49)
[2020-02-05 06:31] LABS: BASOPHILS % 0.3 % (0.0-1.0); EOSINOPHILS # (AUTO) 0.2 (0.0-0.4); EOSINOPHILS % 1.9 % (0.0-6.0); HEMATOCRIT 30.8 % (34.2-44.1); LYMPHOCYTES # (AUTO) 1.6 (1.0-3.2); LYMPHOCYTES % 12.3 % (18.0-39.1); MEAN CORPUSCULAR HEMOGLOBIN 26.9 pg (28-32); MEAN CORPUSCULAR HGB CONC 29.2 g/dL (31-35); MEAN CORPUSCULAR VOLUME 92.2 fL (81-99); MONOCYTES # (AUTO) 0.8 (0.2-0.8); MONOCYTES % 6.2 % (4.4-11.3); NEUTROPHILS # (AUTO) 9.9 (2.1-6.9); NEUTROPHILS % 77.6 % (38.7-80.0); PLATELET COUNT 513 x10e3/uL (140-360); RED BLOOD COUNT 3.34 x10e6/uL (3.6-5.1); RED CELL DISTRIBUTION WIDTH 15.9 % (11.7-14.4)
[2020-02-05] MEDS: INSULIN LISPRO 100 UNIT/1 ML 3ML VIAL SQ SCH ×4 (06:40→17:29)
[2020-02-05] MEDS: LEVOTHYROXINE SODIUM 25 MCG TABLET PO SCH (06:40)
--- NOTE | 2020-02-05 06:45 | Diagnostic Imaging Report ---
EXAMINATION: CHEST SINGLE (PORTABLE) INDICATION: ^resp failure COMPARISON: 02/04/2020 FINDINGS: AP view TUBES and LINES: Stable tracheostomy tube, enteric tube, and right PICC. LUNGS: Lungs are well inflated. Again seen diffuse bilateral airspace opacities. PLEURA: No significant pleural effusion or pneumothorax. HEART AND MEDIASTINUM: The cardiomediastinal silhouette is unremarkable. BONES AND SOFT TISSUES: No acute osseous lesion. Soft tissues are unremarkable. UPPER ABDOMEN: No free air under the diaphragm. IMPRESSION: Diffuse bilateral airspace opacities, unchanged or slightly decreased when compared to prior x-ray. Signed by: Dr. Zach Mccarty MD on 02/05/2020 6:42 AM
[2020-02-05 06:55] LABS: ALANINE AMINOTRANSFERASE 10 IU/L (0-55); ALBUMIN 2.8 g/dL (3.5-5.0); ALBUMIN/GLOBULIN RATIO 0.5 (0.8-2.0); ALKALINE PHOSPHATASE 91 IU/L (40-150); ANION GAP 12.1 mmol/L (8-16); BLOOD UREA NITROGEN 13 mg/dL (7-26); BUN/CREATININE RATIO 25 (6-25); CALCIUM 9.1 mg/dL (8.4-10.2); CHLORIDE 89 mmol/L (98-107); CREATININE, SERUM 0.51 mg/dL (0.57-1.11); EST GLOMERULAR FILTRATION RATE > 60 ML/MIN (60-); GLUCOSE 182 mg/dL (74-118); POTASSIUM 3.1 mmol/L (3.5-5.1); SODIUM 139 mmol/L (136-145)
[2020-02-05 06:57] LABS: ABG PCO2 64 mmHg (35-45); ABG PH 7.46 (7.35-7.45); ABG PO2 72 mmHg (80-105)
[2020-02-05 06:58] LABS: ABG HCO3 46 mmol/L (22-26); ABG TCO2 48
[2020-02-05 07:02] LABS: CARBON DIOXIDE 41 mmol/L (22-29)
[2020-02-05] MEDS: ASCORBIC ACID 500 MG TAB PO SCH ×2 (09:00→16:47)
[2020-02-05] MEDS: FAMOTIDINE 20 MG/2 ML VIAL IV SCH ×2 (09:00→16:47)
[2020-02-05] MEDS: DOCUSATE SODIUM LIQD 100 MG/10 ML UDC NG SCH (09:00)
[2020-02-05] MEDS: ENOXAPARIN SOD INJ 40 MG/0.4 ML SYR SC SCH ×2 (09:00→22:10)
[2020-02-05] MEDS: CHOLECALCIFEROL 400 UNIT TAB PO SCH (09:00)
[2020-02-05] MEDS: ZINC SULFATE 220 MG CAP PO SCH ×2 (09:00→16:47)
[2020-02-05] MEDS: BACITRACIN ZINC 15 GM OINT TOP SCH (09:00)
[2020-02-05] MEDS ORDERED: VECURONIUM BROMIDE FOR INJ 20 MG VIAL ONE (09:38)
[2020-02-05] MEDS ORDERED: POTASSIUM CHLORIDE 20 MEQ TAB CR PO ONE (10:00)
[2020-02-05] MEDS: ACETAZOLAMIDE 250 MG TAB PO SCH ×2 (10:30→22:10)
--- NOTE | 2020-02-05 10:48 | Progress Note ---
DATE: Pulmonary Critical Care Progress Note SUBJECTIVE: The patient's rocuronium was weaned to 0.01 today, but she is not synchronized with the vent. She required some vecuronium and an increase in the rocuronium. She remains on Levophed at 4 mcg. She received Lasix today and is negative 2 L from yesterday. PHYSICAL EXAMINATION: VITAL SIGNS: The patient's blood pressure is 101/45 on 4 mcg of Levophed. She is currently on a PRVC mode of ventilation with pressure control at a rate of 36. Her PEEP is set at 8 and her pressure above PEEP is set at 28. Her FiO2 is set at 75%. HEENT: Shows no facial swelling or erythema. She has a tracheostomy in good position. The site is clean. There is no drainage. CARDIAC: Reveals regular rate and rhythm with normal S1 and S2. LUNGS: Auscultation of lungs reveals rhonchorous breath sounds bilaterally. There is no wheezing. ABDOMEN: Soft and nontender. There is no rebound or guarding. EXTREMITIES: Show no leg edema or calf tenderness. There is no cyanosis or clubbing. SKIN: Shows no rashes. NEUROLOGICAL: Shows no focal abnormalities. The patient is sedated and paralyzed. LABORATORY DATA: Potassium is 3.1 and the carbon dioxide is 41. The BUN to creatinine ratio is 13 to 0.51. The chloride is 89 and the albumin is 2.8. The white blood cell count is 12.8 and the hemoglobin is 9. The platelet count is 513. RADIOGRAPHIC DATA: Chest x-ray shows bilateral airspace opacities. IMPRESSION: 1. Acute respiratory failure. 2. Viral pneumonia and COVID-19 infection. 3. Diabetes. 4. Anemia. 5. Moderate protein-calorie malnutrition. PLAN: 1. The patient to receive Diamox today. 2. Increased rocuronium and repeat ABG later today. 3. Continue enteral feedings. 4. Continue Levophed and wean as tolerated. 5. Continue to monitor and control blood sugars. 6. Monitor blood counts. Greater than 35 minutes in direct critical care time. Efren Blakely MD [facility]/MODL /[id number]
--- NOTE | 2020-02-05 11:29 | NUR ---
INFECTIOUS DISEASE PROGRESS NOTE DR. KATTY REINOSO In ICU, critically ill ROS: unable to obtain due to condition All 14 point ROS neg unless otherwise noted PHYSICAL EXAMINATION: VITAL SIGNS: reviewed HEENT: No facial swelling or erythema. LYMPHATIC: No submandibular, cervical, or supraclavicular adenopathy. CARDIAC: Regular rate and rhythm with normal S1, S2. LUNGS: Rhonchi, diminished ABDOMEN: Soft, nontender. There is no rebound or guarding. EXTREMITIES: No leg edema or calf tenderness. There is no cyanosis or clubbing. SKIN: No rashes. NEUROLOGICAL: The patient to be sedated. MICROBIOLOGICAL DATA: reviewed LABORATORY DATA: reviewed RADIOGRAPHIC DATA: Chest x-ray shows continued bilateral infiltrates. IMPRESSION: 1. Acute respiratory failure. 2. Viral pneumonia and coronavirus disease-19 infection. 3. Diabetes. 4. Anemia. PLAN: Levo at 4 added Merrem today for fever and increased vent settings x10 days slight leukocytosis monitor clinically guarded prognosis Barbara Torres MSN, [employer], AGACNP-BC Katty Reinoso M.D
[2020-02-05] MEDS: MEROPENEM 500MG/ NS 50ML 50 ML IV SCH ×2 (14:19→23:35)
[2020-02-05 15:53] LABS: ABG HCO3 39 mmol/L (22-26); ABG PCO2 66 mmHg (35-45); ABG PH 7.37 (7.35-7.45); ABG PO2 110 mmHg (80-105); ABG TCO2 41
[2020-02-05] MEDS: INSULIN GLARGINE 100 UNITS/ML VIAL SQ SCH (22:11)
[2020-02-06] VITALS (27 sets, daily range): BP systolic 90–127; BP diastolic 41–62
--- NOTE | 2020-02-06 05:41 | Progress Note ---
DATE: 02/05/2020 CONSULTING PHYSICIANS: 1. Manan Meehan MD, Infectious Disease. 2. Kenton Riley MD, Surgery. 3. Efren Blakely MD, Pulmonology/Critical Care Medicine. SUBJECTIVE: Rocuronium weaned to 0.1 today, but the patient asynchronous with the vent and rocuronium had be increased. She remains in ICU 194, and this is about day 28 for her. OBJECTIVE: VITAL SIGNS: Temperature 98.2, pulse 77, blood pressure 144/62, respirations 34, oxygen saturation at 99%. GENERAL: Supine, not prone. No acute distress. LUNGS: Tracheostomy to ventilator, pressure control, respiratory rate 34, 28 of PEEP, FiO2 of 75%, PEEP of 8, peak pressure 36, minute ventilation 13.2. HEENT: Right NG tube with tube feeding at 40 mL an hour. NECK: Supple. CARDIOVASCULAR: Right upper extremity PICC line. Left radial arterial line and sinus rhythm. Levophed infusing at 4 mcg/minute. ABDOMEN: Obese, soft. Cantu catheter with kinga urine. EXTREMITIES: Without pitting edema. No signs of DVT. INTEGUMENTARY: Bilateral facial cheek wounds. NEUROLOGIC: Rocuronium 0.004 mcg/kg per minute, Versed drip 6 mg an hour, fentanyl drip 200 mg an hour. LABORATORY AND DIAGNOSTIC STUDIES: WBC 12.8, hemoglobin 9, hematocrit 30.8, platelets 513. ABG this morning, pH 7.46, pCO2 64, PO2 72, HCO3 46, oxygen saturation 95%. Base excess of 22, FiO2 of 75%. Subsequent ABG; pH 7.37, pCO2 66, PO2 110, HCO3 39, oxygen saturation 98%. FiO2 of 75%. Sodium 139, potassium 3.1, chloride 89, CO2 41, anion gap 12.1, BUN 13, creatinine 0.51, estimated GFR greater than 60, glucose 182, fingerstick blood glucose levels 165, 162, 185, 156, calcium 9.1, total bilirubin 0.7, AST 28, ALT 10, alkaline phosphatase 91, total protein 8, albumin 2.8. Chest x-ray done today per interpreting radiologist showed diffuse bilateral airspace opacities, unchanged or slightly decreased when compared to prior x-ray. ASSESSMENT/PLAN: 1. COVID-19 pneumonia with septic shock. Wean Levophed as tolerated. Lovenox has been restarted post tracheostomy placement. Pulmonology and Infectious Disease are following. Continue current ventilator settings and repeat ABG in the morning. Continue vitamin C and vitamin D. 2. Acute respiratory failure, status post tracheostomy placement. Continue ventilator weaning as tolerated. Continue sedation with rocuronium, fentanyl, and Versed drips. 3. Uncontrolled type 2 diabetes mellitus. Serum glucose 182. Continue sliding scale insulin and Lantus insulin. Monitor. 4. Anemia of chronic disease. Hemoglobin 9.0. Monitor. 5. Acute hypokalemia. Potassium level 3.1 (3.3, 3.8), 40 mEq potassium chloride via NG tube today. Reassess potassium level tomorrow. 6. Moderate protein-calorie malnutrition. Maintain nutritional support with enteral feedings. 7. Metabolic alkalosis. Serum CO2 41. The patient received Diamox today. 8. Prophylaxis. Pepcid and Lovenox. Inpatient status, ICU 194, billing code [id number], time spent 35 minutes. Dictated by Sim Root NP MD [facility]LA Guzman[facility]/MODL /[id number]
[2020-02-06] MEDS: MEROPENEM 500MG/ NS 50ML 50 ML IV SCH ×3 (06:23→22:37)
[2020-02-06] MEDS: LEVOTHYROXINE SODIUM 25 MCG TABLET PO SCH (06:23)
[2020-02-06] MEDS: INSULIN LISPRO 100 UNIT/1 ML 3ML VIAL SQ SCH ×4 (06:23→17:24)
[2020-02-06] MEDS: FENTANYL 2000MCG/NS 250 250 ML IV PRN ×2 (06:24→15:29)
[2020-02-06] MEDS: MIDAZOLAM HCL 5MG/ML 10ML VIAL 100 ML IV PRN ×3 (06:24→21:00)
[2020-02-06 06:31] LABS: BASOPHILS % 0.3 % (0.0-1.0); EOSINOPHILS # (AUTO) 0.7 (0.0-0.4); EOSINOPHILS % 5.3 % (0.0-6.0); HEMATOCRIT 30.2 % (34.2-44.1); HEMOGLOBIN 8.7 g/dL (12.0-16.0); LYMPHOCYTES # (AUTO) 1.2 (1.0-3.2); LYMPHOCYTES % 8.8 % (18.0-39.1); MEAN CORPUSCULAR HEMOGLOBIN 27.2 pg (28-32); MEAN CORPUSCULAR HGB CONC 28.8 g/dL (31-35); MEAN CORPUSCULAR VOLUME 94.4 fL (81-99); MONOCYTES # (AUTO) 0.9 (0.2-0.8); MONOCYTES % 6.5 % (4.4-11.3); NEUTROPHILS # (AUTO) 10.1 (2.1-6.9); NEUTROPHILS % 76.9 % (38.7-80.0); PLATELET COUNT 494 x10e3/uL (140-360); RED CELL DISTRIBUTION WIDTH 15.6 % (11.7-14.4)
[2020-02-06 06:59] LABS: ALANINE AMINOTRANSFERASE 7 IU/L (0-55); ALBUMIN 2.7 g/dL (3.5-5.0); ALBUMIN/GLOBULIN RATIO 0.5 (0.8-2.0); ALKALINE PHOSPHATASE 90 IU/L (40-150); ANION GAP 10.6 mmol/L (8-16); BLOOD UREA NITROGEN 14 mg/dL (7-26); BUN/CREATININE RATIO 29 (6-25); CALCIUM 9.4 mg/dL (8.4-10.2); CARBON DIOXIDE 36 mmol/L (22-29); CHLORIDE 93 mmol/L (98-107); CREATININE, SERUM 0.49 mg/dL (0.57-1.11); EST GLOMERULAR FILTRATION RATE > 60 ML/MIN (60-); GLUCOSE 183 mg/dL (74-118); POTASSIUM 3.6 mmol/L (3.5-5.1); SODIUM 136 mmol/L (136-145)
[2020-02-06] MEDS: FUROSEMIDE INJ 10 MG/ML 4 ML VIAL IV SCH ×2 (08:37→20:43)
[2020-02-06] MEDS: BACITRACIN ZINC 15 GM OINT TOP SCH (08:37)
[2020-02-06] MEDS: ENOXAPARIN SOD INJ 40 MG/0.4 ML SYR SC SCH ×2 (08:37→20:43)
[2020-02-06] MEDS: ZINC SULFATE 220 MG CAP PO SCH ×2 (08:37→17:24)
[2020-02-06] MEDS: CHOLECALCIFEROL 400 UNIT TAB PO SCH (08:37)
[2020-02-06] MEDS: ACETAZOLAMIDE 250 MG TAB PO SCH (08:37)
[2020-02-06] MEDS: ASCORBIC ACID 500 MG TAB PO SCH ×2 (08:37→17:24)
[2020-02-06] MEDS: FAMOTIDINE 20 MG/2 ML VIAL IV SCH ×2 (08:37→17:24)
[2020-02-06] MEDS: DOCUSATE SODIUM LIQD 100 MG/10 ML UDC NG SCH (08:37)
[2020-02-06] MEDS: ROCURONIUM BROMIDE 1,250 MG in SODIUM CHLORIDE 0.9% 250ML 125 ML IV SCH (08:41)
--- NOTE | 2020-02-06 08:44 | Diagnostic Imaging Report ---
EXAMINATION: CHEST SINGLE (PORTABLE) INDICATION: Bowel pneumonia, respiratory failure COMPARISON: Chest radiograph 02/05/2020 FINDINGS: LINES/TUBES:Support lines and tubes unchanged. LUNGS:The lungs are moderately inflated. Unchanged bilateral diffuse interstitial and airspace opacities. PLEURA:No pleural effusion or pneumothorax. MEDIASTINUM:The cardiomediastinal silhouette appears unchanged in size and shape. BONES/SOFT TISSUES:No acute osseous injury. ABDOMEN:No free air under the diaphragm. IMPRESSION: Unchanged diffuse bilateral interstitial and airspace opacities. Signed by: Parveen Baptiste MD on 02/06/2020 8:41 AM
--- NOTE | 2020-02-06 09:26 | Progress Note ---
DATE: SUBJECTIVE: The patient is afebrile. The patient remains in the supine position. She is still on Levophed at 2 mcg. She is also on Versed and fentanyl as well as rocuronium. She remains on a pressure control mode of ventilation. Her rate is set at 36 and a PEEP is set at 8. FiO2 of 75% and a pressure support above PEEP is 28. PHYSICAL EXAMINATION: VITAL SIGNS: The patient is afebrile. The blood pressure is 127/62, saturation is 95% on the above settings. Her pulse is 90. HEENT: No facial swelling or erythema. She has a nasogastric tube in place. She has a tracheostomy. The site looks clean. There is no drainage. CARDIAC: Regular rate and rhythm with normal S1, S2. LUNGS: Auscultation of lungs reveals rhonchorous breath sounds bilaterally. There is no wheezing. ABDOMEN: Soft, nontender. There is no rebound or guarding. EXTREMITIES: 1 to 2+ leg edema. LABORATORY DATA: The BUN to creatinine ratio is 14 to 0.49. Other electrolytes are within normal limits and the albumin is 2.7. The white blood cell count is 13.1 and hemoglobin is 8.7. The platelet count is 494. IMPRESSION: 1. Acute respiratory failure. 2. Viral pneumonia and coronavirus disease-19 infection. 3. Diabetes. 4. Anemia. 5. Moderate protein-calorie malnutrition. PLAN: 1. The patient to receive Lasix and albumin today. 2. Continue to ventilate the patient in the supine position. The tracheostomy will be 5-day-old tomorrow. Hopefully, we can reposition her into the prone position tomorrow. 3. Continue enteral feedings. 4. Wean Levophed. 5. Continue current sedation. 6. Monitor blood counts. 7. Monitor blood sugars and adjust insulin. Greater than 35 minutes in direct critical care time. Efren Blakely MD [facility]/MOD[facility] /[id number]
[2020-02-06] MEDS: ALBUMIN 25% 25GM 100ML 0.25 GM/ML BTL IV SCH ×3 (09:27→20:43)
--- NOTE | 2020-02-06 14:53 | NUR ---
Nutrition Intervention Note RD Recommendation(s) for Physician: -Clarify TF order as Vital AF 1.2 with goal rate of 40 mL/hr as appropriate (provides 1152 kcal, 72 g protein) -Water/fluid management per MD -If pt requires prone positioning, pt may be fed at goal rate placed in reverse Trendelenburg with HOB at 10 to 25 degrees. Plan of Care: RD following, monitoring for tolerance and adequacy, tube feed recommendation Nutrition reason for involvement: follow up RD Assessment 02/05: Follow up. Pt remains intubated via trach. Pt currently supine with plan to place back in prone per MD notes. Pt currently sedated, paralyzed, and on one low dose pressor. NGT in place, pt on TF at 20 ml/hr per TV admin yesterday of 480 ml. Chart reviewed. Current TF rec's remain appropriate. Will continue to monitor. 02/01: Follow up. Chart reviewed. Pt remains intubated. Pt is scheduled to receive a trach today; therefore, tube feeding is off at his time. Pt is also off pressor support per chart. Recommend resuming tube feeding when medically appropriate. Current recommendations remain appropriate. Will continue to monitor. 01/30: Follow up. Pt remains intubated, sedated, and paralyzed. Pt currently on Levophed, decreased to 4 mcg/min per RN. Pt tolerating TF at 25 ml/hr, having BMs, and no residuals- advised RN to advance TF to goal rate of 40 ml/hr per current order. Chart reviewed. Will continue to monitor. 01/26: Follow up. Chart reviewed. Pt remains intubated/sedated and is in the prone position. TF rate is at 25 mL/hr at this time. Recommend increasing TF to goal rate of 40 mL/hr. Pt may be fed at goal rate placed in reverse Trendelenburg with HOB at 10 to 25 degrees. Will continue to monitor. 01/22: Follow up. Pt remains intubated and sedated with Versed and Fentanyl, currently in prone position. Pt on low dose Levophed at 3 mcg/min while receiving HD. Pt tolerating TF at 45 ml/hr. Pt discussed during MDR, no recent BM per RN. Chart reviewed. Will continue to monitor. 01/17: Follow up. Pt remains mechanically ventilated and is in the prone position. Pt tube feed is at 30 mL/hr per RN. Recommend increasing towards goal as appropriate. Will continue to monitor. (01/14/20) Pt is a 54 year old female admitted with hypoxia and pneumonia due to COVID-19. Pt was intubated yesterday and tube feed order was placed. Pt was previously on an ADA diet with 25-50% meal intake recorded. Pt has a ht of 48 inches currently in chart, but per history in chart a height of 59 inches was previously recorded. Recommendations provided. RD to manage tube feed order per Dr. Blakely. Will continue to monitor. Principal Problems/Diagnoses: hypoxia, pneumonia due to COVID-19 PMH: Kidney infections as a child, diabetes mellitus, diabetic neuropathy, hypothyroidism, overactive bladder, and morbid obesity. GI: soft abdomen, last recorded BM 02/04 Skin: sacrum stage I Labs: 02/05: Na 136, K 3.6, BUN 14, Cr 0.49, Gluc 183, Ca 9.4 02/01: Na 144, K 4.9, BUN 17, Cr 0.49, Glu 139, AST 8 01/30: Na 141, K 3.5, BUN 17, Cr 0.56, Gluc 171, Ca 8.7 01/26: Na 144, K 4.5, BUN 23, Cr 0.55, Glu 149, Ca 9.3 01/22: Na 136, K 3.9, BUN 16, Cr 0.64, Gluc 198, POC Gluc 230-265 01/17: Na 144, K 3.0, BUN 22, Cr 0.59, Glu 269, Ca 7.5, AST 48 (01/13) Na 137, K 3.9, BUN 18, Cr 0.79, Glu 233, Ca 8.0, AST 42 Meds: IV albumin, lasix, colace, pepcid, zinc sulfate, vitamin C, vitamin D, abx, zofran, insulin, synthroid IVF/Drips: Levophed at 2 mcg/min, Rocuronium drip, Fentanyl drip, Versed drip Ht: 59 inches (per chart history) Wt: 205 lbs (02/05) 220.25 lbs (02/01) 204.19 lbs (01/30), 228.06 lbs (01/25) 216.3 lbs (01/22) 218 lbs (01/17) 226 lbs (01/10) - Questionable weight changes, Suspect weight difference is weight error or fluid related BMI: 44 kg/m2 using weight of 218 lbs IBW: 98 lbs Malnutrition Evaluation (01/27/20) The patient does not meet criteria for a specified degree of malnutrition at this time. Will re-evaluate at follow-up as appropriate. Energy intake: </=50% of estimated energy requirements for > 5 days Weight loss: unable to evaluate Fat loss: no loss per observation outside room Muscle loss: no loss per observation outside room Supporting Evidence: Fluid accumulation: no edema per MD note Functional Status: unable to evaluate Nutrition Prescription (Diet Order): NPO per current order, TF infusing at 20 ml/hr Estimated Nutritional Needs: 980-1115 calories/day (22-25 kcal/kg IBW) 67-89 g protein/day (1.5-2 g pro/kg IBW) Diet Adequacy: not meeting calorie and protein needs Tolerance: pt tolerating trickle feeds at 20 ml/hr Diet Education Needs Assessment: Diet education not indicated, patient is intubated Nutrition Care Level: high - tube feed not at goal rate Nutrition Diagnosis: Inadequate oral intake related to acute respiratory failure/mechanical ventilation as evidenced by requiring enteral nutrition Goal: Patient will meet 75-100% of estimated needs by follow up Progress: goal not met Interventions: - Composition, Rate, Route Monitoring/Evaluation: -Total energy intake, Total protein intake, Formula/Solution, Weight change Signed: Anuradha Daniel RD, [place], [facility] Addendum: 02/06/20 at 1547 by Anuradha Daniel DIET Pt tolerating TF at goal rate of 40 ml/hr per RN. Anuradha Daniel RD, LD, CNSC
--- NOTE | 2020-02-06 15:54 | NUR ---
INFECTIOUS DISEASE PROGRESS NOTE DR. KATTY REINOSO In ICU, critically ill ROS: unable to obtain due to condition All 14 point ROS neg unless otherwise noted PHYSICAL EXAMINATION: VITAL SIGNS: reviewed HEENT: No facial swelling or erythema. LYMPHATIC: No submandibular, cervical, or supraclavicular adenopathy. CARDIAC: Regular rate and rhythm with normal S1, S2. LUNGS: Rhonchi, diminished ABDOMEN: Soft, nontender. There is no rebound or guarding. EXTREMITIES: No leg edema or calf tenderness. There is no cyanosis or clubbing. SKIN: No rashes. NEUROLOGICAL: The patient to be sedated. MICROBIOLOGICAL DATA: reviewed LABORATORY DATA: reviewed RADIOGRAPHIC DATA: Chest x-ray shows continued bilateral infiltrates. IMPRESSION: 1. Acute respiratory failure. 2. Viral pneumonia and coronavirus disease-19 infection. 3. Diabetes. 4. Anemia. PLAN: Levo Merrem fever and increased vent settings x10 days slight leukocytosis monitor clinically planning for prone tomorrow guarded prognosis Barbara Torres MSN, FISH TECHNOLOGIST, AGACNP-BC Katty Reinoso M.D
[2020-02-06 18:08] LABS: ABG HCO3 38 mmol/L (22-26); ABG PCO2 73 mmHg (35-45); ABG PH 7.32 (7.35-7.45); ABG PO2 66 mmHg (80-105); ABG TCO2 40
[2020-02-06] MEDS: INSULIN GLARGINE 100 UNITS/ML VIAL SQ SCH (20:43)
[2020-02-07] VITALS (28 sets, daily range): BP systolic 105–138; BP diastolic 45–76
[2020-02-07] MEDS: FENTANYL 2000MCG/NS 250 250 ML IV PRN ×4 (00:11→22:02)
[2020-02-07] MEDS: INSULIN LISPRO 100 UNIT/1 ML 3ML VIAL SQ SCH ×5 (00:11→23:47)
[2020-02-07] MEDS: MIDAZOLAM HCL 5MG/ML 10ML VIAL 100 ML IV PRN ×4 (00:12→19:45)
[2020-02-07] MEDS: MEROPENEM 500MG/ NS 50ML 50 ML IV SCH ×3 (05:42→22:01)
[2020-02-07] MEDS: LEVOTHYROXINE SODIUM 25 MCG TABLET PO SCH (05:42)
[2020-02-07 06:11] LABS: BASOPHILS % 0.4 % (0.0-1.0); EOSINOPHILS # (AUTO) 0.3 (0.0-0.4); EOSINOPHILS % 2.6 % (0.0-6.0); HEMATOCRIT 26.5 % (34.2-44.1); HEMOGLOBIN 7.5 g/dL (12.0-16.0); LYMPHOCYTES # (AUTO) 1.6 (1.0-3.2); LYMPHOCYTES % 14.9 % (18.0-39.1); MEAN CORPUSCULAR HEMOGLOBIN 27.9 pg (28-32); MEAN CORPUSCULAR HGB CONC 28.3 g/dL (31-35); MEAN CORPUSCULAR VOLUME 98.5 fL (81-99); MONOCYTES # (AUTO) 0.8 (0.2-0.8); MONOCYTES % 7.8 % (4.4-11.3); NEUTROPHILS # (AUTO) 7.5 (2.1-6.9); PLATELET COUNT 360 x10e3/uL (140-360); RED BLOOD COUNT 2.69 x10e6/uL (3.6-5.1); RED CELL DISTRIBUTION WIDTH 15.3 % (11.7-14.4)
[2020-02-07 06:42] LABS: ALANINE AMINOTRANSFERASE 7 IU/L (0-55); ALBUMIN 3.5 g/dL (3.5-5.0); ALBUMIN/GLOBULIN RATIO 0.7 (0.8-2.0); ALKALINE PHOSPHATASE 93 IU/L (40-150); ANION GAP 11.6 mmol/L (8-16); BLOOD UREA NITROGEN 16 mg/dL (7-26); BUN/CREATININE RATIO 28 (6-25); CALCIUM 9.4 mg/dL (8.4-10.2); CARBON DIOXIDE 40 mmol/L (22-29); CHLORIDE 91 mmol/L (98-107); CREATININE, SERUM 0.58 mg/dL (0.57-1.11); EST GLOMERULAR FILTRATION RATE > 60 ML/MIN (60-); GLUCOSE 190 mg/dL (74-118); POTASSIUM 3.6 mmol/L (3.5-5.1); SODIUM 139 mmol/L (136-145)
[2020-02-07] MEDS: FUROSEMIDE INJ 10 MG/ML 4 ML VIAL IV SCH (08:00)
[2020-02-07] MEDS: CHOLECALCIFEROL 400 UNIT TAB PO SCH (08:00)
[2020-02-07] MEDS: ZINC SULFATE 220 MG CAP PO SCH ×2 (08:00→16:32)
[2020-02-07] MEDS: ENOXAPARIN SOD INJ 40 MG/0.4 ML SYR SC SCH ×2 (08:00→20:25)
[2020-02-07] MEDS: ASCORBIC ACID 500 MG TAB PO SCH ×2 (08:00→16:31)
[2020-02-07] MEDS: FAMOTIDINE 20 MG/2 ML VIAL IV SCH ×2 (08:00→16:31)
[2020-02-07] MEDS: DOCUSATE SODIUM LIQD 100 MG/10 ML UDC NG SCH (08:00)
[2020-02-07] MEDS: BACITRACIN ZINC 15 GM OINT TOP SCH (08:01)
--- NOTE | 2020-02-07 08:20 | Diagnostic Imaging Report ---
EXAM: CHEST SINGLE (PORTABLE) DATE: 02/07/2020 5:53 AM INDICATION: Hypoxia, viral pneumonia COMPARISON: 02/06/2020 FINDINGS: Tracheostomy cannula identified in position. Enteric tube noted coursing below the diaphragm. Again identified are unchanged diffuse increased interstitial and airspace opacities throughout the lungs laterally. There is no evidence for pneumothorax or significant volume pleural effusion. The cardiomediastinal silhouette is stable in appearance. No acute osseous abnormality is identified. IMPRESSION: No significant interval change from 02/06/2020. Signed by: Dr. Abhay Arenas MD on 02/07/2020 8:16 AM
[2020-02-07 08:30] LABS: ABG PH 7.26 (7.35-7.45)
[2020-02-07 08:31] LABS: ABG HCO3 44 mmol/L (22-26); ABG PCO2 97 mmHg (35-45); ABG PO2 94 mmHg (80-105); ABG TCO2 47
--- NOTE | 2020-02-07 09:56 | Progress Note ---
DATE: SUBJECTIVE: The patient is currently on mechanical ventilator. She is on pressure control at a rate of 36 with a PEEP of 8 and a pressure control above PEEP of 36. FiO2 is set at 70%. She remains on 4 mcg of Levophed. She is receiving enteral feedings at 40 mL an hour. She is receiving Versed, fentanyl and rocuronium. PHYSICAL EXAMINATION: VITAL SIGNS: The blood pressure is 114/52, saturation is 92%, temperature is 99.5, pulse is 94. HEENT: Shows no facial swelling or erythema. LYMPHATIC: Shows no submandibular, cervical, supraclavicular adenopathy. CARDIAC: Reveals regular rate and rhythm with normal S1, S2. LUNGS: Auscultation of lungs shows decreased breath sounds at the bases. There is no wheezing. ABDOMEN: Soft, nontender. There is no rebound or guarding. EXTREMITIES: Shows no leg edema or calf tenderness. There is no cyanosis, clubbing. SKIN: Shows no rashes. NEUROLOGICAL: Shows no focal abnormalities. The patient is sedated and paralyzed. LABORATORY DATA: White blood cell count is 10.4, hemoglobin is 7.5 and platelet count is 360. BUN to creatinine is 16 to 0.58 and carbon dioxide is 40, albumin is 3.5. RADIOGRAPHIC DATA: The chest x-ray shows bilateral infiltrates. IMPRESSION: 1. Acute respiratory failure. 2. Viral pneumonia and COVID-19 infection. 3. Anemia, unspecified. 4. Diabetes. 5. Moderate protein-calorie malnutrition. PLAN: 1. The patient's pressure control has been increased to 30. We will repeat ABG later this afternoon. 2. Continue to wean Levophed. 3. Continue enteral feedings. 4. Continue current sedation. 5. Continue to monitor blood sugars and adjust insulin. 6. Continue to monitor blood counts. Case discussed with nursing, Respiratory, Infectious Disease and administration. Greater than 35 minutes in direct critical care time. Efren Blakely MD [facility]/MODL /[id number]
[2020-02-07] MEDS: ROCURONIUM BROMIDE 1,250 MG in SODIUM CHLORIDE 0.9% 250ML 125 ML IV SCH ×2 (11:15→23:46)
--- NOTE | 2020-02-07 13:49 | Progress Note ---
DATE: SUBJECTIVE: Ms. Fairchild remains in intensive care unit and intubated. She is on pressure control 36, PEEP of 8, FiO2 is 70%, remains on 4 mcg of Levophed, on enteral feeding, also Versed, fentanyl, and rocuronium drip. LABORATORY DATA: Her white count is 10.9 with a hemoglobin of 7.5. Her sodium 139, potassium 3.6 and creatinine 0.58. The patient remains on Lovenox. She is on meropenem, and this is started on , will finish 7 days. IMPRESSION: COVID-19, respiratory failure, and aspiration pneumonia. Prognosis remains poor. Continue with supportive care as ordered. We will follow. MD ALESSANDRO Leos/MODL /[id number]
--- NOTE | 2020-02-07 14:51 | NUR ---
WOUND CARE CONSULT 54 YO FEMALE HX OF FELA KONG 9 0N STRICT PUP STATUS AND INTERVENTIONS ALTERNATING PRESSURE DRESSING LABS: WBC- 10.39 HGB- 7.5 GLUCOSE-190 SKIN ASSESSMENT COMPLETE PATIENT PRESENTS WITH BILATERAL DORSAL FEET ABRASION R/T FOOT PROTECTOR STRAPS 0.5CM X 1CM X 0.1CM RIGHT INNER THIGH ABRASION R/T LEG PNEUMATIC COMPRESSION PLASTIC SURFACE RUBBING SKIN SURFACE RECOMMENDATIONS: NURSING TO CONTINUE TO MONITOR PATIENT AND KEEP SKIN CLEAN AND FREE FROM LOOSE STOOL OR IRRITATING MOISTURE AND CONTINUE TO FOLLOW STRICT PUP INTERVENTIONS NURSING TO CONTINUE TO MAINTAIN PATIENT NUTRITION TO SUPPORT WOUND HEALING NURSING TO MAINTAIN AND COVER BILATERAL DORSAL FEET ABRASIONS AND RIGHT INNER THIGH ABRASION WITH ALLEVYN FOAM DRESSING TO PREVENT FURTHER RUBBING AND IRRITATION Addendum: 02/07/20 at 1504 by Arthur Sin RN Amended: Links added.
--- NOTE | 2020-02-07 14:53 | NUR ---
ORDER RECEIVED FOR AN LTAC. CALL TO PT'S , VERONICA MARTINS @ [phone]. NO ANSWER; CARTER. CM LEFT CARTER W CONTACT INFO.
[2020-02-07 15:44] LABS: ABG HCO3 47 mmol/L (22-26); ABG PCO2 103 mmHg (35-45); ABG PH 7.26 (7.35-7.45); ABG PO2 62 mmHg (80-105); ABG TCO2 50
--- NOTE | 2020-02-07 19:29 | NUR ---
Dr. Mahogany Blakely informed of ABG results. MADHAVI Bernal documenting hourly vital signs.
[2020-02-07] MEDS: INSULIN GLARGINE 100 UNITS/ML VIAL SQ SCH (20:25)
[2020-02-07] MEDS ORDERED: HEPARIN SOD/SOD CHLORIDE 1,000 ML ONE (23:19)
[2020-02-07] MEDS ORDERED: ROCURONIUM BROMIDE 250 ML IV ONE (23:38)
[2020-02-08] VITALS (26 sets, daily range): BP systolic 107–159; BP diastolic 50–81
--- NOTE | 2020-02-08 02:38 | Progress Note ---
DATE: 02/07/2020 This is a late entry. SUBJECTIVE: The patient remains in ICU bed 194. Pressure control was increased to 30 today. No major events overnight. OBJECTIVE: VITAL SIGNS: Temperature 99.4, pulse 96, 105/47, respirations 36, oxygen saturation 92%. GENERAL: Supine, not prone. No acute distress. LUNGS: Tracheostomy to ventilator, pressure control. Respiratory rate 36. PEEP of 8 and a pressure control above PEEP now is 30, FiO2 set at 70%. HEENT: Right NG tube with tube feeding at 40 mL. NECK: Supple. CARDIOVASCULAR: Right upper extremity PICC line. Left radial arterial line and sinus rhythm. Levophed drip. ABDOMEN: Obese, soft. Cantu catheter with kinga urine. EXTREMITIES: No pitting edema. No signs of DVT. INTEGUMENTARY: Bilateral facial cheek wounds from being prone in the past. NEUROLOGIC: The patient remains on rocuronium, Versed, and fentanyl drips. LABORATORY DATA: WBCs 10.39, hemoglobin 7.5, hematocrit 26.5, platelets 360. ABG this morning, pH 7.26, pCO2 of 97, pO2 of 94, HCO3 of 44, oxygen saturation 95%, base excess of 17, FiO2 of 75%. Sodium 139, potassium 3.6, chloride 91, CO2 of 40, anion gap 11.6, BUN 16, creatinine 0.58, estimated GFR greater than 60, glucose 190. Fingerstick blood glucose levels 217, 194, 205, 209. Calcium 9.4. Total bilirubin 0.5, AST 19, ALT 7, alkaline phosphatase 93, total protein 8.3, albumin 3.5. IMAGING: Chest x-ray, no significant interval change from 02/06/2020. Chest x-ray, diffuse increased interstitial airspace opacities throughout the lungs bilaterally. ASSESSMENT AND PLAN: 1. COVID-19 pneumonia with septic shock. Continue Lovenox, vitamin C, zinc sulfate, vitamin D. Wean Levophed as tolerated. Pulmonary and Infectious Disease continue to follow. 2. Acute respiratory failure, status post tracheostomy placement. Wean ventilator settings as tolerated per Pulmonology/Critical Care Medicine. Continue sedation with rocuronium, fentanyl, and Versed drips. 3. Uncontrolled type 2 diabetes mellitus. Serum glucose 190. Continue Lantus and regular sliding scale insulin. Monitor fingerstick blood glucose levels. 4. Anemia of chronic disease. Hemoglobin 7.5, hematocrit 26.5. Monitor closely. May need blood transfusion, same. 5. Moderate protein-calorie malnutrition. Maintain nutritional support with enteral feedings. 6. Prophylaxis. Pepcid and Lovenox. Inpatient status, ICU 194, billing code [id number], time spent 35 minutes. Dictated by Sim Root NP MD JOHN Guzman/MODL /[id number]
[2020-02-08] MEDS: MIDAZOLAM HCL 5MG/ML 10ML VIAL 100 ML IV PRN ×3 (03:59→21:48)
[2020-02-08] MEDS: FENTANYL 2000MCG/NS 250 250 ML IV PRN ×2 (04:00→14:38)
[2020-02-08 04:49] LABS: BASOPHILS # (AUTO) 0.1 (0.0-0.1); BASOPHILS % 0.5 % (0.0-1.0); EOSINOPHILS # (AUTO) 0.2 (0.0-0.4); EOSINOPHILS % 1.5 % (0.0-6.0); HEMATOCRIT 27.8 % (34.2-44.1); HEMOGLOBIN 7.8 g/dL (12.0-16.0); LYMPHOCYTES # (AUTO) 1.5 (1.0-3.2); LYMPHOCYTES % 11.3 % (18.0-39.1); MEAN CORPUSCULAR HEMOGLOBIN 27.8 pg (28-32); MEAN CORPUSCULAR HGB CONC 28.1 g/dL (31-35); MEAN CORPUSCULAR VOLUME 98.9 fL (81-99); MONOCYTES # (AUTO) 0.9 (0.2-0.8); MONOCYTES % 7.1 % (4.4-11.3); NEUTROPHILS # (AUTO) 9.8 (2.1-6.9); NEUTROPHILS % 75.5 % (38.7-80.0); PLATELET COUNT 479 x10e3/uL (140-360); RED BLOOD COUNT 2.81 x10e6/uL (3.6-5.1)
[2020-02-08 05:09] LABS: ALBUMIN 3.2 g/dL (3.5-5.0); ALBUMIN/GLOBULIN RATIO 0.6 (0.8-2.0); ALKALINE PHOSPHATASE 94 IU/L (40-150); ANION GAP 10.9 mmol/L (8-16); BLOOD UREA NITROGEN 19 mg/dL (7-26); BUN/CREATININE RATIO 39 (6-25); CALCIUM 9.5 mg/dL (8.4-10.2); CHLORIDE 90 mmol/L (98-107); CREATININE, SERUM 0.49 mg/dL (0.57-1.11); EST GLOMERULAR FILTRATION RATE > 60 ML/MIN (60-); GLUCOSE 180 mg/dL (74-118); POTASSIUM 3.9 mmol/L (3.5-5.1); SODIUM 141 mmol/L (136-145)
[2020-02-08 05:12] LABS: ALANINE AMINOTRANSFERASE < 6 IU/L (0-55)
[2020-02-08 05:13] LABS: CARBON DIOXIDE 44 mmol/L (22-29)
[2020-02-08] MEDS: MEROPENEM 500MG/ NS 50ML 50 ML IV SCH ×3 (06:31→22:42)
[2020-02-08] MEDS: INSULIN LISPRO 100 UNIT/1 ML 3ML VIAL SQ SCH ×4 (06:31→22:46)
[2020-02-08] MEDS: LEVOTHYROXINE SODIUM 25 MCG TABLET PO SCH (06:31)
--- NOTE | 2020-02-08 07:00 | NUR ---
Chair documented in Q2H turn flowsheet to denote prone position
--- NOTE | 2020-02-08 07:48 | Diagnostic Imaging Report ---
EXAMINATION: CHEST SINGLE (PORTABLE) INDICATION: Respiratory failure COMPARISON: Prior day chest x-ray FINDINGS: TUBES and LINES: Unchanged tracheostomy tube, right upper extremity PICC, and enteric tube.. LUNGS: Extensive airspace disease. PLEURA: No pneumothorax. HEART AND MEDIASTINUM: Unchanged. BONES AND SOFT TISSUES: Unchanged. UPPER ABDOMEN: No free air under the diaphragm. IMPRESSION: Stable support apparatus. Extensive airspace disease. No pneumothorax. Signed by: Sigifredo Christensen DO on 02/08/2020 7:44 AM
[2020-02-08 08:42] LABS: ABG HCO3 46 mmol/L (22-26); ABG PCO2 111 mmHg (35-45); ABG PH 7.23 (7.35-7.45); ABG PO2 82 mmHg (80-105); ABG TCO2 50
[2020-02-08] MEDS: FAMOTIDINE 20 MG/2 ML VIAL IV SCH (09:00)
--- NOTE | 2020-02-08 09:05 | Progress Note ---
DATE: Pulmonary Critical Care Progress Note. SUBJECTIVE: The patient is still on a PRVC mode of ventilation. She is set at a rate of 36 with an FiO2 of 70%, PEEP of 8 and pressure support above PEEP of 30. She remains on Levophed at 2.5 mcg. She is also on Versed and fentanyl. PHYSICAL EXAMINATION: VITAL SIGNS: Blood pressure is 139/64, saturation is 92%. She is on the above-mentioned ventilator settings. Her pulse is 108. HEENT: Shows no facial swelling or erythema. LYMPHATIC: Shows no submandibular, cervical, or supraclavicular adenopathy. CARDIAC: Reveals regular rate and rhythm. Normal S1, S2. LUNGS: Auscultation of lungs reveals rhonchorous breath sounds bilaterally. There is no wheezing. ABDOMEN: Soft and nontender. There is no rebound or guarding. EXTREMITIES: Shows no leg edema or calf tenderness. There is no cyanosis or clubbing. SKIN: Shows no rashes. NEUROLOGICAL: Shows the patient to be sedated and paralyzed. LABORATORY DATA: BUN to creatinine ratio is 19 to 0.49. Carbon dioxide is 44, and the albumin is 3.2. RADIOGRAPHIC DATA: Bilateral airspace disease. IMPRESSION: 1. Acute respiratory failure. 2. Viral pneumonia and COVID-19 infection. 3. Moderate protein-calorie malnutrition. 4. Diabetes. 5. Anemia, unspecified. PLAN: 1. Continue to use pressure control and current mode of ventilation. 2. Hold rocuronium. 3. Wean Levophed. 4. Continue Versed and fentanyl. 5. Lasix today. 6. Continue blood sugars and adjust insulin. 7. Continue to monitor blood counts. Greater than 35 minutes in direct critical care time. Efren Blakely MD [facility]/MOD[facility] /[id number]
[2020-02-08] MEDS ORDERED: FUROSEMIDE INJ 10 MG/ML 4 ML VIAL IV ONE (09:20)
[2020-02-08] MEDS: ASCORBIC ACID 500 MG TAB PO SCH (09:24)
[2020-02-08] MEDS: ENOXAPARIN SOD INJ 40 MG/0.4 ML SYR SC SCH ×2 (09:24→21:33)
[2020-02-08] MEDS: CHOLECALCIFEROL 400 UNIT TAB PO SCH (09:24)
[2020-02-08] MEDS: ZINC SULFATE 220 MG CAP PO SCH (09:24)
[2020-02-08] MEDS: BACITRACIN ZINC 15 GM OINT TOP SCH (09:24)
[2020-02-08] MEDS: DOCUSATE SODIUM LIQD 100 MG/10 ML UDC NG SCH (09:24)
--- NOTE | 2020-02-08 11:33 | NUR ---
CALL TO PT'S TO DISCUSS CHOICE. STATES HE HAD NOT SPOKEN TO DR. HASTINGS YET AND WAS TOLD BY THE NIGHT NURSE DR. HASTINGS HAD NOT AUTHORIZED A TRANSFER. INFORMED MR. MARTINS THE NURSE CALLED THIS AM TO REQUEST PER DR. HASTINGS TO HAVE DR. JOHNS FOLLOW THE PT AT [place]. STATES HE WOULD STILL LIKE TO SPEAK W DR. HASTINGS FIRST. CALL TO ESTEFANY / BEDSIDE RN REGARDING DR. HASTINGS SPEAKING W THE . STATES DR. HASTINGS EXPRESSED IT MAY BE TOO SOON. STATES SHE WILL INFORM HIS OF THE 'S REQUEST.
--- NOTE | 2020-02-08 14:53 | NUR ---
NOTIFIED SHANE AMEZQUITA. STATES MAYBE DR. WOOD CAN SPEAK W THE . WILL F/U.
[2020-02-08] MEDS: ACETAMINOPHEN 325 MG TAB PO PRN ×2 (15:00→21:34)
[2020-02-08 16:20] LABS: ABG PCO2 63 mmHg (35-45)
[2020-02-08 16:21] LABS: ABG HCO3 49 mmol/L (22-26); ABG PO2 88 mmHg (80-105); ABG TCO2 > 50
--- NOTE | 2020-02-08 19:00 | NUR ---
Report received from Yashira Del Real RN.
[2020-02-08] MEDS: INSULIN GLARGINE 100 UNITS/ML VIAL SQ SCH (21:38)
[2020-02-09] VITALS (23 sets, daily range): BP systolic 100–170; BP diastolic 49–86
[2020-02-09] MEDS: FENTANYL 2000MCG/NS 250 250 ML IV PRN ×3 (00:45→20:33)
--- NOTE | 2020-02-09 03:15 | Progress Note ---
DATE: 02/08/2020 CONSULTING PHYSICIANS: 1. Dr. Manan Meehan with Infectious Disease. 2. Dr. Kenton Riley with Surgery. 3. Dr. Efren Blakely with Pulmonology/Critical Care Medicine. This is a late entry. SUBJECTIVE: Temperature 101 this afternoon per RN. Tylenol did help. PharmD reviewed case with Dr. Blakely and discussed the need for a break from the rocuronium. OBJECTIVE: VITAL SIGNS: Temperature 98.7, pulse 94, blood pressure 135/65, respirations 36, oxygen saturation 94%. GENERAL: The patient is now prone. No acute distress. LUNGS: Tracheostomy to ventilator. Pressure controlled. Respiratory rate 36, 30 over PEEP. FiO2 of 75%, PEEP of 8, peak pressure 38, minute ventilation 15.2, oxygen saturation at the time of encounter 97%. HEENT: Right naris NG tube with vital AF at 25 mL an hour. NECK: Supple. CARDIOVASCULAR: Right upper extremity PICC line, left radial arterial line, and she is in sinus rhythm. Levophed drip at 5.6 mcg/minute. ABDOMEN: Obese, soft. Cantu catheter with kinga urine. EXTREMITIES: SCDs were off. No sign of DVT. NEUROLOGIC: Rocuronium off. Fentanyl infusing 200 mg now. INTEGUMENTARY: Bilateral facial cheeks with wounds. LABORATORY DATA: WBC 13.04, hemoglobin 7.8, hematocrit 27.8, platelets 479. ABG today, pH 7.23, pCO2 of 111, PO2 of 82, HC03 of 46. Oxygen saturation 92%, base excess of 19, FiO2 of 75% that was drawn at 8:00 a.m. About 15:37 p.m., pH 7.5, pCO2 of 63, PO2 of 88%, HC03 of 49, oxygen saturation 97%, base excess is 25, FiO2 of 75%. Sodium 141, potassium 3.9, chloride 90, CO2 of 44, anion gap 10.9, BUN 19, creatinine 0.49, estimated GFR greater than 60, glucose 180, calcium 9.5, total bilirubin 0.5, AST 15, ALT less than 6, alkaline phosphatase 94, total protein 8.2, albumin 3.2. Fingerstick blood glucose levels 254 and 125. IMAGING PROCEDURE: Chest x-ray today showed stable support apparatus. Extensive airspace disease. No pneumothorax. ASSESSMENT AND PLAN: 1. Coronavirus disease 2019 pneumonia with septic shock. Continue Lovenox, vitamin C, zinc sulfate, and vitamin D. Wean Levophed as tolerated. Infectious Disease and Pulmonology/Critical Care Medicine continue to follow. The patient is now prone. Rocuronium held for now. 2. Acute respiratory failure, status post tracheostomy placement. Wean ventilator settings as tolerated. Continue sedation. However, rocuronium drip has been stopped for now. 3. Uncontrolled type 2 diabetes mellitus. Serum glucose 180. Monitor fingerstick blood glucose levels. Continue Lantus and regular insulin sliding scale. 4. Anemia of chronic disease. Hemoglobin 7.8, hematocrit 27.8. Monitor. 5. Moderate protein-calorie malnutrition. Maintain nutritional support with enteral feedings. Tube feeding rate, decreased from 40 to 25 mL an hour per RN as the patient is now prone in order to avoid potential aspiration. The patient received Lasix today. 6. Prophylaxis. Lovenox and Pepcid. INPATIENT STATUS: ICU #[id number], billing code #[id number]. Time spent 35 minutes. Dictated by Sim Root NP Kvng Doherty MD [facility] /[id number]
[2020-02-09 05:31] LABS: BASOPHILS # (AUTO) 0.1 (0.0-0.1); BASOPHILS % 0.3 % (0.0-1.0); EOSINOPHILS # (AUTO) 0.1 (0.0-0.4); EOSINOPHILS % 0.5 % (0.0-6.0); HEMATOCRIT 30.4 % (34.2-44.1); LYMPHOCYTES # (AUTO) 1.6 (1.0-3.2); LYMPHOCYTES % 9.5 % (18.0-39.1); MEAN CORPUSCULAR HEMOGLOBIN 27.3 pg (28-32); MEAN CORPUSCULAR HGB CONC 29.6 g/dL (31-35); MEAN CORPUSCULAR VOLUME 92.1 fL (81-99); MONOCYTES # (AUTO) 1.2 (0.2-0.8); NEUTROPHILS # (AUTO) 13.5 (2.1-6.9); PLATELET COUNT 541 x10e3/uL (140-360); RED CELL DISTRIBUTION WIDTH 15.2 % (11.7-14.4)
[2020-02-09] MEDS: MEROPENEM 500MG/ NS 50ML 50 ML IV SCH ×3 (05:42→20:32)
[2020-02-09] MEDS: LEVOTHYROXINE SODIUM 25 MCG TABLET PO SCH (06:08)
[2020-02-09 06:16] LABS: ALANINE AMINOTRANSFERASE 6 IU/L (0-55); ALBUMIN 2.9 g/dL (3.5-5.0); ALBUMIN/GLOBULIN RATIO 0.6 (0.8-2.0); ALKALINE PHOSPHATASE 97 IU/L (40-150); ANION GAP 13.1 mmol/L (8-16); BLOOD UREA NITROGEN 16 mg/dL (7-26); BUN/CREATININE RATIO 35 (6-25); CALCIUM 9.3 mg/dL (8.4-10.2); CHLORIDE 89 mmol/L (98-107); CREATININE, SERUM 0.46 mg/dL (0.57-1.11); EST GLOMERULAR FILTRATION RATE > 60 ML/MIN (60-); GLUCOSE 183 mg/dL (74-118); SODIUM 141 mmol/L (136-145)
[2020-02-09] MEDS: MIDAZOLAM HCL 5MG/ML 10ML VIAL 100 ML IV PRN ×2 (06:17→17:08)
[2020-02-09 06:22] LABS: CARBON DIOXIDE 42 mmol/L (22-29); POTASSIUM 3.1 mmol/L (3.5-5.1)
[2020-02-09] MEDS: INSULIN LISPRO 100 UNIT/1 ML 3ML VIAL SQ SCH ×3 (06:27→18:45)
[2020-02-09] MEDS: POTASSIUM CHLORIDE 20MEQ/100ML 100 ML IV PRN (06:42)
--- NOTE | 2020-02-09 07:00 | NUR ---
Chair documented in Turn Q2H to denote prone position.
--- NOTE | 2020-02-09 07:00 | NUR ---
Report given to Yashira Del Real RN.
[2020-02-09] MEDS ORDERED: CISATRACURIUM BESYLATE 100 MG in SODIUM CHLORIDE 0.9% 100 ML 100 ML IV PRN (08:45)
[2020-02-09] MEDS ORDERED: VANCOMYCIN 1GM/NS 250 ML 250 ML IV ONE (09:00)
[2020-02-09 09:06] LABS: ABG HCO3 47 mmol/L (22-26); ABG PCO2 52 mmHg (35-45); ABG PH 7.56 (7.35-7.45); ABG PO2 76 mmHg (80-105); ABG TCO2 48
[2020-02-09] MEDS: ENOXAPARIN SOD INJ 40 MG/0.4 ML SYR SC SCH ×2 (09:55→20:32)
[2020-02-09] MEDS: ACETAZOLAMIDE SODIUM 500 MG/VIAL IV SCH ×2 (09:55→20:32)
[2020-02-09] MEDS: DOCUSATE SODIUM LIQD 100 MG/10 ML UDC NG SCH (09:55)
[2020-02-09] MEDS: BACITRACIN ZINC 15 GM OINT TOP SCH (09:55)
--- NOTE | 2020-02-09 10:15 | Progress Note ---
DATE: Pulmonary Critical Care Progress Note SUBJECTIVE: The patient is still on low-dose Levophed. She remains in the prone position. She had a temperature to 100.8 yesterday. PHYSICAL EXAMINATION: VITAL SIGNS: The blood pressure is 135/66 and saturation is 98%. She is currently on a pressure control mode of ventilation at a rate of 34. The pressure control is 28 and the PEEP is set at 8. The FiO2 is 70%. HEENT: Shows no facial swelling or erythema. LYMPHATIC: Shows no submandibular, cervical, or supraclavicular adenopathy. CARDIAC: Reveals regular rate and rhythm with normal S1 and S2. LUNGS: Auscultation of lungs reveals rhonchorous breath sounds bilaterally. There is no wheezing. ABDOMEN: Soft and nontender. There is no rebound or guarding. EXTREMITIES: Show no leg edema or calf tenderness. There is no cyanosis or clubbing. SKIN: Shows no rashes. NEUROLOGICAL: Shows no focal abnormalities. LABORATORY DATA: White blood cell count is 16.9, hemoglobin is 9, and the platelet count is 541. The BUN to creatinine ratio is normal. The potassium is 3.1 and the carbon dioxide is 42. Albumin is 2.9. IMPRESSION: 1. Acute respiratory failure. 2. Fever with leukocytosis. 3. Viral pneumonia and COVID-19 infection. 4. Moderate protein-calorie malnutrition. 5. Diabetes. 6. Anemia. PLAN: 1. The patient to be pancultured today including sputum and blood. 2. Give vancomycin x1 and continue meropenem. 3. Wean off Levophed. 4. The patient to receive Diamox. 5. Continue enteral feedings. 6. Continue Versed and fentanyl. 7. Restart Nimbex. 8. Case discussed with nursing, Respiratory, Infectious Disease, and Internal Medicine. Greater than 35 minutes in direct critical care time. Efren Blakely MD [facility] /[id number]
[2020-02-09] MEDS: LINEZOLID 600 MG/D5W 300ML 300 ML IV SCH ×2 (12:23→20:32)
--- NOTE | 2020-02-09 12:52 | NUR ---
ODALIS SPOKE WITH NURSE ESTEFANY TODAY SHE STATES PT'S HR 120-130 SHE WILL ASK MATHIEU OR DR HASTINGS TO CALL PT[facility] TODAY AND EXPLAIN LTAC NEED AND ANSWER QUESTIONS SHE WILL CONTACT ME ONCE SPEAKS WITH ONE OF THEM AND I WILL CALL TO GET CHOICE LETTER FROM
--- NOTE | 2020-02-09 14:27 | Progress Note ---
DATE: SUBJECTIVE: Ms. Fairchild admitted to the Intensive Care Unit. She had fever, leukocytosis, remains on the ventilator. OBJECTIVE: VITAL SIGNS: Blood pressure 135/70, temp 98.9, heart rate 101, respirations 36. HEENT: Normocephalic. NECK: Supple. CHEST: Few crackles. HEART: S1, S2. ABDOMEN: Soft, bowel sounds present. EXTREMITIES: No edema. IMAGING: Blood cultures are pending. White count 16, hemoglobin 9. Chest x-ray showed stable, no pneumothorax. IMPRESSION: Respiratory failure, fever, diabetes mellitus. The patient has been on meropenem for 4 days. Fever, leukocytosis, concerned about sepsis, concerned about infection. Source is unclear. Obtain sputum cultures. We will put on Zyvox and Diflucan. Recheck CBC. Recheck Chem panel. We will await blood cultures. Further recommendations to follow. MD ALESSANDRO Leos/[facility] /[id number]
[2020-02-09 16:40] LABS: ABG HCO3 40 mmol/L (22-26); ABG PCO2 54 mmHg (35-45); ABG PH 7.47 (7.35-7.45); ABG PO2 107 mmHg (80-105); ABG TCO2 41
--- NOTE | 2020-02-09 17:04 | NUR ---
Dr Blakely updated regarding ABG results. New orders received and carried out.
--- NOTE | 2020-02-09 18:45 | NUR ---
Report received from Yashira Del Real RN.
--- NOTE | 2020-02-09 20:30 | NUR ---
PROM to extremities x4.
[2020-02-09] MEDS: INSULIN GLARGINE 100 UNITS/ML VIAL SQ SCH (20:33)
--- NOTE | 2020-02-09 23:30 | NUR ---
ENRIKE PICC dressing changed completed.
[2020-02-10] VITALS (35 sets, daily range): BP systolic 78–131; BP diastolic 45–67
[2020-02-10] MEDS: INSULIN LISPRO 100 UNIT/1 ML 3ML VIAL SQ SCH ×4 (00:03→18:35)
--- NOTE | 2020-02-10 01:30 | NUR ---
PROM to extremities x4.
[2020-02-10] MEDS: MIDAZOLAM HCL 5MG/ML 10ML VIAL 100 ML IV PRN ×2 (02:00→20:33)
--- NOTE | 2020-02-10 04:00 | NUR ---
PROM to extremities x4.
[2020-02-10 05:09] LABS: BASOPHILS # (AUTO) 0.1 (0.0-0.1); BASOPHILS % 0.6 % (0.0-1.0); EOSINOPHILS # (AUTO) 0.5 (0.0-0.4); HEMATOCRIT 29.4 % (34.2-44.1); HEMOGLOBIN 8.4 g/dL (12.0-16.0); LYMPHOCYTES # (AUTO) 2.5 (1.0-3.2); LYMPHOCYTES % 15.5 % (18.0-39.1); MEAN CORPUSCULAR HEMOGLOBIN 26.9 pg (28-32); MEAN CORPUSCULAR HGB CONC 28.6 g/dL (31-35); MEAN CORPUSCULAR VOLUME 94.2 fL (81-99); MONOCYTES # (AUTO) 1.2 (0.2-0.8); MONOCYTES % 7.8 % (4.4-11.3); NEUTROPHILS % 69.3 % (38.7-80.0); PLATELET COUNT 512 x10e3/uL (140-360); RED BLOOD COUNT 3.12 x10e6/uL (3.6-5.1); RED CELL DISTRIBUTION WIDTH 15.6 % (11.7-14.4)
[2020-02-10 05:32] LABS: ANION GAP 11.8 mmol/L (8-16); BLOOD UREA NITROGEN 18 mg/dL (7-26); BUN/CREATININE RATIO 44 (6-25); CALCIUM 9.4 mg/dL (8.4-10.2); CARBON DIOXIDE 36 mmol/L (22-29); CHLORIDE 95 mmol/L (98-107); CREATININE, SERUM 0.41 mg/dL (0.57-1.11); EST GLOMERULAR FILTRATION RATE > 60 ML/MIN (60-); GLUCOSE 97 mg/dL (74-118); SODIUM 140 mmol/L (136-145)
[2020-02-10 05:41] LABS: POTASSIUM 2.8 mmol/L (3.5-5.1)
[2020-02-10 05:51] LABS: ABG PH 7.35 (7.35-7.45)
[2020-02-10 05:52] LABS: ABG HCO3 41 mmol/L (22-26); ABG PCO2 75 mmHg (35-45); ABG PO2 159 mmHg (80-105); ABG TCO2 43; PHOSPHORUS 5.2 MG/DL (2.3-4.7)
[2020-02-10] MEDS: FENTANYL 2000MCG/NS 250 250 ML IV PRN (05:53)
[2020-02-10] MEDS: MEROPENEM 500MG/ NS 50ML 50 ML IV SCH ×3 (05:53→22:13)
[2020-02-10] MEDS: POTASSIUM CHLORIDE 20MEQ/100ML 100 ML IV PRN (06:18)
[2020-02-10] MEDS: DOCUSATE SODIUM LIQD 100 MG/10 ML UDC NG SCH (08:19)
[2020-02-10] MEDS: LINEZOLID 600 MG/D5W 300ML 300 ML IV SCH ×2 (08:19→20:34)
[2020-02-10] MEDS: BACITRACIN ZINC 15 GM OINT TOP SCH (08:19)
[2020-02-10] MEDS ORDERED: POTASSIUM CHLORIDE 20MEQ/100ML 200 ML IV ONE (08:45)
--- NOTE | 2020-02-10 10:41 | NUR ---
INFECTIOUS DISEASE PROGRESS NOTE DR. KATTY REINOSO In ICU, critically ill ROS: unable to obtain due to condition All 14 point ROS neg unless otherwise noted PHYSICAL EXAMINATION: VITAL SIGNS: reviewed HEENT: No facial swelling or erythema. LYMPHATIC: No submandibular, cervical, or supraclavicular adenopathy. CARDIAC: Regular rate and rhythm with normal S1, S2. LUNGS: Rhonchi, diminished ABDOMEN: Soft, nontender. There is no rebound or guarding. EXTREMITIES: No leg edema or calf tenderness. There is no cyanosis or clubbing. SKIN: No rashes. NEUROLOGICAL: The patient to be sedated. MICROBIOLOGICAL DATA: reviewed LABORATORY DATA: reviewed RADIOGRAPHIC DATA: Chest x-ray shows continued bilateral infiltrates. IMPRESSION: 1. Acute respiratory failure. 2. Viral pneumonia and COVID 19 infection. 3. Diabetes. 4. Anemia. 5. Sepsis, source unclear PLAN: Zyvox and Diflucan Merrem leukocytosis monitor clinically planning for prone tomorrow guarded prognosis Barbara Torres MSN, MERCERIZER, AGACNP-BC Katty Reinoso M.D
--- NOTE | 2020-02-10 11:16 | Progress Note ---
DATE: SUBJECTIVE: The patient is currently on mechanical ventilator. The patient is afebrile. She remains in the prone position. See has currently off Levophed. She remains on very low-dose Nimbex as well as Versed and fentanyl. PHYSICAL EXAMINATION: VITAL SIGNS: The blood pressure is 100/50 and the saturation is 97%, the pulse is 93, current ventilator settings are PRVC at rate of 32 with a pressure control of 26 and a PEEP of 8. The FiO2 is 50%. HEENT: Shows no facial swelling or erythema. LYMPHATIC: Shows no submandibular, cervical, or supraclavicular adenopathy. CARDIAC: Reveals regular rate and rhythm with normal S1, S2. LUNGS: Auscultation of lungs reveals rhonchorous breath sounds bilaterally. There is no wheezing. ABDOMEN: Soft, nontender. There is no rebound or guarding. EXTREMITIES: Shows no leg edema or calf tenderness. LABORATORY DATA: Potassium is 2.8 and the BUN to creatinine ratio is 18 to 0.41. The other electrolytes are within normal limits. The white blood cell count is 15.8 and the hemoglobin is 8.4. The platelet count is 512. The ABGs are 7.35, 75, 159, 41. IMPRESSION: 1. Acute respiratory failure. 2. Viral pneumonia and COVID-19 infection. 3. Moderate protein-calorie malnutrition. 4. Diabetes. 5. Anemia. PLAN: 1. Place the patient in supine position today. 2. Continue to wean oxygen as tolerated. 3. Stop Nimbex. 4. Complete current antibiotics. 5. Continue Versed and fentanyl. 6. Continue enteral feedings. Greater than 35 minutes in direct critical care time. Efren Blakely MD [facility] /[id number]
--- NOTE | 2020-02-10 15:28 | NUR ---
Nutrition Intervention Note RD Recommendation(s) for Physician: -Continue Vital AF 1.2 with goal rate of 40 mL/hr (provides 1152 kcal, 72 g protein) -Water/fluid management per MD -If pt requires prone positioning, pt may be fed at goal rate placed in reverse Trendelenburg with HOB at 10 to 25 degrees. Plan of Care: RD following, monitoring for tolerance and adequacy, tube feed recommendation Nutrition reason for involvement: follow up RD Assessment 02/09: Follow up. Pt remains intubated. Pt is currently in the supine position and tube feeding is at 40 mL/hr at this time. Tube feeding was at 25 mL/hr yesterday and 02/07 per documentation. Current recommendations remain appropriate. Will continue to monitor. 02/05: Follow up. Pt remains intubated via trach. Pt currently supine with plan to place back in prone per MD notes. Pt currently sedated, paralyzed, and on one low dose pressor. NGT in place, pt on TF at 20 ml/hr per TV admin yesterday of 480 ml. Chart reviewed. Current TF rec's remain appropriate. Will continue to monitor. 02/01: Follow up. Chart reviewed. Pt remains intubated. Pt is scheduled to receive a trach today; therefore, tube feeding is off at his time. Pt is also off pressor support per chart. Recommend resuming tube feeding when medically appropriate. Current recommendations remain appropriate. Will continue to monitor. 01/30: Follow up. Pt remains intubated, sedated, and paralyzed. Pt currently on Levophed, decreased to 4 mcg/min per RN. Pt tolerating TF at 25 ml/hr, having BMs, and no residuals- advised RN to advance TF to goal rate of 40 ml/hr per current order. Chart reviewed. Will continue to monitor. 01/26: Follow up. Chart reviewed. Pt remains intubated/sedated and is in the prone position. TF rate is at 25 mL/hr at this time. Recommend increasing TF to goal rate of 40 mL/hr. Pt may be fed at goal rate placed in reverse Trendelenburg with HOB at 10 to 25 degrees. Will continue to monitor. 01/22: Follow up. Pt remains intubated and sedated with Versed and Fentanyl, currently in prone position. Pt on low dose Levophed at 3 mcg/min while receiving HD. Pt tolerating TF at 45 ml/hr. Pt discussed during MDR, no recent BM per RN. Chart reviewed. Will continue to monitor. 01/17: Follow up. Pt remains mechanically ventilated and is in the prone position. Pt tube feed is at 30 mL/hr per RN. Recommend increasing towards goal as appropriate. Will continue to monitor. (01/14/20) Pt is a 54 year old female admitted with hypoxia and pneumonia due to COVID-19. Pt was intubated yesterday and tube feed order was placed. Pt was previously on an ADA diet with 25-50% meal intake recorded. Pt has a ht of 48 inches currently in chart, but per history in chart a height of 59 inches was previously recorded. Recommendations provided. RD to manage tube feed order per Dr. Blakley. Will continue to monitor. Principal Problems/Diagnoses: hypoxia, pneumonia due to COVID-19 PMH: Kidney infections as a child, diabetes mellitus, diabetic neuropathy, hypothyroidism, overactive bladder, and morbid obesity. GI: soft abdomen, last recorded BM 02/07 Skin: bilateral dorsal feet abrasion, right inner thigh abrasion per wound care note 02/06 Labs: 02/09: Na 140, K 2.8, BUN 18, Cr 0.41, Glu 97, Ca 9.4, Phos 5.2 02/05: Na 136, K 3.6, BUN 14, Cr 0.49, Gluc 183, Ca 9.4 02/01: Na 144, K 4.9, BUN 17, Cr 0.49, Glu 139, AST 8 01/30: Na 141, K 3.5, BUN 17, Cr 0.56, Gluc 171, Ca 8.7 01/26: Na 144, K 4.5, BUN 23, Cr 0.55, Glu 149, Ca 9.3 01/22: Na 136, K 3.9, BUN 16, Cr 0.64, Gluc 198, POC Gluc 230-265 01/17: Na 144, K 3.0, BUN 22, Cr 0.59, Glu 269, Ca 7.5, AST 48 (01/13) Na 137, K 3.9, BUN 18, Cr 0.79, Glu 233, Ca 8.0, AST 42 Meds: antibiotics, colace, fentayl, insulin Ht: 59 inches (per chart history) Wt: 217.06 lbs (02/09) 205 lbs (02/05) 220.25 lbs (02/01) 204.19 lbs (01/30), 228.06 lbs (01/25) 216.3 lbs (01/22) 218 lbs (01/17) 226 lbs (01/10) - Questionable weight changes, Suspect weight difference is weight error or fluid related BMI: 44 kg/m2 using weight of 218 lbs IBW: 98 lbs Malnutrition Evaluation (02/10/20) The patient does not meet criteria for a specified degree of malnutrition at this time. Will re-evaluate at follow-up as appropriate. Energy intake: TF is currently at goal rate Weight loss: unable to evaluate, weight fluctuations during admission Fat loss: no loss per observation outside room Muscle loss: no loss per observation outside room Supporting Evidence: Fluid accumulation: no edema per MD note Functional Status: unable to evaluate Nutrition Prescription (Diet Order): Vital AF 1.2 @ 40 mL/hr (provides 1152 kcal, 72 g protein) Estimated Nutritional Needs: 980-1115 calories/day (22-25 kcal/kg IBW) 67-89 g protein/day (1.5-2 g pro/kg IBW) Diet Adequacy: current tube feed rate is meeting calorie and protein needs Tolerance: tolerating TF Diet Education Needs Assessment: Diet education not indicated, patient is intubated Nutrition Care Level: high Nutrition Diagnosis: Inadequate oral intake related to acute respiratory failure/mechanical ventilation as evidenced by pt requiring enteral nutrition Goal: Patient will meet 75-100% of estimated needs by follow up Progress: progressing Interventions: - Composition, Rate, Route Monitoring/Evaluation: -Total energy intake, Total protein intake, Formula/Solution, Weight change Signed: Stephanie Angulo RD, MARVIN
[2020-02-10] MEDS ORDERED: POTASSIUM CHLORIDE 10MEQ EA PO SCH (16:00)
[2020-02-10 16:23] LABS: ABG HCO3 39 mmol/L (22-26); ABG PCO2 67 mmHg (35-45); ABG PH 7.37 (7.35-7.45); ABG PO2 71 mmHg (80-105)
[2020-02-10 16:24] LABS: ABG TCO2 41
[2020-02-10 19:36] LABS: ALANINE AMINOTRANSFERASE 8 IU/L (0-55); ALBUMIN 1.8 g/dL (3.5-5.0); ALBUMIN/GLOBULIN RATIO 0.3 (0.8-2.0); ALKALINE PHOSPHATASE 100 IU/L (40-150); ANION GAP 10.7 mmol/L (8-16); BLOOD UREA NITROGEN 19 mg/dL (7-26); BUN/CREATININE RATIO 46 (6-25); CALCIUM 9.1 mg/dL (8.4-10.2); CARBON DIOXIDE 35 mmol/L (22-29); CHLORIDE 97 mmol/L (98-107); CREATININE, SERUM 0.41 mg/dL (0.57-1.11); EST GLOMERULAR FILTRATION RATE > 60 ML/MIN (60-); GLUCOSE 127 mg/dL (74-118); POTASSIUM 3.7 mmol/L (3.5-5.1); SODIUM 139 mmol/L (136-145)
--- NOTE | 2020-02-10 20:31 | Diagnostic Imaging Report ---
EXAMINATION: CHEST SINGLE (PORTABLE) INDICATION: ^resp failure COMPARISON: 02/07/1930. FINDINGS: TUBES and LINES: Unchanged tracheostomy tube with distal tip approximately 0.2 cm proximal to the fran. Right upper extremity PICC, and enteric tube are also stable. LUNGS: Extensive bilateral airspace disease again observed, significantly changed.. PLEURA: No pneumothorax. HEART AND MEDIASTINUM: Unchanged. BONES AND SOFT TISSUES: Unchanged. UPPER ABDOMEN: No free air under the diaphragm. IMPRESSION: Bilateral extensive bilateral airspace disease. Signed by: Dr. Patrick Yadav M.D. on 02/10/2020 8:28 PM
[2020-02-10] MEDS: INSULIN GLARGINE 100 UNITS/ML VIAL SQ SCH (20:32)
[2020-02-11] VITALS (34 sets, daily range): BP systolic 88–140; BP diastolic 40–83
[2020-02-11] MEDS: INSULIN LISPRO 100 UNIT/1 ML 3ML VIAL SQ SCH ×4 (00:11→17:40)
[2020-02-11 05:20] LABS: BASOPHILS # (AUTO) 0.1 (0.0-0.1); BASOPHILS % 0.5 % (0.0-1.0); EOSINOPHILS # (AUTO) 0.6 (0.0-0.4); EOSINOPHILS % 4.6 % (0.0-6.0); LYMPHOCYTES % 14.5 % (18.0-39.1); MEAN CORPUSCULAR HEMOGLOBIN 26.8 pg (28-32); MEAN CORPUSCULAR HGB CONC 28.6 g/dL (31-35); MEAN CORPUSCULAR VOLUME 93.6 fL (81-99); MONOCYTES # (AUTO) 0.9 (0.2-0.8); MONOCYTES % 6.6 % (4.4-11.3); NEUTROPHILS # (AUTO) 9.6 (2.1-6.9); PLATELET COUNT 420 x10e3/uL (140-360); RED BLOOD COUNT 2.99 x10e6/uL (3.6-5.1); RED CELL DISTRIBUTION WIDTH 15.7 % (11.7-14.4)
[2020-02-11 05:40] LABS: ALANINE AMINOTRANSFERASE 7 IU/L (0-55); ALBUMIN 1.8 g/dL (3.5-5.0); ALBUMIN/GLOBULIN RATIO 0.3 (0.8-2.0); ALKALINE PHOSPHATASE 99 IU/L (40-150); ANION GAP 10.6 mmol/L (8-16); BLOOD UREA NITROGEN 19 mg/dL (7-26); BUN/CREATININE RATIO 45 (6-25); CARBON DIOXIDE 36 mmol/L (22-29); CHLORIDE 97 mmol/L (98-107); CREATININE, SERUM 0.42 mg/dL (0.57-1.11); EST GLOMERULAR FILTRATION RATE > 60 ML/MIN (60-); GLUCOSE 120 mg/dL (74-118); POTASSIUM 3.6 mmol/L (3.5-5.1); SODIUM 140 mmol/L (136-145)
[2020-02-11] MEDS: MEROPENEM 500MG/ NS 50ML 50 ML IV SCH ×3 (06:02→22:00)
[2020-02-11] MEDS: FENTANYL 2000MCG/NS 250 250 ML IV PRN ×2 (06:31→23:36)
[2020-02-11] MEDS: MIDAZOLAM HCL 5MG/ML 10ML VIAL 100 ML IV PRN ×2 (06:32→19:40)
[2020-02-11] MEDS: LINEZOLID 600 MG/D5W 300ML 300 ML IV SCH ×2 (07:53→20:53)
[2020-02-11] MEDS: DOCUSATE SODIUM LIQD 100 MG/10 ML UDC NG SCH (07:54)
--- NOTE | 2020-02-11 07:56 | Diagnostic Imaging Report ---
EXAMINATION: CHEST SINGLE (PORTABLE) INDICATION: ^resp failure ^[id number] ^0624 COMPARISON: 02/10/2020, 01/30/2020, 01/26/2020 FINDINGS: AP view TUBES and LINES: Stable tracheostomy tube, right upper extremity PICC, and infradiaphragmatic images/NG tube. LUNGS: Lungs are well inflated. Persistent diffuse bilateral reticular and alveolar airspace opacities. PLEURA: No pleural effusion or pneumothorax. HEART AND MEDIASTINUM: The cardiomediastinal silhouette is unremarkable.. BONES AND SOFT TISSUES: No acute osseous lesion. Soft tissues are unremarkable. UPPER ABDOMEN: No free air under the diaphragm. IMPRESSION: Persistent diffuse bilateral multifocal airspace opacities, which have not significantly changed since at least 01/26/2020 and consistent with multifocal pneumonia with superimposed respiratory distress syndrome. Signed by: Dr. Tila Ro M.D. on 02/11/2020 7:53 AM
[2020-02-11 09:27] LABS: ABG HCO3 39 mmol/L (22-26); ABG PCO2 64 mmHg (35-45); ABG PO2 56 mmHg (80-105); ABG TCO2 41
--- NOTE | 2020-02-11 10:15 | Progress Note ---
DATE: Pulmonary Critical Care Progress Note SUBJECTIVE: The patient is afebrile. The patient is still in the supine position. She is currently on a PRVC mode of ventilation with pressure control set at 26 with a rate of 30. Her PEEP is set at 8 and her FiO2 is set at 60%. She is off paralytics. She is now on Versed at 3 mg and fentanyl at 100 mcg. PHYSICAL EXAMINATION: VITAL SIGNS: Blood pressure is 117/52 and the pulse is 107. Her respiratory rate is in the low 30s. She is synchronized with the vent. HEENT: No facial swelling or erythema. LYMPHATIC: No submandibular, cervical, or supraclavicular adenopathy. CARDIAC: Regular rate and rhythm with normal S1, S2. LUNGS: Auscultation of lungs reveals rhonchorous breath sounds bilaterally. There is no wheezing. ABDOMEN: Soft, nontender. There is no rebound or guarding. EXTREMITIES: No leg edema or calf tenderness. There is no cyanosis or clubbing. SKIN: No rashes. NEUROLOGICAL: No focal abnormalities. LABORATORY DATA: White blood cell count is 13.7, hemoglobin is 8. The platelet count is 420. The BUN to creatinine ratio is 19 to 0.42 and the other electrolytes within normal limits. Albumin is 1.8. RADIOGRAPHIC DATA: Chest x-ray shows persistent bilateral infiltrates. IMPRESSION: 1. Acute respiratory failure, present on admission. 2. Viral pneumonia and coronavirus disease-19 infection, present on admission. 3. Moderate protein calorie malnutrition. 4. Anemia secondary to chronic blood loss. 5. Hypoalbuminemia. 6. Diabetes that required treatment with metformin as an outpatient. 7. Hypothyroidism that required chronic treatment with Synthroid as an outpatient. PLAN: 1. The patient to receive Lasix and albumin today. 2. Continue to wean sedation as tolerated. The patient does raise eyebrows and respond to verbal commands at this time. 3. Continue enteral feedings. 4. Continue current ventilator settings and repeat ABG later this afternoon. 5. Complete current antibiotics. 6. Monitor and control blood sugars. 7. Case discussed with nursing, Respiratory, administration, Internal Medicine, and . Greater than 35 minutes in direct critical care time. MD MEERA Thomas/[facility] /[id number]
[2020-02-11] MEDS: POTASSIUM CHLORIDE 10MEQ EA NG SCH ×2 (13:38→20:54)
[2020-02-11] MEDS: ALBUMIN 25% 25GM 100ML 0.25 GM/ML BTL IV SCH ×2 (13:38→17:13)
[2020-02-11] MEDS: FUROSEMIDE INJ 10 MG/ML 4 ML VIAL IV SCH ×2 (13:38→20:53)
--- NOTE | 2020-02-11 17:03 | History and Physical ---
SUBJECTIVE: The patient remains in the intensive care unit. She had a 100.3 earlier. MEDICATION LIST: She is currently on meropenem, linezolid. PHYSICAL EXAMINATION: GENERAL: Currently intubated, sedated. VITAL SIGNS: Stable, low fever. HEENT: Not icteric. NECK: Supple. CHEST: Crackles. HEART: S1 and S2. ABDOMEN: Soft. Her white count is 13.7, hemoglobin of 8. Sodium 140, potassium 3.6, creatinine 0.42. IMPRESSION: Respiratory failure, pneumonia. Continue with supportive care. We will reassess in the morning, status post COVID, respiratory failure, still on high vent setting, obesity, diabetes mellitus. Further recommendations to follow. MD ALESSANDRO Leos/[facility] /[id number]
[2020-02-11] MEDS: ENOXAPARIN SOD INJ 40 MG/0.4 ML SYR SC SCH (17:13)
[2020-02-11 17:43] LABS: ABG HCO3 41 mmol/L (22-26); ABG PCO2 57 mmHg (35-45); ABG PH 7.47 (7.35-7.45); ABG PO2 55 mmHg (80-105); ABG TCO2 43
[2020-02-11] MEDS: INSULIN GLARGINE 100 UNITS/ML VIAL SQ SCH (20:54)
[2020-02-11] MEDS ORDERED: SODIUM CHLORIDE 0.9% 250ML 250 ML ONE (22:54)
[2020-02-12] VITALS (31 sets, daily range): BP systolic 93–140; BP diastolic 41–81
[2020-02-12] MEDS: INSULIN LISPRO 100 UNIT/1 ML 3ML VIAL SQ SCH ×4 (00:02→18:18)
[2020-02-12] MEDS: ALBUMIN 25% 25GM 100ML 0.25 GM/ML BTL IV SCH ×2 (00:02→05:41)
[2020-02-12] MEDS: MIDAZOLAM HCL 5MG/ML 10ML VIAL 100 ML IV PRN (03:40)
[2020-02-12 05:23] LABS: BASOPHILS # (AUTO) 0.1 (0.0-0.1); BASOPHILS % 0.3 % (0.0-1.0); EOSINOPHILS # (AUTO) 0.3 (0.0-0.4); EOSINOPHILS % 1.9 % (0.0-6.0); HEMATOCRIT 28.5 % (34.2-44.1); HEMOGLOBIN 8.5 g/dL (12.0-16.0); LYMPHOCYTES # (AUTO) 2.1 (1.0-3.2); LYMPHOCYTES % 12.6 % (18.0-39.1); MEAN CORPUSCULAR HGB CONC 29.8 g/dL (31-35); MEAN CORPUSCULAR VOLUME 90.5 fL (81-99); MONOCYTES # (AUTO) 0.9 (0.2-0.8); MONOCYTES % 5.4 % (4.4-11.3); NEUTROPHILS # (AUTO) 12.5 (2.1-6.9); NEUTROPHILS % 75.9 % (38.7-80.0); PLATELET COUNT 468 x10e3/uL (140-360); RED BLOOD COUNT 3.15 x10e6/uL (3.6-5.1); RED CELL DISTRIBUTION WIDTH 15.9 % (11.7-14.4)
[2020-02-12] MEDS: MEROPENEM 500MG/ NS 50ML 50 ML IV SCH ×3 (05:41→22:00)
[2020-02-12 05:51] LABS: ALANINE AMINOTRANSFERASE 8 IU/L (0-55); ALBUMIN 2.6 g/dL (3.5-5.0); ALBUMIN/GLOBULIN RATIO 0.5 (0.8-2.0); ALKALINE PHOSPHATASE 107 IU/L (40-150); ANION GAP 14.1 mmol/L (8-16); BLOOD UREA NITROGEN 13 mg/dL (7-26); BUN/CREATININE RATIO 27 (6-25); CALCIUM 9.1 mg/dL (8.4-10.2); CARBON DIOXIDE 39 mmol/L (22-29); CHLORIDE 91 mmol/L (98-107); CREATININE, SERUM 0.48 mg/dL (0.57-1.11); EST GLOMERULAR FILTRATION RATE > 60 ML/MIN (60-); GLUCOSE 164 mg/dL (74-118); POTASSIUM 3.1 mmol/L (3.5-5.1); SODIUM 141 mmol/L (136-145)
--- NOTE | 2020-02-12 07:53 | Diagnostic Imaging Report ---
EXAMINATION: CHEST SINGLE (PORTABLE) INDICATION: resp failure COMPARISON: Chest radiograph 02/11/2020. FINDINGS: AP view TUBES and LINES: Stable tracheostomy tube, right upper extremity PICC, and infradiaphragmatic enteric tube. LUNGS: Lungs are moderately inflated. Persistent diffuse bilateral reticular and alveolar airspace opacities. PLEURA: No pleural effusion or pneumothorax. HEART AND MEDIASTINUM: The cardiomediastinal silhouette is unremarkable.. BONES AND SOFT TISSUES: No acute osseous abnormality. UPPER ABDOMEN: No free air under the diaphragm. IMPRESSION: Unchanged diffuse bilateral interstitial and airspace opacities, compatible with multifocal pneumonia. Signed by: Dr. Stefanie Gordon MD on 02/12/2020 7:50 AM
[2020-02-12] MEDS: DOCUSATE SODIUM LIQD 100 MG/10 ML UDC NG SCH (08:45)
[2020-02-12] MEDS: LINEZOLID 600 MG/D5W 300ML 300 ML IV SCH ×2 (08:45→21:00)
[2020-02-12] MEDS: POTASSIUM CHLORIDE 10MEQ EA NG SCH ×2 (10:07→21:00)
--- NOTE | 2020-02-12 10:35 | Progress Note ---
DATE: SUBJECTIVE: The patient is currently off Levophed. She is on Versed at 2.5 mg and fentanyl at 75 mcg. The patient received Lasix and albumin yesterday and is negative 2300 mL. PHYSICAL EXAMINATION: VITAL SIGNS: Blood pressure is 127/55, heart rate is 105, and her T-max is 99.6. She remains on a PRVC mode of ventilation. She is set at a rate of 30 with a PEEP of 8 and FiO2 of 65% and a pressure support above PEEP of 26. HEENT: Shows no facial swelling or erythema. She has a tracheostomy, which is in good position. The site looks clean. She has no drainage. CARDIAC: Reveals a regular rate and rhythm with normal S1 and S2. LUNGS: Auscultation of lungs reveals crackles at the bases. There is no wheezing. ABDOMEN: Soft and nontender. There is no rebound or guarding. EXTREMITIES: Show no leg edema or calf tenderness. There is no cyanosis or clubbing. SKIN: Shows no rashes. NEUROLOGICAL: Shows the patient to be sedated, but she is able to follow simple commands. She does wiggle her toes. She moves her fingers and response to verbal commands. LABORATORY DATA: The potassium is 3.1. BUN to creatinine ratio is 13 to 0.48. Albumin is 2.8. Hemoglobin is 8.5 and white blood cell count is 16.5. The platelet count is 468. RADIOGRAPHIC DATA: Chest x-ray shows unchanged bilateral infiltrates. IMPRESSION: 1. Acute respiratory failure. 2. Viral pneumonia and COVID-19 infection, present on admission. 3. Moderate protein-calorie malnutrition. 4. Anemia secondary to chronic blood loss. 5. Diabetes that required oral medications as an outpatient. 6. Hypothyroidism that required chronic treatment with Synthroid. 7. Myopathy of critical illness. PLAN: 1. Repeat ABG now. 2. Continue to wean oxygen and ventilator support as tolerated. 3. Continue diuresis. 4. Complete current antibiotics. 5. Continue enteral feedings. 6. Continue to monitor and control blood sugars. 7. Reduce sedation as tolerated. Greater than 35 minutes in direct critical care time. Efren Blakely MD [facility] /[id number]
--- NOTE | 2020-02-12 12:45 | Progress Note ---
DATE: SUBJECTIVE: Ms. Fairchild is remains in intensive care unit. She is currently on linezolid started in February 08. Meropenem started on . Her sputum culture showing Serratia. PHYSICAL EXAMINATION: GENERAL: Alert, intubated. She follows some command, intubated. VITAL SIGNS: Stable, afebrile. HEENT: She is not icteric. NECK: Supple. CHEST: Crackles. HEART: S1, S2. ABDOMEN: Soft. Bowel sounds present. EXTREMITIES: No edema. SKIN: No rash. IMPRESSION: 1. Respiratory failure. 2. Aspiration pneumonia. 3. Viral pneumonia COVID-19. 4. Obesity. 5. Diabetes mellitus. Continue with current choice of antibiotic now for recheck CBC. Recheck Chem panel. Continue to wean as tolerated. We will follow. MD ALESSANDRO Leos/[facility] /[id number]
[2020-02-12 13:30] LABS: ABG HCO3 42 mmol/L (22-26); ABG PCO2 51 mmHg (35-45); ABG PH 7.53 (7.35-7.45); ABG PO2 66 mmHg (80-105); ABG TCO2 44
[2020-02-12 17:10] LABS: ABG HCO3 42 mmol/L (22-26); ABG PCO2 59 mmHg (35-45); ABG PH 7.46 (7.35-7.45); ABG PO2 79 mmHg (80-105); ABG TCO2 44
[2020-02-12] MEDS: ENOXAPARIN SOD INJ 40 MG/0.4 ML SYR SC SCH (18:17)
[2020-02-12] MEDS: FENTANYL 2000MCG/NS 250 250 ML IV PRN (20:00)
[2020-02-12] MEDS: INSULIN GLARGINE 100 UNITS/ML VIAL SQ SCH (20:46)
[2020-02-13] VITALS (30 sets, daily range): BP systolic 82–134; BP diastolic 42–78
[2020-02-13] MEDS: INSULIN LISPRO 100 UNIT/1 ML 3ML VIAL SQ SCH ×5 (00:15→21:24)
[2020-02-13 05:56] LABS: BASOPHILS # (AUTO) 0.1 (0.0-0.1); BASOPHILS % 0.3 % (0.0-1.0); EOSINOPHILS # (AUTO) 0.4 (0.0-0.4); EOSINOPHILS % 2.7 % (0.0-6.0); HEMATOCRIT 28.5 % (34.2-44.1); HEMOGLOBIN 8.2 g/dL (12.0-16.0); LYMPHOCYTES # (AUTO) 2.5 (1.0-3.2); LYMPHOCYTES % 16.5 % (18.0-39.1); MEAN CORPUSCULAR HEMOGLOBIN 26.5 pg (28-32); MEAN CORPUSCULAR HGB CONC 28.8 g/dL (31-35); MEAN CORPUSCULAR VOLUME 92.2 fL (81-99); MONOCYTES # (AUTO) 0.8 (0.2-0.8); MONOCYTES % 5.2 % (4.4-11.3); NEUTROPHILS # (AUTO) 10.9 (2.1-6.9); NEUTROPHILS % 72.1 % (38.7-80.0); PLATELET COUNT 417 x10e3/uL (140-360); RED BLOOD COUNT 3.09 x10e6/uL (3.6-5.1); RED CELL DISTRIBUTION WIDTH 16.3 % (11.7-14.4)
[2020-02-13 06:10] LABS: ALANINE AMINOTRANSFERASE 8 IU/L (0-55); ALBUMIN 2.6 g/dL (3.5-5.0); ALBUMIN/GLOBULIN RATIO 0.5 (0.8-2.0); ALKALINE PHOSPHATASE 99 IU/L (40-150); ANION GAP 11.7 mmol/L (8-16); BLOOD UREA NITROGEN 18 mg/dL (7-26); BUN/CREATININE RATIO 42 (6-25); CALCIUM 8.9 mg/dL (8.4-10.2); CARBON DIOXIDE 37 mmol/L (22-29); CHLORIDE 97 mmol/L (98-107); CREATININE, SERUM 0.43 mg/dL (0.57-1.11); EST GLOMERULAR FILTRATION RATE > 60 ML/MIN (60-); GLUCOSE 103 mg/dL (74-118); POTASSIUM 3.7 mmol/L (3.5-5.1); SODIUM 142 mmol/L (136-145)
[2020-02-13] MEDS: MEROPENEM 500MG/ NS 50ML 50 ML IV SCH ×3 (06:47→22:00)
--- NOTE | 2020-02-13 07:46 | Diagnostic Imaging Report ---
EXAMINATION: CHEST SINGLE (PORTABLE) INDICATION: Respiratory failure COMPARISON: Prior day chest x-ray FINDINGS: TUBES and LINES: Stable tracheostomy tube, right upper extremity PICC, and infradiaphragmatic enteric tube. LUNGS: Lungs are moderately inflated. Persistent diffuse bilateral reticular and alveolar airspace opacities. PLEURA: No pleural effusion or pneumothorax. HEART AND MEDIASTINUM: The cardiomediastinal silhouette is unremarkable.. BONES AND SOFT TISSUES: No acute osseous abnormality. UPPER ABDOMEN: No free air under the diaphragm. IMPRESSION: Unchanged diffuse bilateral interstitial and airspace opacities, compatible with multifocal pneumonia. Signed by: Sigifredo Christensen DO on 02/13/2020 7:42 AM
[2020-02-13 08:00] LABS: ABG HCO3 41 mmol/L (22-26); ABG PCO2 59 mmHg (35-45); ABG PH 7.45 (7.35-7.45); ABG PO2 73 mmHg (80-105); ABG TCO2 42
[2020-02-13] MEDS: LINEZOLID 600 MG/D5W 300ML 300 ML IV SCH ×2 (08:13→20:39)
[2020-02-13] MEDS: DOCUSATE SODIUM LIQD 100 MG/10 ML UDC NG SCH (08:13)
--- NOTE | 2020-02-13 09:24 | Progress Note ---
DATE: SUBJECTIVE: The patient remains in the supine position. She is off pressors. She remains on Versed at 4 mg and fentanyl at 100 mcg. She is receiving enteral feedings at 40 mL an hour. PHYSICAL EXAMINATION: VITAL SIGNS: The patient is afebrile, blood pressure is 126/62, saturation is 96%. Current ventilator settings are pressure control mode of ventilation at a rate of 28 with a PEEP of eight and pressure above PEEP of 22. FiO2 is set at 60%. HEENT: Shows no facial swelling or erythema. Tracheostomy in good position. CARDIAC: Reveals regular rate and rhythm with normal S1, S2. LUNGS: Auscultation of lungs reveals crackles and rhonchi bilaterally. There is no wheezing. ABDOMEN: Soft and nontender. There is no rebound or guarding. EXTREMITIES: Shows 1 to 2+ leg edema. LABORATORY DATA: White blood cell count is 15.2, hemoglobin is 8.2, and platelet count is 417. BUN to creatinine ratio is normal. Other electrolytes are within normal limits. The albumin is 2.6. RADIOGRAPHIC DATA: Shows bilateral infiltrates. IMPRESSION: 1. Acute respiratory failure. 2. Viral pneumonia and COVID-19 infection, present on admission. 3. Moderate protein-calorie malnutrition. 4. Anemia secondary to chronic blood loss. 5. Diabetes that required all medication as an outpatient. 6. Hypothyroidism, treated chronically with Synthroid. 7. Myopathy of critical illness. PLAN: 1. Continue current ventilator settings and repeat ABG later today. 2. Continue current antibiotics. 3. Continue enteral feedings. 4. Continue to monitor and control blood sugars. 5. Continue to decrease sedation as tolerated. 6. Discussed disposition with Case Management, Dr. Doherty and family. 7. Case discussed with son. 8. Case discussed with . Greater than 35 minutes in direct critical care time. Efren Blakely MD [facility]/MODL /[id number]
[2020-02-13] MEDS: MIDAZOLAM HCL 5MG/ML 10ML VIAL 100 ML IV PRN ×2 (09:45→18:54)
[2020-02-13] MEDS: ACETAZOLAMIDE SODIUM 500 MG/VIAL IV SCH ×2 (09:59→20:39)
[2020-02-13] MEDS: ALBUMIN 25% 25GM 100ML 100 ML IV SCH ×2 (09:59→18:09)
[2020-02-13] MEDS ORDERED: ALBUMIN 25% 25GM 100ML 0.25 GM/ML BTL IV SCH (10:00)
--- NOTE | 2020-02-13 12:40 | NUR ---
CM called pt's Tacos Fairchild at [phone] to follow up on LTAC. He states his sister looked up the two facilities in [place] [facility] and that he wants CM to send referral to [facility]. Asked to have [facility] rep call him for any questions he may have. CM will update him on status of referral once available. Choice letter placed in front of chart. Referral sent to [facility]. Key Chin was notified of referral and CM asked that she call pt's .
[2020-02-13] MEDS: FENTANYL 2000MCG/NS 250 250 ML IV PRN (13:10)
[2020-02-13] MEDS: ENOXAPARIN SOD INJ 40 MG/0.4 ML SYR SC SCH (16:33)
--- NOTE | 2020-02-13 17:57 | Progress Note ---
DATE: SUBJECTIVE: Ms. Fairchild remains in intensive care unit. The patient is off pressor. Remains on high oxygen demand, on enteral feeding. OBJECTIVE: VITAL SIGNS: Afebrile, blood pressure 126/62, and O2 saturation 96%. She is on vent rate of 28, PEEP of 8, pressure is 22, FiO2 of 60. HEENT: Normocephalic. Not icteric. NECK: Supple. CHEST: Crackles bilateral. HEART: S1 and S2. ABDOMEN: Soft. Bowel sounds present. EXTREMITIES: No edema. IMPRESSION: Respiratory failure, viral pneumonia, COVID-19, protein-calorie malnutrition, anemia, diabetes mellitus, myopathy, recurrent aspiration pneumonia, and Serratia marcescens pneumonia. Currently on meropenem and Zyvox to finish 14 days. We will follow CBC and chem panel. MD ALESSANDRO Leos/MODL /[id number]
--- NOTE | 2020-02-13 20:00 | NUR ---
Report received from Qi Patient in bed with HOB elevated. PUPILS 2-3mm sluggish. Patient noted on Vent settings Trach Fio2 60%/PEEP 8/RR 28 and PC 20. Patient noted on FENTANYL at 100mcg and VERSED at 5mg running through RUE PICC Line. Rosie in L wrist with Dressing Dry and Intact. SÁNCHEZ noted draining clear yellow Urine by [place]. FLEXI seal Noted. Safety Mainatined. VSS Will continue to monitor.
[2020-02-13] MEDS: INSULIN GLARGINE 100 UNITS/ML VIAL SQ SCH (21:00)
[2020-02-14] VITALS (18 sets, daily range): BP systolic 102–152; BP diastolic 48–86
--- NOTE | 2020-02-14 04:01 | Progress Note ---
DATE: CONSULTING PHYSICIANS: Include, 1. Dr. Manan Meehan with Infectious Disease. 2. Dr. Kenton Riley of Surgery. 3. Dr. Efren Blakely with Pulmonology/Critical Care Medicine. 4. Dr. Tanmay Costa with Gastroenterology. SUBJECTIVE: The patient opening her eyes slowly from [id number]. She remains sedated on the ventilator. No vasopressors. OBJECTIVE: VITAL SIGNS: Temperature 98.4, pulse 98, blood pressure 118/58, respirations 36, oxygen saturation 98%. Intake and output 2010 mL in and 1550 mL out. GENERAL: Supine. Lungs rhonchi bilaterally. Tracheostomy in place with pressure control 20 above PEEP, respiratory rate 28, FiO2 of 60%, PEEP of 8, peak pressure 31, minute ventilation 15.1, oxygen saturation 93% at time of encounter. HEENT: Right nare NG tube with vital AF at 40 mL an hour. NECK: Supple. CARDIOVASCULAR: Left radial arterial line, right upper extremity PICC line. Regular rate and rhythm. ABDOMEN: Soft. Cantu catheter with yellow urine. Rectal tube. EXTREMITIES: Without pitting edema. No clubbing, cyanosis. She has heel protectors and SCDs in place. INTEGUMENTARY: Right facial cheek pressure wound; the one on the left is improving. NEUROLOGICAL: Sedated on Versed 5 mg an hour IV and fentanyl 100 mcg/hour IV. LABORATORY DATA: WBC 15.19, hemoglobin 8.2, hematocrit 28.5, platelets 417, neutrophils 72.1%. ABG; pH 7.45, pCO2 59, PO2 73, HC03 41, oxygen saturation 94%, base excess 17, FiO2 of 65%. Sodium 142, potassium 3.7, chloride 97, CO2 37, anion gap 11.7, BUN 18 and creatinine 0.43, estimated GFR greater than 60, glucose 103, calcium 8.9, total bilirubin 0.4, AST 27, ALT 8, alkaline phosphatase 99, total protein 7.6, albumin 2.6. On 02/09, sputum Gram stain culture and sensitivity showed Serratia marcescens. IMAGING: Chest x-ray today showed unchanged diffuse bilateral interstitial and airspace opacities compatible with multifocal pneumonia. ASSESSMENT/PLAN: 1. COVID-19 pneumonia with septic shock. The patient is off Levophed drip. Continue IV Merrem, Lovenox, vitamin C, zinc sulfate as well as Zyvox. 2. Acute respiratory failure. Wean ventilator settings as per Pulmonology/Critical Care Medicine recommendations. 3. Type 2 diabetes mellitus. Continue sliding scale insulin. Monitor fingerstick blood glucose levels q.6 hours. 4. Anemia of chronic disease. Hemoglobin 8.2. Monitor. 5. Prophylaxis. Lovenox. Inpatient, ICU bed 194, billing code [id number], time spent 35 minutes. Dictated by Sim Root NP MD [facility] Guzman/MODL /[id number]
--- NOTE | 2020-02-14 04:20 | Progress Note ---
DATE: 02/09/2020 SUBJECTIVE: Prone, in no acute distress. Low-dose Levophed has been weaned off. OBJECTIVE: VITAL SIGNS: Temperature 99.8, pulse 101, blood pressure 147/67, respirations 36, and oxygen saturation 95%. GENERAL: Prone. LUNGS: Tracheostomy in place. Pressure control setting, rate 34 breaths per minute, pressure control over PEEP of 28, FiO2 of 70%, PEEP of 8. HEENT: Dry mucous membranes. NECK: Supple. CARDIOVASCULAR: Regular rate and rhythm. No murmur. Levophed has been weaned off. ABDOMEN: NG tube with tube feeds at 25 mL an hour. Soft. EXTREMITIES: No pitting edema. SCDs and heel protectors in place. NEUROLOGIC: On Nimbex. Fentanyl is at 150 mcg/hour, versed at 5 mg an hour. LABORATORY DATA: WBC 16.89, hemoglobin 9, hematocrit 30.4, and platelets 541. ABG this morning; pH 7.56, pCO2 of 52, pO2 of 76, HC03 of 47, oxygen saturation 96%, base excess 25, and FiO2 of 75%. Sodium 141, potassium 3.1, chloride 89, CO2 of 42, BUN 16, creatinine 0.46, estimated GFR greater than 60, glucose 183, calcium 8.3, total bilirubin 0.7, AST 27, ALT 6, alkaline phosphatase 97, total protein 8, and albumin 2.9. Fingerstick blood glucose level 205. Blood culture collected today, results are pending. IMAGING: No new chest x-ray results today. ASSESSMENT AND PLAN: 1. COVID-19 pneumonia with septic shock. Continue Lovenox, vitamin C, vitamin D, and zinc sulfate. Levophed has been weaned off. Continue Merrem and Zyvox as per Infectious Disease recommendations. Vancomycin 1 g was given once IV once. 2. Acute respiratory failure status post tracheostomy placement. Wean ventilator settings as per Pulmonology/Critical Care Medicine recommendations continue sedation. The patient is now on a Nimbex drip. 3. Uncontrolled type 2 diabetes mellitus. Serum glucose 183. Monitor fingerstick blood glucose levels every 6 hours. Continue Lantus and regular insulin sliding scale. 4. Anemia of chronic disease. Hemoglobin is 9.0, hematocrit 30.4, and monitor. 5. Moderate protein-calorie malnutrition. Maintain nutritional support with enteral feeds. Tube feedings continue at 25 mL an hour, which is a decreased from 40 mL/h as the patient is now prone. 6. Prophylaxis. Lovenox and Pepcid. 7. Inpatient status, ICU #194, billing code [id number]. Time spent 35 minutes. Dictated by Sim Root, SHANE Kvng Doherty MD [facility]/MODL /[id number]
[2020-02-14 04:53] LABS: BASOPHILS # (AUTO) 0.1 (0.0-0.1); BASOPHILS % 0.3 % (0.0-1.0); EOSINOPHILS # (AUTO) 0.6 (0.0-0.4); EOSINOPHILS % 3.8 % (0.0-6.0); HEMATOCRIT 28.4 % (34.2-44.1); HEMOGLOBIN 8.3 g/dL (12.0-16.0); LYMPHOCYTES # (AUTO) 2.6 (1.0-3.2); LYMPHOCYTES % 18.1 % (18.0-39.1); MEAN CORPUSCULAR HEMOGLOBIN 27.6 pg (28-32); MEAN CORPUSCULAR HGB CONC 29.2 g/dL (31-35); MEAN CORPUSCULAR VOLUME 94.4 fL (81-99); MONOCYTES # (AUTO) 0.7 (0.2-0.8); MONOCYTES % 4.9 % (4.4-11.3); NEUTROPHILS # (AUTO) 10.2 (2.1-6.9); NEUTROPHILS % 69.9 % (38.7-80.0); PLATELET COUNT 368 x10e3/uL (140-360); RED BLOOD COUNT 3.01 x10e6/uL (3.6-5.1); RED CELL DISTRIBUTION WIDTH 16.6 % (11.7-14.4)
[2020-02-14 05:13] LABS: ALANINE AMINOTRANSFERASE 8 IU/L (0-55); ALBUMIN 3.2 g/dL (3.5-5.0); ALBUMIN/GLOBULIN RATIO 0.7 (0.8-2.0); ALKALINE PHOSPHATASE 83 IU/L (40-150); ANION GAP 12.7 mmol/L (8-16); BLOOD UREA NITROGEN 16 mg/dL (7-26); BUN/CREATININE RATIO 30 (6-25); CALCIUM 9.2 mg/dL (8.4-10.2); CARBON DIOXIDE 31 mmol/L (22-29); CHLORIDE 102 mmol/L (98-107); CREATININE, SERUM 0.53 mg/dL (0.57-1.11); EST GLOMERULAR FILTRATION RATE > 60 ML/MIN (60-); GLUCOSE 161 mg/dL (74-118); POTASSIUM 3.7 mmol/L (3.5-5.1); SODIUM 142 mmol/L (136-145)
[2020-02-14] MEDS: MEROPENEM 500MG/ NS 50ML 50 ML IV SCH ×2 (05:28→16:49)
[2020-02-14] MEDS: INSULIN LISPRO 100 UNIT/1 ML 3ML VIAL SQ SCH ×3 (05:29→18:00)
[2020-02-14] MEDS: FENTANYL 2000MCG/NS 250 250 ML IV PRN (06:36)
[2020-02-14] MEDS: MIDAZOLAM HCL 5MG/ML 10ML VIAL 100 ML IV PRN (06:37)
--- NOTE | 2020-02-14 08:55 | Progress Note ---
DATE: Pulmonary Critical Care Progress Note SUBJECTIVE: The patient remains on pressure control, mode of ventilation. She is on a rate of 28 with a PEEP of 8 and pressure support above PEEP of 20. FiO2 is set at 60%, but she is breathing over the vent. She remains on fentanyl at 150 mcg and Versed at 5 mg. PHYSICAL EXAMINATION: VITAL SIGNS: Blood pressure is 137/66, saturation is 100%, and temperature is 99.7. HEENT: Shows no facial swelling or erythema. LYMPHATIC: Shows no submandibular, cervical, or supraclavicular adenopathy. There is an oral endotracheal tube. CARDIAC: Reveals a regular rate and rhythm with normal S1, S2. LUNGS: Auscultation of lungs reveals crackles at the bases. There is no wheezing. ABDOMEN: Soft and nontender. There is no rebound or guarding. EXTREMITIES: Shows no leg edema or calf tenderness. There is no cyanosis or clubbing. SKIN: Shows no rashes. LABORATORY DATA: White blood cell count is 14.5, the hemoglobin is 8.3, and the platelet count is 369. The NAC-qb-[id number] ratio is 16 to 0.53 and the other electrolytes within normal limits. Albumin is 3.2. IMPRESSION: 1. Acute respiratory failure. 2. Viral pneumonia and COVID-19 infection. 3. Diabetes mellitus. 4. Anemia secondary to chronic blood loss. 5. Moderate protein-calorie malnutrition. 6. Hypothyroidism. PLAN: 1. The patient is scheduled for possible exam. 2. Continue current ventilator settings. 3. Lasix 40 mg IV today. 4. Continue enteral feedings. 5. Continue to monitor. Control blood sugars. 6. Continue to wean sedation as tolerated. 7. Possible evaluation by LTAC. Greater than 35 minutes in direct critical care time. Efren Blakely MD [facility]/MODL /[id number]
[2020-02-14] MEDS ORDERED: FUROSEMIDE INJ 10 MG/ML 4 ML VIAL IV ONE (09:00)
[2020-02-14] MEDS: DOCUSATE SODIUM LIQD 100 MG/10 ML UDC NG SCH (09:00)
--- NOTE | 2020-02-14 09:05 | Diagnostic Imaging Report ---
EXAMINATION: CHEST SINGLE (PORTABLE) INDICATION: Respiratory failure COMPARISON: Multiple prior chest radiograph most recently 02/13/2020 FINDINGS: LINES/TUBES:Support lines and tubes unchanged. LUNGS:The lungs are moderately inflated. Unchanged bilateral multifocal opacities. PLEURA:No pleural effusion or pneumothorax. MEDIASTINUM:The cardiomediastinal silhouette appears normal in size and shape. BONES/SOFT TISSUES:No acute osseous injury. ABDOMEN:No free air under the diaphragm. IMPRESSION: No significant interval change. Signed by: Parveen Baptiste MD on 02/14/2020 9:02 AM
[2020-02-14 10:04] LABS: ABG PCO2 51 mmHg (35-45); ABG PH 7.39 (7.35-7.45)
[2020-02-14 10:05] LABS: ABG HCO3 31 mmol/L (22-26); ABG PO2 77 mmHg (80-105); ABG TCO2 33
[2020-02-14] MEDS: LINEZOLID 600 MG/D5W 300ML 300 ML IV SCH (10:30)
[2020-02-14] MEDS: ACETAZOLAMIDE SODIUM 500 MG/VIAL IV SCH (10:30)
[2020-02-14] MEDS ORDERED: ACETAZOLAMIDE SODIUM 500 MG/VIAL ONE (10:32)
--- NOTE | 2020-02-14 12:07 | NUR ---
LONG-TERM ACUTE CARE DISCHARGE INFORMATION PATIENT HAS BEEN ACCEPTED TO: [address] [place] [address] ACCEPTING RADIO HOST: Delvin Sin, SUPERVISOR NURSE ACCEPTING MD: Dr. Fidel Sarkar ROOM: 156 NURSE CALL REPORT TO: [phone] THE FOLLOWING DOCUMENTS MUST ACCOMPANY PATIENT FOR TRANSFER: copy of chart, transfer MAR COPIED CHART: Jyoti, unit trust manager MOT INFO RECEIVED FROM: Key Chin PHYSICIANS ORDER/RECONCILED MED LIST: to be obtained by bedside RN [id number] DNR: n/a CM called pt's Tacos Fairchild and updated him on approval. MOT completed and given to OSEAS Patino. OSEAS Valera was also informed of acceptance.
--- NOTE | 2020-02-14 14:46 | NUR ---
INFECTIOUS DISEASE PROGRESS NOTE DR. KATTY REINOSO In ICU, critically ill 28 with a PEEP of 8 and pressure support above PEEP of 20. FiO2 is set at 60%, ROS: unable to obtain due to condition All 14 point ROS neg unless otherwise noted PHYSICAL EXAMINATION: VITAL SIGNS: reviewed HEENT: No facial swelling or erythema. LYMPHATIC: No submandibular, cervical, or supraclavicular adenopathy. CARDIAC: Regular rate and rhythm with normal S1, S2. LUNGS: Rhonchi, diminished ABDOMEN: Soft, nontender. There is no rebound or guarding. EXTREMITIES: No leg edema or calf tenderness. There is no cyanosis or clubbing. SKIN: No rashes. NEUROLOGICAL: The patient to be sedated. MICROBIOLOGICAL DATA: reviewed LABORATORY DATA: reviewed RADIOGRAPHIC DATA: Chest x-ray shows continued bilateral infiltrates. IMPRESSION: 1. Acute respiratory failure. 2. Viral pneumonia and COVID 19 infection. 3. Diabetes. 4. Anemia. 5. Sepsis, source unclear PLAN: Zyvox and Merrem leukocytosis monitor clinically s/p prone diuresis with lasix guarded prognosis case discussed with sister Barbara Atkinsonyer MSN, [employer], AGAP-BC Katty Reinoso M.D
--- NOTE | 2020-02-14 15:07 | NUR ---
Nutrition Intervention Note RD Recommendation(s) for Physician: -Continue Vital AF 1.2 with goal rate of 40 mL/hr (provides 1152 kcal, 72 g protein) -Water/fluid management per MD -If pt requires prone positioning, pt may be fed at goal rate placed in reverse Trendelenburg with HOB at 10 to 25 degrees. Plan of Care: RD following, monitoring for tolerance and adequacy, tube feed recommendation Nutrition reason for involvement: follow up RD Assessment 02/13: Follow up. Pt remains intubated, sedated with Versed. No pressor support. Pt continues to tolerate TF at 40 ml/hr. No GI distress reported. Pt discussed during MDR. Chart reviewed. Pt pending transfer to LTAC. 02/09: Follow up. Pt remains intubated. Pt is currently in the supine position and tube feeding is at 40 mL/hr at this time. Tube feeding was at 25 mL/hr yesterday and 02/07 per documentation. Current recommendations remain appropriate. Will continue to monitor. 02/05: Follow up. Pt remains intubated via trach. Pt currently supine with plan to place back in prone per MD notes. Pt currently sedated, paralyzed, and on one low dose pressor. NGT in place, pt on TF at 20 ml/hr per TV admin yesterday of 480 ml. Chart reviewed. Current TF rec's remain appropriate. Will continue to monitor. 02/01: Follow up. Chart reviewed. Pt remains intubated. Pt is scheduled to receive a trach today; therefore, tube feeding is off at his time. Pt is also off pressor support per chart. Recommend resuming tube feeding when medically appropriate. Current recommendations remain appropriate. Will continue to monitor. 01/30: Follow up. Pt remains intubated, sedated, and paralyzed. Pt currently on Levophed, decreased to 4 mcg/min per RN. Pt tolerating TF at 25 ml/hr, having BMs, and no residuals- advised RN to advance TF to goal rate of 40 ml/hr per current order. Chart reviewed. Will continue to monitor. 01/26: Follow up. Chart reviewed. Pt remains intubated/sedated and is in the prone position. TF rate is at 25 mL/hr at this time. Recommend increasing TF to goal rate of 40 mL/hr. Pt may be fed at goal rate placed in reverse Trendelenburg with HOB at 10 to 25 degrees. Will continue to monitor. 01/22: Follow up. Pt remains intubated and sedated with Versed and Fentanyl, currently in prone position. Pt on low dose Levophed at 3 mcg/min while receiving HD. Pt tolerating TF at 45 ml/hr. Pt discussed during MDR, no recent BM per RN. Chart reviewed. Will continue to monitor. 01/17: Follow up. Pt remains mechanically ventilated and is in the prone position. Pt tube feed is at 30 mL/hr per RN. Recommend increasing towards goal as appropriate. Will continue to monitor. (01/14/20) Pt is a 54 year old female admitted with hypoxia and pneumonia due to COVID-19. Pt was intubated yesterday and tube feed order was placed. Pt was previously on an ADA diet with 25-50% meal intake recorded. Pt has a ht of 48 inches currently in chart, but per history in chart a height of 59 inches was previously recorded. Recommendations provided. RD to manage tube feed order per Dr. Blakely. Will continue to monitor. Principal Problems/Diagnoses: hypoxia, pneumonia due to COVID-19 PMH: Kidney infections as a child, diabetes mellitus, diabetic neuropathy, hypothyroidism, overactive bladder, and morbid obesity. GI: soft abdomen, last recorded BM 02/12 x 2 Skin: bilateral dorsal feet abrasion, right inner thigh abrasion per wound care note 02/06 Labs: 02/13: Na 142, K 3.7, BUN 16, Cr 0.53, Gluc 161, Ca 9.2 02/09: Na 140, K 2.8, BUN 18, Cr 0.41, Glu 97, Ca 9.4, Phos 5.2 02/05: Na 136, K 3.6, BUN 14, Cr 0.49, Gluc 183, Ca 9.4 02/01: Na 144, K 4.9, BUN 17, Cr 0.49, Glu 139, AST 8 01/30: Na 141, K 3.5, BUN 17, Cr 0.56, Gluc 171, Ca 8.7 01/26: Na 144, K 4.5, BUN 23, Cr 0.55, Glu 149, Ca 9.3 01/22: Na 136, K 3.9, BUN 16, Cr 0.64, Gluc 198, POC Gluc 230-265 01/17: Na 144, K 3.0, BUN 22, Cr 0.59, Glu 269, Ca 7.5, AST 48 (01/13) Na 137, K 3.9, BUN 18, Cr 0.79, Glu 233, Ca 8.0, AST 42 Meds: lispro, abx, lantus, KCl, colace Ht: 59 inches (per chart history) Wt: 224 lbs (02/13) 217.06 lbs (02/09) 205 lbs (02/05) 220.25 lbs (02/01) 204.19 lbs (01/30), 228.06 lbs (01/25) 216.3 lbs (01/22) 218 lbs (01/17) 226 lbs (01/10) - Questionable weight changes, Suspect weight difference is weight error or fluid related BMI: 44 kg/m2 using weight of 218 lbs IBW: 98 lbs Malnutrition Evaluation (02/10/20) The patient does not meet criteria for a specified degree of malnutrition at this time. Will re-evaluate at follow-up as appropriate. Energy intake: TF is currently at goal rate Weight loss: unable to evaluate, weight fluctuations during admission Fat loss: no loss per observation outside room Muscle loss: no loss per observation outside room Supporting Evidence: Fluid accumulation: no edema per MD note Functional Status: unable to evaluate Nutrition Prescription (Diet Order): Vital AF 1.2 @ 40 mL/hr (provides 1152 kcal, 72 g protein) Estimated Nutritional Needs: 980-1115 calories/day (22-25 kcal/kg IBW) 67-89 g protein/day (1.5-2 g pro/kg IBW) Diet Adequacy: current tube feed rate is meeting calorie and protein needs Tolerance: tolerating TF Diet Education Needs Assessment: Diet education not indicated, patient is intubated Nutrition Care Level: moderate- tolerating TF at goal Nutrition Diagnosis: Inadequate oral intake related to acute respiratory failure/mechanical ventilation as evidenced by pt requiring enteral nutrition Goal: Patient will meet 75-100% of estimated needs by follow up Progress: progressing Interventions: - Composition, Rate, Route Monitoring/Evaluation: -Total energy intake, Total protein intake, Formula/Solution, Weight change Signed: Anuradha Daniel RD, LD, CNSC
[2020-02-14] MEDS ORDERED: FENTANYL 2000MCG/NS 250 250 ML IV PRN (16:00)
[2020-02-14] MEDS ORDERED: MIDAZOLAM HCL 5MG/ML 10ML VIAL 100 ML IV PRN (16:00)
[2020-02-14] MEDS: ENOXAPARIN SOD INJ 40 MG/0.4 ML SYR SC SCH (17:10)
--- NOTE | 2020-02-16 07:35 | Discharge Summary ---
ADMISSION DIAGNOSES: 1. COVID-19 pneumonia with acute respiratory distress, present on admission. 2. Bilateral pleural effusion. 3. Uncontrolled type 2 diabetes with hyperglycemia. 4. Generalized weakness with ambulatory dysfunction. 5. Morbid obesity with a BMI of 48.6. 6. Hypothyroidism. DISCHARGE DIAGNOSES: 1. COVID-19 pneumonia with acute respiratory distress, present on admission. 2. Bilateral pleural effusion. 3. Uncontrolled type 2 diabetes with hyperglycemia. 4. Generalized weakness with ambulatory dysfunction. 5. Morbid obesity with a BMI of 48.6. 6. Hypothyroidism. 7. Candiduria present on admission. 8. Septic shock due to COVID-19 pneumonia. MEDICAL HISTORY: Type 2 diabetes, diabetic neuropathy, hypothyroidism, and overactive bladder. SURGICAL HISTORY: Partial hysterectomy, ovarian cyst, tonsillectomy, and cholecystectomy. FAMILY HISTORY: The patient's mom had diabetes. The patient's brother had high blood pressure. SOCIAL HISTORY: Noncontributory. HOSPITAL COURSE: A 54-year-old female, admits with complaints of severe shortness of breath and fever for the past 4 days along with nausea, vomiting, and generalized weakness. Her pulse ox in the ER was low, so she was placed on AIRVO. Chest x-ray showed bilateral infiltrates consistent with viral pneumonia. COVID test came back positive. Both of her parents were also admitted on 01/05 and both had COVID. For a few days after admission, the patient was left between nasal cannula and BiPAP and sometimes AIRVO until eventually she had to be intubated on January 12. Echo showed an EF of 55% to 60%. She had to have a right PICC placed and needed Levophed. Right upper extremity Doppler was negative for DVT. Blood cultures were negative. Initial urine culture came back positive for Monalisa albicans. The patient was initially started on Zithromax Rocephin, remdesivir, Decadron and like mentioned previously, the patient needed Levophed drip. On January 13, the antibiotics were changed to vanco, merrem, and Diflucan after she had to be intubated on the . Following that, she needed fentanyl, Versed, and rocuronium drip. She had an NG tube placed and Cantu placed. The patient had 4 more blood cultures which were negative. Initial sputum culture was negative and then follow up sputum culture on 02/09 came back positive for Serratia. ID, Pulmonology were following. At the time of discharge to [facility], the patient was on fentanyl and Versed only. Whenever taken off these drip, the patient becomes tachypneic. At time of discharge, her vent is on pressure control, FiO2 of 60%, PEEP of 8, respiratory rate of 28, and support of 20. She was pending PEG placement, which will be done at LTAC. She is off antibiotics at the time of transfer. The patient's family understands instructions and agrees to plan. She will be discharging to [facility]. Dictated by So Floyd NP MD [facility]/MODL /[id number]
== END 2020-02-14 18:37 | DRG 4 ==
LOC: ER 05:57 → ERHOLD 07:24 → COVIDICU 09:43 → ICU 01-12 02:53
PROVIDERS: ADMIT Internal Medicine; ATTEND Internal Medicine
PROC: 02HV33Z Insertion of Infusion Device into Superior Vena Cava, Percutaneous Approach (ICD-10-PCS; 2020-01-09)
PROC: 0BH17EZ Insertion of Endotracheal Airway into Trachea, Via Natural or Artificial Opening (ICD-10-PCS; principal; 2020-01-13)
PROC: 5A1955Z Respiratory Ventilation, Greater than 96 Consecutive Hours (ICD-10-PCS; 2020-01-13)
PROC: 02HV33Z Insertion of Infusion Device into Superior Vena Cava, Percutaneous Approach (ICD-10-PCS; 2020-01-13)
PROC: 03HY32Z Insertion of Monitoring Device into Upper Artery, Percutaneous Approach (ICD-10-PCS; 2020-01-14)
PROC: 0B113F4 Bypass Trachea to Cutaneous with Tracheostomy Device, Percutaneous Approach (ICD-10-PCS; 2020-02-02)
DX: U07.1 COVID-19 (principal); J12.9 Viral pneumonia, unspecified; A41.9 Sepsis, unspecified organism; J69.0 Pneumonitis due to inhalation of food and vomit; R65.21 Severe sepsis with septic shock; J96.01 Acute respiratory failure with hypoxia; Z68.42 Body mass index [BMI] 45.0-49.9, adult; J90 Pleural effusion, not elsewhere classified; B37.49 Other urogenital candidiasis; Z68.44 Body mass index [BMI] 60.0-69.9, adult; E44.0 Moderate protein-calorie malnutrition; G72.81 Critical illness myopathy; E87.3 Alkalosis; E11.65 Type 2 diabetes mellitus with hyperglycemia; E66.01 Morbid (severe) obesity due to excess calories; Z74.09 Other reduced mobility; E88.09 Other disorders of plasma-protein metabolism, not elsewhere classified; N32.81 Overactive bladder; E83.51 Hypocalcemia; R94.5 Abnormal results of liver function studies; D63.8 Anemia in other chronic diseases classified elsewhere; E87.6 Hypokalemia; G47.33 Obstructive sleep apnea (adult) (pediatric); D50.0 Iron deficiency anemia secondary to blood loss (chronic); L89.322 Pressure ulcer of left buttock, stage 2; L89.312 Pressure ulcer of right buttock, stage 2; L89.152 Pressure ulcer of sacral region, stage 2
CPT/HCPCS: 36415; 36569; 36600; 71045; 76770; 80048; 80053; 80061; 80202; 81001; 82550; 82553; 82805; 82948; 83036; 83605; 83735; 83880; 84100; 84443; 84484; 85007; 85025; 85027; 85610; 85730; 87040; 87070; 87086; 87186; 87205; 93005; 93306; 93971; 94002; 94003; 94660; 96372; 97139; 99251; 99284; J0330; J0456; J0690; J0696; J1100; J1450; J1650; J1815; J1817; J1940; J2001; J2020; J2250; J3370; J3480; J7030; J7040; J7050; J7121; P9047